=== PATIENT | female | born 1990 | race Caucasian/White ===

== ENCOUNTER 2016-11-07 09:35 | Inpatient (IN) | payer SELFPAY ==
[~2016-11-07] VITALS: Ht 167.6 cm; Wt 58.7 kg
[~2016-11-07 09:35] MED LIST: AUGM875T PO; BACT800T5 PO
[2016-11-07 09:36] VITALS: BP 124/60; PULSE 90; RESP 14; TEMP 89.4; TEMP 98.4; O2SAT 99
--- NOTE | 2016-11-07 09:59 | PD ---
HPI Chief Complaint: Skin Problem Time Seen by Provider: 09:58 Travel History International Travel<30 days: No Contact w/Intl Traveler<30days: No Traveled to known affect area: No History of Present Illness HPI 26-year-old female was transferred from [facility] for facial cellulitis and possible abscess since they did not have oral maxillofacial surgeon. They spoke with Dr. Paez who accepted the case. Dr. Paez is here and he plans to take this patient to the OR. Patient is sleeping and looks to be in discomfort. Her uncle is here who is giving the history. Patient does not have a primary care. She received a dose of vancomycin at the other hospital. I looked at the blood test results and white count was 9000. Chemistry was within normal limits. Patient has history of MRSA. [facility] Past Medical History Narrative Medical List of her past medical history is reviewed from the nursing note. Medical History: Denies Significant Hx ?: Not Past Surgical History Tonsillectomy: Yes Social History Alcohol Use: No Tobacco Use: Yes (1/2PPD) Substance Use: Yes (IV DILAUDID) Allergies-Medications (Allergen,Severity, Reaction): Coded Allergies: *MDRO Multi-Drug Resistant Organism (Verified Adverse Reaction, Unknown, ) MRSA (arm-06/19/16) Comments List of his allergies reviewed from the nursing note. Reported Meds & Prescriptions Reported Meds & Active Scripts Active No Active Prescriptions or Reported Medications Narrative Medication List of his home medications reviewed from the nursing note. Review of Systems Except as stated in HPI: all other systems reviewed are Neg Physical Exam Narrative GENERAL: Sleeping but wakes up on calling her name. Looks uncomfortable. SKIN: Warm and dry. Right side of the face is swollen, tender, swelling and tenderness mostly on the upper aspect of the face including periorbital edema. There is a pimple noticed that the inferior margin of the swelling. HEAD: Atraumatic. Normocephalic. EYES: Pupils equal and round. No scleral icterus. No injection or drainage. ENT: No nasal bleeding or discharge. Mucous membranes pink and moist. NECK: Trachea midline. No JVD. CARDIOVASCULAR: Regular rate and rhythm. No murmur appreciated. RESPIRATORY: No accessory muscle use. Clear to auscultation. Breath sounds equal bilaterally. GASTROINTESTINAL: Abdomen soft, non-tender, nondistended. Hepatic and splenic margins not palpable. MUSCULOSKELETAL: No obvious deformities. No clubbing. No cyanosis. No edema. NEUROLOGICAL: Awake and alert. No obvious cranial nerve deficits. Motor grossly within normal limits. Normal speech. PSYCHIATRIC: Appropriate mood and affect; insight and judgment normal. Data Data Last Documented VS Vital Signs Date Time Temp Pulse Resp B/P Pulse Ox O2 Delivery O2 Flow Rate FiO2 11/07/16 09:36 98.4 90 14 124/60 99 Orders Complete Blood Count With Diff (11/07/16 10:02) Lactic Acid (11/07/16 10:02) ^ Access Analyst / Telemetry (11/07/16 10:02) ^ Saline Lock (11/07/16 10:02) Sodium Chlor 0.9% 1000 Ml Inj (Ns 1000 M (11/07/16 10:15) NPO (11/07/16 10:02) Admit Order (Ed Use Only) (11/07/16 10:22) Labs Laboratory Tests Test 11/07/16 10:05 White Blood Count 9.4 TH/MM3 Red Blood Count 4.13 MIL/MM3 Hemoglobin 11.7 GM/DL Hematocrit 34.8 % Mean Corpuscular Volume 84.2 FL Mean Corpuscular Hemoglobin 28.3 PG Mean Corpuscular Hemoglobin 33.6 % Concent Red Cell Distribution Width 15.3 % Platelet Count 222 TH/MM3 Mean Platelet Volume 7.1 FL Neutrophils (%) (Auto) 71.1 % Lymphocytes (%) (Auto) 20.2 % Monocytes (%) (Auto) 6.3 % Eosinophils (%) (Auto) 1.9 % Basophils (%) (Auto) 0.5 % Neutrophils # (Auto) 6.7 TH/MM3 Lymphocytes # (Auto) 1.9 TH/MM3 Monocytes # (Auto) 0.6 TH/MM3 Eosinophils # (Auto) 0.2 TH/MM3 Basophils # (Auto) 0.0 TH/MM3 CBC Comment DIFF FINAL Differential Comment Lactic Acid Level 0.6 mmol/L MDM Medical Decision Making Medical Screen Exam Complete: Yes Emergency Medical Condition: Yes Medical Record Reviewed: Yes Differential Diagnosis Cellulitis, facial abscess Narrative Course 10:11 AM patient will require to be admitted for IV antibiotic Dr. Paez does not intend to take this patient to the OR. CAT scan does not show any pus collection. Awaiting for the residents to call back for admission. Procedures EKG Prior to Arrival: No Diagnosis Primary Impression: Facial cellulitis Admitting Information Admitting Physician Requests: Admit Scripts No Active Prescriptions or Reported Meds Mya Veloz MD Nov 07, 2016 09:58
[2016-11-07] MEDS ORDERED: SODIUM CHLOR 0.9% 1000 ML INJ 1,000 ML IV ONE (10:15)
[2016-11-07 10:27] LABS: AUTOMATED NEUTROPHIL # 6.7 TH/MM3 (1.8-7.7); BASOPHIL % 0.5 % (0.0-2.0); EOSINOPHIL # 0.2 TH/MM3 (0-0.4); EOSINOPHIL % 1.9 % (0.0-4.0); HEMATOCRIT 34.8 % (35.0-46.0); HEMO FLAGS DIFF FINAL; LYMPH % 20.2 % (9.0-44.0); LYMPHOCYTE # 1.9 TH/MM3 (1.0-4.8); MEAN CELL VOLUME 84.2 FL (80.0-100.0); MEAN CORPUSCULAR HEMOGLOBIN 28.3 PG (27.0-34.0); MEAN CORPUSCULAR HGB CONC 33.6 % (32.0-36.0); MONO % 6.3 % (0.0-8.0); NEUT % 71.1 % (16.0-70.0); PLATELET COUNT 222 TH/MM3 (150-450); RED BLOOD COUNT 4.13 MIL/MM3 (4.00-5.30); RED CELL DISTRIBUTION WIDTH 15.3 % (11.6-17.2); WHITE BLOOD COUNT 9.4 TH/MM3 (4.0-11.0)
--- NOTE | 2016-11-07 10:29 | HHI.HP ---
HPI Service Family Medicine Team A Dr. Hernandez attending Dr. Juares PGY2 Dr. Jessica PGY1 Dr. Lomas PGY3 Primary Care Physician Unknown Admission Diagnosis Diagnoses: International Travel<30 Days: No Contact w/Intl Traveler<30days: No Known Affected Area: No History of Present Illness This is a 26 yo female with a medical history of MDRM presents as a transfer from [facility] for face cellulitis. The patient popped a pimple on her right check about two days ago. Father reports immediately that she started developing facial infection to include redness and swelling. Dad said last night she was running a low grade fever and was in a lot of pain so he brought her to the ED. Father states a couple weeks ago she had a pimple on her left check, she popped that and developed a skin infection. He said she was admitted to [facility] in [facility] for 3 days of IV abx, did not require surgery, and then was on PO abx that father states coasted >$200, he doesn't remember the name of them. Unclear if patient has had MDRM or MRSA. History primarily obtained from father as patient just received morphine and is sleeping. CT face performed at [facility] does not show a pus pocket. Review of Systems ROS Limitations: Clinical Condition Constitutional: COMPLAINS OF: Fever, Chills Eyes: COMPLAINS OF: Diplopia Ears, nose, mouth, throat: COMPLAINS OF: Toothache, DENIES: Throat pain Respiratory: DENIES: Shortness of breath Cardiovascular: DENIES: Chest pain Gastrointestinal: DENIES: Abdominal pain, Nausea, Vomiting Integumentary: DENIES: Rash Other Right facial pain and swelling Past Family Social History Past Medical History none Past Surgical History none Reported Medications none Allergies: Coded Allergies: *MDRO Multi-Drug Resistant Organism (Verified Adverse Reaction, Unknown, ) MRSA (arm-06/19/16) Family History mother and father with no significant medical illnesses Social History 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 There is a 1 cm pimple mid cheek with surrounding erythema. There does not appear to be any drainage from the area. The area is warm and tender. No palpable abscess. She has moderate inflammatory acne on both checks. There are also multiple pustules on her arms with signs of irritation, possible from picking. HEAD: Atraumatic. Normocephalic. No temporal or scalp tenderness. EYES: RT eyelid is swollen able to open spontaneously a small amount, reports no change in her vision. ENT: Nose without bleeding, purulent drainage or septal hematoma. Throat without erythema, tonsillar hypertrophy or exudate. Uvula midline. Airway patent. NECK: Trachea midline. No JVD or lymphadenopathy. Supple, nontender, no meningeal signs. CARDIOVASCULAR: Regular rate and rhythm without murmurs, gallops, or rubs. RESPIRATORY: Clear to auscultation. Breath sounds equal bilaterally. No wheezes , rales, or rhonchi. GASTROINTESTINAL: Abdomen soft, non-tender, nondistended. MUSCULOSKELETAL: Extremities without clubbing, cyanosis, or edema. No joint tenderness, effusion, or edema noted. No calf tenderness. NEUROLOGICAL: Awake and alert. Motor and sensory grossly within normal limits. Normal speech. Assessment and Plan Assessment and Plan 26 yo female with a history of MDRD/MRSA presents with right face cellulitis. Code Status Full Discussed Condition With Dr. Juares ED physician wdw Dr. Hernandez Problem List: (1) Facial cellulitis Status: Acute Plan: CT face negative for abscess. Has been evaluated by maxillary surgery, no surgical intervention at this time. No signs of sepsis: no leukocytosis, no tachycardia, she is not febrile. - IV Vacn & Zosyn (11/07- - Blood cultures ordered. - Warm compress per Dr. Paez - Motrin 600 mg q8 hrs lokesh for pain and swelling - Morphine 3 mg IV q3 hrs prn pain - UDS pending (signs of picking of skin) - Will see how she responds to IV abx, may consider ID consult if no improvement - The patient has moderate inflammatory acne, she would benefit from keratinolytic agent, +/ BP/topical Abx Breana Lomas MD R3 Nov 07, 2016 10:29
[2016-11-07] MEDS ORDERED: NALOXONE HCL 0.4 MG/ML AMP IV PRN (11:15)
[2016-11-07] MEDS ORDERED: SODIUM CHLORIDE 0.9% FLUSH 5 ML FLUSH FLUSH PRN (11:15)
[2016-11-07] MEDS ORDERED: ONDANSETRON HCL 4 MG/2 ML VIAL IVP PRN (11:15)
[2016-11-07] MEDS ORDERED: ACETAMINOPHEN 325 MG TAB PO PRN (11:15)
[2016-11-07] MEDS ORDERED: Vancomycin Consult Pharmacy 1 EA OTHER SCH (11:45)
[2016-11-07] MEDS: SODIUM CHLOR 0.9% 1000 ML INJ 1,000 ML IV SCH ×2 (11:58→21:00)
[2016-11-07] MEDS: DOCUSATE SODIUM 100 MG CAP PO SCH ×2 (12:00→23:06)
[2016-11-07] MEDS: IBUPROFEN 600 MG TAB PO SCH ×3 (12:57→23:06)
[2016-11-07 13:02] VITALS: BP 110/61; PULSE 79; RESP 18; TEMP 98.3; O2SAT 97
[2016-11-07 13:27] LABS: AMPHETAMINE, URINE POS (NEG); BARBITURATES, URINE NEG (NEG); COCAINE, URINE NEG (NEG)
--- NOTE | 2016-11-07 13:44 | MB ---
cc: MITALI PAEZ DMD DATE OF CONSULTATION: 11/07/2016 REASON FOR CONSULTATION: Right-sided facial cellulitis HISTORY: This is 26-year-old female with past history of MRSA that has been transferred over here from [facility] this morning. I have spoken to the physician over there, Dr. Chandra who told me that the CT scan reports facial cellulitis and then multiple broken decayed teeth. The patient, at that point I informed him to admit the patient IV antibiotics, steroids have the patient follow up in my office. The hospital system and ed physician refused to do, so I accepted to transfer the patient's in her best interest and benefits. I have seen and examined this patient this morning. Her uncle was at bedside. She is alert, awake and oriented x3 in no acute distress. Denies any fever, chills, nausea, vomiting, shortness of breath and difficulty breathing, any difficulty swallowing. She reports that she popped a pimple on the right side of her face. Lower face about two days and then she developed swelling. Denies any vision problems.. PHYSICAL EXAMINATION: VITAL SIGNS: Temperature 89.4, but was unlikely,based on the report from [facility] I believe its an error and should be 98.4. The temperature at [facility] was 98.4 as far as their report. Pulse is 90, respiration 14, blood pressure 110/60 with oxygen saturation of 99% room air. PAST MEDICAL HISTORY: Nothing except for methicillin-resistant Staphylococcus aureus. MEDICATIONS: Denied. ALLERGIES Denied. PAST SURGICAL HISTORY: Denied. PAST SURGICAL HISTORY: Past surgical history is denied. SOCIAL HISTORY Smokes about 5-10 cigarettes per day. Denies any alcohol or any illicit drug use. EXAMINATION HEAD, EYES, EARS, NOSE, AND THROAT: Pupils are equal round react to light and accommodation. Extraocular movements are intact. She has some right mild periorbital erythema that is noted. Eyes is open. She has swelling on the right side of the face and on the midportion towards the center of the right side of the face limited going inferiorly. There is a crusty area that is noted there. With erythema all around that site. That is the site. The patient says she popped a pimple. She has mild tender to palpation. Upon Palpate don't appreciate any drainable abscess collection at this point. There is no neck edema. The trachea midline. Intra orally, she has got multiple decayed broken teeth poor dentition. She does not complain about any tooth pain. There is no elevation floor of the mouth or the tongue. There is no deviation of the uvula. There is no edema in the vestibule region of her teeth, especially the right maxilla mandibular region. There is no discharge coming from right side of her face. CT scan of the facial bones on the right side from [facility] shows us an area of swelling on the right side of the face. The small area very small air fluid collection but appears to be where she popped a pimple. But clinically I am unable to palpate, or not drainable at this point. She has multiple decayed teeth. Transpedicular radiolucency. LABORATORY FINDINGS: White count is 9.4, H&H is 7.7, 34.8 with platelets of 222. Chemistries are pending. IMPRESSION AND PLAN This is a 26-year-old female with a past history of methicillin-resistant Staphylococcus aureus, now reports popping on her face with a pimple 2 days ago and then having this cellulitis, swelling on her right side of the face with tenderness secondary to popping the people. She denies any odontogenic cause or any tooth pain at this point. At this point there is no surgical intervention needed from OMS standpoint. We will follow-up. Will advise a medicine admit, IV antibiotics and infectious diseases consult. Mitali Paez DMD RRT/alan /10:45 AM /1:00 PM JOSE RAUL
[2016-11-07 14:25] VITALS: BP 107/61
[2016-11-07 16:00] VITALS: BP 112/53; PULSE 82; RESP 18; TEMP 96.1; O2SAT 98
[2016-11-07] MEDS: VANCOMYCIN INJ 1,000 MG in SODIUM CHLOR 0.9% 250 ML INJ 250 ML IV SCH (17:25)
[2016-11-07] MEDS: PIPERACIL-TAZO 3.375 GM PREMIX 50 ML IV SCH (19:57)
[2016-11-07] MEDS: SODIUM CHLORIDE 0.9% FLUSH 5 ML FLUSH FLUSH SCH (21:00)
[2016-11-07 21:53] VITALS: BP 103/60; PULSE 89; RESP 20; TEMP 97.2; O2SAT 100
[2016-11-07] MEDS: MORPHINE SULFATE 4 MG/ML INJ IV PUSH PRN (23:23)
[2016-11-08] MEDS: PIPERACIL-TAZO 3.375 GM PREMIX 50 ML IV SCH ×2 (01:47→10:21)
[2016-11-08 02:23] VITALS: BP 104/64; PULSE 93; RESP 20; TEMP 97.3; O2SAT 100
[2016-11-08 03:20] VITALS: BP 120/67; PULSE 90; RESP 18; TEMP 98.2; O2SAT 99
[2016-11-08] MEDS: MORPHINE SULFATE 4 MG/ML INJ IV PUSH PRN ×4 (03:58→17:12)
[2016-11-08] MEDS: VANCOMYCIN INJ 1,000 MG in SODIUM CHLOR 0.9% 250 ML INJ 250 ML IV SCH (04:00)
[2016-11-08] MEDS: IBUPROFEN 600 MG TAB PO SCH ×3 (06:35→18:00)
[2016-11-08] MEDS: SODIUM CHLOR 0.9% 1000 ML INJ 1,000 ML IV SCH ×2 (07:00→17:00)
[2016-11-08 07:46] LABS: AUTOMATED NEUTROPHIL # 7.5 TH/MM3 (1.8-7.7); BASOPHIL % 0.2 % (0.0-2.0); EOSINOPHIL % 0.2 % (0.0-4.0); HEMATOCRIT 34.8 % (35.0-46.0); HEMO FLAGS DIFF FINAL; LYMPH % 19.7 % (9.0-44.0); LYMPHOCYTE # 2.1 TH/MM3 (1.0-4.8); MEAN CELL VOLUME 84.6 FL (80.0-100.0); MEAN CORPUSCULAR HEMOGLOBIN 28.4 PG (27.0-34.0); MEAN CORPUSCULAR HGB CONC 33.6 % (32.0-36.0); MONO % 10.6 % (0.0-8.0); NEUT % 69.3 % (16.0-70.0); PLATELET COUNT 266 TH/MM3 (150-450); RED BLOOD COUNT 4.11 MIL/MM3 (4.00-5.30); RED CELL DISTRIBUTION WIDTH 15.7 % (11.6-17.2); WHITE BLOOD COUNT 10.8 TH/MM3 (4.0-11.0)
[2016-11-08 08:00] VITALS: BP 100/62; PULSE 88; RESP 19; TEMP 98.6; O2SAT 100
[2016-11-08] MEDS: SODIUM CHLORIDE 0.9% FLUSH 5 ML FLUSH FLUSH SCH ×2 (09:00→21:00)
--- NOTE | 2016-11-08 10:14 | HHI.PR ---
Subjective Remarks s/p popping pimple right face 3 days ago , right facial edema pt seen and examined, pt's nurse at bedside AAOx3, NAD reports feeling better, tolerating po well Objective Vital Signs Date Time Temp Pulse Resp B/P Pulse Ox O2 Delivery O2 Flow Rate FiO2 11/08/16 08:00 98.6 88 19 100/62 100 11/08/16 03:20 98.2 90 18 120/67 99 11/08/16 02:23 97.3 93 20 104/64 100 11/07/16 21:53 97.2 89 20 103/60 100 11/07/16 16:00 96.1 82 18 112/53 98 11/07/16 14:25 99 16 107/61 98 11/07/16 14:03 18 11/07/16 13:02 98.3 79 18 110/61 97 Room Air I/O 11/07/16 11/07/16 11/07/16 11/08/16 11/08/16 11/08/16 07:00 15:00 23:00 07:00 15:00 23:00 Intake Total 240 ml Balance 240 ml Intake Oral 240 ml # Voids 2 # Bowel Movements 1 Result Diagram: 11/08/16 0649 11/07/16 1340 Objective Remarks significant reduction in right facial/periorbital edema/erythema right eye opening much improved today PERRLA/EOMI no tenderness to palpation' no drainable collection palpated intraorally, no edema noted no neck edema Assessment and Plan Assessment and Plan s/p popping pimple right face 3 days ago hx of MRSA, afebrile, wbc 10.8 now on abx - swelling/tenderness/periorbital edema right side decreasing pt improving on abx, feeling better no intraoral edema continue abx ID consult pending Steven Paez DMD Nov 08, 2016 10:14
--- NOTE | 2016-11-08 10:50 | HHI.FPPN ---
Subjective Remarks No acute issues overnight. Vitals are stable, patient remains afebrile. She is feeling better today but still notes pain on the right side of her face. She has noted some drainage from the initial pimple location. She was able to sleep well. She denies any chest pain, shortness of breath, fever, chills, nausea or vomiting. She is tolerating PO. (Amanda Juares MD R2) Objective Vitals Vital Signs Date Time Temp Pulse Resp B/P Pulse Ox O2 Delivery O2 Flow Rate FiO2 11/08/16 08:00 98.6 88 19 100/62 100 11/08/16 03:20 98.2 90 18 120/67 99 11/08/16 02:23 97.3 93 20 104/64 100 11/07/16 21:53 97.2 89 20 103/60 100 11/07/16 16:00 96.1 82 18 112/53 98 11/07/16 14:25 99 16 107/61 98 11/07/16 14:03 18 11/07/16 13:02 98.3 79 18 110/61 97 Room Air I/O 11/07/16 11/07/16 11/07/16 11/08/16 11/08/16 11/08/16 07:00 15:00 23:00 07:00 15:00 23:00 Intake Total 240 ml Balance 240 ml Intake Oral 240 ml # Voids 2 # Bowel Movements 1 (Amanda Juares MD R2) Result Diagram: 11/08/16 0649 11/07/16 1340 Objective Remarks GENERAL: This is a well-nourished, well-developed patient, in no apparent distress, resting comfortably in bed. SKIN: right facial swelling from eyelid to chin, improved from yesterday's exam. There is a 1 cm pimple mid cheek with surrounding erythema and some oozing serous drainage. The area is warm and tender. No palpable abscess. She has moderate inflammatory acne on both checks. There are also multiple pustules on her arms with signs of irritation, possibly from picking. HEAD: Atraumatic. Normocephalic. No temporal or scalp tenderness. EYES: RT eyelid is swollen able to open spontaneously more than on prior exam, reports no change in her vision. No pain with extraocular movement. ENT: Nose without bleeding, purulent drainage or septal hematoma. Throat without erythema, tonsillar hypertrophy or exudate. Uvula midline. Airway patent. Poor dentition. NECK: Trachea midline. No JVD or lymphadenopathy. Supple, nontender, no meningeal signs. CARDIOVASCULAR: Regular rate and rhythm without murmurs, gallops, or rubs. RESPIRATORY: Clear to auscultation. Breath sounds equal bilaterally. No wheezes , rales, or rhonchi. GASTROINTESTINAL: Abdomen soft, non-tender, nondistended. MUSCULOSKELETAL: Extremities without clubbing, cyanosis, or edema. No joint tenderness, effusion, or edema noted. No calf tenderness. NEUROLOGICAL: Awake and alert. Motor and sensory grossly within normal limits. Normal speech. (Amanda Juares MD R2) A/P Assessment and Plan 26 yo female with a history of MDRD/MRSA admitted for right face cellulitis. Discharge Planning In the next 2-3 days pending clinical improvement. sdw Dr. Hernandez, Dr. Lomas, Dr. Jessica, and Maria Eugenia MS4 (Amanda Juares MD R2) Attending Attestation A detailed discussion involving Dr Lomas, Dr Juares, Dr Jessica and MS Campos about patients admission occurred this am, Patient was then seen and examined, Agree with details of this note, Agree with Assessment and Plan, See Orders. ( Tino Hernandez MD) Problem List: (1) Facial cellulitis Status: Acute Plan: CT face at [facility] negative for abscess. No signs of sepsis: no leukocytosis, no tachycardia, afebrile. UDS positive for Amphetamines, patient continues to deny any illicit drug use Evaluated by maxillary surgery, Dr. Paez: * no surgical intervention at this time * Warm compresses. * ID Consult - IV Vacn & Zosyn (11/07- - Blood cultures pending - Motrin 600 mg q8 hrs lokesh for pain and swelling - Morphine 3 mg IV q3 hrs prn pain - The patient has moderate inflammatory acne, she would benefit from keratinolytic agent, +/ BP/topical Abx - Hibiclens (2) Nutrition, metabolism, and development symptoms Status: Acute Plan: Fluids: None, tolerating PO Electrolytes: BMP pending Nutrition: Regular Basic Diet DVT PPx: SCD's (Amanda Juares MD R2) Amanda Juares MD R2 Nov 08, 2016 10:50 Tino Hernandez MD Nov 08, 2016 20:53
[2016-11-08 12:00] VITALS: BP 105/51; PULSE 93; RESP 20; TEMP 98.3; O2SAT 99
[2016-11-08] MEDS: DOCUSATE SODIUM 100 MG CAP PO SCH (12:00)
[2016-11-08] MEDS ORDERED: CHLORHEXIDINE GLUCONATE 4% SOLN 120 ML BTL TOPICAL ONE (12:00)
[2016-11-08 13:13] LABS: BICARBONATE 23.1 MEQ/L (21.0-32.0); POTASSIUM 3.7 MEQ/L (3.5-5.1)
[2016-11-08] MEDS ORDERED: PHARMACY ORDERED LAB XX ONE (15:45)
[2016-11-08 16:00] VITALS: BP 106/66; PULSE 90; RESP 20; TEMP 97; O2SAT 100
--- NOTE | 2016-11-08 17:40 | PD.ID.CON ---
History of Present Illness Service ID Consult Requested By Dr Paez Reason for Consult facila cellulitis Primary Care Physician Unknown Diagnoses: History of Present Illness 26 F presenting as a transfer from [facility] with few days of swelling redness of her face which developped after she popped a pimple SHe was started zoe vroasd spectrum abx and she states imptovement of pain swelling and redness She also noticed intermittent drainage from a small wound on her R cheek No fever, chills denies visual changes Review of Systems Other as per historuy of present illness, the rest of 12 point review is negative Past Family Social History Allergies: Coded Allergies: *MDRO Multi-Drug Resistant Organism (Verified Adverse Reaction, Unknown, ) MRSA (arm-06/19/16) Past Medical History MRSA infx L forearm Past Surgical History none Active Ordered Medications Medications where reviewed in EMR Antibiotics Include: zosyn vancomycin Family History Non-Contributory. Social History + Tobacco. 1/2 PPD No ETOH. No Illicit Drugs. Physical Exam Vital Signs Vital Signs Date Time Temp Pulse Resp B/P Pulse Ox O2 Delivery O2 Flow Rate FiO2 11/08/16 16:00 97.0 90 20 106/66 100 11/08/16 12:00 98.3 93 20 105/51 99 11/08/16 08:00 98.6 88 19 100/62 100 11/08/16 03:20 98.2 90 18 120/67 99 11/08/16 02:23 97.3 93 20 104/64 100 11/07/16 21:53 97.2 89 20 103/60 100 Physical Exam CONSTITUTIONAL/GENERAL: This is an adequately nourished patient, in no apparent distress. TUBES/LINES/DRAINS: SKIN: No jaundice,Skin temperature appropriate. Not diaphoretic. Moderate edme, erythema of R periorbital area, R cheek Small opening with light scab on R cheek, no fluctuance no drainage HEAD: Atraumatic. Normocephalic. EYES: Pupils equal and round and reactive. Extraocular motions intact. No scleral icterus. No injection or drainage. Fundi not examined. ENT: Hearing grossly normal. Nose without bleeding or purulent drainage. Oral without visible erythema, exudates, masses, or lesions. Poor dentition NECK: Trachea midline. Supple, nontender. No palpable thyroid enlargement or nodularity. CARDIOVASCULAR: Regular rate and rhythm without murmurs, gallops, or rubs. No JVD. Peripheral pulses symmetric. RESPIRATORY/CHEST: Symmetric, unlabored respirations. Clear to auscultation. Breath sounds equal bilaterally. No wheezes, rales, or rhonchi. GASTROINTESTINAL: Abdomen soft, non-tender, nondistended. No hepato-splenomegaly , or palpable masses. No guarding. Bowel sounds present. MUSCULOSKELETAL: Extremities without clubbing, cyanosis, or edema. No joint tenderness or effusion noted. No calf tenderness. No mottling or clubbing. LYMPHATICS: No palpable cervical or supraclavicular adenopathy. NEUROLOGICAL: Awake and alert. Motor and sensory grossly within normal limits. Follows commands. Normal speech Moves all extremities. PSYCHIATRIC: No obvious anxiety/depression. no apparent hallucinations or other psychotic thought process. Laboratory Laboratory Tests Test 11/08/16 11/08/16 06:49 12:12 White Blood Count 10.8 Red Blood Count 4.11 Hemoglobin 11.7 Hematocrit 34.8 Mean Corpuscular Volume 84.6 Mean Corpuscular Hemoglobin 28.4 Mean Corpuscular Hemoglobin 33.6 Concent Red Cell Distribution Width 15.7 Platelet Count 266 Mean Platelet Volume 7.3 Neutrophils (%) (Auto) 69.3 Lymphocytes (%) (Auto) 19.7 Monocytes (%) (Auto) 10.6 Eosinophils (%) (Auto) 0.2 Basophils (%) (Auto) 0.2 Neutrophils # (Auto) 7.5 Lymphocytes # (Auto) 2.1 Monocytes # (Auto) 1.1 Eosinophils # (Auto) 0.0 Basophils # (Auto) 0.0 CBC Comment DIFF FINAL Differential Comment Sodium Level 145 Potassium Level 3.7 Chloride Level 112 Carbon Dioxide Level 23.1 Anion Gap 10 Blood Urea Nitrogen 11 Creatinine 0.71 Estimat Glomerular Filtration 100 Rate Random Glucose 181 Calcium Level 8.2 Date/Time Procedure Status Source Growth 11/07/16 13:03 Aerobic Blood Culture - Preliminary Resulted Blood Peripheral NO GROWTH IN 1 DAY 11/07/16 13:03 Anaerobic Blood Culture - Preliminary Resulted Blood Peripheral NO GROWTH IN 1 DAY Result Diagram: 11/08/16 0649 11/08/16 1212 Assessment and Plan Assessment and Plan Facial cellulitis R cheek No drainable abscess, per OMFS evaluation\ Problems c IV access H/o MRSA - start po zyvox - dc vancomycin - clx purulence if starts to drain again Vanessa Wolff MD Nov 08, 2016 17:40
[2016-11-08 19:15] VITALS: BP 109/69; PULSE 85; RESP 18; TEMP 97.9; O2SAT 99
[2016-11-08] MEDS: LINEZOLID 600 MG TAB PO SCH (21:00)
[2016-11-09 00:52] VITALS: BP 98/60; PULSE 80; RESP 18; TEMP 97.3; O2SAT 100
[2016-11-09] MEDS: PIPERACIL-TAZO 3.375 GM PREMIX 50 ML IV SCH ×3 (02:00→17:31)
[2016-11-09] MEDS: SODIUM CHLOR 0.9% 1000 ML INJ 1,000 ML IV SCH ×3 (03:00→23:30)
[2016-11-09 04:09] VITALS: BP 108/69; PULSE 80; RESP 18; TEMP 97.8; O2SAT 100
[2016-11-09] MEDS: IBUPROFEN 600 MG TAB PO SCH ×5 (06:33→23:41)
[2016-11-09 08:28] LABS: ALKALINE PHOSPHATASE 140 U/L (45-117); ALT (GPT) 353 U/L (10-53); ANION GAP 8 MEQ/L (5-15); AST (GOT) 120 U/L (15-37); BICARBONATE 24.1 MEQ/L (21.0-32.0); BLOOD UREA NITROGEN 8 MG/DL (7-18); CHLORIDE 107 MEQ/L (98-107); GLOMERULAR FILTRATION RATE 144 ML/MIN (>89); POTASSIUM 4.3 MEQ/L (3.5-5.1); SODIUM (NA) 139 MEQ/L (136-145); TOTAL BILIRUBIN ADULT 0.2 MG/DL (0.2-1.0)
[2016-11-09 08:51] LABS: HEMATOCRIT 35.3 % (35.0-46.0); MEAN CELL VOLUME 86.2 FL (80.0-100.0); MEAN CORPUSCULAR HEMOGLOBIN 28.1 PG (27.0-34.0); MEAN CORPUSCULAR HGB CONC 32.6 % (32.0-36.0); PLATELET COUNT 282 TH/MM3 (150-450); RED BLOOD COUNT 4.09 MIL/MM3 (4.00-5.30); RED CELL DISTRIBUTION WIDTH 15.5 % (11.6-17.2); REVIEW FLAG FINAL; WHITE BLOOD COUNT 6.4 TH/MM3 (4.0-11.0)
[2016-11-09 08:58] VITALS: BP 101/67; PULSE 72; RESP 16; TEMP 97.5; O2SAT 98
[2016-11-09] MEDS: SODIUM CHLORIDE 0.9% FLUSH 5 ML FLUSH FLUSH SCH ×2 (09:00→21:34)
--- NOTE | 2016-11-09 09:08 | HHI.FPPN ---
Subjective Remarks Acute issues overnight. Vitals are stable, patient remains afebrile. She continues to have pain on her face, but has noted some improvement. She no longer has drainage from her lesion. She denies any chest pain, shortness of breath, fever, chills, nausea or vomiting. She is tolerating by mouth. Objective Vitals Vital Signs Date Time Temp Pulse Resp B/P Pulse Ox O2 Delivery O2 Flow Rate FiO2 11/09/16 08:58 97.5 72 16 101/67 98 11/09/16 04:09 97.8 80 18 108/69 100 11/09/16 00:52 97.3 80 18 98/60 100 11/08/16 19:15 97.9 85 18 109/69 99 11/08/16 16:00 97.0 90 20 106/66 100 11/08/16 12:00 98.3 93 20 105/51 99 I/O 11/08/16 11/08/16 11/08/16 11/09/16 11/09/16 11/09/16 07:00 15:00 23:00 07:00 15:00 23:00 Intake Total 240 ml 480 ml 480 ml 480 ml Balance 240 ml 480 ml 480 ml 480 ml Intake Oral 240 ml 480 ml 480 ml 480 ml # Voids 7 2 2 # Bowel Movements 2 Result Diagram: 11/09/16 0739 11/09/16 0739 Objective Remarks GENERAL: This is a well-nourished, well-developed patient, in no apparent distress, resting comfortably in bed. SKIN: right facial swelling from eyelid to chin, improved from yesterday's exam. There is a 1 cm pimple mid cheek with surrounding erythema, currently scabbing over. The area is warm and tender. Erythema receding from previous exam No palpable abscess. She has moderate inflammatory acne on both checks. There are also multiple pustules on her arms with signs of irritation, possibly from picking. HEAD: Atraumatic. Normocephalic. No temporal or scalp tenderness. EYES: RT eyelid is swollen able to open spontaneously more than on prior exam, reports no change in her vision. No pain with extraocular movement. ENT: Nose without bleeding, purulent drainage or septal hematoma. Throat without erythema, tonsillar hypertrophy or exudate. Uvula midline. Airway patent. Poor dentition. NECK: Trachea midline. No JVD or lymphadenopathy. Supple, nontender, no meningeal signs. CARDIOVASCULAR: Regular rate and rhythm without murmurs, gallops, or rubs. RESPIRATORY: Clear to auscultation. Breath sounds equal bilaterally. No wheezes , rales, or rhonchi. GASTROINTESTINAL: Abdomen soft, non-tender, nondistended. MUSCULOSKELETAL: Extremities without clubbing, cyanosis, or edema. No joint tenderness, effusion, or edema noted. No calf tenderness. NEUROLOGICAL: Awake and alert. Motor and sensory grossly within normal limits. Normal speech. A/P Assessment and Plan 26 yo female with a history of MDRD/MRSA admitted for right face cellulitis. Discharge Planning Anticipate discharge in 1-2 days pending clinical improvement. noe Hernandez Problem List: (1) Facial cellulitis Status: Acute Plan: CT face at [facility] negative for abscess. No signs of sepsis: no leukocytosis, no tachycardia, afebrile. UDS positive for Amphetamines, patient continues to deny any illicit drug use Evaluated by maxillary surgery, Dr. Paez: * no surgical intervention at this time * Warm compresses. * ID Consult s/p IV Vacn (11/07-11/08) 11/07 Blood cultures NG1D - ID- DC Vanc, Zyvox 600mg PO Q12H (started 11/08) - Zosyn 3.375mg IV Q8H (started 11/07) - Motrin 600 mg q8 hrs lokesh for pain and swelling - Morphine 3 mg IV q3 hrs prn pain - The patient has moderate inflammatory acne, she would benefit from keratinolytic agent, +/ BP/topical Abx - Hibicledesirae (2) Elevated liver enzymes Status: Acute Plan: AST 120, ALT 353 Obtain Hepatitis panel Liver US (3) Nutrition, metabolism, and development symptoms Status: Acute Plan: Fluids: None, tolerating PO Electrolytes: BMP pending Nutrition: Regular Basic Diet DVT PPx: MARICEL's Amanda Juares MD R2 Nov 09, 2016 09:08
[2016-11-09] MEDS: LINEZOLID 600 MG TAB PO SCH ×2 (09:35→21:31)
[2016-11-09] MEDS: MORPHINE SULFATE 4 MG/ML INJ IV PUSH PRN ×3 (09:57→23:50)
[2016-11-09] MEDS: DOCUSATE SODIUM 100 MG CAP PO SCH ×3 (12:00→23:42)
[2016-11-09 13:02] VITALS: BP_SYST 58; PULSE 88; RESP 16; TEMP 97.8; O2SAT 98
[2016-11-09 17:52] VITALS: BP 98/72; PULSE 85; RESP 16; TEMP 97.9; O2SAT 97
[2016-11-09 20:00] VITALS: BP 99/63; PULSE 82; RESP 16; TEMP 97.4; O2SAT 99
--- NOTE | 2016-11-09 20:09 | RADRPT ---
EXAM DATE/TIME: 11/09/2016 17:57 [facility] COMPARISON: No previous studies available for comparison. INDICATIONS : Increased lab values. MEDICAL HISTORY : MRSA - Arm 2016. Diplopia. Facial cellulitis. Anxiety and depression. SURGICAL HISTORY : Tonsillectomy. ENCOUNTER: Initial ACUITY: 1 day PAIN SCORE: 0/10 LOCATION: Bilateral upper quadrant MEASUREMENTS: LIVER: 17.5 cm length COMMON DUCT: 2 mm RIGHT KIDNEY: 11.0 x 5.2 x 3.4 cm SPLEEN: 12.9 cm length FINDINGS: LIVER: Normal echotexture without focal lesion or ductal dilatation. There is normal flow velocity and direc tion in the main portal vein. COMMON DUCT: No intraluminal mass or stone visualized. GALLBLADDER: Contains no stones, demonstrates no wall thickening or pericholecystic fluid. PANCREAS: The visualized portions are within normal limits. RIGHT KIDNEY: No hydronephrosis, stone or mass. SPLEEN: No focal lesion. CONCLUSION: Normal abdomen ultrasound. Dominick Ibrahim MD on November 09, 2016 at 20:06 Board Certified Radiologist. This report was verified electronically.
[2016-11-10] VITALS: BP 98/63; PULSE 76; RESP 18; TEMP 99.1; O2SAT 100
[2016-11-10] MEDS: PIPERACIL-TAZO 3.375 GM PREMIX 50 ML IV SCH ×2 (02:05→09:33)
[2016-11-10 04:00] VITALS: BP 94/59; PULSE 80; RESP 18; TEMP 98.7; O2SAT 100
[2016-11-10] MEDS: IBUPROFEN 600 MG TAB PO SCH (06:23)
[2016-11-10 08:00] VITALS: BP 131/72; PULSE 77; RESP 18; TEMP 97.9; O2SAT 98
--- NOTE | 2016-11-10 08:05 | HHI.PR ---
Subjective Remarks s/p popping pimple right face 5 days ago , right facial edema pt seen and examined, pt's nurse/uncle at bedside AAOx3, NAD reports feeling better, tolerating po well denies f/c/n/v/sob. Objective Vital Signs Date Time Temp Pulse Resp B/P Pulse Ox O2 Delivery O2 Flow Rate FiO2 11/10/16 04:00 98.7 80 18 94/59 100 11/10/16 00:00 99.1 76 18 98/63 100 11/09/16 20:00 97.4 82 16 99/63 99 11/09/16 17:52 97.9 85 16 98/72 97 11/09/16 13:02 97.8 88 16 58/ 98 11/09/16 08:58 97.5 72 16 101/67 98 I/O 11/09/16 11/09/16 11/09/16 11/10/16 11/10/16 11/10/16 07:00 15:00 23:00 07:00 15:00 23:00 Intake Total 480 ml 360 ml 1671 ml Balance 480 ml 360 ml 1671 ml Intake Oral 480 ml 360 ml IV Total 1671 ml # Voids 2 1 2 # Bowel Movements 2 Result Diagram: 11/09/16 0739 11/09/16 0739 Objective Remarks significant reduction in right facial/periorbital edema/erythema right eye fully open. no facial edema no erythema noted today right face - where pt popped pimple, small residual crust, no drainage PERRLA/EOMI minimal residual tenderness to palpation' no drainable collection palpated intraorally, no edema noted no neck edema Assessment and Plan Assessment and Plan s/p popping pimple right face 5 days ago hx of MRSA, afebrile, wbc 6.4 yesterday, wbc pending today now on abx - swelling/tenderness/periorbital edema right side significantly decreased pt improving on abx, feeling better no intraoral edema continue abx - zyox ID consult noted no surgical intervention from OMS standpoint at this time OMS signing off. f/up in our office [phone] advised pt to f/up with dentist, Steven Paez DMD Nov 10, 2016 08:05
[2016-11-10 08:12] LABS: AUTOMATED NEUTROPHIL # 2.9 TH/MM3 (1.8-7.7); BASOPHIL % 0.7 % (0.0-2.0); EOSINOPHIL # 0.2 TH/MM3 (0-0.4); EOSINOPHIL % 2.8 % (0.0-4.0); HEMO FLAGS DIFF FINAL; LYMPH % 39.8 % (9.0-44.0); LYMPHOCYTE # 2.5 TH/MM3 (1.0-4.8); MEAN CELL VOLUME 84.3 FL (80.0-100.0); MEAN CORPUSCULAR HGB CONC 33.2 % (32.0-36.0); MONO % 10.2 % (0.0-8.0); NEUT % 46.5 % (16.0-70.0); PLATELET COUNT 305 TH/MM3 (150-450); RED BLOOD COUNT 4.51 MIL/MM3 (4.00-5.30); WHITE BLOOD COUNT 6.2 TH/MM3 (4.0-11.0)
[2016-11-10 08:19] LABS: ALKALINE PHOSPHATASE 146 U/L (45-117); ALT (GPT) 298 U/L (10-53); ANION GAP 9 MEQ/L (5-15); AST (GOT) 94 U/L (15-37); BICARBONATE 24.3 MEQ/L (21.0-32.0); BLOOD UREA NITROGEN 8 MG/DL (7-18); CHLORIDE 109 MEQ/L (98-107); GLOMERULAR FILTRATION RATE 107 ML/MIN (>89); SODIUM (NA) 142 MEQ/L (136-145); TOTAL BILIRUBIN ADULT LESS THAN 0.1 MG/DL (0.2-1.0)
[2016-11-10] MEDS: LINEZOLID 600 MG TAB PO SCH (09:32)
[2016-11-10] MEDS: MORPHINE SULFATE 4 MG/ML INJ IV PUSH PRN (09:33)
--- NOTE | 2016-11-10 10:13 | HHI.FPPN ---
Subjective Remarks Overnight, FABIOLA. AF. Stable asymptomatic borderline hypotension at 95/60. Today, redness improved, pain improved from yesterday. "Sometimes" there is discharge from pimple R cheek. Ready to go home. Discussed Hep C positive result and need for follow up as outpatient for treatment. Discussed treatment was weeks in duration and would need to prove several negative drug screens. Pt denies substance abuse, states contact with roommate who smokes meth. Expressed understanding of discharge with antibiotic by mouth and antibiotic creme for pimple (Katie Jessica MD R1) Objective Vitals Vital Signs Date Time Temp Pulse Resp B/P Pulse Ox O2 Delivery O2 Flow Rate FiO2 11/10/16 08:00 97.9 77 18 131/72 98 11/10/16 04:00 98.7 80 18 94/59 100 11/10/16 00:00 99.1 76 18 98/63 100 11/09/16 20:00 97.4 82 16 99/63 99 11/09/16 17:52 97.9 85 16 98/72 97 11/09/16 13:02 97.8 88 16 58/ 98 I/O 11/09/16 11/09/16 11/09/16 11/10/16 11/10/16 11/10/16 07:00 15:00 23:00 07:00 15:00 23:00 Intake Total 480 ml 360 ml 1671 ml Balance 480 ml 360 ml 1671 ml Intake Oral 480 ml 360 ml IV Total 1671 ml # Voids 2 1 2 # Bowel Movements 2 (Katie Jessica MD R1) Result Diagram: 11/10/16 0658 11/10/16 0658 Imaging Last Impressions Liver Ultrasound 11/09/16 0000 Signed Impressions: Service Date/Time: Wednesday, November 09, 2016 17:57 - CONCLUSION: Normal abdomen ultrasound. Dominick Ibrahim MD Objective Remarks GENERAL: This is a well-nourished, well-developed patient, in no apparent distress, resting comfortably in bed. SKIN: right facial swelling from eyelid to chin, improved from yesterday's exam. There is a 1 cm pimple mid cheek with surrounding erythema, currently scabbing over. The area is warm and tender. Erythema receding from previous exam No palpable abscess. She has moderate inflammatory acne on both checks. There are also multiple pustules on her arms with signs of irritation, possibly from picking. HEAD: Atraumatic. Normocephalic. No temporal or scalp tenderness. EYES: RT eyelid is swollen able to open spontaneously more than on prior exam, reports no change in her vision. No pain with extraocular movement. ENT: Nose without bleeding, purulent drainage or septal hematoma. Throat without erythema, tonsillar hypertrophy or exudate. Uvula midline. Airway patent. Poor dentition. NECK: Trachea midline. No JVD or lymphadenopathy. Supple, nontender, no meningeal signs. CARDIOVASCULAR: Regular rate and rhythm without murmurs, gallops, or rubs. RESPIRATORY: Clear to auscultation. Breath sounds equal bilaterally. No wheezes , rales, or rhonchi. GASTROINTESTINAL: Abdomen soft, non-tender, nondistended. MUSCULOSKELETAL: Extremities without clubbing, cyanosis, or edema. No joint tenderness, effusion, or edema noted. No calf tenderness. NEUROLOGICAL: Awake and alert. Motor and sensory grossly within normal limits. Normal speech. (Katie Jessica MD R1) Urinary Catheter: No (Katie Jessica MD R1) Vascular Central Line Catheter: No (Katie Jessica MD R1) A/P Assessment and Plan 26y female with a history of MRSA and UDS +amphetamines hospitalized 11/07/16 for treatment of MRSA facial cellulitis. Discharge Planning Today 11/10/15, pending ok from maxillofacial sx SDW: Dr. Hernandez (Katie Jessica MD R1) Attending Attestation Patient seen and examined. Case reviewed and discussed with the resident team. Agree with plan of care as discussed with me and documented in the resident note. (Tino Hernandez MD) Problem List: (1) MRSA cellulitis Status: Acute Plan: CT face at [facility] neg for abscess. No si/symp sepsis: no leukocytosis, no tachycardia, afebrile. UDS+ amphetamines, pt denies use Evaluated by maxillary surgery, Dr. Paez: no surgical intervention at this time, warm compresses, ID Consult S/p IV Vacn (11/07-11/08) 11/07 Blood cultures NG1D S/p Hibiclens (11/09) Plan -Discharge 11/10/15 pending recommendations for maxillofacial sx and ID -Continue Zyvox 600mg PO Q12H (11/08-11/10) -Continue Zosyn 3.375mg IV Q8H (11/07- 11/10) -Recommend discharge with Bactrim x7 days (10 days total) (11/11-11/16) - will confer with ID, Dr. Wolff, for recommendations -Discharge with Bactroban creme BID to pimple while taking antibiotics by mouth -Follow up with Dr. Paez ([facility] [place]) in 2 weeks [phone] -Pain control with Motrin 600mg TID [facility] -Discontinue Morphine (2) Facial cellulitis Status: Acute Plan: see MRSA cellulitis above (3) Hx MRSA infection Status: Chronic Plan: Prior hospitalization for MRSA on arm 06/22/16 -Contact precautions (4) Elevated liver enzymes Status: Acute Plan: AST 120, ALT 353 Obtain Hepatitis panel Liver US (5) Hepatitis C infection Status: Chronic Plan: Elevated LFTs to ~120/300 prompting hepatitis panel, positive for Hep C antigen. Liver U/S: wnl Plan -Counseled that Hep C positive, transmitted via blood, risk of transmission through sharing needles and sexual partners -Counseled that is a life long condition that needs treatment for weeks with antibiotics as outpatient, or else will cause liver failure later in life -Pt appeared to minimize/not fully process this diagnosis -Discharge with recommendation for outpatient follow up with Gastroenterology (6) Positive urine drug screen Status: Acute Plan: UDS (11/07/16): +amphetamine. In context of acne, poor dentition, Hep C infection, presumed methamphetamine use -drug cessation counseling provided. pt denies illicit drug use. "My roommate smokes meth" (7) Poor dentition Status: Chronic Plan: Evaluated by Dr. Paez- no active abscesses/infection that would cause facial cellulitis. CT head at [facility] negative for abscess. -Recommend visit dentist and cease use and/or contact with meth (8) Nutrition, metabolism, and development symptoms Status: Acute Plan: FEN/PPX Fluids: Per PO Electrolytes: monitor, replete PRN Nutrition: Regular Basic Diet DVT PPx: SCD's GI ppx: not indicated (Katie Jessica MD R1) Katie Jessica MD R1 Nov 10, 2016 10:13 Tino Hernandez MD Nov 10, 2016 19:14
--- NOTE | 2016-11-10 10:50 | HHI.DCPOC ---
Discharge Care Plan Diagnosis: (1) MRSA cellulitis (2) Facial cellulitis (3) Hx MRSA infection (4) Hepatitis C infection (5) Elevated liver enzymes (6) Positive urine drug screen (7) Poor dentition Goals to Promote Your Health * To prevent worsening of your condition and complications * To maintain your health at the optimal level Directions to Meet Your Goals Take your medications as prescribed Follow your dietary instruction Follow activity as directed Keep your appointments as scheduled Take your immunizations and boosters as scheduled If your symptoms worsen call your PCP, if no PCP go to Urgent Care Center or Emergency Room Smoking is Dangerous to Your Health. Avoid second hand smoke Call the 24-hour hour crisis hotline for domestic abuse at Katie Jessica MD R1 Nov 10, 2016 10:50
--- NOTE | 2016-11-10 13:06 | HHI.DS ---
Discharge Summary Admission Date Nov 07, 2016 at 10:23 Discharge Date: Nov 10, 2016 Admitting Diagnosis Facial cellulitis (1) MRSA cellulitis Diagnosis: Principal Plan: CT face at [facility] neg for abscess. No si/symp sepsis: no leukocytosis, no tachycardia, afebrile. UDS+ amphetamines, pt denies use Plan -Evaluated by maxillary surgery, Dr. Paez: no surgical intervention at this time, warm compresses, ID Consult. -Abx history: Vanc (11/07-11/08), Zyvox (11/08-11/10), Zosyn (11/07- 11/10) -Discharge with Bactrim 400/80 (free at [facility]) 2 tabs BID x7d (11/11-11/16) -Discharge with Bactroban creme BID to pimple while taking antibiotics by mouth -Follow up with Dr. Paez ([facility] [place]) in 2 weeks [phone] -Follow up with PCP in 1 week (no PCP at present, case will assist with establishment) -Pain control with Motrin 600mg TID [facility] (2) Hx MRSA infection Diagnosis: Principal Plan: Prior hospitalization for MRSA on arm 06/22/16. Hospitalization 09/2016 with treatment unknown abx for unknown infection. -Contact precautions -S/p Hibiclens (11/09/16) (3) Facial cellulitis Diagnosis: Principal Plan: see MRSA cellulitis above (4) Poor dentition Diagnosis: Principal Plan: Evaluated by Dr. Paez- no active abscesses/infection that would cause facial cellulitis. CT head at [facility] negative for abscess. -Recommend visit dentist and cease use and/or contact with meth (5) Hepatitis C infection Diagnosis: Principal Plan: Elevated LFTs to ~120/300 prompting hepatitis panel, positive for Hep C antigen. Liver U/S: wnl Plan -Counseled that Hep C positive, transmitted via blood, risk of transmission through sharing needles and sexual partners -Counseled that is a life long condition that needs treatment for weeks with antibiotics as outpatient, or else will cause liver failure later in life -Pt appeared to minimize/not fully process this diagnosis -Discharge with recommendation for outpatient follow up with Gastroenterology (6) Elevated liver enzymes Diagnosis: Principal Plan: AST 120, ALT 353 on admission, slowly downtrending. HIV neg. -See plan for Hep C (7) Positive urine drug screen Diagnosis: Principal Plan: UDS (11/07/16): +amphetamine. In context of acne, poor dentition, Hep C infection, presumed methamphetamine use -drug cessation counseling provided. pt denies illicit drug use. "My roommate smokes meth" Consultants OMS, ID, Case Management Brief History 26y female with hx MRSA in arm 05/2016 presenting as transfer from [facility] for face cellulitis. Popped a pimple on her right check about two days ago. Immediately developed facial infection to include redness, swelling, and low grade fever. She had a similar episode a few weeks ago, was admitted to [facility] in [facility] for 3 days of IV abx, did not require surgery, and then was on PO abx that father states coasted >$200, he doesn't remember the name of them. Unclear if patient has had MDRM or MRSA. Hx primarily obtained from father as pt just received morphine and is sleeping. CT face performed at [facility] does not show a pus pocket. CBC/BMP: 11/10/16 0658 11/10/16 0658 Significant Findings Laboratory Tests Test 11/08/16 11/08/16 11/08/16 11/09/16 06:49 12:12 17:42 07:39 Hematocrit 34.8 % (35.0-46.0) Monocytes (%) (Auto) 10.6 % (0.0-8.0) Monocytes # (Auto) 1.1 TH/MM3 (0-0.9) Chloride Level 112 MEQ/L (98-107) Random Glucose 181 MG/DL (74-106) Calcium Level 8.2 MG/DL 8.3 MG/DL (8.5-10.1) (8.5-10.1) Vancomycin Level Trough 2.6 MCG/ML (5.0-10.0) Hemoglobin 11.5 GM/DL (11.6-15.3) Aspartate Amino Transf 120 U/L (15-37) (AST/SGOT) Alanine Aminotransferase 353 U/L (10-53) (ALT/SGPT) Alkaline Phosphatase 140 U/L (45-117) Albumin 2.7 GM/DL (3.4-5.0) Test 11/09/16 11/10/16 09:55 06:58 Hepatitis C Antibody REACTIVE (NEGATIVE) Mean Platelet Volume 6.8 FL (7.0-11.0) Monocytes (%) (Auto) 10.2 % (0.0-8.0) Chloride Level 109 MEQ/L (98-107) Total Bilirubin LESS THAN 0.1 MG/DL (0.2-1.0) Aspartate Amino Transf 94 U/L (15-37) (AST/SGOT) Alanine Aminotransferase 298 U/L (10-53) (ALT/SGPT) Alkaline Phosphatase 146 U/L (45-117) Albumin 2.8 GM/DL (3.4-5.0) Imaging Last Impressions Liver Ultrasound 11/09/16 0000 Signed Impressions: Service Date/Time: Wednesday, November 09, 2016 17:57 - CONCLUSION: Normal abdomen ultrasound. Dominick Ibrahim MD PE at Discharge CONST: Adult female in NAD. Sleepy, rousable to voice. DERM: There is a 1 cm pimple mid cheek with surrounding erythema, currently scabbing over. The area is warm and tender. Erythema receding from previous exam No palpable abscess. She has moderate inflammatory acne on both checks. also multiple pustules on her arms with signs of irritation, possibly from picking. HEENT: RT eyelid swollen, ptosis, able to open spontaneously more than on prior exam. No pain w EOM. Poor dentition. No abscesses CV: RRR. No murmurs. RESP: Lungs CTAB GI: NTND. +BS MSK: Muscle tone symmetrical. Slender female. NEURO: No gross motor or sensory deficits. PSYCH: Reserved affect. Behavior somewhat childish behavior- like burrowing in covers during exam- unexpected for 26y female. Hospital Course 26y female with hx MRSA (2016) and unknown MDRO several weeks prior hospitalized 11/07/16 as transfer from [facility] for MRSA facial cellulitis x2 days after popping a pimple on R cheek. Highly suspect methamphetamine use due to UDS +amphetamine use, poor dentition, acne, and hep C positive status, though pt denies illicit drug use: "My roomate smokes meth" OMS and ID were consulted. CT face at [facility] did not show abscess. OMS noted poor dentition and recommended dentist, but did not feel pt was surgical candidate- recommended warm compresses and office f/u in 2 weeks. Pt was treated with vanc, Zyvox, and Zosyn while inpatient (11/07-11/10). Discharged with 7 days of Bactrim and Bactroban creme. Pain control w ibuprofen. Pt was also diagnosed with Hep C while inpatient and recommended to establish with GI care for treatment. Discharged home in stable condition with medication changes and recommended follow up as below. She has no PCP and case management helped with obtaining medications and information about follow-up. Pt Condition on Discharge: Stable Discharge Disposition: Discharge Home Discharge Instructions DIET: Follow Instructions for: As Tolerated, No Restrictions Activities you can perform: Regular-No Restrictions Other Activity Instructions: -MRSA from wound is contagious. Wash hands with soap and water frequently to stop from spreading the bacteria. -Do not go in [place] for at least one week Follow up Referrals: Appointment for Follow Up - 2 Weeks @ Dentist Teeth infection can lead to facial /sinus infection. Recommended to see dentist every 6 months. Gastroenterology - 1 Month Oral Maxillary Surgery - 2 Weeks with Steven Paez DMD PCP Follow-up - 1 Month New Medications: Mupirocin Topical (Bactroban Topical) 2 % Cream 1 APPLIC TOPICAL BID Apply twice day to wound while taking antibiotics Mgmt Bacterial Infection #1 Ref 0 TUBE Sulfamethoxazole-Trimethoprim (Bactrim DS) 800-160 Mg Tab 1 TAB PO BID Infection #14 Ref 0 TAB Ibuprofen (Ibuprofen) 600 Mg Tab 600 MG PO Q8HR Take 600mg with food every 8 hours, as needed for facial pain. # 30 TAB Katie Jessica MD R1 Nov 10, 2016 13:06 Katie Jessica MD R1 Nov 10, 2016 13:06
[2016-11-10] MEDS ORDERED: IBUP-232 PO (13:16)
[2016-11-10] MEDS ORDERED: MUPI2%T TOPICAL (13:16)
[2016-11-10] MEDS ORDERED: BACT400T PO (13:16)
== END 2016-11-10 16:51 | disposition home or self-care (01) | DRG 603 ==
LOC: NEPC 09:35 → NEDA 10:23 → N05B 14:42
PROVIDERS: ADMIT Family Medicine; ATTEND Family Medicine
DX: L03.211 Cellulitis of face (principal); B95.62 Methicillin resistant Staphylococcus aureus infection as the cause of diseases classified elsewhere; B19.20 Unspecified viral hepatitis C without hepatic coma; K02.9 Dental caries, unspecified; F17.210 Nicotine dependence, cigarettes, uncomplicated; Z86.14 Personal history of Methicillin resistant Staphylococcus aureus infection
CPT/HCPCS: 76705; 76937; 80048; 80053; 80074; 80202; 80307; 82565; 83605; 85025; 85027; 86703; 87040; 96374; J2270; J2543; J3370; J7030; J7050

== ENCOUNTER 2017-02-14 16:49 | Inpatient (IN) | payer SELFPAY ==
[~2017-02-14] VITALS: Ht 172.7 cm; Wt 57.3 kg
[~2017-02-14 16:49] MED LIST changes: -AUGM875T PO; +BACT400T PO; -BACT800T5 PO; +IBUP-232 PO; +MUPI2%T TOPICAL
[2017-02-14 16:51] VITALS: BP 108/67; PULSE 104; RESP 20; TEMP 97.4; O2SAT 100
[2017-02-14] MEDS ORDERED: MORPHINE SULFATE 4 MG/ML INJ IV PUSH ONE (18:00)
[2017-02-14] MEDS ORDERED: cefTRIAXone INJ 2,000 MG in SODIUM CHLORIDE 0.9% INJ 100 ML IV ONE (18:00)
[2017-02-14] MEDS ORDERED: CLINDAMYCIN INJ 600 MG in SODIUM CHLORIDE 0.9% INJ 100 ML IV ONE (18:00)
[2017-02-14 18:21] VITALS: BP 113/61; PULSE 94; RESP 18; O2SAT 100
[2017-02-14 18:31] LABS: AUTOMATED NEUTROPHIL # 10.6 TH/MM3 (1.8-7.7); BASOPHIL % 0.2 % (0.0-2.0); EOSINOPHIL % 0.1 % (0.0-4.0); HEMATOCRIT 30.8 % (35.0-46.0); HEMO FLAGS DIFF FINAL; LYMPH % 12.8 % (9.0-44.0); LYMPHOCYTE # 1.6 TH/MM3 (1.0-4.8); MEAN CELL VOLUME 81.4 FL (80.0-100.0); MEAN CORPUSCULAR HEMOGLOBIN 26.8 PG (27.0-34.0); MEAN CORPUSCULAR HGB CONC 32.9 % (32.0-36.0); NEUT % 84.9 % (16.0-70.0); PLATELET COUNT 121 TH/MM3 (150-450); RED BLOOD COUNT 3.78 MIL/MM3 (4.00-5.30); RED CELL DISTRIBUTION WIDTH 13.9 % (11.6-17.2); WHITE BLOOD COUNT 12.5 TH/MM3 (4.0-11.0)
[2017-02-14 18:38] VITALS: BP 108/67; PULSE 87; RESP 18; O2SAT 100
--- NOTE | 2017-02-14 18:38 | RADRPT ---
EXAM DATE/TIME: 02/14/2017 18:06 [facility] COMPARISON: No previous studies available for comparison. INDICATIONS : Swelling and redness left elbow, denies injury MEDICAL HISTORY : None. SURGICAL HISTORY : None. ENCOUNTER: Initial ACUITY: 1 week PAIN SCORE: 0/10 LOCATION: Left Elbow FINDINGS: Multiple view examination of the left elbow demonstrates no soft tissue swelling, joint effusion, or fracture. The osseous structures are in normal alignment. Bony mineralization is normal. Angiocath in the soft tissues of the volar proximal arm. CONCLUSION: No evidence of recent bony injury. Naman Farmer MD on February 14, 2017 at 18:36 Board Certified Radiologist. This report was verified electronically.
[2017-02-14 18:50] LABS: APTT (PATIENT) 28.4 SEC (24.3-30.1); INTERNATIONAL NORMALIZED RATIO 1.2 RATIO; PROTHROMBIN TIME - PATIENT 13.6 SEC (9.8-11.6)
--- NOTE | 2017-02-14 19:18 | PD ---
HPI Chief Complaint: Edema Time Seen by Provider: 17:26 Travel History International Travel<30 days: No Contact w/Intl Traveler<30days: No Traveled to known affect area: No History of Present Illness HPI Patient is a 26-year-old female who comes in due to swelling of her extremities. For the past week, she has been feeling unwell, having fevers. She has severe pain to her entire right upper extremity. She also has swelling to her right hand. She has swelling to her right leg with pain to the leg. She also complains of swelling to her left elbow. She says she has had some chest pain as well. She says that she went to [facility] yesterday and was told she needed to be transferred to [place] to see hand surgery. She did not want to go to [place] so she left. She was also told that she had a DVT in her right leg. She says she is not currently on blood thinners. Patient is denying drug use. PFSH Past Medical History Anxiety: Yes Depression: Yes Cancer: No Cardiovascular Problems: No Endocrine: No Gastrointestinal Disorders: No Genitourinary: No Immune Disorder: No Implanted Vascular Access Dvce: No Musculoskeletal: No Neurologic: No Psychiatric: Yes (states do not take any medication) Reproductive: No Respiratory: No ?: Unknown Past Surgical History Tonsillectomy: Yes Other Surgery: No Social History Alcohol Use: No Tobacco Use: Yes (12PPD) Substance Use: No Allergies-Medications (Allergen,Severity, Reaction): Coded Allergies: Vancomycin (Verified Allergy, Severe, Hives, 02/14/17) *MDRO Multi-Drug Resistant Organism (Verified Adverse Reaction, Unknown, ) MRSA (arm-06/19/16) MRSA (R cheek- 11/07/16) Reported Meds & Prescriptions Reported Meds & Active Scripts Active Bactrim (Sulfamethoxazole-Trimethoprim) 400-80 Mg Tab 2 Tab PO BID Take two pills in AM and two pills in PM for 7 days. Review of Systems Except as stated in HPI: all other systems reviewed are Neg General / Constitutional: Positive: Fever, Chills HENT: No: Lightheadedness Cardiovascular: Positive: Chest Pain or Discomfort Respiratory: Positive: Shortness of Breath Gastrointestinal: No: Nausea, Vomiting Musculoskeletal: Positive: Edema, Pain Skin: Positive Change in Pigmentation Neurologic: No: Weakness Physical Exam Narrative GENERAL: Awake and alert, has sores all over her body. SKIN: Large swelling and erythema as well as warmth to the dorsal surface right hand. Swelling and erythema as well as warmth to the left elbow. HEAD: Atraumatic. Normocephalic. EYES: Pupils equal and round. No scleral icterus. ENT: Mucous membranes pink and moist. Very poor dentition. NECK: Trachea midline. No JVD. CARDIOVASCULAR: Regular rate and rhythm. No murmur appreciated. RESPIRATORY: No accessory muscle use. Clear to auscultation. Breath sounds equal bilaterally. GASTROINTESTINAL: Abdomen soft, non-tender, nondistended. MUSCULOSKELETAL: No obvious deformities. No clubbing. No cyanosis. Large edema to the right leg, tender calf. Pedal pulses intact. Pain with any movement of the right arm including the right shoulder and right elbow. NEUROLOGICAL: Awake and alert. No obvious cranial nerve deficits. Motor grossly within normal limits. Normal speech. PSYCHIATRIC: Appropriate mood and affect; insight and judgment normal. Data Data Last Documented VS Orders Vascular Access Team Consult/P PRN (02/14/17 17:28) Isolation (02/14/17 17:30) Vascular Poc Ultrasound (02/14/17 ) Complete Blood Count With Diff (02/14/17 17:46) Comprehensive Metabolic Panel (02/14/17 17:46) Troponin I (02/14/17 17:46) Electrocardiogram (02/14/17 ) Lactic Acid (02/14/17 17:46) Act Partial Throm Time (Ptt) (02/14/17 17:46) Prothrombin Time / Inr (Pt) (02/14/17 17:46) Ed Urine Pregnancytest Poc (02/14/17 17:46) Urinalysis - C+S If Indicated (02/14/17 17:46) Drug Screen, Random Urine (02/14/17 17:46) Elbow, Complete (4 Vws) (02/14/17 ) Westergren Sedimentation Rate (02/14/17 17:46) Morphine Inj (Morphine Inj) (02/14/17 18:00) Clindamycin Inj (Cleocin Inj) (02/14/17 18:00) Blood Culture (02/14/17 17:46) Ct Shoulder W Iv Contrast (02/14/17 ) Ct Elbow W Iv Contrast (02/14/17 ) Ct Elbow W Iv Contrast (02/14/17 ) Ceftriaxone Inj (Rocephin Inj) (02/14/17 18:00) Us Leg Venous Doppler (02/14/17 ) Urine Culture (02/14/17 18:45) Iohexol 350 Inj (Omnipaque 350 Inj) (02/14/17 21:38) Heparin Inj (Heparin Inj) (02/14/17 23:15) Heparin Inj (Heparin Inj) (02/15/17 05:15) Heparin-D5w Inj (Heparin-D5w Inj) (02/14/17 23:15) Act Partial Throm Time (Ptt) (02/15/17 06:09) Admit Order (Ed Use Only) (02/14/17 23:25) Admit To Inpatient (02/14/17 ) Code Status (02/14/17 23:26) Vital Signs (Adult) Q4H (02/14/17 23:26) Activity Oob With Assistance (02/14/17 23:26) Diet Regular Basic (02/15/17 Breakfast) Sodium Chloride 0.9% Flush (Ns Flush) (02/14/17 23:30) Sodium Chloride 0.9% Flush (Ns Flush) (02/15/17 09:00) Acetaminophen (Tylenol) (02/14/17 23:30) Ondansetron Inj (Zofran Inj) (02/14/17 23:30) Comprehensive Metabolic Panel (02/15/17 06:00) Pt Request For Service (02/14/17 23:26) Case Management Consult (02/14/17 23:26) Scd Bilateral/Knee High KENNEDY.BID (02/14/17 23:26) Дмитрий Bilateral/Knee High KENNEDY.QSHIFT (02/14/17 23:26) Acetaminophen (Tylenol) (02/14/17 23:30) Acetamin-Hydrocod 325-5 Mg ([place] 5-325 (02/14/17 23:30) Naloxone Inj (Narcan Inj) (02/14/17 23:30) Inpatient Certification (02/14/17 ) Nicotine 21 Mg Patch.24 Hr (Habitrol 21 (02/15/17 09:00) Remove Old Patch (02/15/17 09:00) Labs [facility] Medical Decision Making Medical Screen Exam Complete: Yes Emergency Medical Condition: Yes Medical Record Reviewed: Yes Differential Diagnosis Endocarditis versus MRSA abscess versus cellulitis versus bacteremia Narrative Course Patient is a 26-year-old female comes in with swelling to her extremities as well as several areas of cellulitis/abscess. Patient denies drug use, however her old records, she has been positive for methamphetamines in the past and for hepatitis C. Patient is also a very difficult stick as her veins are scarred. IV established by vascular access team. Labs sent. Patient covered with antibiotics, Rocephin and clindamycin that she is allergic to vancomycin. Given IV fluids. Given pain medicine. Patient signed out to Dr. Vergara to follow-up imaging as well as lab tests. Patient will likely require admission. Scripts Ferrous Sulfate 325 Mg [id number] Mg PO BID #30 TAB Ref 0 Prov:Patricia Erwin MD 02/18/17 Enoxaparin Inj (Lovenox Inj)60 Mg/0.6 Ml Syr50 Mg SQ Q12H 14 Days Ref 0 Prov:Patricia Erwin MD 02/18/17 Condition: Stable Veronica Otoole MD Feb 14, 2017 19:18 Monocytes # (Auto) 0.3 TH/MM3 Eosinophils # (Auto) 0.0 TH/MM3 Basophils # (Auto) 0.0 TH/MM3 CBC Comment DIFF FINAL Differential Comment Erythrocyte Sedimentation Rate 79 mm/hr Prothrombin Time 13.6 SEC Prothromb Time International 1.2 RATIO Ratio Activated Partial 28.4 SEC Thromboplast Time Lactic Acid Level 3.8 mmol/L Urine Color YELLOW Urine Turbidity HAZY Urine pH 6.0 Urine Specific [place] 1.017 Urine Protein TRACE mg/dL Urine Glucose (UA) 300 mg/dL Urine Ketones NEG mg/dL Urine Occult Blood SMALL Urine Nitrite NEG Urine Bilirubin NEG Urine Urobilinogen LESS THAN 2.0 MG/DL Urine Leukocyte Esterase MOD Urine RBC 6 /hpf Urine WBC 9 /hpf Urine Squamous Epithelial 3 /hpf Cells Urine Mucus FEW /lpf Microscopic Urinalysis Comment CULTURE INDICATED [facility] Medical Decision Making Medical Screen Exam Complete: Yes Emergency Medical Condition: Yes Medical Record Reviewed: Yes Differential Diagnosis Endocarditis versus MRSA abscess versus cellulitis versus bacteremia Narrative Course Patient is a 26-year-old female comes in with swelling to her extremities as well as several areas of cellulitis/abscess. Patient denies drug use, however her old records, she has been positive for methamphetamines in the past and for hepatitis C. Patient is also a very difficult stick as her veins are scarred. IV established by vascular access team. Labs sent. Patient covered with antibiotics, Rocephin and clindamycin that she is allergic to vancomycin. Given IV fluids. Given pain medicine. Patient signed out to Dr. Vergara to follow-up imaging as well as lab tests. Patient will likely require admission. Veronica Otoole MD Feb 14, 2017 19:18
[2017-02-14 19:19] LABS: BLOOD, URINE SMALL (NEG); COMMENT (UR) CULTURE INDICATED; CULTURE IF INDICATED CULTURE INDICATED; GLUCOSE,URINE 300 mg/dL (NEG); KETONE, URINE NEG (NEG); MUCUS URINE FEW /lpf (OCC); NITRITE,URINE NEG (NEG); SQUAMOUS EPITHELIAL CELL URINE 3 /hpf (0-5); URINE COLOR YELLOW (YELLW/STRAW)
[2017-02-14 19:24] LABS: AMPHETAMINE, URINE POS (NEG); BARBITURATES, URINE NEG (NEG); COCAINE, URINE POS (NEG)
--- NOTE | 2017-02-14 20:00 | RADRPT ---
EXAM DATE/TIME: 02/14/2017 19:23 [facility] COMPARISON: No previous studies available for comparison. INDICATIONS : Right leg pain and swelling. MEDICAL HISTORY : Methicillin-resistant Staphylococcus aureus. Depression. Anxiety. Cellulitis. SURGICAL HISTORY : Tonsillectomy. ENCOUNTER: Subsequent ACUITY: 1 week PAIN SCORE: 5/10 LOCATION: Right leg. TECHNIQUE: Venous ultrasound of the leg was performed from the inguinal ligament to the proximal calf. Real-daniel e, color Doppler and spectral tracing, compression and augmentation techniques were used. FINDINGS: The examination is abnormal demonstrating absent flow and echogenic thrombus within the lumen of the superficial femoral vein down to the proximal calf. No flow is seen with augmentation. Incidental note of several prominent lymph nodes in the right groin having normal sonographic feature s (fatty hilum), the largest of which measures 4.3 x 1.7 cm. CONCLUSION: The study is positive for deep venous thrombosis with occlusive thrombus from the proximal thigh into the calf. Naman Farmer MD on February 14, 2017 at 19:56 Board Certified Radiologist. This report was verified electronically.
[2017-02-14 20:54] LABS: ALKALINE PHOSPHATASE 210 U/L (45-117); ALT (GPT) 16 U/L (10-53); ANION GAP 13 MEQ/L (5-15); AST (GOT) 10 U/L (15-37); BICARBONATE 21.5 MEQ/L (21.0-32.0); BLOOD UREA NITROGEN 17 MG/DL (7-18); CHLORIDE 97 MEQ/L (98-107); GLOMERULAR FILTRATION RATE 70 ML/MIN (>89); SODIUM (NA) 131 MEQ/L (136-145); TOTAL BILIRUBIN ADULT 0.3 MG/DL (0.2-1.0)
[2017-02-14 21:03] LABS: POTASSIUM 2.9 MEQ/L (3.5-5.1)
[2017-02-14] MEDS ORDERED: IOHEXOL 350 MG/ML 10 ML VIAL (for RAD DIAG) IV ONE (21:38)
[2017-02-14 21:57] VITALS: BP 106/56; PULSE 98; RESP 14; O2SAT 98
--- NOTE | 2017-02-14 22:02 | RADRPT ---
EXAM DATE/TIME: 02/14/2017 21:31 [facility] COMPARISON: No previous studies available for comparison. INDICATIONS : Swelling to right side of body. Right shoulder pain and swelling. IV CONTRAST: 100 cc Omnipaque 350 (iohexol) IV ; Cumulative dose for multiple exams. RADIATION DOSE: 12.26 CTDIvol (mGy) ; Combined studies MEDICAL HISTORY : Substance abuse. SURGICAL HISTORY : None. ENCOUNTER: Initial ACUITY: 1 week PAIN SCALE: 5/10 LOCATION: Right scapular TECHNIQUE: Volumetric scanning of the shoulder was performed. Using automated exposure control and adjustment o f the mA and/or kV according to patient size, radiation dose was kept as low as reasonably achievable to obtain optimal diagnostic quality images. FINDINGS: BONES: No evidence of fracture. Alignment is within normal limits. JOINTS: No evidence of joint narrowing or effusion. SOFT TISSUES: No evidence of mass, organized fluid collection, or foreign body. CONCLUSION: Negative exam. Naman Farmer MD on February 14, 2017 at 21:59 Board Certified Radiologist. This report was verified electronically.
--- NOTE | 2017-02-14 22:05 | RADRPT ---
EXAM DATE/TIME: 02/14/2017 21:31 [facility] COMPARISON: No previous studies available for comparison. INDICATIONS : Left elbow swelling and pain. IV CONTRAST: 100 cc Omnipaque 350 (iohexol) IV ; Cumulative dose for multiple exams. RADIATION DOSE: 12.26 CTDIvol (mGy) ; Combined studies MEDICAL HISTORY : Substance abuse. SURGICAL HISTORY : None. ENCOUNTER: Initial ACUITY: 1 week PAIN SCALE: 6/10 LOCATION: Left elbow TECHNIQUE: Volumetric scanning of the elbow was performed. Using automated exposure control and adjustment of t he mA and/or kV according to patient size, radiation dose was kept as low as reasonably achievable to obtain optimal diagnostic quality images. FINDINGS: BONES: No evidence of fracture. Alignment is within normal limits. JOINTS: No evidence of joint narrowing or effusion. SOFT TISSUES: Muscles, tendons and neurovascular structures are grossly unremarkable. No evidence of mass, organize d fluid collection, or foreign body. Angiocath in the dorsal forearm. CONCLUSION: Negative exam. Naman Farmer MD on February 14, 2017 at 22:01 Board Certified Radiologist. This report was verified electronically.
--- NOTE | 2017-02-14 22:10 | RADRPT ---
EXAM DATE/TIME: 02/14/2017 21:31 [facility] COMPARISON: No previous studies available for comparison. INDICATIONS : Right elbow pain and swelling. IV CONTRAST: 100 cc Omnipaque 350 (iohexol) IV ; Cumulative dose for multiple exams. RADIATION DOSE: 12.26 CTDIvol (mGy) ; Combined studies MEDICAL HISTORY : Substance abuse. SURGICAL HISTORY : None. ENCOUNTER: Initial ACUITY: 1 week PAIN SCALE: 5/10 LOCATION: Right elbow TECHNIQUE: Volumetric scanning of the elbow was performed. Using automated exposure control and adjustment of t he mA and/or kV according to patient size, radiation dose was kept as low as reasonably achievable to obtain optimal diagnostic quality images. FINDINGS: BONES: No evidence of fracture. Alignment is within normal limits. JOINTS: No evidence of joint narrowing or effusion. SOFT TISSUES: Muscles, tendons and neurovascular structures are grossly unremarkable. No evidence of mass, organize d fluid collection, or foreign body. CONCLUSION: Negative exam. Naman Farmer MD on February 14, 2017 at 22:07 Board Certified Radiologist. This report was verified electronically.
--- NOTE | 2017-02-14 23:09 | PD ---
Data Data Last Documented VS Vital Signs Date Time Temp Pulse Resp B/P Pulse Ox O2 Delivery O2 Flow Rate FiO2 02/14/17 21:57 98 14 106/56 98 Room Air 02/14/17 18:38 2 02/14/17 16:51 97.4 Orders Vascular Access Team Consult/P PRN (02/14/17 17:28) Isolation 08,20 (02/14/17 17:30) Vascular Poc Ultrasound (02/14/17 ) Complete Blood Count With Diff (02/14/17 17:46) Comprehensive Metabolic Panel (02/14/17 17:46) Troponin I (02/14/17 17:46) Electrocardiogram (02/14/17 ) Lactic Acid (02/14/17 17:46) Act Partial Throm Time (Ptt) (02/14/17 17:46) Prothrombin Time / Inr (Pt) (02/14/17 17:46) Ed Urine Pregnancytest Poc (02/14/17 17:46) Urinalysis - C+S If Indicated (02/14/17 17:46) Drug Screen, Random Urine (02/14/17 17:46) Elbow, Complete (4 Vws) (02/14/17 ) Westergren Sedimentation Rate (02/14/17 17:46) Morphine Inj (Morphine Inj) (02/14/17 18:00) Clindamycin Inj (Cleocin Inj) (02/14/17 18:00) Blood Culture (02/14/17 17:46) Ct Shoulder W Iv Contrast (02/14/17 ) Ct Elbow W Iv Contrast (02/14/17 ) Ct Elbow W Iv Contrast (02/14/17 ) Ceftriaxone Inj (Rocephin Inj) (02/14/17 18:00) Us Leg Venous Doppler (02/14/17 ) Urine Culture (02/14/17 18:45) Iohexol 350 Inj (Omnipaque 350 Inj) (02/14/17 21:38) Heparin Infusion KENNEDY.Q1H (02/14/17 23:09) Heparin Inj (Heparin Inj) (02/14/17 23:15) Heparin Inj (Heparin Inj) (02/15/17 05:15) Heparin Inj (Heparin Inj) (02/15/17 05:15) Heparin-D5w Inj (Heparin-D5w Inj) (02/14/17 23:15) Cbc No Diff, Includes Plts (02/17/17 06:00) Act Partial Throm Time (Ptt) (02/15/17 06:09) Occult Blood (Hemoccult) Stool (02/14/17 23:09) Admit Order (Ed Use Only) (02/14/17 23:25) Admit To Inpatient (02/14/17 ) Code Status (02/14/17 23:26) Vital Signs (Adult) Q4H (02/14/17 23:26) Activity Oob With Assistance (02/14/17 23:26) Diet Regular Basic (02/15/17 Breakfast) Sodium Chloride 0.9% Flush (Ns Flush) (02/14/17 23:30) Sodium Chloride 0.9% Flush (Ns Flush) (02/15/17 09:00) Acetaminophen (Tylenol) (02/14/17 23:30) Ondansetron Inj (Zofran Inj) (02/14/17 23:30) Comprehensive Metabolic Panel (02/15/17 06:00) Pt Request For Service (02/14/17 23:26) Case Management Consult (02/14/17 23:26) Scd Bilateral/Knee High KENNEDY.BID (02/14/17 23:26) Дмитрий Bilateral/Knee High KENNEDY.QSHIFT (02/14/17 23:26) Acetaminophen (Tylenol) (02/14/17 23:30) Acetamin-Hydrocod 325-5 Mg ([place] 5-325 (02/14/17 23:30) Naloxone Inj (Narcan Inj) (02/14/17 23:30) Inpatient Certification (02/14/17 ) Nicotine 21 Mg Patch.24 Hr (Habitrol 21 (02/15/17 09:00) Remove Old Patch (02/15/17 09:00) Labs Laboratory Tests Test 02/14/17 02/14/17 02/14/17 18:01 18:45 19:25 White Blood Count 12.5 TH/MM3 Red Blood Count 3.78 MIL/MM3 Hemoglobin 10.1 GM/DL Hematocrit 30.8 % Mean Corpuscular Volume 81.4 FL Mean Corpuscular Hemoglobin 26.8 PG Mean Corpuscular Hemoglobin 32.9 % Concent Red Cell Distribution Width 13.9 % Platelet Count 121 TH/MM3 Mean Platelet Volume 8.4 FL Neutrophils (%) (Auto) 84.9 % Lymphocytes (%) (Auto) 12.8 % Monocytes (%) (Auto) 2.0 % Eosinophils (%) (Auto) 0.1 % Basophils (%) (Auto) 0.2 % Neutrophils # (Auto) 10.6 TH/MM3 Lymphocytes # (Auto) 1.6 TH/MM3 Monocytes # (Auto) 0.3 TH/MM3 Eosinophils # (Auto) 0.0 TH/MM3 Basophils # (Auto) 0.0 TH/MM3 CBC Comment DIFF FINAL Differential Comment Erythrocyte Sedimentation Rate 79 mm/hr Prothrombin Time 13.6 SEC Prothromb Time International 1.2 RATIO Ratio Activated Partial 28.4 SEC Thromboplast Time Lactic Acid Level 3.8 mmol/L Urine Color YELLOW Urine Turbidity HAZY Urine pH 6.0 Urine Specific [place] 1.017 Urine Protein TRACE mg/dL Urine Glucose (UA) 300 mg/dL Urine Ketones NEG mg/dL Urine Occult Blood SMALL Urine Nitrite NEG Urine Bilirubin NEG Urine Urobilinogen LESS THAN 2.0 MG/DL Urine Leukocyte Esterase MOD Urine RBC 6 /hpf Urine WBC 9 /hpf Urine Squamous Epithelial 3 /hpf Cells Urine Mucus FEW /lpf Microscopic Urinalysis Comment CULTURE INDICATED Urine Opiates Screen POS Urine Barbiturates Screen NEG Urine Amphetamines Screen POS Urine Benzodiazepines Screen NEG Urine Cocaine Screen POS Urine Cannabinoids Screen NEG Sodium Level 131 MEQ/L Potassium Level 2.9 MEQ/L Chloride Level 97 MEQ/L Carbon Dioxide Level 21.5 MEQ/L Anion Gap 13 MEQ/L Blood Urea Nitrogen 17 MG/DL Creatinine 0.97 MG/DL Estimat Glomerular Filtration 70 ML/MIN Rate Random Glucose 253 MG/DL Calcium Level 7.6 MG/DL Total Bilirubin 0.3 MG/DL Aspartate Amino Transf 10 U/L (AST/SGOT) Alanine Aminotransferase 16 U/L (ALT/SGPT) Alkaline Phosphatase 210 U/L Troponin I LESS THAN 0.02 NG/ML Total Protein 6.2 GM/DL Albumin 1.6 GM/DL [facility] Medical Record Reviewed: Yes Supervised Visit with MYESHA: Yes Narrative Course CBC & BMP Diagram 02/14/17 18:01 02/14/17 19:25 ESR 79 LFTs normal Albumin 1.6 Tn < 0.02 Urine drug screen + opiates, + amphetamines, + cocaine INR 1.0 UTI: could reflect cystitis Last 24 hours Impressions Upper Extremity CT 02/14/17 0000 Signed Impressions: Service Date/Time: Tuesday, February 14, 2017 21:31 - CONCLUSION: Negative exam. Naman Farmer MD Upper Extremity CT 02/14/17 0000 Signed Impressions: Service Date/Time: Tuesday, February 14, 2017 21:31 - CONCLUSION: Negative exam. Naman Farmer MD Upper Extremity CT 02/14/17 0000 Signed Impressions: Service Date/Time: Tuesday, February 14, 2017 21:31 - CONCLUSION: Negative exam. Naman Farmer MD Lower Extremity Ultrasound 02/14/17 0000 Signed Impressions: Service Date/Time: Tuesday, February 14, 2017 19:23 - CONCLUSION: The study is positive for deep venous thrombosis with occlusive thrombus from the proximal thigh into the calf. Naman Farmer MD Elbow X-Ray 02/14/17 0000 Signed Impressions: Service Date/Time: Tuesday, February 14, 2017 18:06 - CONCLUSION: No evidence of recent bony injury. Naman Farmer MD Patient will be admitted for cellulitis and DVT. Discussed with Dr. Flood. Heparin started. Diagnosis Primary Impression: DVT, lower extremity, proximal, acute Qualified Code: I82.4Y1 - DVT, lower extremity, proximal, acute, right Additional Impression: Diffuse cellulitis Raz Vergara MD Feb 14, 2017 23:09
[2017-02-14] MEDS ORDERED: HEPARIN-D5W INJ 250 ML IV SCH (23:15)
[2017-02-14] MEDS ORDERED: HEPARIN SODIUM - IV 10,000 UNITS/10 ML VIAL IV ONE (23:15)
--- NOTE | 2017-02-14 23:29 | HHI.HP ---
HPI Service [facility] Primary Care Physician No Primary Care Physician Admission Diagnosis Sepsis (Cellulitis); DVT; IVDA Diagnoses: (1) Sepsis (2) Sepsis affecting skin (3) Diffuse cellulitis (4) Leukocytosis (5) IVDU (intravenous drug user) (6) Hepatitis C infection (7) DVT, lower extremity, proximal, acute (8) Thrombocytopenia (9) Hypokalemia (10) Anemia of chronic illness (11) Impaired fasting glucose Chief Complaint: Right upper and lower extremity pain along with redness and facial cellulitis Travel History International Travel<30 Days: No Contact w/Intl Traveler <30 Da: No Traveled to Known Affected Are: No Sepsis Criteria SIRS Criteria (2 or more): Heart rate over 90, WBC > 42026, < 4000 or > 10% bands Sepsis Criteria (SIRS+source): Infect source susp/known Severe Sepsis (+one): Lactate >2 Criteria Outcome: Meets severe sepsis criteria History of Present Illness 26-year-old female with a history of hepatitis C, presented to the ED for evaluation of swelling any of her right lower and upper extremities as well as left elbow over the past several days, and per patient without any identifiable causes. She also report febrile episode. Patient was seen recently at [facility] on on 02/13/17 and states she was supposed to be transferred to [place] to see hand surgery secondary to left elbow pain. However she refused to go. She was also diagnosed with right lower extremity DVT but was not on started any blood thinner. She complains of severe right lower extremity pain and rated 10/10 in intensity. Although patient denies any current drug use, her UDS was positive for cocaine. She has no chest pain and denies any GI bleed despite H&H 10.1/30.8. Review of Systems Other 12 systems reviewed and are negative except for the one mentioned in history of present illness Past Family Social History Past Medical History Anxiety: Yes Depression: Yes Past Surgical History Tonsillectomy: Yes Reported Medications Not currently on any medication Allergies: Coded Allergies: Vancomycin (Verified Allergy, Severe, Hives, 02/14/17) *MDRO Multi-Drug Resistant Organism (Verified Adverse Reaction, Unknown, ) MRSA (arm-06/19/16) MRSA (R cheek- 11/07/16) Family History She denies any family history of heart disease, hypertension, VTE Social History Alcohol Use: No Tobacco Use: Yes (12PPD) Substance Use: No Physical Exam Vital Signs Vital Signs Date Time Temp Pulse Resp B/P Pulse Ox O2 Delivery O2 Flow Rate FiO2 02/14/17 21:57 98 14 106/56 98 Room Air 02/14/17 18:38 87 18 108/67 100 Nasal Cannula 2 02/14/17 18:21 94 18 113/61 100 Room Air 02/14/17 17:30 95 18 99 Room Air 02/14/17 16:51 97.4 104 20 108/67 100 Room Air Physical Exam GENERAL: This is a well-nourished, well-developed patient, in no apparent distress. SKIN: Large swelling and erythema as well as warmth to the dorsal surface right hand. Swelling and erythema as well as warmth to the left elbow. HEAD: Atraumatic. Normocephalic. No temporal or scalp tenderness. EYES: Pupils equal round and reactive. Extraocular motions intact. No scleral icterus. No injection or drainage. ENT: Nose without bleeding, purulent drainage or septal hematoma. Throat without erythema, tonsillar hypertrophy or exudate. Uvula midline. Airway patent. NECK: Trachea midline. No JVD or lymphadenopathy. Supple, nontender, no meningeal signs. CARDIOVASCULAR: Regular rate and rhythm without murmurs, gallops, or rubs. RESPIRATORY: Clear to auscultation. Breath sounds equal bilaterally. No wheezes , rales, or rhonchi. GASTROINTESTINAL: Abdomen soft, non-tender, nondistended. No hepato-splenomegaly , or palpable masses. No guarding. MUSCULOSKELETAL: RLE/RUE significantly swollen and tender to palpation NEUROLOGICAL: Awake and alert. Cranial nerves II through XII intact. Motor and sensory grossly within normal limits. Five out of 5 muscle strength in all muscle groups. Normal speech. Laboratory Laboratory Tests Test 02/14/17 02/14/17 02/14/17 18:01 18:45 19:25 White Blood Count 12.5 Red Blood Count 3.78 Hemoglobin 10.1 Hematocrit 30.8 Mean Corpuscular Volume 81.4 Mean Corpuscular Hemoglobin 26.8 Mean Corpuscular Hemoglobin 32.9 Concent Red Cell Distribution Width 13.9 Platelet Count 121 Mean Platelet Volume 8.4 Neutrophils (%) (Auto) 84.9 Lymphocytes (%) (Auto) 12.8 Monocytes (%) (Auto) 2.0 Eosinophils (%) (Auto) 0.1 Basophils (%) (Auto) 0.2 Neutrophils # (Auto) 10.6 Lymphocytes # (Auto) 1.6 Monocytes # (Auto) 0.3 Eosinophils # (Auto) 0.0 Basophils # (Auto) 0.0 CBC Comment DIFF FINAL Differential Comment Erythrocyte Sedimentation Rate 79 Prothrombin Time 13.6 Prothromb Time International 1.2 Ratio Activated Partial 28.4 Thromboplast Time Lactic Acid Level 3.8 Urine Color YELLOW Urine Turbidity HAZY Urine pH 6.0 Urine Specific [place] 1.017 Urine Protein TRACE Urine Glucose (UA) 300 Urine Ketones NEG Urine Occult Blood SMALL Urine Nitrite NEG Urine Bilirubin NEG Urine Urobilinogen LESS THAN 2.0 Urine Leukocyte Esterase MOD Urine RBC 6 Urine WBC 9 Urine Squamous Epithelial 3 Cells Urine Mucus FEW Microscopic Urinalysis Comment CULTURE INDICATED Urine Opiates Screen POS Urine Barbiturates Screen NEG Urine Amphetamines Screen POS Urine Benzodiazepines Screen NEG Urine Cocaine Screen POS Urine Cannabinoids Screen NEG Sodium Level 131 Potassium Level 2.9 Chloride Level 97 Carbon Dioxide Level 21.5 Anion Gap 13 Blood Urea Nitrogen 17 Creatinine 0.97 Estimat Glomerular Filtration 70 Rate Random Glucose 253 Calcium Level 7.6 Total Bilirubin 0.3 Aspartate Amino Transf 10 (AST/SGOT) Alanine Aminotransferase 16 (ALT/SGPT) Alkaline Phosphatase 210 Troponin I LESS THAN 0.02 Total Protein 6.2 Albumin 1.6 Date/Time Procedure Status Source Growth 02/14/17 18:45 Urine Culture Received Urine Clean Catch Pending 02/14/17 18:01 Aerobic Blood Culture Received Blood Peripheral Pending 02/14/17 18:01 Anaerobic Blood Culture Received Blood Peripheral Pending Result Diagram: 02/14/17 1801 02/14/17 1925 Imaging Last Impressions Upper Extremity CT 02/14/17 0000 Signed Impressions: Service Date/Time: Tuesday, February 14, 2017 21:31 - CONCLUSION: Negative exam. Naman Farmer MD Lower Extremity Ultrasound 02/14/17 0000 Signed Impressions: Service Date/Time: Tuesday, February 14, 2017 19:23 - CONCLUSION: The study is positive for deep venous thrombosis with occlusive thrombus from the proximal thigh into the calf. Naman Farmer MD Elbow X-Ray 02/14/17 0000 Signed Impressions: Service Date/Time: Tuesday, February 14, 2017 18:06 - CONCLUSION: No evidence of recent bony injury. Naman Farmer MD Assessment and Plan Problem List: (1) Diffuse cellulitis ICD Code: L03.90 Status: Acute (2) DVT, lower extremity, proximal, acute ICD Code: I82.4Y9 Status: Acute (3) Leukocytosis ICD Code: D72.829 Status: Acute (4) IVDU (intravenous drug user) ICD Code: F19.90 Status: Acute (5) Impaired fasting glucose ICD Code: R73.01 Status: Acute (6) Hypokalemia ICD Code: E87.6 Status: Acute (7) Anemia of chronic illness ICD Code: D63.8 Status: Acute (8) Thrombocytopenia ICD Code: D69.6 Status: Acute (9) Sepsis ICD Code: A41.9 Status: Acute (10) Sepsis affecting skin ICD Code: L02.91 Status: Acute (11) UTI (urinary tract infection) ICD Code: N39.0 Status: Acute Assessment and Plan 26-year-old female with Severe Sepsis Sepsis affecting skin -Meets severe sepsis criteria, Heart rate over 90, WBC > 21103, < 4000 or > 10% bands, Infect source susp/known (cellulitis versus UTI) -Status post clindamycin and Rocephin IV 1 in ED, continue Rocephin and Clindamycin pending culture report -Check 2-D echo to rule out endocarditis and consider DELORES secondary to patient history of IVDU as well as presence of severe sepsis Diffuse cellulitis -Start Rocephin and clindamycin pending culture report -Infectious disease consultation if positive for bacteremia UTI -Continue with Rocephin pending urine culture DVT right proximal lower extremity -Doppler noted and review with finding of proximal DVT -started On heparin drip in ED -Consult hematology and check hypercoagulable studies Impaired fasting glucose No known history of diabetes type 2, check hemoglobin A1c and treat accordingly Hypokalemia Replace electrolyte and monitor BMP Anemia of chronic illness -Check iron study -Transfuse accordingly for hemoglobin less than 8 Thrombocytopenia -Patient with history of hepatitis C, monitor CBC Left elbow pain -Elbow x-ray noted and review by me and negative -Pain management accordingly IVDU -UDS positive for cocaine, amphetamine -Check 2-D echo to rule out endocarditis and consider DELORES in the face of severe sepsis DVT prophylaxis: Heparin Code Status Full code Discussed Condition With Patient, ED physician Physician Certification 2 Midnight Certification Type: Admission for Inpatient Services Order for Inpatient Services The services are ordered in accordance with Medicare regulations or non- Medicare payer requirements, as applicable. In the case of services not specified as inpatient-only, they are appropriately provided as inpatient services in accordance with the 2-midnight benchmark. Estimated LOS (days): 2 days is the estimated time the patient will need to remain in the hospital, assuming treatment plan goals are met and no additional complications. Post-Hospital Plan: Not yet determined Problem Qualifiers (1) DVT, lower extremity, proximal, acute: Qualified Code: I82.4Y1 - DVT, lower extremity, proximal, acute, right Luciano Cavanaugh MD Feb 14, 2017 23:29
[2017-02-14] MEDS ORDERED: NALOXONE HCL 0.4 MG/ML AMP IV PRN (23:30)
[2017-02-14] MEDS ORDERED: ACETAMINOPHEN 325 MG TAB PO PRN ×2 (23:30)
[2017-02-14] MEDS ORDERED: ONDANSETRON HCL 4 MG/2 ML VIAL IVP PRN (23:30)
[2017-02-14] MEDS: ACETAMINOPHEN/HYDROcodone 325 MG/5 MG TAB PO PRN (23:59)
[2017-02-15] VITALS (23 sets, daily range): BP systolic 102–121; BP diastolic 57–74; PULSE 84–113; RESP 14–20; TEMP 98.2–98.7; O2SAT 97–100
[2017-02-15] MEDS ORDERED: POTASSIUM CHLORIDE 20 MEQ CONTROLLED RELEASE TAB PO ONE (02:00)
[2017-02-15] MEDS: CLINDAMYCIN INJ 600 MG in SODIUM CHLORIDE 0.9% INJ 100 ML IV SCH ×3 (02:29→17:11)
[2017-02-15] MEDS: ACETAMINOPHEN/HYDROcodone 325 MG/5 MG TAB PO PRN ×5 (04:58→20:17)
[2017-02-15] MEDS ORDERED: HEPARIN SODIUM - IV 10,000 UNITS/10 ML VIAL IV PRN ×2 (05:15)
[2017-02-15 07:47] LABS: APTT (PATIENT) 27.7 SEC (24.3-30.1)
--- NOTE | 2017-02-15 07:50 | HHI.PR ---
Subjective Remarks in no acute distress. afebrile. complaining of pain to the right hand and right leg. Objective Vitals Vital Signs Date Time Temp Pulse Resp B/P Pulse Ox O2 Delivery O2 Flow Rate FiO2 02/15/17 04:00 87 02/15/17 04:00 98.5 95 20 110/60 99 02/15/17 01:12 98.5 92 20 103/59 99 02/14/17 21:57 98 14 106/56 98 Room Air 02/14/17 18:38 87 18 108/67 100 Nasal Cannula 2 02/14/17 18:21 94 18 113/61 100 Room Air 02/14/17 17:30 95 18 99 Room Air 02/14/17 16:51 97.4 104 20 108/67 100 Room Air I/O 02/14/17 02/14/17 02/14/17 02/15/17 02/15/17 02/15/17 07:00 15:00 23:00 07:00 15:00 23:00 Intake Total 651 ml Output Total 400 ml Balance 251 ml Intake Oral 560 ml IV Total 41 ml Other 50 ml Output Urine Total 400 ml Result Diagram: 02/14/17 1801 02/14/17 1925 Imaging Last Impressions Upper Extremity CT 02/14/17 0000 Signed Impressions: Service Date/Time: Tuesday, February 14, 2017 21:31 - CONCLUSION: Negative exam. Naman Farmer MD Lower Extremity Ultrasound 02/14/17 0000 Signed Impressions: Service Date/Time: Tuesday, February 14, 2017 19:23 - CONCLUSION: The study is positive for deep venous thrombosis with occlusive thrombus from the proximal thigh into the calf. Naman Farmer MD Elbow X-Ray 02/14/17 0000 Signed Impressions: Service Date/Time: Tuesday, February 14, 2017 18:06 - CONCLUSION: No evidence of recent bony injury. Naman Farmer MD Objective Remarks GENERAL: This is a well-nourished, well-developed patient, in no apparent distress. CARDIOVASCULAR: Regular rate and regular rhythm without murmurs, gallops, or rubs. RESPIRATORY: Clear to auscultation. Breath sounds equal bilaterally. No wheezes , rales, or rhonchi. GASTROINTESTINAL: Abdomen soft, non-tender, nondistended. Normal, active bowel sounds MUSCULOSKELETAL: swelling and mild erythema over the right leg and right hand. NEURO: Alert & Oriented x4 to person, place, time, situation. Moves all ext x4 Procedures none Medications and IVs Current Medications Morphine Sulfate 4 mg 4 mg ONCE ONCE IV PUSH Last administered on 02/14/17 18 :21; Start 02/14/17 at 18:00; Stop 02/14/17 at 18:01; Status DC Clindamycin Phosphate 600 mg/ Sodium Chloride 104 ml @ 208 mls/hr ONCE ONCE IV Last administered on 02/14/17 18:43; Start 02/14/17 at 18:00; Stop at 18:29; Status DC Ceftriaxone Sodium/Sodium Chloride (Rocephin Inj/NS Inj) 100 ml @ 200 mls/hr ONCE ONCE IV Last administered on 02/14/17 18:20; Start 02/14/17 at 18:00; Stop 02/14/17 at 18:29; Status DC Iohexol (Omnipaque 350 Inj) 100 ml STK-MED ONCE IV Last administered on 21:38; Start 02/14/17 at 21:38; Stop 02/14/17 at 21:39; Status DC Heparin Sodium (Porcine) (Heparin Inj) 4,200 units ONCE ONCE IV Last administered on 02/14/17 23:53; Start 02/14/17 at 23:15; Stop 02/14/17 at 23:16 ; Status DC Heparin Sodium (Porcine) (Heparin Inj) 5,000 units UNSCH PRN IV APTT LESS THAN 25; Start 02/15/17 at 05:15 Heparin Sodium (Porcine) 2500 units 2,500 units UNSCH PRN IV APTT 25 TO 39; Start 02/15/17 at 05:15 Heparin Sodium/ Dextrose (Heparin-D5W Inj) 250 ml @ 0 mls/hr TITRATE IV Last administered on 02/14/17 23:55; Start 02/14/17 at 23:15 Sodium Chloride (NS Flush) 2 ml UNSCH PRN IV FLUSH FLUSH AFTER USING IV ACCESS ; Start 02/14/17 at 23:30 Sodium Chloride (NS Flush) 2 ml BID IV FLUSH ; Start 02/15/17 at 09:00 Acetaminophen (Tylenol) 650 mg Q4H PRN PO TEMP > 100.4; Start 02/14/17 at 23:30 Ondansetron HCl (Zofran Inj) 4 mg Q6H PRN IVP NAUSEA OR VOMITING; Start at 23:30 Acetaminophen (Tylenol) 650 mg Q6H PRN PO PAIN SCALE 1 TO 2; Start 02/14/17 at 23:30 Acetaminophen/ Hydrocodone Bitart ([place] 5-325 Mg) 1 tab Q4H PRN PO PAIN SCALE 3 TO 5 Last administered on 02/15/17 04:58; Start 02/14/17 at 23:30 Naloxone HCl (Narcan Inj) 0.4 mg UNSCH PRN IV SEE LABEL COMMENTS; Start at 23:30 Nicotine (Habitrol 21 Mg Patch.24 Hr) 1 patch DAILY T-DERMAL ; Start 02/15/17 at 09:00 Miscellaneous Information 1 DAILY T-DERMAL ; Start 02/15/17 at 09:00 Pantoprazole Sodium 40 mg 40 mg Q24H IV PUSH ; Start 02/15/17 at 09:00 Ceftriaxone Sodium 2000 mg/ Sodium Chloride 100 ml @ 200 mls/hr Q24H IV ; Start 02/15/17 at 09:00 Clindamycin Phosphate/Sodium Chloride (Cleocin Inj/NS Inj) 104 ml @ 208 mls/hr Q8H IV Last administered on 02/15/17 02:29; Start 02/15/17 at 02:00 Lactobacillus Acidophilus (Lactinex) 1 tab Q12HR PO ; Start 02/15/17 at 09:00 Potassium Chloride (KCl) 60 meq ONCE ONCE PO Last administered on 02/15/17 02 :29; Start 02/15/17 at 02:00; Stop 02/15/17 at 02:01; Status DC Morphine Sulfate (Morphine Inj) 2 mg Q6H PRN IV PUSH pain>5; Start 02/15/17 at 02:00 A/P Assessment and Plan A/P Severe Sepsis due to cellulitis -right hand -continue Rocephin and told me mycins pending culture report -continue IV Abx -ID consulted -Check 2-D echo to rule out endocarditis and consider DELORES secondary to patient history of IVDU as well as presence of severe sepsis DVT right lower extremity -Doppler noted and review with finding of proximal DVT -started On heparin drip in ED -Consulted hematology and check hypercoagulable studies Impaired fasting glucose No known history of diabetes type 2, check hemoglobin A1c and treat accordingly Hypokalemia Replaced- BMP today pending. Anemia of chronic illness -Check iron study -Transfuse accordingly for hemoglobin less than 7 Thrombocytopenia -Patient with history of hepatitis C, monitor CBC Left elbow pain -Elbow x-ray negative -Pain management accordingly IVDU -UDS positive for cocaine, amphetamine -Check 2-D echo to rule out endocarditis and consider DELORES in the face of severe sepsis DVT prophylaxis: Heparin drip Patricia Erwin MD Feb 15, 2017 07:50
[2017-02-15 08:06] LABS: ALT (GPT) 13 U/L (10-53); ANION GAP 9 MEQ/L (5-15); AST (GOT) 8 U/L (15-37); BICARBONATE 22.1 MEQ/L (21.0-32.0); BLOOD UREA NITROGEN 14 MG/DL (7-18); CHLORIDE 105 MEQ/L (98-107); GLOMERULAR FILTRATION RATE 99 ML/MIN (>89); POTASSIUM 3.4 MEQ/L (3.5-5.1); SODIUM (NA) 136 MEQ/L (136-145)
[2017-02-15 08:11] LABS: ALKALINE PHOSPHATASE 183 U/L (45-117); TOTAL BILIRUBIN ADULT 0.3 MG/DL (0.2-1.0)
[2017-02-15] MEDS: PANTOPRAZOLE SODIUM 40 MG VIAL IV PUSH SCH (08:31)
[2017-02-15] MEDS: NICOTINE 21 MG/24 HR PATCH T-DERMAL SCH (08:32)
[2017-02-15] MEDS: MORPHINE SULFATE 4 MG/ML INJ IV PUSH PRN ×3 (08:32→23:51)
[2017-02-15] MEDS: REMOVE OLD PATCH-NICOTINE T-DERMAL SCH (08:32)
[2017-02-15] MEDS: LACTOBACILLUS ACIDOPHILUS TAB PO SCH ×2 (08:32→20:16)
[2017-02-15] MEDS: SODIUM CHLORIDE 0.9% FLUSH 10 ML FLUSH IV FLUSH SCH ×2 (08:33→20:16)
[2017-02-15] MEDS: cefTRIAXone INJ 2,000 MG in SODIUM CHLORIDE 0.9% INJ 100 ML IV SCH (09:00)
[2017-02-15 13:57] LABS: HEMOGLOBIN A1a 1.1 %; HEMOGLOBIN A1b 0.9 %; HEMOGLOBIN Ao 84.7 %; HEMOGLOBIN F 1.2 %; HEMOGLOBIN LA1C 2.4 %
--- NOTE | 2017-02-15 14:19 | EKG ---
Date Performed: 02/14/2017 Time Performed: 17:58:44 PTAGE: 26 years EKG: Sinus rhythm NONSPECIFIC T-WAVE ABNORMALITY BORDERLINE ECG PREVIOUS TRACING : 06/19/2016 18.17 Compared to prior tracing no significant change DOCTOR: Vega Wolff Interpretating Date/Time 02/15/2017 14:18:16
[2017-02-15 18:09] LABS: APTT (PATIENT) 27.1 SEC (24.3-30.1)
--- NOTE | 2017-02-15 20:02 | EC ---
Study Study Date:02/15/2017 STUDY CONCLUSIONS SUMMARY - Left ventricle: The cavity size was normal. Wall thickness was normal. Systolic function was normal. The estimated ejection fraction was 60%. Wall motion was normal; there were no regional wall motion abnormalities. - Tricuspid valve: Mild regurgitation. If LV function is below 40, please consider prescribing an ACEI or ARB or document rationale for non-use. PROCEDURE DATA STUDY STATUS: Elective. Procedure: Transthoracic echocardiography. Image quality was good. Scanning was performed from the parasternal, apical, and subcostal acoustic windows. Study completion: The patient tolerated the procedure well. Transthoracic echocardiography. M-mode, complete 2D, complete spectral Doppler, and color Doppler. Height: Height: 66in. Weight: Weight: 113.8lb. Body mass index: BMI: 18.4kg/m^2. Body surface area: BSA: 1.58m^2. Patient status: Inpatient. CARDIAC ANATOMY LEFT VENTRICLE: The cavity size was normal. Wall thickness was normal. Systolic function was normal. The estimated ejection fraction was 60%. Wall motion was normal; there were no regional wall motion abnormalities. AORTIC VALVE: Trileaflet; normal thickness leaflets. Doppler: Transvalvular velocity was within the normal range. There was no stenosis. No regurgitation. Valve area: 2.6cm^2 (Vmax). Indexed valve area: 1.65cm^2/m^2 (Vmax). AORTA: Aortic root: The aortic root was normal in size. MITRAL VALVE: Structurally normal valve. Doppler: Transvalvular velocity was within the normal range. There was no evidence for stenosis. No regurgitation. Peak gradient: 3mm Hg (D). LEFT ATRIUM: The atrium was normal in size. RIGHT VENTRICLE: The cavity size was normal. Wall thickness was normal. PULMONIC VALVE: Doppler: Transvalvular velocity was within the normal range. There was no evidence for stenosis. No regurgitation. TRICUSPID VALVE: Structurally normal valve. Doppler: Transvalvular velocity was within the normal range. Mild regurgitation. PULMONARY ARTERY: The main pulmonary artery was normal-sized. Systolic pressure was within the normal range. RIGHT ATRIUM: The atrium was normal in size. PERICARDIUM: There was no pericardial effusion. SYSTEMIC VEINS: Inferior vena cava: The vessel was normal in size. Patient weight: 113.8lb _Ejection fraction:_ 65-75% _Fractional shortening:_ 32% up to 5Kg 5-11.5Kg 11.6-22.9Kg 23-45Kg 45-57Kg Aortic Root 7-13 <17 13-22 17-27 17-27 LA diam 6-13 <23 24-38 33-47 37-40 RVID 10-17 7-15 7-15 7-18 8-17 LVIDd 12-22 <32 24-38 33-47 37-40 LVPW 2-4 3-6 5-7 6-8 7-8 IVS 2-4 3-6 5-7 6-8 7-8 BASIC MEASUREMENTS ADULT NORMAL Left ventricle LV internal dimension, ED, chordal *36.5 mm 43-52 level, PLAX LV internal dimension, ES, chordal 25.9 mm 23-38 level, PLAX Fractional shortening, chordal level, *29 % >29 PLAX LV posterior wall thickness, ED 8.17 mm IVS/LVPW ratio, ED 1 <1.3 Ventricular septum Septal thickness, ED 8.18 mm Aortic valve Leaflet separation 20 mm 15-26 Left atrium Anterior-posterior dimension 29 mm Anterior-posterior dimension index 1.84 cm/m^2 <2.2 BASIC MEASUREMENTS ADULT NORMAL Aortic valve Leaflet separation 20 mm 15-26 Aorta Root diameter, ED 26 mm 20-37 DOPPLER MEASUREMENTS ADULT NORMAL Main pulmonary artery Pressure, S 19 mm Hg =30 Aortic valve Peak velocity, S 133 cm/s Valve area, Vmax 2.6 cm^2 Valve area index, Vmax 1.65 cm^2/m^2 Mitral valve Peak E-wave velocity 81.4 cm/s Peak A-wave velocity 71.1 cm/s Deceleration time *113 ms 150-230 Peak gradient, D 3 mm Hg Peak E/A ratio 1.1 Tricuspid valve Regurgitant peak velocity 208 cm/s Peak RV-RA gradient, S 17 mm Hg Systemic veins Estimated CVP 10 mm Hg Right ventricle RV pressure, S 27 mm Hg <30 Pulmonic valve Peak velocity, S 137 cm/s LEGEND: Mean values are shown as u=mean value. Asterisk (*) brink values outside specified normal range. Prepared and signed by Neo Cantu [id number]
[2017-02-15] MEDS: ENOXAPARIN SODIUM 60 MG/0.6 ML SYRINGE SQ SCH (20:15)
[2017-02-16] VITALS (14 sets, daily range): BP systolic 116–123; BP diastolic 64–79; PULSE 86–120; RESP 16–20; TEMP 98.1–98.8; O2SAT 98–100
[2017-02-16] MEDS: CLINDAMYCIN INJ 600 MG in SODIUM CHLORIDE 0.9% INJ 100 ML IV SCH ×3 (02:06→18:15)
[2017-02-16] MEDS: ACETAMINOPHEN/HYDROcodone 325 MG/5 MG TAB PO PRN ×3 (05:04→20:34)
[2017-02-16] MEDS ORDERED: EPINEPHrine HCL (1:10,000) 1 MG/10 ML SYRINGE ONE (05:07)
--- NOTE | 2017-02-16 05:40 | MB ---
cc: WARD HOLMAN MD DATE OF CONSULTATION 02/15/[address] Cavanaugh. REASON A 26-year-old female with history of IVDU and now with diffuse cellulitis of the upper and lower extremities on the right side. HISTORY OF PRESENT ILLNESS This is a 26-year-old white female who presented to the emergency department with swelling and pain of her right leg and right hand. The patient notes that she was not feeling well for about a week and that she was having fevers and chills off and on. She tells me that she was unable to walk prior to coming to the emergency department. The patient reportedly went to [facility] and was told she needed a hand surgeon and need to be transferred to [facility] and she did not want to go to [facility]. The patient had workup including an ultrasound of the lower extremity which shows deep venous thrombosis with occlusive thrombus from the proximal thigh into the calf. A CT scan of the lower extremity was performed and did not show any abnormality. The patient is afebrile. She denies any IV drug use to me. She denies shooting up any drugs into her leg. Blood cultures were taken and have no growth in one day. Urinalysis was remarkable for 9 white cells. Urine culture has no growth in 24 hours. The patient tells me that she had a REACTION TO VANCOMYCIN YESTERDAY. She states that she developed hives and had breathing difficulties. The vancomycin has since been discontinued. The patient has a toxicology screen which is positive for cocaine, amphetamines and opiates. She denies use of IV drugs to me. The patient denies headaches. She does have erosive changes in the teeth, no recent dental work. PAST MEDICAL HISTORY 1. Facial cellulitis in October of 2016. 2. Anxiety, depression. 3. Illicit drug use. (The patient denied IV drug use to me. However, her toxicology screen is positive for amphetamines and also cocaine.) ALLERGIES VANCOMYCIN. MEDICATIONS 1. Ceftriaxone. 2. Clindamycin. 3. Lactinex. 4. Protonix. 5. Nicotine patch. 6. Caret 5 p.r.n. SOCIAL HISTORY The patient smokes half-a-pack of cigarettes a day. She denies alcohol use. FAMILY HISTORY Noncontributory. REVIEW OF SYSTEMS Pertinents mentioned in the History of Present Illness. Otherwise negative on 10-point review. PHYSICAL EXAMINATION GENERAL: This is a well-developed female who is awake and alert and in no acute distress. VITAL SIGNS: Temperature 98.5, heart rate 108, BP 109/63, respirations 16. HEENT: The head is atraumatic. Extraocular movements grossly intact. Pupils reactive to light without icterus. No conjunctival erythema. Oropharynx - Poor dentition. Moist mucosa. NECK: Supple. No adenopathy. LUNGS: Clear breath sounds bilateral. HEART: Regular rate and rhythm without audible murmurs or rubs or gallops. ABDOMEN: Bowel sounds. Soft. No tenderness appreciated. RECTAL: Not performed. EXTREMITIES: The right lower extremity is markedly swollen and appears approximately twice the size of the left from the ankle up to the proximal thigh. The right hand is markedly swollen at the dorsum and is tender on palpation. The right lower extremity is warm to touch. The patient has a couple excoriated areas at the right leg, one at the distal tibia and another at the proximal thigh. SKIN: No diffuse rash. NEURO: Nonfocal. PSYCH: The patient is calm and cooperative. LABORATORY DATA WBC 12.5, platelets 121, hemoglobin 10.1. ESR 79, 84% neutrophils. Lactic acid 3.6, sodium 136, creatinine 0.72, BUN 14. IMPRESSION 1. Sepsis. Patient presenting with white blood cell count elevation along with lactic acidemia and fever and chills and also DVT of the right lower extremity and swelling of the right hand possibly from disseminated infection. 2. Rule out endocarditis. 3. DVT of the right lower extremity. 4. ALLERGIC REACTION TO VANCOMYCIN. RECOMMENDATIONS 1. Monitor 2-D echocardiogram and consider DELORES if the 2-D echocardiogram is negative. 2. Monitor blood cultures. 3. Continue clindamycin for now. 4. Continue ceftriaxone. 5. Monitor clinical status. 6. Follow lab work including platelet count which has dropped significantly. Thank you this consultation. The patient's progress will be monitored and further recommendations will be made on followup if necessary. Ward Holman MD FD/ABENA /4:12 PM /5:25 AM
--- NOTE | 2017-02-16 05:59 | RADRPT ---
EXAM DATE/TIME: 02/16/2017 05:17 [place] COMPARISON: US LEG RIGHT VENOUS DOPPLER, February 14, 2017, 19:23. INDICATIONS : Inguinal lymphadenopathy. ORAL CONTRAST: No oral contrast ingested. RADIATION DOSE: 7.35 CTDIvol (mGy) MEDICAL HISTORY : Hepatitis C. Substance abuse. SURGICAL HISTORY : None. ENCOUNTER: Initial ACUITY: 1 day PAIN SCALE: 3/10 LOCATION: pelvis TECHNIQUE: Volumetric scanning of the pelvis was performed. Using automated exposure control and adjustment of the mA and/or kV according to patient size, radiation dose was kept as low as reasonably achievable t o obtain optimal diagnostic quality images. FINDINGS: BOWEL/MESENTERY: The visualized small and large bowel demonstrate no acute abnormality. There is no free fluid. BLADDER: There is no wall thickening or mass. RETROPERITONEUM: There is no aneurysm or lymphadenopathy. REPRODUCTIVE: Within normal limits. There is a trace of fluid in the cul-de-sac. INGUINAL: Several nonspecific mildly prominent bilateral inguinal lymph nodes. The lymph nodes measure between 1.0 and 1.4 cm in diameter. MUSCULOSKELETAL: Within normal limits for patient age. CONCLUSION: Several nonspecific mildly prominent bilateral inguinal lymph nodes. Sam Hernandez MD on February 16, 2017 at 5:54 Board Certified Radiologist. This report was verified electronically.
--- NOTE | 2017-02-16 07:32 | MB ---
cc: BLAINE PUENTES MD DATE OF CONSULTATION 02/15/2017 HEMATOLOGY/ONCOLOGY CONSULTATION NOTE DATE OF 1990 REASON FOR CONSULTATION Deep venous thrombosis involving the right lower extremity; the vessels involved include the superficial femoral vein with extension down to the veins in the proximal calf. Prominent lymph nodes also noted in the right groin area. CHIEF COMPLAINT 1. One week history of progressive right calf pain and swelling with extension up to the right thigh. 2. Pain and swelling of the right hand. 3. Pain and tenderness of the right shoulder. 4. Fever. HISTORY OF PRESENT ILLNESS Ms. Quintana is a 26-year-old female who presented to [facility] on 02/14/2017 complaining of right lower extremity pain, swelling and tenderness. She also reports having had swelling, pain and decreased range of motion of her right hand as well as right shoulder. The patient was assessed to have diffuse cellulitis and was assessed to be in sepsis. She does have a history of hepatitis C (the mode of contraction is not known). She previously had presented to [facility] in [facility] and was advised transfer to [place] to be evaluated by a hand surgeon for her right upper extremity swelling. She left that hospital against medical advice and came to [facility]. The patient denies having had severe fevers or chills. She denies any recent air travel or long automobile travel, she denies having had any recent surgeries. She denies IV drug abuse or other drug abuse. She tells me she does smoke about half a pack a day. She is unemployed. Additional findings upon arrival include anemia. PAST MEDICAL HISTORY The patient reports history of tobaccoism. SURGICAL HISTORY Tonsillectomy when she was younger. ALLERGIES VANCOMYCIN which causes hives and chest pressure. FAMILY HISTORY Mom is living. She reports a great aunt who had blood clots. SOCIAL HISTORY She is partnered and lives with her boyfriend. The patient has a 6-year-old daughter who is cared for by the patient's mother. The patient does not work. She denies alcohol abuse or IV drug abuse or marijuana. CURRENT INPATIENT MEDICATIONS 1. Ceftriaxone 2 grams IV q.24 hours. 2. Clindamycin 600 mg IV q. 8. 3. Heparin per protocol. 4. Tylenol 650 mg p.o. q.4 hours as needed for fever. 5. Lactobacillus 1 tablet p.o. q. 12. 1. Morphine 2 mg IV q.6 hours. 2. Zofran 4 mg IV q.6 hours. 3. Nicotine patch 21 mg patch every 24 hours. 4. Pantoprazole 40 mcg IV q.24 hours. REVIEW OF SYSTEMS A 13-point review of systems is obtained the following are the pertinent positives - CONSTITUTIONAL: Fatigue, weakness, feverish feeling but no chills or sweats. She does report fever. HEENT: Denies headaches, blurry vision, difficulty swallowing or sore throat. RESPIRATORY: Denies difficulty breathing, cough or hemoptysis. CARDIOVASCULAR: Denies angina-like chest pain, PND, orthopnea GI: Denies nausea, vomiting, diarrhea hematochezia, melena. : Denies dysuria, hematuria, urinary incontinence. GYNECOLOGIC: She reports she has not had a period in over seven years. MUSCULOSKELETAL: Right shoulder pain, decreased mobility. Right hand swelling and decreased range of motion (cannot make a fist). Right leg swelling extending down from her thigh all the way down to her foot. Decreased range of motion and pain when she stands. 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 PHYSICAL EXAMINATION VITAL SIGNS: Weight 98.2 degrees Fahrenheit, heart rate 107 beats minute, blood pressure is 121/74. O2 sats 100% on room air. GENERAL PHYSICAL APPEARANCE: Ms. Quintana is a young female. She is laying in bed. She appears to be in pain. She is tearful at times during this interview. HEENT: Head is atraumatic, normocephalic. Conjunctivae are pale; sclerae are anicteric. EOMI, PERRLA. Oral exam with poor dental hygiene with numerous teeth in various stages of decay, especially her incisors. NECK EXAM: No palpable cervical or supraclavicular lymph adenopathy. RESPIRATORY EXAM: Good air movement bilaterally. Good breath sounds. CARDIOVASCULAR EXAM: Regular rate and rhythm, S1-S2. No obvious murmurs, rubs or gallops. ABDOMINAL EXAM: Thin belly, soft and nontender, nondistended. No palpable organ enlargement obviously noted. MUSCULOSKELETAL: Tenderness of the right shoulder. Decreased range of motion, i.e. she is unable to actually move her humerus at the shoulder joint at all. She is able to move her right upper extremity at the level of the elbow and at the wrist, her right hand is grossly swollen. Right lower extremity swollen from the thigh down to the ankle. Tenderness of the calf is noted. SKIN: No discoloration to suggest cellulitis at this time of the lower extremity. IMAGING STUDIES Ultrasound Doppler of the right lower extremity dated 02/14/2017: Study positive for deep venous thrombosis in the proximal thigh and into the calf. Additionally she was noted to have lymphadenopathy in the right groin. Right upper extremity CT scans involving the shoulder, elbow and wrist - No evidence of trauma identified. Microbiology: Blood cultures are negative x 2 over the past 24 hours. LABORATORY FINDINGS Blood work dated 02/14/2017: WBC count 12.5, hemoglobin 10.1 gm/dl, hematocrit is 30.8%, platelet count 121. Absolute neutrophil count is 10.6. ESR is 79 (upper limit of normal as 20). Coagulation studies: PTT earlier today was 27.7. Chemistries: Sodium 136, potassium 3.4, chloride 105, bicarbonate 22, BUN 14, creatinine 0.7, EGFR 149, lactic acid 3.6, total bilirubin 0.3, AST 8, ALT 13, alkaline phosphatase 183, albumin 1.6. Toxicology: Positive for cocaine, positive for amphetamines, positive for opioids dated 02/14/2017. Cannabinoids were negative. Benzodiazepines were negative. ASSESSMENT Ms. Quintana is a 26-year-old female who presents to the hospital with a one-week history of right calf swelling, pain associated with right thigh swelling and pain with resultant difficulty walking. She also reports pain, decreased range of motion and swelling of the right upper extremity from the right shoulder down to the right hand. She presented to the hospital with these above complaints and was noted on initial exam to have cellulitis diffusely involving her skin. The patient has hepatitis C. She told me clearly she does not abuse any drugs or IV drugs and specifically denies using cocaine or other street drugs. However, her urine tox from last night was positive for amphetamines as well as cocaine and opioids. She clearly was not truthful to me regarding her habits. This patient has been admitted to the hospital for suspected sepsis. She is being treated as such. During the workup she was noted to have a deep venous thrombosis of the right lower extremity for which she is now on anticoagulation. RECOMMENDATIONS 1. Right lower extremity deep venous thrombosis: Her PTTs are subtherapeutic at this time. I would suggest discontinuation of heparin and initiation of Lovenox at a dose of 1 mg/kg q.12 hours. I suspect the deep venous thrombosis was provoked by sepsis and perhaps cellulitis. She does have. 2. Large enlarged inguinal lymph nodes: I will obtain a pelvic and abdominal CT scan to rule out internal lymphadenopathy or other signs of infection. 3. If she is found to have diffuse lymphadenopathy, it would be prudent to obtain an HIV test. 4. Anemia: Obtain iron studies and vitamin B12 and folic acid levels. I will start her empirically on oral iron. I would avoid intravenous iron until her sepsis has resolved. Hematology will follow along with you. MD ALYSA Simon/ABENA /6:12 PM /7:15 AM
[2017-02-16] MEDS: SODIUM CHLORIDE 0.9% FLUSH 10 ML FLUSH IV FLUSH SCH ×2 (09:00→20:34)
[2017-02-16] MEDS: REMOVE OLD PATCH-NICOTINE T-DERMAL SCH (09:00)
[2017-02-16] MEDS: PANTOPRAZOLE SODIUM 40 MG VIAL IV PUSH SCH (09:22)
[2017-02-16] MEDS: cefTRIAXone INJ 2,000 MG in SODIUM CHLORIDE 0.9% INJ 100 ML IV SCH (09:22)
[2017-02-16] MEDS: LACTOBACILLUS ACIDOPHILUS TAB PO SCH ×2 (09:22→20:33)
[2017-02-16] MEDS: NICOTINE 21 MG/24 HR PATCH T-DERMAL SCH (09:23)
[2017-02-16] MEDS: ENOXAPARIN SODIUM 60 MG/0.6 ML SYRINGE SQ SCH ×2 (09:24→20:34)
[2017-02-16] MEDS: MORPHINE SULFATE 4 MG/ML INJ IV PUSH PRN ×3 (09:56→23:10)
--- NOTE | 2017-02-16 10:26 | HHI.PR ---
Subjective Remarks still with pain and swelling of the right lower extremity. afebrile. Objective Vitals Vital Signs Date Time Temp Pulse Resp B/P Pulse Ox O2 Delivery O2 Flow Rate FiO2 02/16/17 07:00 98.7 113 18 117/67 98 02/16/17 07:00 92 02/16/17 06:00 94 02/16/17 05:00 88 02/16/17 04:00 100 02/16/17 04:00 98.8 100 16 120/77 98 02/16/17 03:00 106 02/16/17 02:00 104 02/16/17 01:00 101 02/16/17 00:00 106 02/16/17 00:00 98.8 106 16 116/79 100 02/15/17 23:00 96 02/15/17 22:00 98 02/15/17 21:00 98 02/15/17 20:00 102 02/15/17 20:00 98.4 102 14 104/70 97 02/15/17 19:00 98 02/15/17 18:00 106 02/15/17 17:00 100 02/15/17 16:40 16 02/15/17 16:00 98.2 107 16 121/74 100 02/15/17 16:00 109 02/15/17 15:00 108 02/15/17 14:51 16 02/15/17 14:00 102 02/15/17 13:00 98 02/15/17 12:00 98.5 99 16 109/63 99 02/15/17 12:00 94 02/15/17 11:00 108 I/O 02/15/17 02/15/17 02/15/17 02/16/17 02/16/17 02/16/17 07:00 15:00 23:00 07:00 15:00 23:00 Intake Total 651 ml 1287 ml 2260 ml Output Total 400 ml 800 ml 800 ml Balance 251 ml 487 ml 1460 ml Intake Oral 560 ml 980 ml 2160 ml IV Total 41 ml 307 ml 100 ml Other 50 ml Output Urine Total 400 ml 800 ml 800 ml # Bowel Movements 1 3 Result Diagram: 02/14/17 1801 02/15/17722 Imaging Last Impressions Pelvis CT 02/16/17 06 Signed Impressions: Service Date/Time: Thursday, February 16, 2017 05:17 - CONCLUSION: Several nonspecific mildly prominent bilateral inguinal lymph nodes. Sam Hernandez MD Upper Extremity CT 02/14/17 0000 Signed Impressions: Service Date/Time: Tuesday, February 14, 2017 21:31 - CONCLUSION: Negative exam. Naman Farmer MD Lower Extremity Ultrasound 02/14/17 0000 Signed Impressions: Service Date/Time: Tuesday, February 14, 2017 19:23 - CONCLUSION: The study is positive for deep venous thrombosis with occlusive thrombus from the proximal thigh into the calf. Naman Farmer MD Elbow X-Ray 02/14/17 0000 Signed Impressions: Service Date/Time: Tuesday, February 14, 2017 18:06 - CONCLUSION: No evidence of recent bony injury. Naman Farmer MD Objective Remarks GENERAL: This is a well-nourished, well-developed patient, in no apparent distress. CARDIOVASCULAR: Regular rate and regular rhythm without murmurs, gallops, or rubs. RESPIRATORY: Clear to auscultation. Breath sounds equal bilaterally. No wheezes , rales, or rhonchi. GASTROINTESTINAL: Abdomen soft, non-tender, nondistended. Normal, active bowel sounds MUSCULOSKELETAL: swelling and mild erythema over the right leg and right hand. NEURO: Alert & Oriented x4 to person, place, time, situation. Moves all ext x4 Procedures none Medications and IVs Current Medications Morphine Sulfate 4 mg 4 mg ONCE ONCE IV PUSH Last administered on 02/14/17 18 :21; Start 02/14/17 at 18:00; Stop 02/14/17 at 18:01; Status DC Clindamycin Phosphate 600 mg/ Sodium Chloride 104 ml @ 208 mls/hr ONCE ONCE IV Last administered on 02/14/17 18:43; Start 02/14/17 at 18:00; Stop at 18:29; Status DC Ceftriaxone Sodium/Sodium Chloride (Rocephin Inj/NS Inj) 100 ml @ 200 mls/hr ONCE ONCE IV Last administered on 02/14/17 18:20; Start 02/14/17 at 18:00; Stop 02/14/17 at 18:29; Status DC Iohexol (Omnipaque 350 Inj) 100 ml STK-MED ONCE IV Last administered on 21:38; Start 02/14/17 at 21:38; Stop 02/14/17 at 21:39; Status DC Heparin Sodium (Porcine) (Heparin Inj) 4,200 units ONCE ONCE IV Last administered on 02/14/17 23:53; Start 02/14/17 at 23:15; Stop 02/15/17 at 18:22 ; Status DC Heparin Sodium (Porcine) (Heparin Inj) 5,000 units UNSCH PRN IV APTT LESS THAN 25; Start 02/15/17 at 05:15; Status Cancel Heparin Sodium (Porcine) 2500 units 2,500 units UNSCH PRN IV APTT 25 TO 39 Last administered on 02/15/17 08:31; Start 02/15/17 at 05:15; Stop 02/15/17 at 18:22; Status DC Heparin Sodium/ Dextrose (Heparin-D5W Inj) 250 ml @ 0 mls/hr TITRATE IV Last administered on 02/14/17 23:55; Start 02/14/17 at 23:15; Stop 02/15/17 at 18:22 ; Status DC Sodium Chloride (NS Flush) 2 ml UNSCH PRN IV FLUSH FLUSH AFTER USING IV ACCESS ; Start 02/14/17 at 23:30 Sodium Chloride (NS Flush) 2 ml BID IV FLUSH Last administered on 02/16/17 09: 00; Start 02/15/17 at 09:00 Acetaminophen (Tylenol) 650 mg Q4H PRN PO TEMP > 100.4; Start 02/14/17 at 23:30 Ondansetron HCl (Zofran Inj) 4 mg Q6H PRN IVP NAUSEA OR VOMITING; Start at 23:30 Acetaminophen (Tylenol) 650 mg Q6H PRN PO PAIN SCALE 1 TO 2; Start 02/14/17 at 23:30 Acetaminophen/ Hydrocodone Bitart ([place] 5-325 Mg) 1 tab Q4H PRN PO PAIN SCALE 3 TO 5 Last administered on 02/16/17 05:04; Start 02/14/17 at 23:30 Naloxone HCl (Narcan Inj) 0.4 mg UNSCH PRN IV SEE LABEL COMMENTS; Start at 23:30 Nicotine (Habitrol 21 Mg Patch.24 Hr) 1 patch DAILY T-DERMAL Last administered on 02/16/17 09:23; Start 02/15/17 at 09:00 Miscellaneous Information 1 DAILY T-DERMAL Last administered on 02/16/17 09:00 ; Start 02/15/17 at 09:00 Pantoprazole Sodium 40 mg 40 mg Q24H IV PUSH Last administered on 02/16/17 09: 22; Start 02/15/17 at 09:00 Ceftriaxone Sodium 2000 mg/ Sodium Chloride 100 ml @ 200 mls/hr Q24H IV Last administered on 02/16/17 09:22; Start 02/15/17 at 09:00 Clindamycin Phosphate/Sodium Chloride (Cleocin Inj/NS Inj) 104 ml @ 208 mls/hr Q8H IV Last administered on 02/16/17 02:06; Start 02/15/17 at 02:00 Lactobacillus Acidophilus (Lactinex) 1 tab Q12HR PO Last administered on 09:22; Start 02/15/17 at 09:00 Potassium Chloride (KCl) 60 meq ONCE ONCE PO Last administered on 02/15/17 02 :29; Start 02/15/17 at 02:00; Stop 02/15/17 at 02:01; Status DC Morphine Sulfate (Morphine Inj) 2 mg Q6H PRN IV PUSH pain>5 Last administered on 02/16/17 09:56; Start 02/15/17 at 02:00 Enoxaparin Sodium (Lovenox Inj) 50 mg Q12H SQ Last administered on 02/16/17 09 :24; Start 02/15/17 at 20:00 Epinephrine HCl (EPINEPHrine (1:10,000) INJ) 1 mg STK-MED ONCE .ROUTE ; Start at 05:07; Stop 02/16/17 at 05:08; Status DC A/P Assessment and Plan A/P Severe Sepsis due to cellulitis -right hand -continue Rocephin -continue Clindamycin -ID consult appreciated -echo with EF 60% and no regional wall motion abnormalities; will consider DELORES. -HIV testing was offered but the patient declined. DVT right lower extremity -Doppler noted and review with finding of proximal DVT -switched to subq Lovenox -hematology consulted Impaired fasting glucose-likely stress induced A1c 5.5 Hypokalemia Replaced- will monitor. Anemia of chronic illness -Check iron study -Transfuse accordingly for hemoglobin less than 7 Thrombocytopenia -Patient with history of hepatitis C, monitor CBC Left elbow pain -Elbow x-ray negative -Pain management accordingly IVDU -UDS positive for cocaine, amphetamine -Check 2-D echo to rule out endocarditis and consider DELORES in the face of severe sepsis DVT prophylaxis: Heparin ip Patricia Erwin MD Feb 16, 2017 10:26
[2017-02-16 12:34] LABS: TRANSFERRIN IRON PROFILE 163 MG/DL (200-360)
[2017-02-17] VITALS (7 sets, daily range): BP systolic 111–129; BP diastolic 61–77; PULSE 93–117; RESP 18–20; TEMP 97.4–98.6; O2SAT 98–100
[2017-02-17] MEDS ORDERED: diphenhydrAMINE HCL 50 MG/ML VIAL IV PUSH ONE
[2017-02-17] MEDS: ACETAMINOPHEN/HYDROcodone 325 MG/5 MG TAB PO PRN ×4 (00:30→20:22)
[2017-02-17] MEDS: CLINDAMYCIN INJ 600 MG in SODIUM CHLORIDE 0.9% INJ 100 ML IV SCH ×2 (02:24→09:12)
[2017-02-17 07:36] LABS: AUTOMATED NEUTROPHIL # 5.2 TH/MM3 (1.8-7.7); BASOPHIL % 0.5 % (0.0-2.0); EOSINOPHIL % 0.6 % (0.0-4.0); HEMATOCRIT 27.9 % (35.0-46.0); HEMO FLAGS DIFF FINAL; LYMPH % 30.7 % (9.0-44.0); LYMPHOCYTE # 2.5 TH/MM3 (1.0-4.8); MEAN CELL VOLUME 80.8 FL (80.0-100.0); MEAN CORPUSCULAR HEMOGLOBIN 27.2 PG (27.0-34.0); MEAN CORPUSCULAR HGB CONC 33.6 % (32.0-36.0); MONO % 5.7 % (0.0-8.0); NEUT % 62.5 % (16.0-70.0); PLATELET COUNT 202 TH/MM3 (150-450); RED BLOOD COUNT 3.45 MIL/MM3 (4.00-5.30); RED CELL DISTRIBUTION WIDTH 13.8 % (11.6-17.2); WHITE BLOOD COUNT 8.2 TH/MM3 (4.0-11.0)
[2017-02-17] MEDS: ENOXAPARIN SODIUM 60 MG/0.6 ML SYRINGE SQ SCH ×3 (08:00→19:37)
[2017-02-17 08:10] LABS: BICARBONATE 26.6 MEQ/L (21.0-32.0); POTASSIUM 4.5 MEQ/L (3.5-5.1)
[2017-02-17] MEDS: SODIUM CHLORIDE 0.9% FLUSH 10 ML FLUSH IV FLUSH SCH ×2 (09:00→20:22)
[2017-02-17] MEDS: NICOTINE 21 MG/24 HR PATCH T-DERMAL SCH (09:00)
[2017-02-17] MEDS: REMOVE OLD PATCH-NICOTINE T-DERMAL SCH (09:00)
[2017-02-17] MEDS: LACTOBACILLUS ACIDOPHILUS TAB PO SCH ×2 (09:11→20:22)
[2017-02-17] MEDS: PANTOPRAZOLE SODIUM 40 MG VIAL IV PUSH SCH (09:11)
[2017-02-17] MEDS: cefTRIAXone INJ 2,000 MG in SODIUM CHLORIDE 0.9% INJ 100 ML IV SCH (09:12)
--- NOTE | 2017-02-17 11:25 | HHI.PR ---
Subjective Remarks in no acute distress. complaining of pain to the right leg. no fever. refused the dose of Lovenox earlier. reportedly had a reaction with a skin rash last night; has resolved- morphine was dc'ed. Objective Vitals Vital Signs Date Time Temp Pulse Resp B/P Pulse Ox O2 Delivery O2 Flow Rate FiO2 02/17/17 09:10 101 02/17/17 08:00 97.7 93 18 124/69 99 02/17/17 04:00 98.6 104 18 129/63 100 02/17/17 00:00 98.2 117 20 126/77 100 02/16/17 20:00 105 02/16/17 20:00 98.5 104 20 116/64 98 02/16/17 14:45 98.1 109 20 123/70 99 I/O 02/16/17 02/16/17 02/16/17 02/17/17 02/17/17 02/17/17 07:00 15:00 23:00 07:00 15:00 23:00 Intake Total 2260 ml 240 ml 720 ml Output Total 800 ml Balance 1460 ml 240 ml 720 ml Intake Oral 2160 ml 240 ml 720 ml IV Total 100 ml Output Urine Total 800 ml # Voids 1 2 # Bowel Movements 3 0 1 Result Diagram: 02/17/17 0714 02/17/17 0714 Imaging Last Impressions Pelvis CT 02/16/17 0600 Signed Impressions: Service Date/Time: Thursday, February 16, 2017 05:17 - CONCLUSION: Several nonspecific mildly prominent bilateral inguinal lymph nodes. Sam Hernandez MD Upper Extremity CT 02/14/17 0000 Signed Impressions: Service Date/Time: Tuesday, February 14, 2017 21:31 - CONCLUSION: Negative exam. Naman Farmer MD Lower Extremity Ultrasound 02/14/17 0000 Signed Impressions: Service Date/Time: Tuesday, February 14, 2017 19:23 - CONCLUSION: The study is positive for deep venous thrombosis with occlusive thrombus from the proximal thigh into the calf. Naman Farmer MD Elbow X-Ray 02/14/17 0000 Signed Impressions: Service Date/Time: Tuesday, February 14, 2017 18:06 - CONCLUSION: No evidence of recent bony injury. Naman Farmer MD Objective Remarks GENERAL: This is a well-nourished, well-developed patient, in no apparent distress. CARDIOVASCULAR: Regular rate and regular rhythm without murmurs, gallops, or rubs. RESPIRATORY: Clear to auscultation. Breath sounds equal bilaterally. No wheezes , rales, or rhonchi. GASTROINTESTINAL: Abdomen soft, non-tender, nondistended. Normal, active bowel sounds MUSCULOSKELETAL: swelling and mild erythema over the right leg and right hand. NEURO: Alert & Oriented x4 to person, place, time, situation. Moves all ext x4 Procedures none Medications and IVs Current Medications Morphine Sulfate 4 mg 4 mg ONCE ONCE IV PUSH Last administered on 02/14/17 18 :21; Start 02/14/17 at 18:00; Stop 02/14/17 at 18:01; Status DC Clindamycin Phosphate 600 mg/ Sodium Chloride 104 ml @ 208 mls/hr ONCE ONCE IV Last administered on 02/14/17 18:43; Start 02/14/17 at 18:00; Stop at 18:29; Status DC Ceftriaxone Sodium/Sodium Chloride (Rocephin Inj/NS Inj) 100 ml @ 200 mls/hr ONCE ONCE IV Last administered on 02/14/17 18:20; Start 02/14/17 at 18:00; Stop 02/14/17 at 18:29; Status DC Iohexol (Omnipaque 350 Inj) 100 ml STK-MED ONCE IV Last administered on 21:38; Start 02/14/17 at 21:38; Stop 02/14/17 at 21:39; Status DC Heparin Sodium (Porcine) (Heparin Inj) 4,200 units ONCE ONCE IV Last administered on 02/14/17 23:53; Start 02/14/17 at 23:15; Stop 02/15/17 at 18:22 ; Status DC Heparin Sodium (Porcine) (Heparin Inj) 5,000 units UNSCH PRN IV APTT LESS THAN 25; Start 02/15/17 at 05:15; Status Cancel Heparin Sodium (Porcine) 2500 units 2,500 units UNSCH PRN IV APTT 25 TO 39 Last administered on 02/15/17 08:31; Start 02/15/17 at 05:15; Stop 02/15/17 at 18:22; Status DC Heparin Sodium/ Dextrose (Heparin-D5W Inj) 250 ml @ 0 mls/hr TITRATE IV Last administered on 02/14/17 23:55; Start 02/14/17 at 23:15; Stop 02/15/17 at 18:22 ; Status DC Sodium Chloride (NS Flush) 2 ml UNSCH PRN IV FLUSH FLUSH AFTER USING IV ACCESS ; Start 02/14/17 at 23:30 Sodium Chloride (NS Flush) 2 ml BID IV FLUSH Last administered on 02/17/17 09: 00; Start 02/15/17 at 09:00 Acetaminophen (Tylenol) 650 mg Q4H PRN PO TEMP > 100.4; Start 02/14/17 at 23:30 Ondansetron HCl (Zofran Inj) 4 mg Q6H PRN IVP NAUSEA OR VOMITING; Start at 23:30 Acetaminophen (Tylenol) 650 mg Q6H PRN PO PAIN SCALE 1 TO 2; Start 02/14/17 at 23:30 Acetaminophen/ Hydrocodone Bitart ([place] 5-325 Mg) 1 tab Q4H PRN PO PAIN SCALE 3 TO 5 Last administered on 02/17/17 09:13; Start 02/14/17 at 23:30 Naloxone HCl (Narcan Inj) 0.4 mg UNSCH PRN IV SEE LABEL COMMENTS; Start at 23:30 Nicotine (Habitrol 21 Mg Patch.24 Hr) 1 patch DAILY T-DERMAL Last administered on 02/16/17 09:23; Start 02/15/17 at 09:00 Miscellaneous Information 1 DAILY T-DERMAL Last administered on 02/16/17 09:00 ; Start 02/15/17 at 09:00 Pantoprazole Sodium 40 mg 40 mg Q24H IV PUSH Last administered on 02/17/17 09: 11; Start 02/15/17 at 09:00 Ceftriaxone Sodium 2000 mg/ Sodium Chloride 100 ml @ 200 mls/hr Q24H IV Last administered on 02/17/17 09:12; Start 02/15/17 at 09:00 Clindamycin Phosphate/Sodium Chloride (Cleocin Inj/NS Inj) 104 ml @ 208 mls/hr Q8H IV Last administered on 02/17/17 09:12; Start 02/15/17 at 02:00 Lactobacillus Acidophilus (Lactinex) 1 tab Q12HR PO Last administered on 09:11; Start 02/15/17 at 09:00 Potassium Chloride (KCl) 60 meq ONCE ONCE PO Last administered on 02/15/17 02 :29; Start 02/15/17 at 02:00; Stop 02/15/17 at 02:01; Status DC Morphine Sulfate (Morphine Inj) 2 mg Q6H PRN IV PUSH pain>5 Last administered on 02/16/17 23:10; Start 02/15/17 at 02:00; Stop 02/16/17 at 23:54; Status DC Enoxaparin Sodium (Lovenox Inj) 50 mg Q12H SQ Last administered on 02/16/17 20 :34; Start 02/15/17 at 20:00 Epinephrine HCl (EPINEPHrine (1:10,000) INJ) 1 mg STK-MED ONCE .ROUTE ; Start at 05:07; Stop 02/16/17 at 05:08; Status DC Diphenhydramine HCl (Benadryl Inj) 25 mg ONCE ONCE IV PUSH ; Start 02/17/17 at 00:00; Stop 02/17/17 at 00:09; Status DC A/P Assessment and Plan A/P Severe Sepsis due to cellulitis -right hand -continue Rocephin -continue Clindamycin -ID consult appreciated -echo with EF 60% and no regional wall motion abnormalities; will consider DELORES. -HIV testing was offered but the patient declined. DVT right lower extremity -Doppler noted and review with finding of proximal DVT -switched to subq Lovenox -d/w the patient regarding the compliance with the regimen -hematology consulted Impaired fasting glucose-likely stress induced A1c 5.5 Hypokalemia Replaced- will monitor. Anemia of chronic illness -Transfuse accordingly for hemoglobin less than 7 Thrombocytopenia -Patient with history of hepatitis C, monitor CBC Left elbow pain -Elbow x-ray negative -Pain management accordingly IVDU -UDS positive for cocaine, amphetamine DVT prophylaxis: Heparin Patricia Fernandes MD Feb 17, 2017 11:25
[2017-02-17] MEDS: KETOROLAC TROMETHAMINE 30 MG/ML (IVP) VIAL IM PRN (12:10)
--- NOTE | 2017-02-17 12:43 | HHI.IDPN ---
Note Infectious Disease Note Patient says she feels okay. Noted to have welts on her thighs yesterday. Sleepy. No complaints. Reports sweats. Blood cultures are negative. 2D ECHO without vegetations. Afebrile. Presented to the emergency department with swelling and pain of her right leg and right hand. PAST MEDICAL HISTORY 1. Facial cellulitis in October of 2016. 2. Anxiety, depression. 3. Illicit drug use. (The patient denied IV drug use to me. However, her toxicology screen is positive for amphetamines and also cocaine.) ALLERGIES VANCOMYCIN. ANTIBIOTICS: 1. Ceftriaxone. 2. Clindamycin. SOCIAL HISTORY The patient smokes half-a-pack of cigarettes a day. She denies alcohol use. FAMILY HISTORY Noncontributory. OBJECTIVE: Vital Signs Date Time Temp Pulse Resp B/P Pulse Ox O2 Delivery O2 Flow Rate FiO2 02/17/17 12:00 97.5 94 18 115/65 100 02/17/17 09:10 101 02/17/17 08:00 97.7 93 18 124/69 99 02/17/17 04:00 98.6 104 18 129/63 100 02/17/17 00:00 98.2 117 20 126/77 100 02/16/17 20:00 105 02/16/17 20:00 98.5 104 20 116/64 98 02/16/17 14:45 98.1 109 20 123/70 99 02/16/17 02/16/17 02/17/17 15:00 23:00 07:00 Intake Total 240 ml 720 ml Balance 240 ml 720 ml Intake Oral 240 ml 720 ml # Voids 1 2 # Bowel Movements 0 1 Laboratory Tests Test 02/17/17 07:14 White Blood Count 8.2 TH/MM3 Red Blood Count 3.45 MIL/MM3 Hemoglobin 9.4 GM/DL Hematocrit 27.9 % Mean Corpuscular Volume 80.8 FL Mean Corpuscular Hemoglobin 27.2 PG Mean Corpuscular Hemoglobin 33.6 % Concent Red Cell Distribution Width 13.8 % Platelet Count 202 TH/MM3 Mean Platelet Volume 6.7 FL Neutrophils (%) (Auto) 62.5 % Lymphocytes (%) (Auto) 30.7 % Monocytes (%) (Auto) 5.7 % Eosinophils (%) (Auto) 0.6 % Basophils (%) (Auto) 0.5 % Neutrophils # (Auto) 5.2 TH/MM3 Lymphocytes # (Auto) 2.5 TH/MM3 Monocytes # (Auto) 0.5 TH/MM3 Eosinophils # (Auto) 0.0 TH/MM3 Basophils # (Auto) 0.0 TH/MM3 CBC Comment DIFF FINAL Differential Comment Laboratory Tests Test 02/16/17 02/17/17 11:10 07:14 Iron Level 43 MCG/DL Total Iron Binding Capacity 228 MCG/DL Percent Iron Saturation 18.8 % Vitamin B12 Level GREATER THAN 2000 PG/ML Folate 6.3 NG/ML Sodium Level 136 MEQ/L Potassium Level 4.5 MEQ/L Chloride Level 102 MEQ/L Carbon Dioxide Level 26.6 MEQ/L Anion Gap 7 MEQ/L Blood Urea Nitrogen 5 MG/DL Creatinine 0.58 MG/DL Estimat Glomerular Filtration 127 ML/MIN Rate Random Glucose 92 MG/DL Lactic Acid Level 1.8 mmol/L Calcium Level 7.9 MG/DL Microbiology Date/Time Procedure Status Source Growth 02/14/17 17:45 Aerobic Blood Culture - Preliminary Resulted Blood Peripheral NO GROWTH IN 3 DAYS 02/14/17 17:45 Anaerobic Blood Culture - Preliminary Resulted Blood Peripheral NO GROWTH IN 3 DAYS 02/14/17 18:01 Aerobic Blood Culture - Preliminary Resulted Blood Peripheral NO GROWTH IN 3 DAYS 02/14/17 18:01 Anaerobic Blood Culture - Preliminary Resulted Blood Peripheral NO GROWTH IN 3 DAYS 02/14/17 18:45 Urine Culture - Final Complete Urine Clean Catch NO GROWTH IN 48 HOURS. PHYSICAL EXAMINATION GENERAL: No acute distress. HEENT: Extraocular movements grossly intact. Pupils reactive to light without icterus. No conjunctival erythema. Oropharynx - Poor dentition. Moist mucosa. NECK: Supple. No adenopathy. LUNGS: Clear breath sounds. HEART: Regular rate and rhythm without audible murmurs or rubs or gallops. ABDOMEN: Bowel sounds. Soft. EXTREMITIES: The right lower extremity is still markedly swollen and appears decreased. SKIN: No diffuse rash. NEURO: Nonfocal. PSYCH: The patient is calm and cooperative. IMPRESSION 1. Sepsis. Patient presenting with white blood cell count elevation along with lactic acidemia and fever and chills and also DVT of the right lower extremity and swelling of the right hand possibly from disseminated infection. However DVT can cause these features. 2. No evidence of endocarditis. 3. DVT of the right lower extremity. 4. ALLERGIC REACTION TO VANCOMYCIN. RECOMMENDATIONS 1. Stop clindamycin. 2. Change Ceftriaxone to keflex x 5 more days treatment for cellulitis. Ward Mcdowell MD Feb 17, 2017 12:43
[2017-02-18] VITALS (8 sets, daily range): BP systolic 111–145; BP diastolic 63–74; PULSE 110–124; RESP 18–20; TEMP 97.6–98.6; O2SAT 98–100
[2017-02-18] MEDS: KETOROLAC TROMETHAMINE 30 MG/ML (IVP) VIAL IM PRN (05:36)
[2017-02-18] MEDS ORDERED: SODIUM CHLOR 0.9% 1000 ML INJ 1,000 ML IV ONE (06:45)
[2017-02-18] MEDS: ACETAMINOPHEN/HYDROcodone 325 MG/5 MG TAB PO PRN ×4 (06:58→21:09)
[2017-02-18] MEDS: SODIUM CHLORIDE 0.9% FLUSH 10 ML FLUSH IV FLUSH SCH ×2 (09:01→21:00)
[2017-02-18] MEDS: cefTRIAXone INJ 2,000 MG in SODIUM CHLORIDE 0.9% INJ 100 ML IV SCH (09:01)
[2017-02-18] MEDS: LACTOBACILLUS ACIDOPHILUS TAB PO SCH ×2 (09:01→21:00)
[2017-02-18] MEDS: PANTOPRAZOLE SODIUM 40 MG VIAL IV PUSH SCH (09:01)
[2017-02-18] MEDS: NICOTINE 21 MG/24 HR PATCH T-DERMAL SCH (09:01)
[2017-02-18] MEDS: REMOVE OLD PATCH-NICOTINE T-DERMAL SCH (09:01)
[2017-02-18] MEDS: ENOXAPARIN SODIUM 60 MG/0.6 ML SYRINGE SQ SCH ×2 (09:09→21:09)
--- NOTE | 2017-02-18 09:15 | HHI.PR ---
Subjective Remarks complaining of pain to the right leg and right arm. no fever. d/w the RN. Objective Vitals Vital Signs Date Time Temp Pulse Resp B/P Pulse Ox O2 Delivery O2 Flow Rate FiO2 02/18/17 08:00 97.9 111 18 119/63 99 02/18/17 04:00 98.6 124 18 128/63 98 02/18/17 00:00 97.9 114 18 111/66 98 02/17/17 20:00 115 02/17/17 20:00 97.4 115 18 111/61 98 02/17/17 16:00 97.6 99 18 128/70 100 02/17/17 12:00 97.5 94 18 115/65 100 I/O 02/17/17 02/17/17 02/17/17 02/18/17 02/18/17 02/18/17 07:00 15:00 23:00 07:00 15:00 23:00 Intake Total 720 ml 720 ml 480 ml 480 ml Output Total 1 ml Balance 720 ml 720 ml 479 ml 480 ml Intake Oral 720 ml 720 ml 480 ml 480 ml Output Urine Total 1 ml # Voids 2 2 2 # Bowel Movements 1 2 0 0 Result Diagram: 02/17/17 0714 02/17/17 0714 Imaging Last Impressions Pelvis CT 02/16/17 0600 Signed Impressions: Service Date/Time: Thursday, February 16, 2017 05:17 - CONCLUSION: Several nonspecific mildly prominent bilateral inguinal lymph nodes. Sam Hernandez MD Upper Extremity CT 02/14/17 0000 Signed Impressions: Service Date/Time: Tuesday, February 14, 2017 21:31 - CONCLUSION: Negative exam. Naman Farmer MD Lower Extremity Ultrasound 02/14/17 0000 Signed Impressions: Service Date/Time: Tuesday, February 14, 2017 19:23 - CONCLUSION: The study is positive for deep venous thrombosis with occlusive thrombus from the proximal thigh into the calf. Naman Farmer MD Elbow X-Ray 02/14/17 0000 Signed Impressions: Service Date/Time: Tuesday, February 14, 2017 18:06 - CONCLUSION: No evidence of recent bony injury. Naman Farmer MD Objective Remarks GENERAL: This is a well-nourished, well-developed patient, in no apparent distress. CARDIOVASCULAR: Regular rate and regular rhythm without murmurs, gallops, or rubs. RESPIRATORY: Clear to auscultation. Breath sounds equal bilaterally. No wheezes , rales, or rhonchi. GASTROINTESTINAL: Abdomen soft, non-tender, nondistended. Normal, active bowel sounds MUSCULOSKELETAL: swelling and mild erythema over the right leg and right hand. NEURO: Alert & Oriented x4 to person, place, time, situation. Moves all ext x4 Procedures none Medications and IVs Current Medications Morphine Sulfate 4 mg 4 mg ONCE ONCE IV PUSH Last administered on 02/14/17 18 :21; Start 02/14/17 at 18:00; Stop 02/14/17 at 18:01; Status DC Clindamycin Phosphate 600 mg/ Sodium Chloride 104 ml @ 208 mls/hr ONCE ONCE IV Last administered on 02/14/17 18:43; Start 02/14/17 at 18:00; Stop at 18:29; Status DC Ceftriaxone Sodium/Sodium Chloride (Rocephin Inj/NS Inj) 100 ml @ 200 mls/hr ONCE ONCE IV Last administered on 02/14/17 18:20; Start 02/14/17 at 18:00; Stop 02/14/17 at 18:29; Status DC Iohexol (Omnipaque 350 Inj) 100 ml STK-MED ONCE IV Last administered on 21:38; Start 02/14/17 at 21:38; Stop 02/14/17 at 21:39; Status DC Heparin Sodium (Porcine) (Heparin Inj) 4,200 units ONCE ONCE IV Last administered on 02/14/17 23:53; Start 02/14/17 at 23:15; Stop 02/15/17 at 18:22 ; Status DC Heparin Sodium (Porcine) (Heparin Inj) 5,000 units UNSCH PRN IV APTT LESS THAN 25; Start 02/15/17 at 05:15; Status Cancel Heparin Sodium (Porcine) 2500 units 2,500 units UNSCH PRN IV APTT 25 TO 39 Last administered on 02/15/17 08:31; Start 02/15/17 at 05:15; Stop 02/15/17 at 18:22; Status DC Heparin Sodium/ Dextrose (Heparin-D5W Inj) 250 ml @ 0 mls/hr TITRATE IV Last administered on 02/14/17 23:55; Start 02/14/17 at 23:15; Stop 02/15/17 at 18:22 ; Status DC Sodium Chloride (NS Flush) 2 ml UNSCH PRN IV FLUSH FLUSH AFTER USING IV ACCESS ; Start 02/14/17 at 23:30 Sodium Chloride (NS Flush) 2 ml BID IV FLUSH Last administered on 02/17/17 20: 22; Start 02/15/17 at 09:00 Acetaminophen (Tylenol) 650 mg Q4H PRN PO TEMP > 100.4; Start 02/14/17 at 23:30 Ondansetron HCl (Zofran Inj) 4 mg Q6H PRN IVP NAUSEA OR VOMITING; Start at 23:30 Acetaminophen (Tylenol) 650 mg Q6H PRN PO PAIN SCALE 1 TO 2; Start 02/14/17 at 23:30 Acetaminophen/ Hydrocodone Bitart (Earle 5-325 Mg) 1 tab Q4H PRN PO PAIN SCALE 3 TO 5 Last administered on 02/17/17 09:13; Start 02/14/17 at 23:30 Naloxone HCl (Narcan Inj) 0.4 mg UNSCH PRN IV SEE LABEL COMMENTS; Start at 23:30 Nicotine (Habitrol 21 Mg Patch.24 Hr) 1 patch DAILY T-DERMAL Last administered on 02/16/17 09:23; Start 02/15/17 at 09:00 Miscellaneous Information 1 DAILY T-DERMAL Last administered on 02/16/17 09:00 ; Start 02/15/17 at 09:00 Pantoprazole Sodium 40 mg 40 mg Q24H IV PUSH Last administered on 02/17/17 09: 11; Start 02/15/17 at 09:00 Ceftriaxone Sodium 2000 mg/ Sodium Chloride 100 ml @ 200 mls/hr Q24H IV Last administered on 02/17/17 09:12; Start 02/15/17 at 09:00 Clindamycin Phosphate/Sodium Chloride (Cleocin Inj/NS Inj) 104 ml @ 208 mls/hr Q8H IV Last administered on 02/17/17 09:12; Start 02/15/17 at 02:00; Stop at 12:31; Status DC Lactobacillus Acidophilus (Lactinex) 1 tab Q12HR PO Last administered on 20:22; Start 02/15/17 at 09:00 Potassium Chloride (KCl) 60 meq ONCE ONCE PO Last administered on 02/15/17 02 :29; Start 02/15/17 at 02:00; Stop 02/15/17 at 02:01; Status DC Morphine Sulfate (Morphine Inj) 2 mg Q6H PRN IV PUSH pain>5 Last administered on 02/16/17 23:10; Start 02/15/17 at 02:00; Stop 02/16/17 at 23:54; Status DC Enoxaparin Sodium (Lovenox Inj) 50 mg Q12H SQ Last administered on 02/17/17 15 :18; Start 02/15/17 at 20:00 Epinephrine HCl (EPINEPHrine (1:10,000) INJ) 1 mg STK-MED ONCE .ROUTE ; Start at 05:07; Stop 02/16/17 at 05:08; Status DC Diphenhydramine HCl (Benadryl Inj) 25 mg ONCE ONCE IV PUSH ; Start 02/17/17 at 00:00; Stop 02/17/17 at 00:09; Status DC Acetaminophen/ Hydrocodone Bitart (Earle 5-325 Mg) 2 tab Q4H PRN PO PAIN > 5 Last administered on 02/18/17 06:58; Start 02/17/17 at 11:30 Ketorolac Tromethamine 15 mg 15 mg Q8HR PRN IM BREAKTHROUGH PAIN Last administered on 02/18/17 05:36; Start 02/17/17 at 11:30; Stop 02/19/17 at 09:00 Sodium Chloride (NS 1000 ml Inj) 1,000 ml @ 999 mls/hr BOLUS ONCE IV Last administered on 02/18/17 06:57; Start 02/18/17 at 06:45; Stop 02/18/17 at 07:45 ; Status DC A/P Assessment and Plan A/P Severe Sepsis due to cellulitis -right hand -continue Rocephin -will switch to keflex upon discharge -ID follow-up appreciated -echo with EF 60% and no regional wall motion abnormalities; will consider DELORES. -HIV testing was offered but the patient declined. DVT right lower extremity -Doppler noted and review with finding of proximal DVT -switched to subq Lovenox -d/w the patient regarding the compliance with the regimen -hematology consulted -continue with pain control. Impaired fasting glucose-likely stress induced A1c 5.5 Hypokalemia Replaced- will monitor. Anemia of chronic illness -Transfuse accordingly for hemoglobin less than 7 Thrombocytopenia -Patient with history of hepatitis C, monitor CBC Left elbow pain -Elbow x-ray negative -Pain management accordingly IVDU -UDS positive for cocaine, amphetamine Discharge Planning possible discharge within the next one-two days if pain is better controlled and stable. Patricia Erwin MD Feb 18, 2017 09:14
[2017-02-18] MEDS ORDERED: FERR325T PO (12:40)
[2017-02-18] MEDS ORDERED: ENOX60P SQ (12:40)
--- NOTE | 2017-02-18 16:35 | HHI.IDPN ---
Note Infectious Disease Note Patient says she feels okay. No further episode of welts. Notes heavy sweats R. hand and leg hurts. Blood cultures are negative. 2D ECHO without vegetations. Afebrile. Presented to the emergency department with swelling and pain of her right leg and right hand. PAST MEDICAL HISTORY 1. Facial cellulitis in October of 2016. 2. Anxiety, depression. 3. Illicit drug use. (The patient denied IV drug use to me. However, her toxicology screen is positive for amphetamines and also cocaine.) ALLERGIES VANCOMYCIN. ANTIBIOTICS: 1. Ceftriaxone. SOCIAL HISTORY The patient smokes half-a-pack of cigarettes a day. She denies alcohol use. FAMILY HISTORY Noncontributory. OBJECTIVE: Vital Signs Date Time Temp Pulse Resp B/P Pulse Ox O2 Delivery O2 Flow Rate FiO2 02/18/17 16:00 97.8 119 18 145/65 100 02/18/17 12:00 97.9 110 18 123/71 100 02/18/17 09:14 110 02/18/17 08:00 97.9 111 18 119/63 99 02/18/17 04:00 98.6 124 18 128/63 98 02/18/17 00:00 97.9 114 18 111/66 98 02/17/17 20:00 115 02/17/17 20:00 97.4 115 18 111/61 98 02/17/17 02/17/17 02/18/17 15:00 23:00 07:00 Intake Total 720 ml 480 ml 480 ml Output Total 1 ml Balance 720 ml 479 ml 480 ml Intake Oral 720 ml 480 ml 480 ml Output Urine Total 1 ml # Voids 2 2 # Bowel Movements 2 0 0 Laboratory Tests Test 02/17/17 07:14 White Blood Count 8.2 TH/MM3 Red Blood Count 3.45 MIL/MM3 Hemoglobin 9.4 GM/DL Hematocrit 27.9 % Mean Corpuscular Volume 80.8 FL Mean Corpuscular Hemoglobin 27.2 PG Mean Corpuscular Hemoglobin 33.6 % Concent Red Cell Distribution Width 13.8 % Platelet Count 202 TH/MM3 Mean Platelet Volume 6.7 FL Neutrophils (%) (Auto) 62.5 % Lymphocytes (%) (Auto) 30.7 % Monocytes (%) (Auto) 5.7 % Eosinophils (%) (Auto) 0.6 % Basophils (%) (Auto) 0.5 % Neutrophils # (Auto) 5.2 TH/MM3 Lymphocytes # (Auto) 2.5 TH/MM3 Monocytes # (Auto) 0.5 TH/MM3 Eosinophils # (Auto) 0.0 TH/MM3 Basophils # (Auto) 0.0 TH/MM3 CBC Comment DIFF FINAL Differential Comment Laboratory Tests Test 02/17/17 07:14 Sodium Level 136 MEQ/L Potassium Level 4.5 MEQ/L Chloride Level 102 MEQ/L Carbon Dioxide Level 26.6 MEQ/L Anion Gap 7 MEQ/L Blood Urea Nitrogen 5 MG/DL Creatinine 0.58 MG/DL Estimat Glomerular Filtration 127 ML/MIN Rate Random Glucose 92 MG/DL Lactic Acid Level 1.8 mmol/L Calcium Level 7.9 MG/DL Microbiology Date/Time Procedure Status Source Growth 02/14/17 17:45 Aerobic Blood Culture - Preliminary Resulted Blood Peripheral NO GROWTH IN 3 DAYS 02/14/17 17:45 Anaerobic Blood Culture - Preliminary Resulted Blood Peripheral NO GROWTH IN 3 DAYS 02/14/17 18:01 Aerobic Blood Culture - Preliminary Resulted Blood Peripheral NO GROWTH IN 3 DAYS 02/14/17 18:01 Anaerobic Blood Culture - Preliminary Resulted Blood Peripheral NO GROWTH IN 3 DAYS 02/14/17 18:45 Urine Culture - Final Complete Urine Clean Catch NO GROWTH IN 48 HOURS. IMAGING: Pelvis CT 02/16/17 0600 Signed Impressions: Service Date/Time: Thursday, February 16, 2017 05:17 - CONCLUSION: Several nonspecific mildly prominent bilateral inguinal lymph nodes. Sam Hernandez MD Upper Extremity CT 02/14/17 0000 Signed Impressions: Service Date/Time: Tuesday, February 14, 2017 21:31 - CONCLUSION: Negative exam. Naman Farmer MD Lower Extremity Ultrasound 02/14/17 0000 Signed Impressions: Service Date/Time: Tuesday, February 14, 2017 19:23 - CONCLUSION: The study is positive for deep venous thrombosis with occlusive thrombus from the proximal thigh into the calf. Naman Farmer MD Elbow X-Ray 02/14/17 0000 Signed Impressions: Service Date/Time: Tuesday, February 14, 2017 18:06 - CONCLUSION: No evidence of recent bony injury. Naman Farmer MD PHYSICAL EXAMINATION GENERAL: No acute distress. HEENT: Extraocular movements grossly intact. Pupils reactive to light without icterus. No conjunctival erythema. Oropharynx - Poor dentition. Moist mucosa. NECK: Supple. No adenopathy. LUNGS: Clear breath sounds. HEART: Regular rate and rhythm without audible murmurs or rubs or gallops. ABDOMEN: Bowel sounds. Soft. EXTREMITIES: The right lower extremity still markedly swollen. R. hand still swollen and erythematous. SKIN: No diffuse rash. NEURO: Nonfocal. PSYCH: The patient is calm and cooperative. IMPRESSION 1. Sepsis. Patient presenting with white blood cell count elevation along with lactic acidemia and fever and chills and also DVT of the right lower extremity and swelling of the right hand possibly from disseminated infection. However DVT can cause these features. 2. No evidence of endocarditis. 3. DVT of the right lower extremity. 4. ALLERGIC REACTION TO VANCOMYCIN. RECOMMENDATIONS 1. Continue Ceftriaxone for now with r. hand not improving - treatment for cellulitis. 2. Plain film of the r. hand to check for fracture. Ward Mcdowell MD Feb 18, 2017 16:34
--- NOTE | 2017-02-18 18:19 | RADRPT ---
EXAM DATE/TIME: 02/18/2017 16:54 [facility] COMPARISON: No previous studies available for comparison. INDICATIONS : Right hand pain and swelling. MEDICAL HISTORY : Hepatitis C. Substance abuse. SURGICAL HISTORY : None. ENCOUNTER: Initial ACUITY: 1 week PAIN SCORE: 10/10 LOCATION: Right hand. FINDINGS: No definite fractures, or dislocations are identified. No definite lytic or sclerotic lesion is seen . The joint spaces are well maintained. CONCLUSION: Unremarkable study. Suzanne Sykes MD on February 18, 2017 at 18:17 Board Certified Radiologist. This report was verified electronically.
[2017-02-18] MEDS: HYDROmorphone HCL PF 1 MG/ML VIAL IV PUSH PRN ×2 (19:37→23:36)
[2017-02-18] MEDS: SODIUM CHLORIDE 0.9% FLUSH 10 ML FLUSH IV FLUSH PRN ×2 (19:37→23:36)
[2017-02-19] VITALS (9 sets, daily range): BP systolic 115–181; BP diastolic 58–88; PULSE 113–133; RESP 16–24; TEMP 97.7–99.1; O2SAT 93–100
[2017-02-19] MEDS: ACETAMINOPHEN/HYDROcodone 325 MG/5 MG TAB PO PRN ×5 (01:18→22:42)
[2017-02-19] MEDS: HYDROmorphone HCL PF 1 MG/ML VIAL IV PUSH PRN ×3 (03:47→14:09)
[2017-02-19] MEDS: SODIUM CHLORIDE 0.9% FLUSH 10 ML FLUSH IV FLUSH PRN (03:48)
--- NOTE | 2017-02-19 08:07 | HHI.PR ---
Subjective Remarks in no acute distress. remains afebrile. says that the pain to the right arm and leg is better today. no new complaints. Objective Vitals Vital Signs Date Time Temp Pulse Resp B/P Pulse Ox O2 Delivery O2 Flow Rate FiO2 02/19/17 04:00 Room Air 02/19/17 04:00 97.9 113 20 133/69 99 02/19/17 00:15 Room Air 02/19/17 00:15 98.2 114 20 137/70 100 02/18/17 20:34 113 02/18/17 20:00 Room Air 02/18/17 20:00 97.6 122 20 119/74 100 02/18/17 16:00 97.8 119 18 145/65 100 02/18/17 12:00 97.9 110 18 123/71 100 02/18/17 09:14 110 I/O 02/18/17 02/18/17 02/18/17 02/19/17 02/19/17 02/19/17 07:00 15:00 23:00 07:00 15:00 23:00 Intake Total 480 ml 960 ml 480 ml 1080 ml Output Total 1200 ml Balance 480 ml -240 ml 480 ml 1080 ml Intake Oral 480 ml 960 ml 480 ml 1080 ml Output Urine Total 1200 ml # Voids 2 2 4 # Bowel Movements 0 2 0 Result Diagram: 02/17/17 0714 02/17/17 0714 Imaging Last Impressions Hand X-Ray 02/18/17 0000 Signed Impressions: Service Date/Time: January 16:54 - CONCLUSION: Unremarkable study. KDarlyn Sykes MD Pelvis CT 02/16/17 0600 Signed Impressions: Service Date/Time: Thursday, February 16, 2017 05:17 - CONCLUSION: Several nonspecific mildly prominent bilateral inguinal lymph nodes. Sam Hernandez MD Upper Extremity CT 02/14/17 0000 Signed Impressions: Service Date/Time: Tuesday, February 14, 2017 21:31 - CONCLUSION: Negative exam. Naman Farmer MD Lower Extremity Ultrasound 02/14/17 0000 Signed Impressions: Service Date/Time: Tuesday, February 14, 2017 19:23 - CONCLUSION: The study is positive for deep venous thrombosis with occlusive thrombus from the proximal thigh into the calf. Naman Farmer MD Elbow X-Ray 02/14/17 0000 Signed Impressions: Service Date/Time: Tuesday, February 14, 2017 18:06 - CONCLUSION: No evidence of recent bony injury. Naman Farmer MD Objective Remarks GENERAL: This is a well-nourished, well-developed patient, in no apparent distress. CARDIOVASCULAR: Regular rate and regular rhythm without murmurs, gallops, or rubs. RESPIRATORY: Clear to auscultation. Breath sounds equal bilaterally. No wheezes , rales, or rhonchi. GASTROINTESTINAL: Abdomen soft, non-tender, nondistended. Normal, active bowel sounds MUSCULOSKELETAL: swelling and mild erythema over the right leg and right hand. NEURO: Alert & Oriented x4 to person, place, time, situation. Moves all ext x4 Procedures none Medications and IVs Current Medications Morphine Sulfate 4 mg 4 mg ONCE ONCE IV PUSH Last administered on 02/14/17 18 :21; Start 02/14/17 at 18:00; Stop 02/14/17 at 18:01; Status DC Clindamycin Phosphate 600 mg/ Sodium Chloride 104 ml @ 208 mls/hr ONCE ONCE IV Last administered on 02/14/17 18:43; Start 02/14/17 at 18:00; Stop at 18:29; Status DC Ceftriaxone Sodium/Sodium Chloride (Rocephin Inj/NS Inj) 100 ml @ 200 mls/hr ONCE ONCE IV Last administered on 02/14/17 18:20; Start 02/14/17 at 18:00; Stop 02/14/17 at 18:29; Status DC Iohexol (Omnipaque 350 Inj) 100 ml STK-MED ONCE IV Last administered on 21:38; Start 02/14/17 at 21:38; Stop 02/14/17 at 21:39; Status DC Heparin Sodium (Porcine) (Heparin Inj) 4,200 units ONCE ONCE IV Last administered on 02/14/17 23:53; Start 02/14/17 at 23:15; Stop 02/15/17 at 18:22 ; Status DC Heparin Sodium (Porcine) (Heparin Inj) 5,000 units UNSCH PRN IV APTT LESS THAN 25; Start 02/15/17 at 05:15; Status Cancel Heparin Sodium (Porcine) 2500 units 2,500 units UNSCH PRN IV APTT 25 TO 39 Last administered on 02/15/17 08:31; Start 02/15/17 at 05:15; Stop 02/15/17 at 18:22; Status DC Heparin Sodium/ Dextrose (Heparin-D5W Inj) 250 ml @ 0 mls/hr TITRATE IV Last administered on 02/14/17 23:55; Start 02/14/17 at 23:15; Stop 02/15/17 at 18:22 ; Status DC Sodium Chloride (NS Flush) 2 ml UNSCH PRN IV FLUSH FLUSH AFTER USING IV ACCESS Last administered on 02/19/17 03:48; Start 02/14/17 at 23:30 Sodium Chloride (NS Flush) 2 ml BID IV FLUSH Last administered on 02/18/17 09: 01; Start 02/15/17 at 09:00 Acetaminophen (Tylenol) 650 mg Q4H PRN PO TEMP > 100.4; Start 02/14/17 at 23:30 Ondansetron HCl (Zofran Inj) 4 mg Q6H PRN IVP NAUSEA OR VOMITING; Start at 23:30 Acetaminophen (Tylenol) 650 mg Q6H PRN PO PAIN SCALE 1 TO 2; Start 02/14/17 at 23:30 Acetaminophen/ Hydrocodone Bitart ([place] 5-325 Mg) 1 tab Q4H PRN PO PAIN SCALE 3 TO 5 Last administered on 02/17/17 09:13; Start 02/14/17 at 23:30 Naloxone HCl (Narcan Inj) 0.4 mg UNSCH PRN IV SEE LABEL COMMENTS; Start at 23:30 Nicotine (Habitrol 21 Mg Patch.24 Hr) 1 patch DAILY T-DERMAL Last administered on 02/18/17 09:01; Start 02/15/17 at 09:00 Miscellaneous Information 1 DAILY T-DERMAL Last administered on 02/18/17 09:01 ; Start 02/15/17 at 09:00 Pantoprazole Sodium 40 mg 40 mg Q24H IV PUSH Last administered on 02/18/17 09: 01; Start 02/15/17 at 09:00 Ceftriaxone Sodium 2000 mg/ Sodium Chloride 100 ml @ 200 mls/hr Q24H IV Last administered on 02/18/17 09:01; Start 02/15/17 at 09:00 Clindamycin Phosphate/Sodium Chloride (Cleocin Inj/NS Inj) 104 ml @ 208 mls/hr Q8H IV Last administered on 02/17/17 09:12; Start 02/15/17 at 02:00; Stop at 12:31; Status DC Lactobacillus Acidophilus (Lactinex) 1 tab Q12HR PO Last administered on 21:00; Start 02/15/17 at 09:00 Potassium Chloride (KCl) 60 meq ONCE ONCE PO Last administered on 02/15/17 02 :29; Start 02/15/17 at 02:00; Stop 02/15/17 at 02:01; Status DC Morphine Sulfate (Morphine Inj) 2 mg Q6H PRN IV PUSH pain>5 Last administered on 02/16/17 23:10; Start 02/15/17 at 02:00; Stop 02/16/17 at 23:54; Status DC Enoxaparin Sodium (Lovenox Inj) 50 mg Q12H SQ Last administered on 02/18/17 21 :09; Start 02/15/17 at 20:00 Epinephrine HCl (EPINEPHrine (1:10,000) INJ) 1 mg STK-MED ONCE .ROUTE ; Start at 05:07; Stop 02/16/17 at 05:08; Status DC Diphenhydramine HCl (Benadryl Inj) 25 mg ONCE ONCE IV PUSH ; Start 02/17/17 at 00:00; Stop 02/17/17 at 00:09; Status DC Acetaminophen/ Hydrocodone Bitart ([place] 5-325 Mg) 2 tab Q4H PRN PO PAIN > 5 Last administered on 02/19/17 06:08; Start 02/17/17 at 11:30 Ketorolac Tromethamine 15 mg 15 mg Q8HR PRN IM BREAKTHROUGH PAIN Last administered on 02/18/17 05:36; Start 02/17/17 at 11:30; Stop 02/18/17 at 09:16 ; Status DC Sodium Chloride (NS 1000 ml Inj) 1,000 ml @ 999 mls/hr BOLUS ONCE IV Last administered on 02/18/17 06:57; Start 02/18/17 at 06:45; Stop 02/18/17 at 07:45 ; Status DC Hydromorphone HCl (Dilaudid Pf Inj) 1 mg Q4H PRN IV PUSH BREAKTHROUGH PAIN Last administered on 02/19/17t 03:47; Start 02/18/17 at 09:15 A/P Assessment and Plan A/P Severe Sepsis due to cellulitis -right hand -continue Rocephin -ID follow-up appreciated. -echo with EF 60% and no regional wall motion abnormalities. -XR of the right hand unremarkable. -HIV testing was offered but the patient declined. DVT right lower extremity -Doppler noted and review with finding of proximal DVT -started on subq Lovenox -d/w the patient regarding the compliance with the regimen -d/w ; recommended that the patient be discharged on subq Lovenox ( 50 mg subq q12hrs); this will be switched to warfarin as outpatient - this was d/w the patient. -continue with pain control. Impaired fasting glucose-likely stress induced A1c 5.5 Hypokalemia Replaced- will monitor. Anemia of chronic illness -Transfuse accordingly for hemoglobin less than 7 -started on ferrous sulfate per 's recommendation. Thrombocytopenia -Patient with history of hepatitis C, monitor CBC Left elbow pain -Elbow x-ray negative -Pain management accordingly IVDU -UDS positive for cocaine, amphetamine -HIV testing was offered but the patient declined. Discharge Planning dc home when cellulitis and pain is better and cleared by ID. Patricia Erwin MD Feb 19, 2017 08:07
[2017-02-19] MEDS: PANTOPRAZOLE SODIUM 40 MG VIAL IV PUSH SCH (08:21)
[2017-02-19] MEDS: LACTOBACILLUS ACIDOPHILUS TAB PO SCH ×2 (08:21→20:46)
[2017-02-19] MEDS: cefTRIAXone INJ 2,000 MG in SODIUM CHLORIDE 0.9% INJ 100 ML IV SCH (08:21)
[2017-02-19] MEDS: SODIUM CHLORIDE 0.9% FLUSH 10 ML FLUSH IV FLUSH SCH ×2 (08:22→20:46)
[2017-02-19] MEDS: NICOTINE 21 MG/24 HR PATCH T-DERMAL SCH (08:22)
[2017-02-19] MEDS: REMOVE OLD PATCH-NICOTINE T-DERMAL SCH (08:22)
[2017-02-19] MEDS: ENOXAPARIN SODIUM 60 MG/0.6 ML SYRINGE SQ SCH ×2 (08:22→20:46)
[2017-02-19] MEDS: FERROUS SULFATE 325 MG (65 MG ELEMENTAL IRON) TAB PO SCH ×2 (12:04→20:46)
--- NOTE | 2017-02-19 15:33 | HHI.IDPN ---
Note Infectious Disease Note Patient has pain in R. wrist and r. shoulder. Has difficulty adducting the r. arm. Also notes r. leg hurts. Afebrile. Blood cultures are negative. 2D ECHO without vegetations. R. hand Xray - No fracture. Presented to the emergency department with swelling and pain of her right leg and right hand. PAST MEDICAL HISTORY 1. Facial cellulitis in October of 2016. 2. Anxiety, depression. 3. Illicit drug use. (The patient denied IV drug use to me. However, her toxicology screen is positive for amphetamines and also cocaine.) ALLERGIES VANCOMYCIN. ANTIBIOTICS: Ceftriaxone. SOCIAL HISTORY The patient smokes half-a-pack of cigarettes a day. She denies alcohol use. FAMILY HISTORY Noncontributory. OBJECTIVE: Vital Signs Date Time Temp Pulse Resp B/P Pulse Ox O2 Delivery O2 Flow Rate FiO2 02/19/17 12:00 97.7 125 16 122/65 99 02/19/17 09:58 118 02/19/17 09:58 Room Air 02/19/17 08:00 99.1 126 16 115/58 99 02/19/17 04:00 Room Air 02/19/17 04:00 97.9 113 20 133/69 99 02/19/17 00:15 Room Air 02/19/17 00:15 98.2 114 20 137/70 100 02/18/17 20:34 113 02/18/17 20:00 Room Air 02/18/17 20:00 97.6 122 20 119/74 100 02/18/17 16:00 97.8 119 18 145/65 100 02/18/17 02/18/17 02/19/17 14:59 22:59 06:59 Intake Total 960 ml 480 ml 1080 ml Output Total 1200 ml Balance -240 ml 480 ml 1080 ml Intake Oral 960 ml 480 ml 1080 ml Output Urine Total 1200 ml # Voids 2 4 # Bowel Movements 2 0 IMAGING: Pelvis CT 02/16/17 0600 Signed Impressions: Service Date/Time: Thursday, February 16, 2017 05:17 - CONCLUSION: Several nonspecific mildly prominent bilateral inguinal lymph nodes. Sam Hernandez MD Upper Extremity CT 02/14/17 0000 Signed Impressions: Service Date/Time: Tuesday, February 14, 2017 21:31 - CONCLUSION: Negative exam. Naman Farmer MD Lower Extremity Ultrasound 02/14/17 0000 Signed Impressions: Service Date/Time: Tuesday, February 14, 2017 19:23 - CONCLUSION: The study is positive for deep venous thrombosis with occlusive thrombus from the proximal thigh into the calf. Naman Farmer MD Elbow X-Ray 02/14/17 0000 Signed Impressions: Service Date/Time: Tuesday, February 14, 2017 18:06 - CONCLUSION: No evidence of recent bony injury. Naman Farmer MD PHYSICAL EXAMINATION GENERAL: No acute distress. HEENT: Extraocular movements grossly intact. Pupils reactive to light without icterus. No conjunctival erythema. Oropharynx - Poor dentition. Moist mucosa. NECK: Supple. No adenopathy. LUNGS: Clear breath sounds. HEART: Regular rate and rhythm without audible murmurs or rubs or gallops. ABDOMEN: Bowel sounds. Soft. EXTREMITIES: The right lower extremity still swollen. R. hand still swollen and tender. erythema has resolved. Tenderness at palpation of anterior R. shoulder. SKIN: No diffuse rash. NEURO: Nonfocal. PSYCH: The patient is calm and cooperative. IMPRESSION 1. Sepsis. Patient presenting with white blood cell count elevation along with lactic acidemia and fever and chills and also DVT of the right lower extremity and swelling of the right hand possibly from disseminated infection. However DVT can cause these features. 2. No evidence of endocarditis. 3. DVT of the right lower extremity. 4. ALLERGIC REACTION TO VANCOMYCIN. 5. Joint pains - Probably arthritic. 6. Hand erythema has resolved. RECOMMENDATIONS 1. Stop Ceftriaxone. 2. consider anti inflammatory agent for joint pains. I will sign off now. I do not think she has infection at this point. Ward Mcdowell MD Feb 19, 2017 15:33
[2017-02-19] MEDS: KETOROLAC TROMETHAMINE 30 MG/ML (IVP) VIAL IV PUSH PRN (18:07)
[2017-02-19] MEDS ORDERED: HYDROmorphone HCL PF 1 MG/ML VIAL IV ONE (19:00)
[2017-02-20] VITALS (7 sets, daily range): BP systolic 122–137; BP diastolic 60–78; PULSE 77–122; RESP 16–20; TEMP 97.7–98.4; O2SAT 98–100
[2017-02-20] MEDS: SODIUM CHLORIDE 0.9% FLUSH 10 ML FLUSH IV FLUSH PRN (00:45)
[2017-02-20] MEDS: KETOROLAC TROMETHAMINE 30 MG/ML (IVP) VIAL IV PUSH PRN ×3 (00:45→21:39)
[2017-02-20] MEDS: ACETAMINOPHEN/HYDROcodone 325 MG/5 MG TAB PO PRN ×4 (02:43→23:32)
--- NOTE | 2017-02-20 08:57 | HHI.PR ---
Subjective Remarks in no acute distress. remains afebrile. asking for pain medication. States Parkman is helping some, but asking for 1 time dose of oral Dilaudid to help with pain now. Says by tomorrow she will be able to just take the Parkman. Tolerating PO. Denies CP/SOB/N/V/D/C. No new complaints. Objective Vital Signs Date Time Temp Pulse Resp B/P Pulse Ox O2 Delivery O2 Flow Rate FiO2 02/20/17 08:20 98.4 77 18 124/78 98 02/20/17 03:55 98.4 107 16 122/63 99 02/20/17 03:55 Room Air 02/19/17 23:22 97.7 115 16 130/62 100 02/19/17 23:22 Room Air 02/19/17 20:00 133 02/19/17 19:26 97.9 116 16 133/75 100 02/19/17 19:26 Room Air 02/19/17 16:00 97.9 121 16 126/66 100 02/19/17 12:00 97.7 125 16 122/65 99 02/19/17 09:58 118 02/19/17 09:58 Room Air I/O 02/19/17 02/19/17 02/19/17 02/20/17 02/20/17 02/20/17 07:00 15:00 23:00 07:00 15:00 23:00 Intake Total 1080 ml 480 ml 480 ml 720 ml Output Total 4400 ml 650 ml 500 ml Balance 1080 ml -3920 ml -170 ml 220 ml Intake Oral 1080 ml 480 ml 480 ml 720 ml Output Urine Total 4400 ml 650 ml 500 ml # Voids 4 # Bowel Movements 2 2 0 Result Diagram: 02/17/17 0714 02/17/17 0714 Imaging Last Impressions Hand X-Ray 02/18/17 0000 Signed Impressions: Service Date/Time: January 16:54 - CONCLUSION: Unremarkable study. Suzanne Sykes MD Pelvis CT 02/16/17 0600 Signed Impressions: Service Date/Time: Thursday, February 16, 2017 05:17 - CONCLUSION: Several nonspecific mildly prominent bilateral inguinal lymph nodes. Sam Hernandez MD Upper Extremity CT 02/14/17 0000 Signed Impressions: Service Date/Time: Tuesday, February 14, 2017 21:31 - CONCLUSION: Negative exam. Naman Farmer MD Lower Extremity Ultrasound 02/14/17 0000 Signed Impressions: Service Date/Time: Tuesday, February 14, 2017 19:23 - CONCLUSION: The study is positive for deep venous thrombosis with occlusive thrombus from the proximal thigh into the calf. Naman Farmer MD Elbow X-Ray 02/14/17 0000 Signed Impressions: Service Date/Time: Tuesday, February 14, 2017 18:06 - CONCLUSION: No evidence of recent bony injury. Naman Farmer MD Objective Remarks GENERAL: This is a well-nourished, well-developed patient, in no apparent distress. CARDIOVASCULAR: Regular rate and regular rhythm without murmurs, gallops, or rubs. RESPIRATORY: Clear to auscultation. Breath sounds equal bilaterally. No wheezes , rales, or rhonchi. GASTROINTESTINAL: Abdomen soft, non-tender, nondistended. Normal, active bowel sounds MUSCULOSKELETAL: swelling and mild erythema over the right leg and right hand. NEURO: Alert & Oriented x4 to person, place, time, situation. Moves all ext x4 A/P Problem List: (1) DVT, lower extremity, proximal, acute ICD Code: I82.4Y9 (2) Sepsis affecting skin ICD Code: L02.91 (3) Anemia of chronic illness ICD Code: D63.8 (4) Hypokalemia ICD Code: E87.6 (5) IVDU (intravenous drug user) ICD Code: F19.90 (6) Sepsis ICD Code: A41.9 (7) Elbow pain, left ICD Code: M25.522 Assessment and Plan A/P Severe Sepsis due to cellulitis -right hand -Blood cultures are negative. -2D ECHO without vegetations. EF 60% and no regional wall motion abnormalities. -XR of the right hand unremarkable. -HIV testing was offered but the patient declined -ID consulted: Abx D/c'd. Leukocytosis and fever likely 2/2 DVT. Consider anti- inflammatory agent for joint pains. ID now signed off. -Ibuprofen 400mg q12hr Scheduled for joint pains DVT right lower extremity -Doppler noted and review with finding of proximal DVT -started on subq Lovenox -Dr.Dimas recommended that the patient be discharged on subq Lovenox ( 50 mg subq q12hrs); this will be switched to warfarin as outpatient - this was d/w the patient. -Continue with pain control. -2mg PO Dilaudid x1 today. Continue [place] 5/325 1-2 tab q4hr PRN. continue Toradol PRN Impaired fasting glucose-likely stress induced A1c 5.5 Hypokalemia Replaced- now resolved. continue to monitor Anemia of chronic illness -Stable at 9 -Transfuse accordingly for hemoglobin less than 7 -started on ferrous sulfate per 's recommendation. Thrombocytopenia -Patient with history of hepatitis C, monitor CBC Left elbow pain -Elbow x-ray negative -Pain management accordingly IVDU -UDS positive for cocaine, amphetamine -HIV testing was offered but the patient declined. Discharge Planning D/c home when cellulitis improved and pain is better controlled Problem Qualifiers (1) DVT, lower extremity, proximal, acute: Qualified Code: I82.4Y1 - DVT, lower extremity, proximal, acute, right Tabatha Peoples MD Feb 20, 2017 08:57 Blood cultures are negative. 2D ECHO without vegetations. IMPRESSION 1. Sepsis. Patient presenting with white blood cell count elevation along with lactic acidemia and fever and chills and also DVT of the right lower extremity and swelling of the right hand possibly from disseminated infection. However DVT can cause these features. 2. No evidence of endocarditis. 3. DVT of the right lower extremity. 4. ALLERGIC REACTION TO VANCOMYCIN. 5. Joint pains - Probably arthritic. 6. Hand erythema has resolved. RECOMMENDATIONS 1. Stop Ceftriaxone. 2. consider anti inflammatory agent for joint pains. I will sign off now. I do not think she has infection at this point. Problem Qualifiers (1) DVT, lower extremity, proximal, acute: Qualified Code: I82.4Y1 - DVT, lower extremity, proximal, acute, right Tabatha Peoples MD Feb 20, 2017 08:57
[2017-02-20] MEDS: FERROUS SULFATE 325 MG (65 MG ELEMENTAL IRON) TAB PO SCH ×2 (09:00→21:29)
[2017-02-20] MEDS: REMOVE OLD PATCH-NICOTINE T-DERMAL SCH (09:00)
[2017-02-20] MEDS: LACTOBACILLUS ACIDOPHILUS TAB PO SCH ×2 (09:00→21:29)
[2017-02-20] MEDS: ENOXAPARIN SODIUM 60 MG/0.6 ML SYRINGE SQ SCH ×2 (09:01→21:30)
[2017-02-20] MEDS: PANTOPRAZOLE SODIUM 40 MG VIAL IV PUSH SCH (09:01)
[2017-02-20] MEDS: NICOTINE 21 MG/24 HR PATCH T-DERMAL SCH (09:01)
[2017-02-20] MEDS: SODIUM CHLORIDE 0.9% FLUSH 10 ML FLUSH IV FLUSH SCH ×2 (09:09→21:29)
[2017-02-20 13:48] LABS: HEMATOCRIT 28.2 % (35.0-46.0); MEAN CELL VOLUME 81.7 FL (80.0-100.0); MEAN CORPUSCULAR HEMOGLOBIN 27.1 PG (27.0-34.0); MEAN CORPUSCULAR HGB CONC 33.2 % (32.0-36.0); PLATELET COUNT 362 TH/MM3 (150-450); RED BLOOD COUNT 3.46 MIL/MM3 (4.00-5.30); RED CELL DISTRIBUTION WIDTH 13.8 % (11.6-17.2); REVIEW FLAG FINAL; WHITE BLOOD COUNT 6.9 TH/MM3 (4.0-11.0)
[2017-02-20] MEDS ORDERED: HYDROmorphone HCL 2 MG TAB PO ONE (14:00)
[2017-02-20] MEDS: IBUPROFEN 400 MG TAB PO SCH ×2 (14:17→21:29)
[2017-02-21] VITALS (8 sets, daily range): BP systolic 114–139; BP diastolic 56–71; PULSE 85–132; RESP 17–20; TEMP 97.9–99.1; O2SAT 98–100
--- NOTE | 2017-02-21 07:43 | HHI.PR ---
Subjective Remarks In no acute distress. Remains afebrile. Tolerating PO. Denies CP/SOB/N/V/D/C. No new complaints. Boyfriend at bedside Objective Vital Signs Date Time Temp Pulse Resp B/P Pulse Ox O2 Delivery O2 Flow Rate FiO2 02/21/17 04:00 98.0 116 18 116/56 100 02/21/17 00:00 98.0 123 20 139/63 100 02/20/17 21:45 118 02/20/17 21:45 Room Air 02/20/17 20:00 97.7 122 20 137/68 100 02/20/17 16:00 97.7 119 18 135/62 100 02/20/17 12:30 98.0 89 18 127/60 99 02/20/17 08:20 98.4 77 18 124/78 98 02/20/17 08:00 95 02/20/17 08:00 96 Room Air I/O 02/20/17 02/20/17 02/20/17 02/21/17 02/21/17 02/21/17 07:00 15:00 23:00 07:00 15:00 23:00 Intake Total 720 ml 960 ml 720 ml 660 ml Output Total 500 ml Balance 220 ml 960 ml 720 ml 660 ml Intake Oral 720 ml 960 ml 720 ml 660 ml Output Urine Total 500 ml # Voids 3 2 2 # Bowel Movements 0 1 0 0 Result Diagram: 02/20/17 1335 02/17/17 0714 Imaging Last Impressions Hand X-Ray 02/18/17 0000 Signed Impressions: Service Date/Time: January 16:54 - CONCLUSION: Unremarkable study. Suzanne Sykes MD Pelvis CT 02/16/17 0600 Signed Impressions: Service Date/Time: Thursday, February 16, 2017 05:17 - CONCLUSION: Several nonspecific mildly prominent bilateral inguinal lymph nodes. Sam Hernandez MD Upper Extremity CT 02/14/17 0000 Signed Impressions: Service Date/Time: Tuesday, February 14, 2017 21:31 - CONCLUSION: Negative exam. Naman Farmer MD Lower Extremity Ultrasound 02/14/17 0000 Signed Impressions: Service Date/Time: Tuesday, February 14, 2017 19:23 - CONCLUSION: The study is positive for deep venous thrombosis with occlusive thrombus from the proximal thigh into the calf. Naman Farmer MD Elbow X-Ray 02/14/17 0000 Signed Impressions: Service Date/Time: Tuesday, February 14, 2017 18:06 - CONCLUSION: No evidence of recent bony injury. Naman Farmer MD Objective Remarks GENERAL: This is a well-nourished, well-developed patient, in no apparent distress. CARDIOVASCULAR: Regular rate and regular rhythm without murmurs, gallops, or rubs. RESPIRATORY: Clear to auscultation. Breath sounds equal bilaterally. No wheezes , rales, or rhonchi. GASTROINTESTINAL: Abdomen soft, non-tender, nondistended. Normal, active bowel sounds MUSCULOSKELETAL: swelling and mild erythema over the right leg and right hand, improving NEURO: Alert & Oriented. Moves all ext x4 A/P Problem List: (1) DVT, lower extremity, proximal, acute ICD Code: I82.4Y9 (2) Sepsis affecting skin ICD Code: L02.91 (3) Anemia of chronic illness ICD Code: D63.8 (4) Hypokalemia ICD Code: E87.6 (5) IVDU (intravenous drug user) ICD Code: F19.90 (6) Sepsis ICD Code: A41.9 (7) Elbow pain, left ICD Code: M25.522 Assessment and Plan A/P Severe Sepsis due to cellulitis -right hand -Blood cultures are negative. -2D ECHO without vegetations. EF 60% and no regional wall motion abnormalities. -XR of the right hand unremarkable. -HIV testing was offered but the patient declined -ID consulted: Abx D/c'd. Leukocytosis and fever likely 2/2 DVT. Consider anti- inflammatory agent for joint pains. ID now signed off. -Ibuprofen 400mg q12hr Scheduled for joint pains DVT right lower extremity -Doppler noted and review with finding of proximal DVT -Continue subq Lovenox - recommended that the patient be discharged on subq Lovenox ( 50 mg subq q12hrs); this will be switched to warfarin as outpatient - this was d/w the patient. -Continue with pain control. -2mg PO Dilaudid x1 02/20. Continue [place] 5/325 1-2 tab q4hr PRN. continue Toradol PRN Tachycardia: Since admission Sinus rhythm rate 119-126, may be 2/2 pain/anxiety vs dehydration. Encouraged PO hydration. Impaired fasting glucose-likely stress induced A1c 5.5 Hypokalemia Replaced- now resolved. continue to monitor Anemia of chronic illness -Stable at 9 -Transfuse accordingly for hemoglobin less than 7 -started on ferrous sulfate per 's recommendation. Thrombocytopenia -Patient with history of hepatitis C, monitor CBC Left elbow pain -Elbow x-ray negative -Pain management accordingly IVDU -UDS positive for cocaine, amphetamine -HIV testing was offered but the patient declined. Discharge Planning D/c home when cellulitis improved and pain is better controlled Problem Qualifiers (1) DVT, lower extremity, proximal, acute: Qualified Code: I82.4Y1 - DVT, lower extremity, proximal, acute, right Tabatha Peoples MD Feb 21, 2017 07:43
[2017-02-21] MEDS: LACTOBACILLUS ACIDOPHILUS TAB PO SCH ×2 (08:16→19:47)
[2017-02-21] MEDS: FERROUS SULFATE 325 MG (65 MG ELEMENTAL IRON) TAB PO SCH ×2 (08:17→19:48)
[2017-02-21] MEDS: IBUPROFEN 400 MG TAB PO SCH ×2 (08:17→19:47)
[2017-02-21] MEDS: NICOTINE 21 MG/24 HR PATCH T-DERMAL SCH (08:17)
[2017-02-21] MEDS: ACETAMINOPHEN/HYDROcodone 325 MG/5 MG TAB PO PRN ×3 (08:17→19:47)
[2017-02-21] MEDS: PANTOPRAZOLE SODIUM 40 MG VIAL IV PUSH SCH (08:17)
[2017-02-21] MEDS: SODIUM CHLORIDE 0.9% FLUSH 10 ML FLUSH IV FLUSH SCH ×2 (08:23→19:49)
[2017-02-21] MEDS: ENOXAPARIN SODIUM 60 MG/0.6 ML SYRINGE SQ SCH ×3 (08:23→20:00)
[2017-02-21] MEDS: REMOVE OLD PATCH-NICOTINE T-DERMAL SCH (09:00)
[2017-02-21 10:42] LABS: AUTOMATED NEUTROPHIL # 3.9 TH/MM3 (1.8-7.7); BASOPHIL % 0.6 % (0.0-2.0); EOSINOPHIL % 0.4 % (0.0-4.0); HEMATOCRIT 26.3 % (35.0-46.0); HEMO FLAGS DIFF FINAL; LYMPH % 25.9 % (9.0-44.0); LYMPHOCYTE # 1.5 TH/MM3 (1.0-4.8); MEAN CELL VOLUME 81.4 FL (80.0-100.0); MEAN CORPUSCULAR HEMOGLOBIN 27.1 PG (27.0-34.0); MEAN CORPUSCULAR HGB CONC 33.3 % (32.0-36.0); MONO % 4.2 % (0.0-8.0); NEUT % 68.9 % (16.0-70.0); PLATELET COUNT 360 TH/MM3 (150-450); RED BLOOD COUNT 3.23 MIL/MM3 (4.00-5.30); WHITE BLOOD COUNT 5.6 TH/MM3 (4.0-11.0)
[2017-02-21 10:55] LABS: BICARBONATE 25.4 MEQ/L (21.0-32.0); POTASSIUM 4.3 MEQ/L (3.5-5.1)
[2017-02-22] VITALS (7 sets, daily range): BP systolic 102–136; BP diastolic 58–68; PULSE 104–123; RESP 16–20; TEMP 97.7–98.6; O2SAT 99–100
[2017-02-22] MEDS: ACETAMINOPHEN/HYDROcodone 325 MG/5 MG TAB PO PRN ×3 (01:27→11:32)
[2017-02-22] MEDS: LACTOBACILLUS ACIDOPHILUS TAB PO SCH (08:02)
[2017-02-22] MEDS: FERROUS SULFATE 325 MG (65 MG ELEMENTAL IRON) TAB PO SCH (08:02)
[2017-02-22] MEDS: IBUPROFEN 400 MG TAB PO SCH (08:03)
[2017-02-22] MEDS: NICOTINE 21 MG/24 HR PATCH T-DERMAL SCH (08:07)
[2017-02-22] MEDS: PANTOPRAZOLE SODIUM 40 MG VIAL IV PUSH SCH (08:07)
[2017-02-22] MEDS: SODIUM CHLORIDE 0.9% FLUSH 10 ML FLUSH IV FLUSH SCH (08:08)
[2017-02-22 08:50] LABS: BASOPHIL # 0.1 TH/MM3 (0-0.2); BASOPHIL % 1.3 % (0.0-2.0); EOSINOPHIL % 0.4 % (0.0-4.0); HEMATOCRIT 27.5 % (35.0-46.0); LYMPH % 39.3 % (9.0-44.0); LYMPHOCYTE # 2.3 TH/MM3 (1.0-4.8); MEAN CELL VOLUME 81.4 FL (80.0-100.0); MEAN CORPUSCULAR HEMOGLOBIN 27.5 PG (27.0-34.0); MEAN CORPUSCULAR HGB CONC 33.8 % (32.0-36.0); MONO % 7.2 % (0.0-8.0); NEUT % 51.8 % (16.0-70.0); PLATELET COUNT 386 TH/MM3 (150-450); RED BLOOD COUNT 3.38 MIL/MM3 (4.00-5.30); RED CELL DISTRIBUTION WIDTH 14.4 % (11.6-17.2); WHITE BLOOD COUNT 5.9 TH/MM3 (4.0-11.0)
[2017-02-22 08:53] LABS: HEMO FLAGS DIFF FINAL
[2017-02-22] MEDS: REMOVE OLD PATCH-NICOTINE T-DERMAL SCH (09:00)
[2017-02-22 09:05] LABS: BICARBONATE 25.6 MEQ/L (21.0-32.0); POTASSIUM 4.5 MEQ/L (3.5-5.1)
--- NOTE | 2017-02-22 10:46 | HHI.PR ---
Subjective Remarks in no distress. looks much better than last week. is much more comfortable today. no fever and pain is better. wants to go home. Objective Vitals Vital Signs Date Time Temp Pulse Resp B/P Pulse Ox O2 Delivery O2 Flow Rate FiO2 02/22/17 08:00 98.1 112 20 130/64 100 02/22/17 04:00 98.2 109 20 102/60 100 02/22/17 00:00 98.6 118 18 113/58 100 02/21/17 20:15 132 02/21/17 20:15 Room Air 02/21/17 20:00 99.0 120 20 114/68 100 02/21/17 16:36 98.2 123 18 135/71 98 02/21/17 12:14 97.9 122 17 126/65 99 I/O 02/21/17 02/21/17 02/21/17 02/22/17 02/22/17 02/22/17 07:00 15:00 23:00 07:00 15:00 23:00 Intake Total 660 ml 960 ml 600 ml 0 ml Balance 660 ml 960 ml 600 ml 0 ml Intake Oral 660 ml 960 ml 600 ml 0 ml # Voids 2 3 1 2 # Bowel Movements 0 0 1 Result Diagram: 02/22/17 0745 02/22/17 0745 Imaging Last Impressions Hand X-Ray 02/18/17 0000 Signed Impressions: Service Date/Time: January 16:54 - CONCLUSION: Unremarkable study. Suzanne Sykes MD Pelvis CT 02/16/17 0600 Signed Impressions: Service Date/Time: Thursday, February 16, 2017 05:17 - CONCLUSION: Several nonspecific mildly prominent bilateral inguinal lymph nodes. Sam Hernandez MD Upper Extremity CT 02/14/17 0000 Signed Impressions: Service Date/Time: Tuesday, February 14, 2017 21:31 - CONCLUSION: Negative exam. Naman Farmer MD Lower Extremity Ultrasound 02/14/17 0000 Signed Impressions: Service Date/Time: Tuesday, February 14, 2017 19:23 - CONCLUSION: The study is positive for deep venous thrombosis with occlusive thrombus from the proximal thigh into the calf. Naman Farmer MD Elbow X-Ray 02/14/17 0000 Signed Impressions: Service Date/Time: Tuesday, February 14, 2017 18:06 - CONCLUSION: No evidence of recent bony injury. Naman Farmer MD Objective Remarks GENERAL: This is a well-nourished, well-developed patient, in no apparent distress. CARDIOVASCULAR: Regular rate and regular rhythm without murmurs, gallops, or rubs. RESPIRATORY: Clear to auscultation. Breath sounds equal bilaterally. No wheezes , rales, or rhonchi. GASTROINTESTINAL: Abdomen soft, non-tender, nondistended. Normal, active bowel sounds MUSCULOSKELETAL: swelling and mild erythema over the right leg and right hand. NEURO: Alert & Oriented x4 to person, place, time, situation. Moves all ext x4 Procedures none Medications and IVs Current Medications Morphine Sulfate 4 mg 4 mg ONCE ONCE IV PUSH Last administered on 02/14/17 18 :21; Start 02/14/17 at 18:00; Stop 02/14/17 at 18:01; Status DC Clindamycin Phosphate 600 mg/ Sodium Chloride 104 ml @ 208 mls/hr ONCE ONCE IV Last administered on 02/14/17 18:43; Start 02/14/17 at 18:00; Stop at 18:29; Status DC Ceftriaxone Sodium/Sodium Chloride (Rocephin Inj/NS Inj) 100 ml @ 200 mls/hr ONCE ONCE IV Last administered on 02/14/17 18:20; Start 02/14/17 at 18:00; Stop 02/14/17 at 18:29; Status DC Iohexol (Omnipaque 350 Inj) 100 ml STK-MED ONCE IV Last administered on 21:38; Start 02/14/17 at 21:38; Stop 02/14/17 at 21:39; Status DC Heparin Sodium (Porcine) (Heparin Inj) 4,200 units ONCE ONCE IV Last administered on 02/14/17 23:53; Start 02/14/17 at 23:15; Stop 02/15/17 at 18:22 ; Status DC Heparin Sodium (Porcine) (Heparin Inj) 5,000 units UNSCH PRN IV APTT LESS THAN 25; Start 02/15/17 at 05:15; Status Cancel Heparin Sodium (Porcine) 2500 units 2,500 units UNSCH PRN IV APTT 25 TO 39 Last administered on 02/15/17 08:31; Start 02/15/17 at 05:15; Stop 02/15/17 at 18:22; Status DC Heparin Sodium/ Dextrose (Heparin-D5W Inj) 250 ml @ 0 mls/hr TITRATE IV Last administered on 02/14/17 23:55; Start 02/14/17 at 23:15; Stop 02/15/17 at 18:22 ; Status DC Sodium Chloride (NS Flush) 2 ml UNSCH PRN IV FLUSH FLUSH AFTER USING IV ACCESS Last administered on 02/20/17 00:45; Start 02/14/17 at 23:30 Sodium Chloride (NS Flush) 2 ml BID IV FLUSH Last administered on 02/22/17 08: 08; Start 02/15/17 at 09:00 Acetaminophen (Tylenol) 650 mg Q4H PRN PO TEMP > 100.4; Start 02/14/17 at 23:30 Ondansetron HCl (Zofran Inj) 4 mg Q6H PRN IVP NAUSEA OR VOMITING; Start at 23:30 Acetaminophen (Tylenol) 650 mg Q6H PRN PO PAIN SCALE 1 TO 2; Start 02/14/17 at 23:30 Acetaminophen/ Hydrocodone Bitart (Solsberry 5-325 Mg) 1 tab Q4H PRN PO PAIN SCALE 3 TO 5 Last administered on 02/17/17 09:13; Start 02/14/17 at 23:30 Naloxone HCl (Narcan Inj) 0.4 mg UNSCH PRN IV SEE LABEL COMMENTS; Start at 23:30 Nicotine (Habitrol 21 Mg Patch.24 Hr) 1 patch DAILY T-DERMAL Last administered on 02/22/17 08:07; Start 02/15/17 at 09:00 Miscellaneous Information 1 DAILY T-DERMAL Last administered on 02/21/17 09:00 ; Start 02/15/17 at 09:00 Pantoprazole Sodium 40 mg 40 mg Q24H IV PUSH Last administered on 02/22/17 08: 07; Start 02/15/17 at 09:00 Ceftriaxone Sodium 2000 mg/ Sodium Chloride 100 ml @ 200 mls/hr Q24H IV Last administered on 02/19/17 08:21; Start 02/15/17 at 09:00; Stop 02/19/17 at 15:34 ; Status DC Clindamycin Phosphate/Sodium Chloride (Cleocin Inj/NS Inj) 104 ml @ 208 mls/hr Q8H IV Last administered on 02/17/17 09:12; Start 02/15/17 at 02:00; Stop at 12:31; Status DC Lactobacillus Acidophilus (Lactinex) 1 tab Q12HR PO Last administered on 08:02; Start 02/15/17 at 09:00 Potassium Chloride (KCl) 60 meq ONCE ONCE PO Last administered on 02/15/17 02 :29; Start 02/15/17 at 02:00; Stop 02/15/17 at 02:01; Status DC Morphine Sulfate (Morphine Inj) 2 mg Q6H PRN IV PUSH pain>5 Last administered on 02/16/17 23:10; Start 02/15/17 at 02:00; Stop 02/16/17 at 23:54; Status DC Enoxaparin Sodium (Lovenox Inj) 50 mg Q12H SQ Last administered on 02/21/17 08 :23; Start 02/15/17 at 20:00 Epinephrine HCl (EPINEPHrine (1:10,000) INJ) 1 mg STK-MED ONCE .ROUTE ; Start at 05:07; Stop 02/16/17 at 05:08; Status DC Diphenhydramine HCl (Benadryl Inj) 25 mg ONCE ONCE IV PUSH ; Start 02/17/17 at 00:00; Stop 02/17/17 at 00:09; Status DC Acetaminophen/ Hydrocodone Bitart (Solsberry 5-325 Mg) 2 tab Q4H PRN PO PAIN > 5 Last administered on 02/22/17 08:03; Start 02/17/17 at 11:30 Ketorolac Tromethamine 15 mg 15 mg Q8HR PRN IM BREAKTHROUGH PAIN Last administered on 02/18/17 05:36; Start 02/17/17 at 11:30; Stop 02/18/17 at 09:16 ; Status DC Sodium Chloride (NS 1000 ml Inj) 1,000 ml @ 999 mls/hr BOLUS ONCE IV Last administered on 02/18/17 06:57; Start 02/18/17 at 06:45; Stop 02/18/17 at 07:45 ; Status DC Hydromorphone HCl (Dilaudid Pf Inj) 1 mg Q4H PRN IV PUSH BREAKTHROUGH PAIN Last administered on 02/19/17 03:47; Start 02/18/17 at 09:15; Stop 02/19/17 at 08:01; Status DC Hydromorphone HCl (Dilaudid Pf Inj) 0.5 mg Q4H PRN IV PUSH BREAKTHROUGH PAIN Last administered on 02/19/17 14:09; Start 02/19/17 at 09:15; Stop 02/19/17 at 16:18; Status DC Ferrous Sulfate (Ferrous Sulfate) 325 mg BID PO Last administered on 02/22/17 08:02; Start 02/19/17 at 09:00 Ketorolac Tromethamine (Toradol Inj) 15 mg Q6HR PRN IV PUSH BREAKTHROUGH PAIN Last administered on 02/20/17 21:39; Start 02/19/17 at 16:30; Stop 02/21/17 at 09:00; Status DC Hydromorphone HCl (Dilaudid Pf Inj) 0.5 mg ONCE ONCE IV Last administered on 20:47; Start 02/19/17 at 19:00; Stop 02/19/17 at 19:01; Status DC Hydromorphone HCl (Dilaudid) 2 mg ONCE ONCE PO Last administered on 02/20/17 14:14; Start 02/20/17 at 14:00; Stop 02/20/17 at 14:01; Status DC Ibuprofen (Motrin) 400 mg Q12HR PO Last administered on 02/22/17 08:03; Start 02/20/17 at 14:00 A/P Assessment and Plan A/P Severe Sepsis due to cellulitis -right hand -Blood cultures are negative. -2D ECHO without vegetations. EF 60% and no regional wall motion abnormalities. -XR of the right hand unremarkable. -HIV testing was offered but the patient declined -ID consulted: Abx D/c'd. Leukocytosis and fever likely 2/2 DVT. ID now signed off. -Ibuprofen 400mg q12hr Scheduled for joint pains DVT right lower extremity -Doppler noted and review with finding of proximal DVT -Continue subq Lovenox - recommended that the patient be discharged on subq Lovenox ( 50 mg subq q12hrs); this will be switched to warfarin as outpatient - this was d/w the patient. sinus Tachycardia: Since admission will check CTA lung to r/o PE- continue to monitor. Impaired fasting glucose-likely stress induced A1c 5.5 Hypokalemia Replaced- now resolved. continue to monitor Anemia of chronic illness -started on ferrous sulfate per 's recommendation. Thrombocytopenia -Patient with history of hepatitis C, monitor CBC Left elbow pain -Elbow x-ray negative -Pain management accordingly IVDU -UDS positive for cocaine, amphetamine -HIV testing was offered but the patient declined. advised to stop using drugs. Patricia Erwin MD February 22, 2017 10:46 see med list. d/w the patient and case management. time spent 32 min. Patricia Erwin MD February 22, 2017 10:46
--- NOTE | 2017-02-22 10:50 | HHI.DCPOC ---
Discharge Care Plan Diagnosis: (1) DVT, lower extremity, proximal, acute Your Health Problems Are: Inflammation Swelling Goals to Promote Your Health * To prevent worsening of your condition and complications * To maintain your health at the optimal level Directions to Meet Your Goals Take your medications as prescribed Follow your dietary instruction Follow activity as directed Keep your appointments as scheduled Take your immunizations and boosters as scheduled If your symptoms worsen call your PCP, if no PCP go to Urgent Care Center or Emergency Room Smoking is Dangerous to Your Health. Avoid second hand smoke Call the 24-hour hour crisis hotline for domestic abuse at Patricia Erwin MD February 22, 2017 10:50
--- NOTE | 2017-02-22 10:51 | HHI.DS ---
Discharge Summary Admission Date Feb 14, 2017 at 23:28 Discharge Date: February 22, 2017 Admitting Diagnosis Sepsis (Cellulitis); DVT; IVDA (1) DVT, lower extremity, proximal, acute ICD Code: I82.4Y9 Diagnosis: Principal (2) Leukocytosis ICD Code: D72.829 Diagnosis: Principal (3) IVDU (intravenous drug user) ICD Code: F19.90 Diagnosis: Secondary (4) Impaired fasting glucose ICD Code: R73.01 Diagnosis: Secondary (5) Hypokalemia ICD Code: E87.6 Diagnosis: Secondary (6) Anemia of chronic illness ICD Code: D63.8 Diagnosis: Secondary (7) Thrombocytopenia ICD Code: D69.6 Diagnosis: Secondary (8) Sepsis ICD Code: A41.9 Diagnosis: Principal Procedures none Brief History - From Admission 26-year-old female with a history of hepatitis C, presented to the ED for evaluation of swelling any of her right lower and upper extremities as well as left elbow over the past several days, and per patient without any identifiable causes. She also report febrile episode. Patient was seen recently at [facility] on on 02/13/17 and states she was supposed to be transferred to [place] to see hand surgery secondary to left elbow pain. However she refused to go. She was also diagnosed with right lower extremity DVT but was not on started any blood thinner. She complains of severe right lower extremity pain and rated 10/10 in intensity. Although patient denies any current drug use, her UDS was positive for cocaine. She has no chest pain and denies any GI bleed despite H&H 10.30.8. CBC/BMP: 02/22/17 0745 02/22/17 0745 Significant Findings Laboratory Tests Test 02/20/17 02/21/17 02/21/17 02/22/17 13:35 08:21 09:21 07:45 Red Blood Count 3.46 MIL/MM3 3.23 MIL/MM3 3.38 MIL/MM3 (4.00-5.30) (4.00-5.30) (4.00-5.30) Hemoglobin 9.4 GM/DL 8.8 GM/DL 9.3 GM/DL (11.6-15.3) (11.6-15.3) (11.6-15.3) Hematocrit 28.2 % 26.3 % 27.5 % (35.0-46.0) (35.0-46.0) (35.0-46.0) Mean Platelet Volume 6.1 FL 6.1 FL 6.0 FL (7.0-11.0) (7.0-11.0) (7.0-11.0) Sodium Level 129 MEQ/L 133 MEQ/L (136-145) (136-145) Chloride Level 97 MEQ/L (98-107) Imaging Last Impressions Hand X-Ray 02/18/17 0000 Signed Impressions: Service Date/Time: January 16:54 - CONCLUSION: Unremarkable study. Suzanne Sykes MD Pelvis CT 02/16/17 0600 Signed Impressions: Service Date/Time: Thursday, February 16, 2017 05:17 - CONCLUSION: Several nonspecific mildly prominent bilateral inguinal lymph nodes. Sam Hernandez MD Upper Extremity CT 02/14/17 0000 Signed Impressions: Service Date/Time: Tuesday, February 14, 2017 21:31 - CONCLUSION: Negative exam. Naman Farmer MD Lower Extremity Ultrasound 02/14/17 0000 Signed Impressions: Service Date/Time: Tuesday, February 14, 2017 19:23 - CONCLUSION: The study is positive for deep venous thrombosis with occlusive thrombus from the proximal thigh into the calf. Naman Farmer MD Elbow X-Ray 02/14/17 0000 Signed Impressions: Service Date/Time: Tuesday, February 14, 2017 18:06 - CONCLUSION: No evidence of recent bony injury. Naman Farmer MD PE at Discharge GENERAL: This is a well-nourished, well-developed patient, in no apparent distress. CARDIOVASCULAR: Regular rate and regular rhythm without murmurs, gallops, or rubs. RESPIRATORY: Clear to auscultation. Breath sounds equal bilaterally. No wheezes , rales, or rhonchi. GASTROINTESTINAL: Abdomen soft, non-tender, nondistended. Normal, active bowel sounds MUSCULOSKELETAL: swelling and mild erythema over the right leg and right hand. NEURO: Alert & Oriented x4 to person, place, time, situation. Moves all ext x4 Hospital Course Severe Sepsis due to cellulitis -right hand -Blood cultures are negative. -2D ECHO without vegetations. EF 60% and no regional wall motion abnormalities. -XR of the right hand unremarkable. -HIV testing was offered but the patient declined -ID consulted: Abx D/c'd. Leukocytosis and fever likely 2/2 DVT. ID now signed off. -Ibuprofen 400mg q12hr Scheduled for joint pains DVT right lower extremity -Doppler noted and review with finding of proximal DVT -Continue subq Lovenox - recommended that the patient be discharged on subq Lovenox ( 50 mg subq q12hrs); this will be switched to warfarin as outpatient - this was d/w the patient. sinus Tachycardia: Since admission may be 2/2 pain/anxiety vs dehydration. Encouraged PO hydration. Impaired fasting glucose-likely stress induced A1c 5.5 Hypokalemia Replaced- now resolved. continue to monitor Anemia of chronic illness -started on ferrous sulfate per 's recommendation. Thrombocytopenia -Patient with history of hepatitis C, monitor CBC Left elbow pain -Elbow x-ray negative -Pain management accordingly IVDU -UDS positive for cocaine, amphetamine -HIV testing was offered but the patient declined. advised to stop using drugs. Pt Condition on Discharge: Good Discharge Disposition: Discharge Home Discharge Time: > 30 minutes Discharge Instructions DIET: Follow Instructions for: As Tolerated, No Restrictions Activities you can perform: Regular-No Restrictions Follow up Referrals: Oncology PCP Follow-up New Medications: Ferrous Sulfate (Ferrous Sulfate) 325 Mg Tab 325 MG PO BID Nutritional Supplement #30 Ref 0 TAB Enoxaparin Inj (Lovenox Inj) 60 Mg/0.6 Ml Syr 50 MG SQ Q12H dvt Days 14 Ref 0 INJECTION Discontinued Medications: Sulfamethoxazole-Trimethoprim (Bactrim) 400-80 Mg Tab 2 TAB PO BID Take two pills in AM and two pills in PM for 7 days. Infection #28 Ref 0 TAB Patricia Erwin MD February 22, 2017 10:51
[2017-02-22] MEDS: ENOXAPARIN SODIUM 60 MG/0.6 ML SYRINGE SQ SCH (11:14)
[2017-02-22] MEDS ORDERED: IOHEXOL 350 MG/ML 10 ML VIAL (for RAD DIAG) IV ONE (12:36)
--- NOTE | 2017-02-22 13:18 | RADRPT ---
EXAM DATE/TIME: 02/22/2017 12:08 [place] COMPARISON: No previous studies available for comparison. INDICATIONS : Tachycardia with history of DVT IV CONTRAST: 130 cc Omnipaque 350 (iohexol) IV RADIATION DOSE: 4.28 CTDIvol (mGy) MEDICAL HISTORY : Deep venous thrombosis. SURGICAL HISTORY : None. ENCOUNTER: Initial ACUITY: 1 day PAIN SCALE: 0/10 LOCATION: chest TECHNIQUE: Volumetric scanning of the chest was performed using a pulmonary embolism protocol MIP images were re constructed. Using automated exposure control and adjustment of the mA and/or kV according to patien t size, radiation dose was kept as low as reasonably achievable to obtain optimal diagnostic quality images. FINDINGS: PULMONARY ARTERIES: Limited study with poorly opacified pulmonary arteries. No filling defects are seen in the central pu lmonary arteries. LUNGS: There is small area of consolidation in the lingula with central 8mm cavitation. 2 thin-walled caviti es are seen within the right lower lobe just above the right hemidiaphragm measuring 4 and 8 mm. Ther e is bibasilar atelectasis.. PLEURAE: There is no pleural thickening or pleural effusion. MEDIASTINUM: There is good visualization of the great vessels of the middle mediastinum. No evidence of mediastin al or hilar adenopathy/mass. MUSCULOSKELETAL: Within normal limits for patient age. MISCELLANEOUS: The visualized upper abdominal organs demonstrate no acute abnormality. Mildly prominent lymph nodes are seen within the axilla laterally. CONCLUSION: 1. Limited study with poorly opacified pulmonary arteries. No central pulmonary emboli. 2. Mildly prominent axillary lymph nodes bilaterally could be infectious/reactive. 3. Small area of consolidation with minimal cavitation centrally in the lingula and to cavities withi n the right lower lobe. This could be infectious such as septic emboli. Clinical correlation. Luciano Flores MD on February 22, 2017 at 13:13 Board Certified Radiologist. This report was verified electronically.
--- NOTE | 2017-02-22 16:48 | HHI.IDPN ---
Note Infectious Disease Note Called by Dr. Rachel about CT angiogram. Patient says she has fever and headache. No elevated temp documented. R. wrist and r. shoulder pain. R. wrist swelling decreased. Afebrile. Blood cultures are negative. 2D ECHO without vegetations. R. hand Xray - No fracture. Presented to the emergency department with swelling and pain of her right leg and right hand. PAST MEDICAL HISTORY 1. Facial cellulitis in October of 2016. 2. Anxiety, depression. 3. Illicit drug use. (The patient denied IV drug use to me. However, her toxicology screen is positive for amphetamines and also cocaine.) ALLERGIES VANCOMYCIN. ANTIBIOTICS: None. SOCIAL HISTORY The patient smokes half-a-pack of cigarettes a day. She denies alcohol use. FAMILY HISTORY Noncontributory. OBJECTIVE: Vital Signs Date Time Temp Pulse Resp B/P Pulse Ox O2 Delivery O2 Flow Rate FiO2 02/22/17 12:00 97.8 123 20 136/63 99 02/22/17 08:05 118 02/22/17 08:00 98.1 112 20 130/64 100 02/22/17 07:15 Room Air 02/22/17 04:00 98.2 109 20 102/60 100 02/22/17 00:00 98.6 118 18 113/58 100 02/21/17 20:15 132 02/21/17 20:15 Room Air 02/21/17 20:00 99.0 120 20 114/68 100 02/21/17 02/21/17 02/22/17 15:00 23:00 07:00 Intake Total 960 ml 600 ml 0 ml Balance 960 ml 600 ml 0 ml Intake Oral 960 ml 600 ml 0 ml # Voids 3 1 2 # Bowel Movements 0 1 Laboratory Tests Test 02/21/17 02/22/17 09:21 07:45 White Blood Count 5.6 TH/MM3 5.9 TH/MM3 Red Blood Count 3.23 MIL/MM3 3.38 MIL/MM3 Hemoglobin 8.8 GM/DL 9.3 GM/DL Hematocrit 26.3 % 27.5 % Mean Corpuscular Volume 81.4 FL 81.4 FL Mean Corpuscular Hemoglobin 27.1 PG 27.5 PG Mean Corpuscular Hemoglobin 33.3 % 33.8 % Concent Red Cell Distribution Width 14.0 % 14.4 % Platelet Count 360 TH/MM3 386 TH/MM3 Mean Platelet Volume 6.1 FL 6.0 FL Neutrophils (%) (Auto) 68.9 % 51.8 % Lymphocytes (%) (Auto) 25.9 % 39.3 % Monocytes (%) (Auto) 4.2 % 7.2 % Eosinophils (%) (Auto) 0.4 % 0.4 % Basophils (%) (Auto) 0.6 % 1.3 % Neutrophils # (Auto) 3.9 TH/MM3 3.0 TH/MM3 Lymphocytes # (Auto) 1.5 TH/MM3 2.3 TH/MM3 Monocytes # (Auto) 0.2 TH/MM3 0.4 TH/MM3 Eosinophils # (Auto) 0.0 TH/MM3 0.0 TH/MM3 Basophils # (Auto) 0.0 TH/MM3 0.1 TH/MM3 CBC Comment DIFF FINAL DIFF FINAL Differential Comment Laboratory Tests Test 02/21/17 02/22/17 08:21 07:45 Sodium Level 129 MEQ/L 133 MEQ/L Potassium Level 4.3 MEQ/L 4.5 MEQ/L Chloride Level 97 MEQ/L 98 MEQ/L Carbon Dioxide Level 25.4 MEQ/L 25.6 MEQ/L Anion Gap 7 MEQ/L 9 MEQ/L Blood Urea Nitrogen 12 MG/DL 11 MG/DL Creatinine 0.65 MG/DL 0.55 MG/DL Estimat Glomerular Filtration 111 ML/MIN 135 ML/MIN Rate Random Glucose 102 MG/DL 91 MG/DL Calcium Level 8.9 MG/DL 9.2 MG/DL IMAGING: CT Angiography 02/22/17 0000 Signed Impressions: Service Date/Time: Wednesday, February 22, 2017 12:08 - CONCLUSION: 1. Limited study with poorly opacified pulmonary arteries. No central pulmonary emboli. 2. Mildly prominent axillary lymph nodes bilaterally could be infectious/reactive. 3. Small area of consolidation with minimal cavitation centrally in the lingula and to cavities within the right lower lobe. This could be infectious such as septic emboli. Clinical correlation. Luciano Flores MD Pelvis CT 02/16/17 0600 Signed Impressions: Service Date/Time: Thursday, February 16, 2017 05:17 - CONCLUSION: Several nonspecific mildly prominent bilateral inguinal lymph nodes. Sam Hernandez MD Upper Extremity CT 02/14/17 0000 Signed Impressions: Service Date/Time: Tuesday, February 14, 2017 21:31 - CONCLUSION: Negative exam. aNman Farmer MD Lower Extremity Ultrasound 02/14/17 0000 Signed Impressions: Service Date/Time: Tuesday, February 14, 2017 19:23 - CONCLUSION: The study is positive for deep venous thrombosis with occlusive thrombus from the proximal thigh into the calf. Naman Farmer MD Elbow X-Ray 02/14/17 0000 Signed Impressions: Service Date/Time: Tuesday, February 14, 2017 18:06 - CONCLUSION: No evidence of recent bony injury. Naman Farmer MD PHYSICAL EXAMINATION GENERAL: No acute distress. HEENT: No icterus. No conjunctival erythema. Oropharynx - Poor dentition. Moist mucosa. NECK: Supple. Shotty anterior and posterior adenopathy. LUNGS: Clear breath sounds. HEART: Regular rate and rhythm without audible murmurs or rubs or gallops. ABDOMEN: Bowel sounds. Soft. Bilateral inguinal adenopathy. EXTREMITIES: The right lower extremity - decreased swelling. R. hand swelling decreased. Nodular swelling over wrist. Tenderness at palpation of anterior R. shoulder. SKIN: No diffuse rash. NEURO: Nonfocal. PSYCH: The patient is calm and cooperative. IMPRESSION 1. Sepsis. Patient presenting with white blood cell count elevation along with lactic acidemia and fever and chills and also DVT of the right lower extremity and swelling of the right hand possibly from disseminated infection. However DVT can cause these features. 2. No evidence of endocarditis. 3. DVT of the right lower extremity. 4. ALLERGIC REACTION TO VANCOMYCIN. Rash/Welts. 5. Joint pains - Probably arthritic. 6. Hand erythema has resolved. 7. Diffuse lymphadenopathy. ? infection related. ? immunosuppressed. RECOMMENDATIONS 1. Check HIV, EBV titers, CMV titers. 2. Blood AFB culture. 3. Consider DELORES. 4. Consider pulmonary consult. 5. May also need to consider lymph node biopsy. Discussed with aWrd Davis MD February 22, 2017 16:48
--- NOTE | 2017-02-23 06:37 | MB ---
cc: MAVIS SOFIA DATE OF CONSULTATION 02/22/[address] Erwin REASON FOR CONSULTATION Possible septic emboli. HISTORY OF PRESENT ILLNESS Ms. Quintana is a pleasant 26-year-old female with a history of hepatitis C, possible IV drug use. The patient presented to [facility] with swelling in the hand and was sent [facility]. The patient signed out from there. She started developing swelling in the right leg. She came to [facility] where she was found to have DVT in the right leg, also swelling in the right hand. Initially she was started on clindamycin and ceftriaxone. The patient is being followed by Dr. Mcdowell. She had a CTA of the chest done that does not show any pulmonary embolism, has mildly prominent axillary lymph node and small area of consolidation, minimal cavitation in the lingula and cavity in the right lower lobe. She has a mild headache, no nausea or vomiting. No abdominal pain. No fever now. PAST MEDICAL HISTORY Significant for - 1. History of cellulitis of her face before. 2. Anxiety, depression. 3. History of hepatitis C. MEDICATIONS She is currently taking - 1. Ibuprofen 4 mg q. 12 hours. 2. Ferrous sulfate 25 mg a day. 3. Greenwood 2 tablets q. 4 hours. 4. Lovenox 50 mg q.12 hours. 5. Nicotine patch. 6. Protonix 40 mg a day. 7. Lactinex one tablet q.24 hours. ALLERGIES SHE IS ALLERGIC TO VANCOMYCIN. SOCIAL HISTORY She is a single, lives with roommates. Has history of smoking and alcohol use. Denies any drug use. Her toxicology screen is positive. She does not work. FAMILY HISTORY She has one 6-year-old child who lives with the patient's mother. REVIEW OF SYSTEMS Normally she is up and active. Denies any weight loss. No DVT or pulmonary embolism in the past. No bleeding from any site. No seizure, stroke or epilepsy. PHYSICAL EXAMINATION GENERAL: A thin-built female, not in any acute distress. VITAL SIGNS: Blood pressure 136/63, heart rate 123, respirations 20, temperature 97.8. HEENT EXAMINATION: Pupils are equal and reactive. Oral mucosa, nasal mucosa normal. NECK: Supple. JVP not raised. CHEST: Equal bilaterally. No rhonchi. CV: S1 and S2 normal. ABDOMEN: Benign. EXTREMITIES: She has swelling of the right leg and also tenderness in the right hand. IMPRESSION 1. A small area of cavitary lesion in the lung, possible septic emboli. Her blood culture so far has been negative. 2. Cellulitis. 3. DVT. 4. Hepatitis C. PLAN I discussed with the patient. Dr. Mcdowell has evaluated the patient and we will defer the antibiotic management to him. Her culture has been negative. We will monitor the lung infiltrate. If she has fever or leukocytosis of concern for sepsis and no sample, then would consider bronchoscopy. Further recommendations will depend on her course in the hospital. Thank you, Dr. Erwin, for this consult. MD ROSALINDA Duran/ABENA /6:07 PM /6:24 AM
--- NOTE | 2017-02-23 06:37 | MB ---
cc: JEFFERY JIMENEZ DATE OF CONSULTATION 02/22/2017 REASON FOR CONSULTATION Ms. Quintana is a 26 year-old white female with a history of IV drug use who presented with right upper and lower extremity cellulitis. She had swelling and pain of the right hand and right leg, fevers and chills. She was found to have deep venous thrombosis of the lower extremity. PAST MEDICAL HISTORY Positive for: 1. Anxiety 2. Depression MEDICATIONS Antibiotics ALLERGIES VANCOMYCIN SOCIAL HISTORY The patient is a smoker. She does not drink alcohol. She has a history of IV drug use. FAMILY HISTORY Negative for heart disease. REVIEW OF SYSTEMS Otherwise negative. PHYSICAL EXAM Blood pressure 119/68, pulse 103 and regular. HEAD, EYES, EARS, NOSE, AND THROAT: Negative. 2+carotid upstrokes. No bruits. LUNGS: Clear. HEART: Regular with no murmur, gallop, rub. ABDOMEN: Soft, no bruits. EXTREMITIES: With right leg and right hand edema and erythema. 2+ distal pulses. NEUROLOGIC: Grossly nonfocal. EKG was reviewed and showed normal sinus rhythm, nonspecific changes. Telemetry now shows mild sinus tachycardia. LABS Hemoglobin 9.3, potassium 4.5, creatinine 0.6. Troponin normal. DIAGNOSIS 1. Sepsis 2. Cellulitis 3. Right lower extremity DVT. 4. IV drug use 5. Smoking DISPOSITION Ms. Quintana will be scheduled for transesophageal echocardiogram to evaluate for endocarditis. She understands the risks and benefits and wishes to proceed. We will continue antibiotics as per ID recommendations. MD BECKA Sellers/KRISTIN /6:42 PM /6:31 AM JOSE RAUL
== END 2017-02-22 22:00 | disposition left against medical advice (07) | DRG 871 ==
LOC: NEPE 16:49 → NEDA 23:28 → HCIS 02-15 00:50 → N04B 02-16 14:57
PROVIDERS: ADMIT Internal Medicine; ATTEND Internal Medicine
DX: A41.9 Sepsis, unspecified organism (principal); I26.90 Septic pulmonary embolism without acute cor pulmonale; I76 Septic arterial embolism; E87.2 Acidosis; I82.401 Acute embolism and thrombosis of unspecified deep veins of right lower extremity; D69.6 Thrombocytopenia, unspecified; L03.113 Cellulitis of right upper limb; N39.0 Urinary tract infection, site not specified; L03.115 Cellulitis of right lower limb; L03.211 Cellulitis of face; R65.20 Severe sepsis without septic shock; F32.9 Major depressive disorder, single episode, unspecified; F41.9 Anxiety disorder, unspecified; F17.210 Nicotine dependence, cigarettes, uncomplicated; Z88.1 Allergy status to other antibiotic agents; Z86.14 Personal history of Methicillin resistant Staphylococcus aureus infection; R07.9 Chest pain, unspecified; B19.20 Unspecified viral hepatitis C without hepatic coma; E87.6 Hypokalemia; D63.8 Anemia in other chronic diseases classified elsewhere; R73.01 Impaired fasting glucose; M25.522 Pain in left elbow; L50.0 Allergic urticaria; T36.8X5A Adverse effect of other systemic antibiotics, initial encounter; Y92.239 Unspecified place in hospital as the place of occurrence of the external cause; M79.89 Other specified soft tissue disorders; M79.641 Pain in right hand; M25.511 Pain in right shoulder; R59.1 Generalized enlarged lymph nodes; R26.2 Difficulty in walking, not elsewhere classified; F19.90 Other psychoactive substance use, unspecified, uncomplicated; R00.0 Tachycardia, unspecified
CPT/HCPCS: 71275; 72192; 73080; 73120; 73201; 76937; 80048; 80053; 80307; 81001; 82607; 82746; 83036; 83540; 83550; 83605; 84484; 84703; 85025; 85027; 85610; 85652; 85730; 87040; 87086; 93005; 93306; 93971; 96374; 96375; C9113; J0171; J0696; J1170; J1644; J1650; J1885; J2270; J7030; Q9967

== ENCOUNTER 2017-03-14 19:19 | Inpatient (IN) | payer SELFPAY ==
[~2017-03-14] VITALS: Ht 167.6 cm; Wt 57.9 kg
[2017-03-14 19:21] VITALS: BP 136/65; PULSE 147; RESP 22; TEMP 100.1; O2SAT 93
--- NOTE | 2017-03-14 19:59 | PD ---
HPI Chief Complaint: Respiratory Distress Time Seen by Provider: 19:32 Travel History International Travel<30 days: No Contact w/Intl Traveler<30days: No Traveled to known affect area: No History of Present Illness HPI The patient is 26 year old female who presents to the [facility] emergency department with a history of chest pain and shortness of breath that she reports began approximately 2-1/2-3 weeks ago. The patient reports that it began approximately a week after she left AGAINST MEDICAL ADVICE from the hospital. From reviewing the electronic medical record, the patient was diagnosed with right lower extremity DVT, left elbow cellulitis, and suspected pulmonary emboli on CTA of the lung done just prior to her leaving AGAINST MEDICAL ADVICE. As the patient left against medical advise she did not get any prescriptions at discharge. The patient reports that she has not followed up with an outpatient physician. She reports they have not been using any drugs. She reports that she last used methamphetamine approximately a month ago. She reports that she may have been exposed to cocaine 2 days ago from her roommate when she accidentally smoked one of her roommates cigarettes. The patient reports that over the last 2 days she's had diarrhea. She reports that she's had 3 loose stools per day. She is unsure of the color of the stool as she has not checked. She reports that she has also had over the last 2 weeks urinary frequency and urgency. She reports that she has mid back pain. She reports that she has had a fever 3 days ago with a MAXIMUM TEMPERATURE of 103.3. She reports that she's had a productive cough, however she is sure of the color the sputum. The patient denies any neck pain,abdominal pain, vomiting, or neurologic symptoms. [facility] Past Medical History Narrative Medical The patient's past medical history is significant for hepatitis C, history of a right lower extremity DVT, history of pain in the left elbow caught to be related to a cellulitis, history of abnormalities on CT scan of the chest thought to possibly be related to septic emboli, however the patient left AGAINST MEDICAL ADVICE prior to the completion of that workup, history of polysubstance abuse. Anxiety: Yes Depression: Yes Cancer: No Cardiovascular Problems: No Endocrine: No Gastrointestinal Disorders: No Genitourinary: No Immune Disorder: No Implanted Vascular Access Dvce: No Musculoskeletal: No Neurologic: No Psychiatric: Yes (states do not take any medication) Reproductive: No Respiratory: No Tetanus Vaccination: Unknown Influenza Vaccination: No ?: Not Past Surgical History Narrative Surgical The patient's past surgical history is reportedly significant for a tonsillectomy. Tonsillectomy: Yes Other Surgery: Yes Social History Alcohol Use: No Tobacco Use: Yes (1/2PPD) Substance Use: Yes (methamphetamine last a month ago, possible cocaine exposure 2 days ago) Allergies-Medications (Allergen,Severity, Reaction): Coded Allergies: Vancomycin (Verified Allergy, Severe, Hives, 03/14/17) *MDRO Multi-Drug Resistant Organism (Verified Adverse Reaction, Unknown, ) MRSA (arm-06/19/16) MRSA (R cheek- 11/07/16) Reported Meds & Prescriptions Reported Meds & Active Scripts Active No Active Prescriptions or Reported Medications Review of Systems Except as stated in HPI: all other systems reviewed are Neg General / Constitutional: No: Fever Eyes: No: Visual changes HENT: No: Headaches Cardiovascular: Positive: Chest Pain or Discomfort, Dyspnea on exertion Respiratory: Positive: Cough, Shortness of Breath Gastrointestinal: Positive: Diarrhea, Changes in Bowel Habits, Loss of Appetite , No: Nausea, Vomiting, Abdominal Pain, Indigestion Genitourinary: No: Dysuria Musculoskeletal: No: Pain Skin: No Rash Neurologic: Positive: Weakness (generalized weakness), No: Focal Abnormalities , Change in Mentation, Slurred Speech, Sensory Disturbance Psychiatric: No: Depression Endocrine: No: Polydipsia Hematologic/Lymphatic: No: Easy Bruising Physical Exam Narrative General: The patient is a well-developed well-nourished female, uncomfortable appearing on arrival with tachypnea, intermittent cough, O2 saturation on room air 90%. Head and Neck exam: Head is normocephalic atraumatic. Eyes: EOMI, pupils are equal round and reactive to light. Nose: Midline septum with pink mucous membranes Mouth: Dentition unremarkable. Moist mucus membranes. Posterior oropharynx is not erythematous. No tonsillar hypertrophy. Uvula midline. Airway patent. Neck: No palpable lymphadenopathy. No nuchal rigidity. No thyromegaly. Cardiovascular: Sinus tachycardia in the 120s to 130s without murmurs, gallops, or rubs. No pulse deficit to the extremities and simultaneous auscultation and palpation of her radial artery. Lungs: Clear to auscultation bilaterally. No wheezes, rhonchi, or rales. Abdomen: Soft, without tenderness to palpation in all 4 quadrants of the abdomen. No guarding, rebound, or rigidity. Normal bowel sounds are audible. No tenderness on palpation of McBurney's point. Extremities: No clubbing or cyanosis. The patient has swelling of the right lower extremity noted on examination, this is the extremity where she was diagnosed with a DVT in January, swelling is also noted to the left arm specifically over the left posterior elbow. There is tenderness on palpation. There is decreased range of motion. There is no fluctuance or pointing noted. 2+ pulses in all 4 extremities. Back: The patient has spinous process tenderness to palpation along the mid thoracic spine and paraspinal musculature of the thoracic area. There is no step-off or crepitus. No overlying erythema or ecchymosis. The patient had bilateral CVA tenderness that was worse on the left compared to the right. Neurologic Exam: Cranial nerves 2-12 were intact on exam. Strength is 5/5 in all 4 extremities. No sensory deficits noted. Skin Exam: No rash noted. Intact skin that is warm and dry. Data Data Last Documented VS Vital Signs Date Time Temp Pulse Resp B/P Pulse Ox O2 Delivery O2 Flow Rate FiO2 03/14/17 21:14 99.9 126 17 117/79 98 Nasal Cannula 2 Orders Electrocardiogram (03/14/17 19:54) Complete Blood Count With Diff (03/14/17 19:54) Comprehensive Metabolic Panel (03/14/17 19:54) Creatine Kinase (Cpk) (03/14/17 19:54) Ckmb (Isoenzyme) Profile (03/14/17 19:54) Troponin I (03/14/17 19:54) B-Type Natriuretic Peptide (03/14/17 19:54) Prothrombin Time / Inr (Pt) (03/14/17 19:54) Act Partial Throm Time (Ptt) (03/14/17 19:54) Blood Culture (03/14/17 19:54) C-Reactive Protein (Crp) (03/14/17 19:54) Lipase (03/14/17 19:54) Urinalysis - C+S If Indicated (03/14/17 19:54) Beta Hcg (Quant/Titer) (03/14/17 19:54) Westergren Sedimentation Rate (03/14/17 19:54) Magnesium (Mg) (03/14/17 19:54) Chest, Single Ap (03/14/17 19:54) Iv Access Insert/Monitor (03/14/17 19:54) Ecg Monitoring (03/14/17 19:54) Oximetry (03/14/17 19:54) Drug Screen, Random Urine (03/14/17 19:54) Lactic Acid Sepsis Protocol (03/14/17 19:54) Ct Pulmonary Angiogram (03/14/17 19:57) Sodium Chlor 0.9% 1000 Ml Inj (Ns 1000 M (03/14/17 20:30) Cefepime Inj (Maxipime Inj) (03/14/17 20:25) Linezolid 600 Mg Premix (Zyvox 600 Mg Pr (03/14/17 20:30) Mri T Spine W & W/O Contrast (03/14/17 19:57) Gadodiamide Pf Inj (Omniscan Pf Inj) (03/14/17 21:01) Potassium Chloride Eff (K-Lyte Cl Eff) (03/14/17 21:15) CKMB (03/14/17 20:05) CKMB% (03/14/17 20:05) Heparin Infusion KENNEDY.Q1H (03/14/17 21:35) Heparin Inj (Heparin Inj) (03/14/17 21:45) Heparin-D5w Inj (Heparin-D5w Inj) (03/14/17 21:45) Cbc No Diff, Includes Plts (03/17/17 06:00) Act Partial Throm Time (Ptt) (03/15/17 04:35) Occult Blood (Hemoccult) Stool (03/14/17 21:35) Ct Brain W/O Iv Contrast(Rout) (03/14/17 ) Admit Order (Ed Use Only) (03/14/17 21:45) Labs Laboratory Tests Test 03/14/17 20:05 Erythrocyte Sedimentation Rate GREATER THAN 140 mm/hr Prothrombin Time 15.9 SEC Prothromb Time International 1.4 RATIO Ratio Activated Partial 34.1 SEC Thromboplast Time Sodium Level 125 MEQ/L Potassium Level 3.1 MEQ/L Chloride Level 88 MEQ/L Carbon Dioxide Level 27.8 MEQ/L Anion Gap 9 MEQ/L Blood Urea Nitrogen 11 MG/DL Creatinine 0.88 MG/DL Estimat Glomerular Filtration 78 ML/MIN Rate Random Glucose 104 MG/DL Lactic Acid Level 1.4 mmol/L Calcium Level 7.8 MG/DL Magnesium Level 1.8 MG/DL Total Bilirubin 0.5 MG/DL Aspartate Amino Transf 46 U/L (AST/SGOT) Alanine Aminotransferase 34 U/L (ALT/SGPT) Alkaline Phosphatase 111 U/L Total Creatine Kinase 201 U/L Creatine Kinase MB 1.1 NG/ML Creatine Kinase MB % 0.5 % Troponin I LESS THAN 0.02 NG/ML C-Reactive Protein 20.00 MG/DL B-Type Natriuretic Peptide 11 PG/ML Total Protein 7.5 GM/DL Albumin 1.8 GM/DL Lipase 485 U/L Human Chorionic Gonadotropin, LESS THAN 1 Quant MIU/ML White Blood Count 18.3 TH/MM3 Red Blood Count 3.21 MIL/MM3 Hemoglobin 8.3 GM/DL Hematocrit 24.3 % Mean Corpuscular Volume 75.6 FL Mean Corpuscular Hemoglobin 25.7 PG Mean Corpuscular Hemoglobin 34.1 % Concent Red Cell Distribution Width 15.1 % Platelet Count 228 TH/MM3 Mean Platelet Volume 7.7 FL Neutrophils (%) (Auto) 80.4 % Lymphocytes (%) (Auto) 11.8 % Monocytes (%) (Auto) 6.9 % Eosinophils (%) (Auto) 0.3 % Basophils (%) (Auto) 0.6 % Neutrophils # (Auto) 14.7 TH/MM3 Lymphocytes # (Auto) 2.2 TH/MM3 Monocytes # (Auto) 1.3 TH/MM3 Eosinophils # (Auto) 0.1 TH/MM3 Basophils # (Auto) 0.1 TH/MM3 CBC Comment AUTO DIFF Differential Total Cells 100 Counted Neutrophils % (Manual) 71 % Band Neutrophils % 10 % Lymphocytes % 13 % Monocytes % 6 % Neutrophils # (Manual) 14.8 TH/MM3 Differential Comment FINAL DIFF MANUAL Toxic Granulation 1+ Toxic Vacuolation PRESENT Platelet Estimate NORMAL Platelet Morphology Comment NORMAL MDM Medical Decision Making Medical Screen Exam Complete: Yes Emergency Medical Condition: Yes Medical Record Reviewed: Yes Interpretation(s) Last Impressions Thoracic Spine MRI 03/14/171956 Signed Impressions: Service Date/Time: Tuesday, March 14, 2017 20:29 - CONCLUSION: 1. No acute abnormality is seen of the thoracic spine. 2. Bilateral pneumonia and mediastinal/right hilar lymphadenopathy. Dominick Ibrhaim MD CT Angiography 03/14/171956 Signed Impressions: Service Date/Time: Tuesday, March 14, 2017 22:37 - CONCLUSION: Pathological adenopathy within the mediastinum with extensive bilateral pulmonary nodules and air space consolidation some of which are cavitary and septic emboli is of primary consideration. Suzanne Sykes MD Chest X-Ray 03/14/171953 Signed Impressions: Service Date/Time: Tuesday, March 14, 2017 20:14 - CONCLUSION: Bilateral patchy pneumonia. Dominick Ibrahim MD Head CT 03/14/17 0000 Signed Impressions: Service Date/Time: Tuesday, March 14, 2017 22:34 - CONCLUSION: Unremarkable study. Suzanne Sykes MD Differential Diagnosis PE, versus septic emboli, versus pneumonia, versus septic arthritis of the left elbow, versus endocarditis, versus sepsis of undetermined origin that shows pyelonephritis. Narrative Course During the course of the patients emergency department visit, the patients history, examination, and differential diagnosis were reviewed with the patient. The patient had IV access obtained and blood work sent for analysis. The patient was was on a director cardiac with oximetry and blood pressure monitoring. An EKG was done on arrival. The patient's EKG shows a sinus tachycardia rate of 134, nonspecific ST-T wave abnormalities, no acute ST segment elevation. The patient was initially provided cefepime 2 g IV, linezolid 600 mg IV. The patient was given normal saline 1 L IV fluid bolus. The patients laboratory studies were reviewed and remarkable for a white count of 18.3, hemoglobin 8.3, platelets 228 with 71 neutrophils, bands 10, toxic granulation present. Sedimentation rate is greater than 140. CMP is remarkable for a sodium of 125, potassium 3.1 which was supplemented orally, GFR 78, calcium 7.8, AST 46, CPK 201, troponin I less than 0.02, C-reactive protein 20, BNP 11, lipase 485, quantitative beta hCG is less than 1, PT 15.9, INR 1.4, PTT 34.1, salicylate less than 1.7, acetaminophen less than 2 Radiology studies were reviewed and remarkable for a chest x-ray that shows bilateral patchy pneumonia, MRI of the C-spine shows no acute abnormality of the thoracic spine, however bilateral pneumonia and mediastinal right hilar lymphadenopathy is noted, CTA shows pathological adenopathy within the mediastinum with extensive bilateral pulmonary nodules and airspace consolidations, which are cavitary and septic emboli is a primary consideration. The patient's case was discussed with Dr. Dukes the social media senior associate who did agree to admit the patient for further evaluation and treatment at this time. She recommended that I hold off on heparin administration until CT scan of the brain is done to evaluate for possible intracranial emboli. The patients results were discussed with the patient, including the plan of care. I explained that further testing and/ or monitoring is indicated based on the patients history, examination, and/ or laboratory findings. Therefore, I recommended admission for additional evaluation. The patient expressed understanding and was agreeable with this plan. The patient was admitted to the hospital in [facility] and sent to a bed under the care of the social media senior associate service. Critical Care Narrative Aggregate critical care time was 35 minutes. Time to perform other separately billable procedures was not included in the critical care time. My time did not include minutes spent treating any other patients simultaneously or on activities that did not directly contribute to the patient's treatment. The services I provided to this patient were to treat and/or prevent clinically significant deterioration that could result in: Cardiovascular collapse, versus respiratory failure I provided critical care services requiring my management, as noted below: Chart data review, documentation time, medication orders and management, vital sign assessments/reviewing monitor data, ordering and reviewing lab tests, ordering and interpreting/reviewing x-rays and diagnostic studies, care of the patient and discussion of the patient with the admitting physicians. Sepsis Criteria SIRS Criteria (2 or more): Heart rate over 90, RR > 20 or PaCO2 < 32, WBC > 37293, < 4000 or > 10% bands Sepsis Criteria (SIRS+source): Infect source susp/known Criteria Outcome: Meets SIRS criteria, Meets sepsis criteria Diagnosis Primary Impression: Pneumonia Qualified Code: J18.9 - Pneumonia of both lungs due to infectious organism, unspecified part of lung Additional Impression: Sepsis Scripts No Active Prescriptions or Reported Meds Renate Whitman MD March 14, 2017 19:59
[2017-03-14] MEDS ORDERED: CEFEPIME INJ 2,000 MG in SODIUM CHLORIDE 0.9% INJ 100 ML IV STA (20:25)
[2017-03-14 20:30] LABS: AUTOMATED NEUTROPHIL # 14.7 TH/MM3 (1.8-7.7); BASOPHIL # 0.1 TH/MM3 (0-0.2); BASOPHIL % 0.6 % (0.0-2.0); EOSINOPHIL # 0.1 TH/MM3 (0-0.4); EOSINOPHIL % 0.3 % (0.0-4.0); HEMATOCRIT 24.3 % (35.0-46.0); LYMPH % 11.8 % (9.0-44.0); LYMPHOCYTE # 2.2 TH/MM3 (1.0-4.8); MEAN CELL VOLUME 75.6 FL (80.0-100.0); MEAN CORPUSCULAR HEMOGLOBIN 25.7 PG (27.0-34.0); MEAN CORPUSCULAR HGB CONC 34.1 % (32.0-36.0); MONO % 6.9 % (0.0-8.0); NEUT % 80.4 % (16.0-70.0); PLATELET COUNT 228 TH/MM3 (150-450); RED BLOOD COUNT 3.21 MIL/MM3 (4.00-5.30); RED CELL DISTRIBUTION WIDTH 15.1 % (11.6-17.2); WHITE BLOOD COUNT 18.3 TH/MM3 (4.0-11.0)
[2017-03-14] MEDS ORDERED: LINEZOLID 600 MG PREMIX 300 ML IV ONE (20:30)
[2017-03-14] MEDS ORDERED: SODIUM CHLOR 0.9% 1000 ML INJ 1,000 ML IV ONE (20:30)
[2017-03-14 20:31] LABS: HEMO FLAGS AUTO DIFF
--- NOTE | 2017-03-14 20:39 | RADRPT ---
EXAM DATE/TIME: 03/14/2017 20:14 [facility] COMPARISON: CHEST SINGLE AP, June 19, 2016, 17:46. INDICATIONS : Shortness of breath, chest pain and cough. MEDICAL HISTORY : None. SURGICAL HISTORY : None. ENCOUNTER: Initial ACUITY: 3 weeks PAIN SCORE: 4/10 LOCATION: Bilateral chest FINDINGS: There is patchy infiltrate in both lungs. The dense is consolidation as laterally the right upper lob e and most of the rest of the consolidation is in the bilateral mid and lower lungs. Small, bilateral pleural effusions are suspected. No pneumothorax. Heart size within normal limits. CONCLUSION: Bilateral patchy pneumonia. Dominick Ibrahim MD on March 14, 2017 at 20:36 Board Certified Radiologist. This report was verified electronically.
[2017-03-14 20:51] LABS: BANDS 10 % (0-6); NEUTROPHIL # MANUAL DIFF 14.8 TH/MM3 (1.8-7.7); POLYS (SEG NEUTROPHILS) 71 % (16-70); WBC DIFF SAMPLE 100
[2017-03-14 20:52] LABS: PLATELET ESTIMATE SMEAR NORMAL (NORMAL); PLATELET MORPHOLOGY NORMAL (NORMAL); SCAN/DIFF FINAL DIFF MANUAL; TOXIC GRANULATION 1+ (NORMAL); TOXIC VACUOLATION PRESENT (NONE SEEN)
[2017-03-14] MEDS ORDERED: GADODIAMIDE PF 287 MG/ML 10 ML VIAL (for RAD MRI) IV ONE (21:01)
[2017-03-14 21:03] LABS: APTT (PATIENT) 34.1 SEC (24.3-30.1); INTERNATIONAL NORMALIZED RATIO 1.4 RATIO; PROTHROMBIN TIME - PATIENT 15.9 SEC (9.8-11.6)
[2017-03-14 21:05] LABS: ANION GAP 9 MEQ/L (5-15); AST (GOT) 46 U/L (15-37); BICARBONATE 27.8 MEQ/L (21.0-32.0); BLOOD UREA NITROGEN 11 MG/DL (7-18); CHLORIDE 88 MEQ/L (98-107); GLOMERULAR FILTRATION RATE 78 ML/MIN (>89); MAGNESIUM 1.8 MG/DL (1.5-2.5); POTASSIUM 3.1 MEQ/L (3.5-5.1); SODIUM (NA) 125 MEQ/L (136-145)
[2017-03-14 21:14] VITALS: BP 117/79; PULSE 126; RESP 17; TEMP 99.9; O2SAT 98
[2017-03-14 21:15] LABS: ALKALINE PHOSPHATASE 111 U/L (45-117); ALT (GPT) 34 U/L (10-53); BETA HCG QUANT LESS THAN 1 MIU/ML (0-5); CREATINE KINASE 201 U/L (26-192); TOTAL BILIRUBIN ADULT 0.5 MG/DL (0.2-1.0)
[2017-03-14] MEDS ORDERED: POTASSIUM CHLORIDE 25 MEQ EFFERVESCENT TAB PO ONE (21:15)
[2017-03-14 21:27] LABS: CKMB 1.1 NG/ML (0.5-3.6)
--- NOTE | 2017-03-14 21:35 | RADRPT ---
EXAM DATE/TIME: 03/14/2017 20:29 [facility] COMPARISON: No previous studies available for comparison. INDICATIONS : Osteomyelitis. Chest pain with shortness of breath. CONTRAST: 10 cc Omniscan (gadodiamide) IV MEDICAL HISTORY : Hepatitis C. Deep venous thrombosis. Septic emboli. SURGICAL HISTORY : Tonsillectomy. ENCOUNTER: Subsequent ACUITY: 1 month PAIN SCORE: 3/10 LOCATION: [facility] TECHNIQUE: Multiplanar multisequence MRI of the thoracic spine was performed. FINDINGS: VERTEBRA: Normal vertebral body height. Homogeneous marrow signal. ALIGNMENT: Normal. CORD: Normal position and configuration. POST CONTRAST: No abnormal areas of contrast enhancement seen. T1-T2: Normal. T2-T3: The thecal sac has a normal diameter. No evidence of disc bulge or protrusion. T3-T4: The thecal sac has a normal diameter. No evidence of disc bulge or protrusion. T4-T5: The thecal sac has a normal diameter. No evidence of disc bulge or protrusion. T5-T6: The thecal sac has a normal diameter. No evidence of disc bulge or protrusion. T6-T7: The thecal sac has a normal diameter. No evidence of disc bulge or protrusion. T7-T8: The thecal sac has a normal diameter. No evidence of disc bulge or protrusion. T8-T9: The thecal sac has a normal diameter. No evidence of disc bulge or protrusion. T9-T10: The thecal sac has a normal diameter. No evidence of disc bulge or protrusion. T10-T11: The thecal sac has a normal diameter. No evidence of disc bulge or protrusion. T11-T12: The thecal sac has a normal diameter. No evidence of disc bulge or protrusion. T12-L1: The thecal sac has a normal diameter. No evidence of disc bulge or protrusion. Right anterolateral to T6/T7 is an enhancing mass in the posterior mediastinum that measures about 2. 8 cm in size. I believe this is a combination of subcarinal/mediastinal and right hilar lymphadenopat hy. There is also bilateral pneumonia, especially right midlung. CONCLUSION: 1. No acute abnormality is seen of the thoracic spine. 2. Bilateral pneumonia and mediastinal/right hilar lymphadenopathy. Dominick Ibrahim MD on March 14, 2017 at 21:31 Board Certified Radiologist. This report was verified electronically.
[2017-03-14] MEDS ORDERED: HEPARIN SODIUM - IV 10,000 UNITS/10 ML VIAL IV ONE ×2 (21:45→23:45)
[2017-03-14] MEDS ORDERED: HEPARIN-D5W INJ 250 ML IV SCH (21:45)
--- NOTE | 2017-03-14 21:53 | HHI.HP ---
HPI Service Critical Care Medicine Primary Care Physician No Primary Care Physician Admission Diagnosis Pneumonia, Right DVT, R/O endocarditis Diagnosis: Travel History International Travel<30 Days: No Contact w/Intl Traveler <30 Da: No Traveled to Known Affected Are: No History of Present Illness 26-year-old female with past medical history of polysubstance abuse , multiple prior admissions for skin and soft tissue infections, DVT RLE (not on anticoagulant due to medical nonadherence) who presents to [facility] ED with 3 day history of pleuritic chest pain that she describes as "severe" in anterior and posterior thorax. She reports nonproductive cough; no hemoptysis. She also states she has had a fever up to 103.3 x3 days and night sweats x2 weeks. There is erythema, warmth, decreased mobility of her left elbow which she states has been going on for about 3 weeks. She has not noted any drainage from the area. She was admitted to [facility] February 142016 for right hand and left elbow cellulitis and sepsis. She also had cavitary lesions of lingula and RLL. Blood cultures were negative. TTE was negative for vegetation. Cardiology had been consulted and Dr. Cantu intended to do DELORES to evaluate for endocarditis, but patient left AMA. She also was noted to have axillary, mediastinal and inguinal lymphadenopathy with CT pelvis negative for intrabdominal pathology. . During that admission she also had right lower extremity DVT from right superficial femoral vein into the proximal calf. She was evaluated by heme oncology, Dr. Cochran. She was initially treated with Lovenox. She states she has not been on an outpatient anticoagulant. Her medical history also included I and D of abscess in R axilla in ED 06/09 with wound cultures positive for MRSA; R facial cellulitis 11/10 (blood cultures negative). She was admitted to [facility] in January of 2017 for hand cellulitis but left AMA from there after they recommended transfer to [facility] for hand surgeon. HIV was negative 11/10. Hep C ab positive. Though it is suspected she has h/o IVDU, she has denied it. She also denies use of cocaine despite multiple positive UDS. Denies headache, neck stiffness, abdominal pain. Review of Systems ROS Limitations: Clinical Condition Past Family Social History Allergies: Coded Allergies: Vancomycin (Verified Allergy, Severe, Hives, 03/14/17) *MDRO Multi-Drug Resistant Organism (Verified Adverse Reaction, Unknown, ) MRSA (blood)-03/14/17 MRSA PCR Positive 03/14/17 MRSA (arm-06/19/16) MRSA (R cheek- 11/07/16) Past Medical History History of MRSA from abscess right axilla 06/20/16 Hepatitis C antibody positive (she states mode of contraction is unknown) Facial cellulitis, right hand cellulitis, left elbow cellulitis as detailed in HPI Past Surgical History Tonsillectomy Reported Medications None Family History Denies significant family medical history Social History Smokes half pack of cigarettes per day Denies use of alcohol Vehemently denies substance abuse to me, though urine drug screen is positive for benzos and cocaine. Denies history of IV drug use though it is documented in prior records. She states she was incarcerated for one week in October 2015 Physical Exam Vital Signs Vital Signs Date Time Temp Pulse Resp B/P Pulse Ox O2 Delivery O2 Flow Rate FiO2 03/14/17 21:14 99.9 126 17 117/79 98 Nasal Cannula 2 03/14/17 19:21 100.1 147 22 136/65 93 Room Air Physical Exam GENERAL: Disheveled female who is laying in the ED stretcher. SKIN/MSK: Warm and dry. There is erythema overlying left olecranon and dorsal aspect left proximal forearm. No fluctance or drainage noted. She has decreased ROM lacking about 25 degrees of full extension of L elbow. There is swelling of right lower extremity compared to left without erythema or palpable cord. HEAD: Atraumatic. Normocephalic. EYES: Pupils equal and round. No scleral icterus. No injection or drainage. ENT: Mucous membranes dry. Poor dentition. No meningismus. NECK: Trachea midline. No JVD. 1 cm right anterior cervical lymph node CARDIOVASCULAR: Tachycardic, sinus tachycardia on the monitor. No murmurs rubs or gallops appreciated. RESPIRATORY: Tachypneic without accessory muscle use. Rhonchorous breath sounds bilaterally without wheeze or Rales. GASTROINTESTINAL: Abdomen soft, non-tender, nondistended. Bowel sounds are present. NEUROLOGICAL: Awake and alert. No obvious cranial nerve deficits. Strength 5 out of 5 in all extremities except unable to test left upper extremity due to limitation secondary to pain. Sensation is intact. No facial droop. Normal speech. Oriented 4 Laboratory Laboratory Tests Test 03/14/17 20:05 White Blood Count 18.3 Red Blood Count 3.21 Hemoglobin 8.3 Hematocrit 24.3 Mean Corpuscular Volume 75.6 Mean Corpuscular Hemoglobin 25.7 Mean Corpuscular Hemoglobin 34.1 Concent Red Cell Distribution Width 15.1 Platelet Count 228 Mean Platelet Volume 7.7 Neutrophils (%) (Auto) 80.4 Lymphocytes (%) (Auto) 11.8 Monocytes (%) (Auto) 6.9 Eosinophils (%) (Auto) 0.3 Basophils (%) (Auto) 0.6 Neutrophils # (Auto) 14.7 Lymphocytes # (Auto) 2.2 Monocytes # (Auto) 1.3 Eosinophils # (Auto) 0.1 Basophils # (Auto) 0.1 CBC Comment AUTO DIFF Differential Total Cells 100 Counted Neutrophils % (Manual) 71 Band Neutrophils % 10 Lymphocytes % 13 Monocytes % 6 Neutrophils # (Manual) 14.8 Differential Comment FINAL DIFF MANUAL Toxic Granulation 1+ Toxic Vacuolation PRESENT Platelet Estimate NORMAL Platelet Morphology Comment NORMAL Erythrocyte Sedimentation Rate GREATER THAN 140 Prothrombin Time 15.9 Prothromb Time International 1.4 Ratio Activated Partial 34.1 Thromboplast Time Sodium Level 125 Potassium Level 3.1 Chloride Level 88 Carbon Dioxide Level 27.8 Anion Gap 9 Blood Urea Nitrogen 11 Creatinine 0.88 Estimat Glomerular Filtration 78 Rate Random Glucose 104 Lactic Acid Level 1.4 Calcium Level 7.8 Magnesium Level 1.8 Total Bilirubin 0.5 Aspartate Amino Transf 46 (AST/SGOT) Alanine Aminotransferase 34 (ALT/SGPT) Alkaline Phosphatase 111 Total Creatine Kinase 201 Creatine Kinase MB 1.1 Creatine Kinase MB % 0.5 Troponin I LESS THAN 0.02 C-Reactive Protein 20.00 B-Type Natriuretic Peptide 11 Total Protein 7.5 Albumin 1.8 Lipase 485 Human Chorionic Gonadotropin, LESS THAN 1 Quant Date/Time Procedure Status Source Growth 03/14/17 20:10 Aerobic Blood Culture Received Blood Peripheral Pending 03/14/17 20:10 Anaerobic Blood Culture Received Blood Peripheral Pending Result Diagram: 03/14/17200403/14/172004 Septic Shock Reassessment Lungs: Course Skin: Warm Peripheral Pulses: Bounding Right Radial Bounding Left Radial Bounding Right Popliteal Bounding Left Popliteal Bounding Right Dorsalis Pedis Bounding Left Dorsalis Pedis Bounding Right Posterior Tibial Bounding Left Posterior Tibial Capillary Refill: Sluggish Assessment and Plan Assessment and Plan NEURO: Cocaine abuse, ?benzo use/abuse Percocet 5-10 mg every 4 hours when necessary pain Morphine 2-4 mg IV every 3 hours when necessary breakthrough pain CT brain 03/14/17no acute abnormality RESP: Multiple cavitary lung lesions, suspected septic pulmonary emboli Tobacco abuse Nasal cannula wean as tolerated CT pulmonary angiogramno evidence for pulmonary embolism. There are multiple bilateral cavitary lung lesions (RUL, RLL, SREE, LLL) including large consolidation of right upper lobe. These lesions appear c/w endocarditis, per discussion below under ID.; Albuterol every 2 hours as needed for wheezing. CV: Followup 2 D Echo to evaluate for vegetations. Will require DELORES if TTE negative. Lactic acid is normal GI: Mild AST elevation Moderate protein energy malnutrition Mildly elevated lipase of unclear significance Patient denies abdominal pain, nausea vomiting. Will follow-up lipase Colace 100 mg by mouth twice a day for bowel regimen. 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 FEN/RENAL: Hyponatremia Hypokalemia Acute dehydration Fena appears pre-renal. REceived 1 L NS in the ED. 0.9 NaCL with 20 MEQ KCL/L @ 100 ml/hr. Followup BMP. Cortisol and TSH are normal. Urine osm is 391 so may have underlying SIADH but currently clinically appears dry and septic, can f/u post resuscitation. Monitor intake and output. Monitor electrolytes. ID: Sepsis Multiple cavitary pulmonary lesions VAncomycin allergy (patient states rash and difficulty breathing) L elbow cellulitis vs septic arthritis Multiple cavitary pulmonary lesions are most concerning for endocarditis. Prior workup in January blood cultures and TTE were negative. Will followup repeat blood cultures. Zosyn to cover for pneumonia, endocarditis including anaerobes. Linezolid to cover pneumonia. If she proves to be bacteremic, addition of daptomycin may be appropriate but would use linezolid at this point given known pulmonary infection. She denies use of SSRI. Lymphadenopathy also noted . HIV retested (patient provided consent). CMV and EBV tested per prior ID recommendations. Obtained AFB and placed on airborne precautions out of abundance of caution, though TB seems much less likely. Obtained CT elbow to evaluate for abscess. If no abscess overlying joint, consider aspiration of elbow for septic arthritis. U/s to evaluate for DVT HEME: Right lower extremity DVT U/s RLE from 02/14/17DVT right superficial femoral to calf Was on Lovenox during prior hospitalization but states she has not been on any anticoagulation patient since she left AGAINST MEDICAL ADVICE 02/23/17 Initiated heparin drip for DVT treatment (chosen in case needs to be held for procedure, can later be transitioned to lovenox) ENDO: Euglycemic. TSH normal on admission. PROPH: Protonix 40 mg by mouth daily for stress ulcer prophylaxis. Heparin drip for treatment of DVT ACCESS: Peripheral IV providing adequate access at this time. H and P Level III Suma Dukes MD March 14, 2017 21:53
[2017-03-14] MEDS ORDERED: IOHEXOL 350 MG/ML 10 ML VIAL (for RAD DIAG) IV ONE (22:54)
--- NOTE | 2017-03-14 22:58 | RADRPT ---
EXAM DATE/TIME: 03/14/2017 22:34 [facility] COMPARISON: No previous studies available for comparison. INDICATIONS : Altered mental status. RADIATION DOSE: 56.35 CTDIvol (mGy) MEDICAL HISTORY : Deep venous thrombosis. Substance abuse. SURGICAL HISTORY : Tonsillectomy. ENCOUNTER: Initial ACUITY: 1 day PAIN SCALE: 0/10 LOCATION: cranial TECHNIQUE: Multiple contiguous axial images were obtained of the head. Using automated exposure control and adj ustment of the mA and/or kV according to patient size, radiation dose was kept as low as reasonably a chievable to obtain optimal diagnostic quality images. FINDINGS: There is no evidence for intracranial hemorrhage, mass effect, mass lesions, edema, or extra-axial fl uid collections. The visualized bony structures appear intact. The ventricles are normal size for t he patient's age. There are no signs of acute infarction for technique. CONCLUSION: Unremarkable study. Suzanne Sykes MD on March 14, 2017 at 22:55 Board Certified Radiologist. This report was verified electronically.
[2017-03-14] MEDS ORDERED: SODIUM CHLORIDE 0.9% FLUSH 10 ML FLUSH PRN (23:00)
[2017-03-14] MEDS ORDERED: MISCELLANEOUS NURSING INFORMATION XX SCH (23:00)
[2017-03-14] MEDS ORDERED: CHLORHEXIDINE GLUCONATE 2 % 1 PACK (2 CLOTHS) TOP PRN (23:00)
[2017-03-14] MEDS ORDERED: RESP: ALBUTEROL 2.5 MG/3 ML NEB (PRN) INH (23:00)
[2017-03-14] MEDS ORDERED: ONDANSETRON HCL 4 MG/2 ML VIAL IV PRN (23:00)
[2017-03-14] MEDS ORDERED: oxyCODONE/ACETAMINOPHEN 5 MG/325 MG TAB PO PRN (23:00)
--- NOTE | 2017-03-14 23:03 | RADRPT ---
EXAM DATE/TIME: 03/14/2017 22:37 [facility] COMPARISON: MRI THORACIC SPINE W & W/O CONTRAST, March 14, 2017, 20:29. CT PULMONARY ANGIOGRAM, February 22, 2017, 12:0 8. INDICATIONS : Chest pain and shortness of breath. IV CONTRAST: 71 cc Omnipaque 350 (iohexol) IV RADIATION DOSE: 6.51 CTDIvol (mGy) MEDICAL HISTORY : Deep venous thrombosis. Substance abuse. SURGICAL HISTORY : Tonsillectomy. ENCOUNTER: Initial ACUITY: 2 days PAIN SCALE: 6/10 LOCATION: chest TECHNIQUE: Volumetric scanning of the chest was performed using a pulmonary embolism protocol MIP images were re constructed. Using automated exposure control and adjustment of the mA and/or kV according to patien t size, radiation dose was kept as low as reasonably achievable to obtain optimal diagnostic quality images. FINDINGS: There is no evidence for PE for technique. There is extensive worsening of bilateral mass like p arenchymal densities with areas of airspace consolidation which appear to be cavitary in nature and m ost of them are new not present on the prior examination the largest one measures almost 6.1 cm in si ze. Septic emboli is of primary consideration. There are also lymph nodes within the mediastinum whic h appear larger the largest one in the subcarinal area measuring 2.3 cm in size. CONCLUSION: Pathological adenopathy within the mediastinum with extensive bilateral pulmonary nodules and air spa ce consolidation some of which are cavitary and septic emboli is of primary consideration. Suzanne Sykes MD on March 14, 2017 at 22:56 Board Certified Radiologist. This report was verified electronically.
[2017-03-14 23:10] VITALS: BP 122/69; PULSE 127; RESP 24; TEMP 99.8; O2SAT 94
[2017-03-14] MEDS: NS + KCL 20 MEQ INJ 1,000 ML IV SCH (23:43)
[2017-03-15] VITALS (23 sets, daily range): BP systolic 93–129; BP diastolic 54–73; PULSE 106–128; RESP 24–50; TEMP 98.8–101; O2SAT 94–100
[2017-03-15] MEDS: CHLORHEXIDINE GLUCONATE 2 % 1 PACK (2 CLOTHS) TOP SCH
[2017-03-15] MEDS: HEPARIN-D5W INJ 250 ML IV SCH (00:19)
[2017-03-15 01:42] LABS: ACETAMINOPHEN LESS THAN 2.0 MCG/ML (10.0-30.0)
[2017-03-15 01:59] LABS: CORTISOL 15.5 MCG/DL
[2017-03-15 04:30] LABS: AMPHETAMINE, URINE NEG (NEG); BACTERIA, URINE RARE /hpf; BARBITURATES, URINE NEG (NEG); BLOOD, URINE LARGE (NEG); COCAINE, URINE POS (NEG); COMMENT (UR) CULTURE INDICATED; CULTURE IF INDICATED CULTURE INDICATED; GLUCOSE,URINE NEG (NEG); KETONE, URINE NEG (NEG); MUCUS URINE FEW /lpf (OCC); NITRITE,URINE NEG (NEG); SQUAMOUS EPITHELIAL CELL URINE 2 /hpf (0-5); URINE COLOR YELLOW (YELLW/STRAW)
[2017-03-15] MEDS: PIPERACIL-TAZO 4.5 GM PREMIX 100 ML IV SCH ×4 (04:47→23:10)
[2017-03-15] MEDS: oxyCODONE/ACETAMINOPHEN 5 MG/325 MG TAB PO PRN (04:58)
[2017-03-15] MEDS ORDERED: HEPARIN SODIUM - IV 10,000 UNITS/10 ML VIAL IV PRN ×2 (05:45)
--- NOTE | 2017-03-15 07:49 | HHI.CCPN ---
Objective Vital Signs Date Time Temp Pulse Resp B/P Pulse Ox O2 Delivery O2 Flow Rate FiO2 03/15/17 06:00 107 03/15/17 05:26 98 Nasal Cannula 2.00 03/15/17 04:00 100.0 37 96/57 Intake and Output 03/14/17 03/14/17 03/15/17 08:00 16:00 00:00 Output Total 800 ml Balance -800 ml Result Diagram: 03/14/17200403/14/172004 Mirza Tan MD March 15, 2017 07:49 NEURO: RESP: CV: GI: FEN/RENAL: ID: [email or web address]: ENDO: PROPH: ACCESS: Mirza Tan MD March 15, 2017 07:49
[2017-03-15] MEDS: DOCUSATE SODIUM 100 MG CAP PO SCH ×2 (08:49→20:19)
[2017-03-15] MEDS: SODIUM CHLORIDE 0.9% FLUSH 10 ML FLUSH SCH ×2 (08:49→20:19)
[2017-03-15] MEDS: PANTOPRAZOLE SOD 40 MG DELAYED RELEASE TAB PO SCH (08:49)
[2017-03-15] MEDS: NS + KCL 20 MEQ INJ 1,000 ML IV SCH (08:49)
[2017-03-15] MEDS: LINEZOLID 600 MG PREMIX 300 ML IV SCH ×2 (08:49→20:19)
[2017-03-15 09:12] LABS: AUTOMATED NEUTROPHIL # 11.1 TH/MM3 (1.8-7.7); BASOPHIL % 0.3 % (0.0-2.0); EOSINOPHIL # 0.1 TH/MM3 (0-0.4); LYMPH % 8.9 % (9.0-44.0); LYMPHOCYTE # 1.2 TH/MM3 (1.0-4.8); MEAN CELL VOLUME 77.2 FL (80.0-100.0); MEAN CORPUSCULAR HEMOGLOBIN 25.7 PG (27.0-34.0); MEAN CORPUSCULAR HGB CONC 33.3 % (32.0-36.0); MONO % 6.1 % (0.0-8.0); NEUT % 83.7 % (16.0-70.0); PLATELET COUNT 180 TH/MM3 (150-450); RED BLOOD COUNT 2.57 MIL/MM3 (4.00-5.30); RED CELL DISTRIBUTION WIDTH 15.6 % (11.6-17.2); WHITE BLOOD COUNT 13.2 TH/MM3 (4.0-11.0)
[2017-03-15 09:18] LABS: HEMO FLAGS AUTO DIFF
[2017-03-15 09:20] LABS: HEMATOCRIT 19.9 % (35.0-46.0)
[2017-03-15 09:23] LABS: APTT (PATIENT) 37.2 SEC (24.3-30.1)
[2017-03-15] MEDS ORDERED: SODIUM CHLOR 0.9% 250 ML INJ 250 ML IV ONE (09:45)
[2017-03-15 09:56] LABS: SCAN/DIFF AUTO DIFF CONFIRMED
[2017-03-15 10:05] LABS: BICARBONATE 22.2 MEQ/L (21.0-32.0); CALCIUM-PROTEIN CORRECTED 7.7 MG/DL (8.5-10.1); TOTAL BILIRUBIN ADULT 0.4 MG/DL (0.2-1.0)
[2017-03-15 10:07] LABS: POTASSIUM 2.7 MEQ/L (3.5-5.1)
[2017-03-15] MEDS ORDERED: MAGNESIUM SULFATE INJ 2 GM in SODIUM CHLORIDE 0.9% INJ 96 ML IV PRN (10:15)
[2017-03-15] MEDS ORDERED: POTASSIUM PHOSPHATE MONOBASIC 500 MG TAB PO PRN (10:15)
[2017-03-15] MEDS ORDERED: MAGNESIUM SULFATE INJ 4 GM in SODIUM CHLORIDE 0.9% INJ 92 ML IV PRN (10:15)
[2017-03-15] MEDS ORDERED: POTASSIUM CHLOR 40 MEQ PREMIX 100 ML IV PRN ×2 (10:15)
[2017-03-15] MEDS ORDERED: POTASSIUM CHLORIDE 25 MEQ EFFERVESCENT TAB PO PRN (10:15)
[2017-03-15] MEDS ORDERED: SODIUM PHOSPHATE INJ 30 MMOL in SODIUM CHLOR 0.9% 250 ML INJ 240 ML IV PRN (10:15)
[2017-03-15] MEDS ORDERED: POTASSIUM PHOSPHATE MONOBASIC 500 MG TAB PO/TUBE PRN (10:15)
[2017-03-15] MEDS ORDERED: MAGNESIUM OXIDE 400 MG TAB PO PRN (10:15)
[2017-03-15] MEDS ORDERED: POTASSIUM CHLOR 20 MEQ PREMIX 100 ML IV PRN ×2 (10:15)
[2017-03-15] MEDS ORDERED: POTASSIUM CHLOR 40 MEQ PREMIX 100 ML IV ONE (10:30)
[2017-03-15] MEDS ORDERED: POTASSIUM CHLORIDE 25 MEQ EFFERVESCENT TAB PO ONE (10:30)
[2017-03-15] MEDS: MORPHINE SULFATE 4 MG/ML INJ IV PUSH PRN ×5 (11:14→23:00)
--- NOTE | 2017-03-15 12:30 | RADRPT ---
EXAM DATE/TIME: 03/15/2017 11:17 [facility] COMPARISON: No previous studies available for comparison. INDICATIONS : Left arm swelling. MEDICAL HISTORY : MRSA. Depression. Anxiety. Substance use. SURGICAL HISTORY : Tonsillectomy. Left groin abscess removal. ENCOUNTER: Initial ACUITY: 3 weeks PAIN SCORE: 10/10 LOCATION: Left arm. FINDINGS: There is spontaneous flow documented in the basilic, cephalic, axillary, and subclavian veins. The v essels are compressible and augmentation response is documented. No filling defects are seen in thes e veins. The flow is phasic with respiration. Direction of flow in the jugular vein is caudal. A s mall non-occlusive area of thrombus is noted in the mid brachial vein. CONCLUSION: 1. Small area of nonocclusive thrombus in the left mid brachial vein. 2. The remainder of the deep venous system is patent. Kody Vogt MD on March 15, 2017 at 12:27 Board Certified Radiologist. This report was verified electronically.
--- NOTE | 2017-03-15 13:14 | EKG ---
Date Performed: 03/14/2017 Time Performed: 19:57:04 PTAGE: 26 years EKG: SINUS TACHYCARDIA NONSPECIFIC ST & T-WAVE ABNORMALITY ABNORMAL RHYTHM ECG Compared to prior tracing no significant change PREVIOUS TRACING 02/14/2017 17.58.44 DOCTOR: Ayush Whitman Interpretating Date/Time 03/15/2017 13:13:07
--- NOTE | 2017-03-15 13:29 | HHI.CCPN ---
Subjective Remarks/Hospital Course 03/14: 26-year-old female with past medical history of polysubstance abuse , multiple prior admissions for skin and soft tissue infections, DVT RLE ( not on anticoagulant due to medical nonadherence) who presents to [facility] ED with 3 day history of pleuritic chest pain that she describes as "severe" in anterior and posterior thorax. She reports nonproductive cough; no hemoptysis. She also states she has had a fever up to 103.3 x3 days and night sweats x2 weeks. There is erythema, warmth, decreased mobility of her left elbow which she states has been going on for about 3 weeks. She has not noted any drainage from the area. She was admitted to [facility] February 142016 for right hand and left elbow cellulitis and sepsis. She also had cavitary lesions of lingula and RLL. Blood cultures were negative. TTE was negative for vegetation. Cardiology had been consulted and Dr. Cantu intended to do DELORES to evaluate for endocarditis, but patient left AMA. She also was noted to have axillary, mediastinal and inguinal lymphadenopathy with CT pelvis negative for intrabdominal pathology. . During that admission she also had right lower extremity DVT from right superficial femoral vein into the proximal calf. She was evaluated by heme oncology, Dr. Cochran. She was initially treated with Lovenox. She states she has not been on an outpatient anticoagulant. Her medical history also included I and D of abscess in R axilla in ED 06/09 with wound cultures positive for MRSA; R facial cellulitis 11/10 (blood cultures negative). She was admitted to [facility] in January of 2017 for hand cellulitis but left AMA from there after they recommended transfer to [facility] for hand surgeon. HIV was negative 11/10. Hep C ab positive. Though it is suspected she has h/o IVDU, she has denied it. She also denies use of cocaine despite multiple positive UDS. Denies headache, neck stiffness, abdominal pain. 03/15: Resting in bed not in any acute distress. On nasal cannula. Awaiting one unit PRBCs to be transfused. Remains on heparin. Denies any chest pain or shortness of breath. Objective Vital Signs Date Time Temp Pulse Resp B/P Pulse Ox O2 Delivery O2 Flow Rate FiO2 03/15/17 06:00 107 03/15/17 05:26 98 Nasal Cannula 2.00 03/15/17 04:00 100.0 37 96/57 Intake and Output 03/14/17 03/14/17 03/15/17 08:00 16:00 00:00 Output Total 800 ml Balance -800 ml Result Diagram: 03/15/17 0830 03/15/17 0830 Other Results Microbiology Date/Time Procedure Status Source Growth 03/15/17 04:50 Stool Occult Blood (CICI) - Final Complete Stool Stool HEMOCCULT NEGATIVE Imaging Last Impressions Upper Extremity Ultrasound 03/15/17 0000 Signed Impressions: Service Date/Time: Wednesday, March 15, 2017 11:17 - CONCLUSION: 1. Small area of nonocclusive thrombus in the left mid brachial vein. 2. The remainder of the deep venous system is patent. Kody Vogt MD Thoracic Spine MRI 03/14/171956 Signed Impressions: Service Date/Time: Tuesday, March 14, 2017 20:29 - CONCLUSION: 1. No acute abnormality is seen of the thoracic spine. 2. Bilateral pneumonia and mediastinal/right hilar lymphadenopathy. Dominick Ibrahim MD CT Angiography 03/14/171956 Signed Impressions: Service Date/Time: Tuesday, March 14, 2017 22:37 - CONCLUSION: Pathological adenopathy within the mediastinum with extensive bilateral pulmonary nodules and air space consolidation some of which are cavitary and septic emboli is of primary consideration. Suzanne Sykes MD Chest X-Ray 03/14/171953 Signed Impressions: Service Date/Time: Tuesday, March 14, 2017 20:14 - CONCLUSION: Bilateral patchy pneumonia. Dominick Ibrahim MD Head CT 03/14/17 0000 Signed Impressions: Service Date/Time: Tuesday, March 14, 2017 22:34 - CONCLUSION: Unremarkable study. Suzanne Sykes MD Objective Remarks GENERAL: Averagely built female laying in bed not in any acute distress SKIN/MSK: Warm and dry. There is erythema overlying left olecranon and dorsal aspect left proximal forearm. No fluctuance or drainage noted. She has decreased ROM lacking about 25 degrees of full extension of L elbow. There is swelling of right lower extremity compared to left without erythema or palpable cord. HEAD: Atraumatic. Normocephalic. EYES: Pupils equal and round. No scleral icterus. No injection or drainage. ENT: Mucous membranes dry. Poor dentition. No meningismus. NECK: Trachea midline. No JVD. 1 cm right anterior cervical lymph node CARDIOVASCULAR: Tachycardic, sinus tachycardia on the monitor. No murmurs rubs or gallops appreciated. RESPIRATORY: Good air entry bilaterally. Rhonchorous breath sounds bilaterally without wheeze or Rales. GASTROINTESTINAL: Abdomen soft, non-tender, nondistended. Bowel sounds are present. NEUROLOGICAL: Awake and alert. No obvious cranial nerve deficits. Strength 5 out of 5 in all extremities except unable to test left upper extremity due to limitation secondary to pain. Sensation is intact. No facial droop. Normal speech. Oriented 4 A/P Assessment and Plan NEURO: Cocaine abuse, ?benzo use/abuse Percocet 5-10 mg every 4 hours when necessary pain Morphine 2-4 mg IV every 3 hours when necessary breakthrough pain CT brain 03/14/17no acute abnormality RESP: Multiple cavitary lung lesions, suspected septic pulmonary emboli Tobacco abuse Nasal cannula wean as tolerated CT pulmonary angiogramno evidence for pulmonary embolism. There are multiple bilateral cavitary lung lesions (RUL, RLL, SREE, LLL) including large consolidation of right upper lobe. These lesions appear c/w endocarditis, per discussion below under ID.; Albuterol every 2 hours as needed for wheezing. CV: Followup 2 D Echo to evaluate for vegetations. Will require DELORES if TTE negative. Lactic acid is normal GI: Mild AST elevation Moderate protein energy malnutrition Mildly elevated lipase of unclear significance Patient denies abdominal pain, nausea vomiting. Will follow-up lipase Colace 100 mg by mouth twice a day for bowel regimen. 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 FEN/RENAL: Hyponatremia Hypokalemia Acute dehydration Fena appears pre-renal. REceived 1 L NS in the ED. 0.9 NaCL with 20 MEQ KCL/L @ 100 ml/hr. Followup BMP. Cortisol and TSH are normal. Urine osm is 391 so may have underlying SIADH but currently clinically appears dry and septic, can f/u post resuscitation. Monitor intake and output. Monitor electrolytes. ID: Sepsis Multiple cavitary pulmonary lesions VAncomycin allergy (patient states rash and difficulty breathing) L elbow cellulitis vs septic arthritis Multiple cavitary pulmonary lesions are most concerning for endocarditis. Prior workup in January blood cultures and TTE were negative. Will followup repeat blood cultures. Zosyn to cover for pneumonia, endocarditis including anaerobes. Linezolid to cover pneumonia. If she proves to be bacteremic, addition of daptomycin may be appropriate but would use linezolid at this point given known pulmonary infection. She denies use of SSRI. Lymphadenopathy also noted . HIV retested (patient provided consent). CMV and EBV tested per prior ID recommendations. Obtained AFB and placed on airborne precautions out of abundance of caution, though TB seems much less likely. Obtained CT elbow to evaluate for abscess. If no abscess overlying joint, consider aspiration of elbow for septic arthritis. U/s to evaluate for DVT HEME: Right lower extremity DVT U/s RLE from 02/14/17DVT right superficial femoral to calf Was on Lovenox during prior hospitalization but states she has not been on any anticoagulation patient since she left AGAINST MEDICAL ADVICE 02/23/17 Initiated heparin drip for DVT treatment (chosen in case needs to be held for procedure, can later be transitioned to lovenox) . 1 unit PRBCs being transfused for hemoglobin below 7. We will obtain CT abdomen and pelvis to evaluate for retroperitoneal bleed and evidence of further septic embolization. ENDO: Euglycemic. TSH normal on admission. PROPH: Protonix 40 mg by mouth daily for stress ulcer prophylaxis. Heparin drip for treatment of DVT ACCESS: Peripheral IV providing adequate access at this time. Ibrahima Saleem MD March 15, 2017 13:29
--- NOTE | 2017-03-15 14:00 | MB ---
cc: WARD HOLMAN MD DATE OF CONSULTATION: 03/15/[address] Dukes. REASON FOR CONSULTATION Pneumonia. Possible endocarditis. HISTORY OF PRESENT ILLNESS This is a 26-year-old white female who presented to the emergency department on 03/14 with respiratory distress. The patient was being worked up for infection here at this hospital in January and she left the hospital against medical advice on February 22. Prior to leaving the hospital she had workup which showed multiple areas of adenopathy including bilateral inguinal lymph nodes. She also had MRI of the thoracic spine that showed bilateral pneumonia and mediastinal and right hilar lymphadenopathy. She was due to undergo DELORES to evaluate for septic emboli, but she left the hospital and did not complete the workup. She did not take any medication since leaving the hospital. The patient was evaluated in the emergency department and blood cultures were taken. All four of the blood culture bottles has gram-positive cocci. She denies to me use of IV drugs since leaving the hospital. She has a history of IV drug use in the past. She was also diagnosed with deep venous thrombosis of the right lower extremity during the last hospitalization. She denies hemoptysis or cough or sputum production. She states that her throat is very dry. She is moaning. She tells me that she has pain in her chest and upper back. Her temperature is 100 degrees. Earlier in the emergency department yesterday evening she had heart rate of 126, temperature of 99.9 and white count of 18.3. The chest x-ray showed bilateral infiltrates. PAST MEDICAL HISTORY 1. Anxiety, depression. 2. History of cellulitis. 3. IVDU. 4. Recent DVT of the right lower extremity. ALLERGIES VANCOLYCIN. MEDICATIONS 1. Linezolid. 2. Piperacillin/tazobactam. 3. Percocet 5 p.r.n. 4. Morphine sulfate p.r.n. 5. Potassium chloride. SOCIAL HISTORY Positive tobacco. The patient denies alcohol use. SUBSTANCE ABUSE Positive toxicology screen for cocaine and benzodiazepines. FAMILY HISTORY Noncontributory. REVIEW OF SYSTEMS Significant for mild headache, chest pain, back pain, pain in the right wrist, shortness of breath. PHYSICAL EXAMINATION GENERAL: This is a well-developed female who appears somewhat lethargic. She is moaning because of pain. She is alert and oriented. VITAL SIGNS: Temperature 100 degrees, BP 100/61, heart rate 119, respirations 20. The patient is on 2 liters of nasal cannula oxygen and saturation is 98%. HEENT: The head is atraumatic. Extraocular movements grossly intact, pupils reactive to light. No icterus. No conjunctival erythema. Oropharynx moist mucosa without lesions. No thrush. NECK: Supple without adenopathy. No swelling. LUNGS: Bilateral rhonchi. HEART: 2/6 systolic murmur left sternal border. No rubs, no gallops. ABDOMEN: Bowel sounds present, soft, nontender. RECTAL: Not performed. EXTREMITIES: No clubbing or cyanosis. There is swelling at the right wrist and the dorsum of the right hand but no significant erythema. The area is warm. The left wrist is tender on palpation. No punctate embolic lesions noted. The patient has several pin head size excoriated target lesions of both lower extremities, scattered at the thighs and tibias. SKIN: No diffuse rash. NEURO: Nonfocal. LABORATORY DATA Urine culture pending. Ultrasound of the upper extremity showed small area of non-occlusive thrombus in the left knee brachial vein. CT angiography shows pathological adenopathy within the mediastinum with extensive bilateral pulmonary nodules and airspace consolidation, some of which are cavitary and septic emboli is a primary consideration. CT scan of the head unremarkable. IMPRESSION 1. Sepsis in a patient who presented to the ED with respiratory distress and tachycardia and temperature 99.9 and elevated white blood cell count and bilateral infiltrates on chest x-ray. Positive blood culture with gram-positive cocci. 2. Bilateral lung infiltrates, probably secondary to septic emboli. 3. Thrombus of the left mid brachial vein. 4. Noncompliance with medical treatment. The patient left the hospital against medical advice prior to complete workup and treatment. 5. Leukocytosis secondary to infection. 6. VANCOMYCIN ALLERGY. RECOMMENDATIONS 1. Continue linezolid. 2. Monitor the blood cultures for identity of the gram-positive cocci. 3. Monitor urine culture. 4. Discontinue the piperacillin/tazobactam. 5. Repeat the 2-D echocardiogram. 6. Obtain sputum culture when the patient coughs up sputum. It is almost certain that the patient's pulmonary lesions are due to infection from bacteria, and I do not think this reflects tuberculosis. Testing for TB has been initiated and the patient was put on aerosol contact isolation. Thank you for this consultation. Further recommendations will be given on followup. Ward Holman MD FD/RENITA /12:58 PM /1:30 PM
[2017-03-15] MEDS ORDERED: IOHEXOL 350 MG/ML 10 ML VIAL (for RAD DIAG) IV ONE (17:24)
--- NOTE | 2017-03-15 17:37 | RADRPT ---
EXAM DATE/TIME: 03/15/2017 17:08 [facility] COMPARISON: No previous studies available for comparison. INDICATIONS : Evaluate for retroperitoneal hemorrhage. IV CONTRAST: 90 cc Omnipaque 350 (iohexol) IV ; Cumulative dose for multiple exams. ORAL CONTRAST: No oral contrast ingested. RADIATION DOSE: 9.96 CTDIvol (mGy) ; Combined studies MEDICAL HISTORY : Substance abuse SURGICAL HISTORY : None. ENCOUNTER: Initial ACUITY: 1 day PAIN SCALE: 0/10 LOCATION: abdomen TECHNIQUE: Volumetric scanning of the abdomen and pelvis was performed. Using automated exposure control and ad justment of the mA and/or kV according to patient size, radiation dose was kept as low as reasonably achievable to obtain optimal diagnostic quality images. FINDINGS: LOWER LUNGS: There are small bilateral pleural effusions left greater than right. These appear partially loculated . There are multiple bilateral cavitary masses in the lung bases. The largest is in the left lower lo be 3.8 x 2.5 cm. LIVER: Homogeneous density without lesion. There is no dilation of the biliary tree. No calcified gallston es. SPLEEN: Normal size without lesion. PANCREAS: Within normal limits. KIDNEYS: Normal in size and shape. There is no mass, stone or hydronephrosis. ADRENAL GLANDS: Within normal limits. VASCULAR: There is no aortic aneurysm. BOWEL/MESENTERY: There is an abnormal bowel gas pattern with multiple loops of nondilated air-containing small bowel w ith multiple air-fluid levels. A moderate amount of fluid is noted in the pelvis. There are air-fluid levels in portions of the colon as well. ABDOMINAL WALL: Within normal limits. RETROPERITONEUM: There is no lymphadenopathy. BLADDER: No wall thickening or mass. REPRODUCTIVE: Within normal limits. INGUINAL: There is no lymphadenopathy or hernia. MUSCULOSKELETAL: Within normal limits for patient age. CONCLUSION: 1. Bilateral cavitary pulmonary masses in the lung bases. 2. Small bilateral pleural effusions left greater than right which appear partially loculated. 3. Nonspecific bowel gas pattern which may represent an ileus or gastroenteritis. A bowel obstruction is less likely. A moderate amount of free fluid is present greatest in the pelvis. Kody Vogt MD on March 15, 2017 at 17:30 Board Certified Radiologist. This report was verified electronically.
--- NOTE | 2017-03-15 18:37 | RADRPT ---
EXAM DATE/TIME: 03/15/2017 17:24 [facility] COMPARISON: No previous studies available for comparison. INDICATIONS : Evaluate for abscess. IV CONTRAST: 90 cc Omnipaque 350 (iohexol) IV RADIATION DOSE: 34.54 CTDIvol (mGy) MEDICAL HISTORY : None SURGICAL HISTORY : None. ENCOUNTER: Initial ACUITY: 1 day PAIN SCALE: 10/10 LOCATION: Left elbow TECHNIQUE: Volumetric scanning of the elbow was performed. Using automated exposure control and adjustment of t he mA and/or kV according to patient size, radiation dose was kept as low as reasonably achievable to obtain optimal diagnostic quality images. FINDINGS: There is a moderate-sized elbow joint effusion with a faint rim enhancement. This has developed since prior CT from February 14. There is extensive subcutaneous edema in the soft tissues of the distal arm and proximal forearm especially along the ulnar surface. No loculated soft tissue abscess identified. No acute fracture or dislocation. CONCLUSION: 1. Findings are characteristic of a cellulitis of the distal arm and proximal forearm. In addition a mildly enhancing elbow joint effusion has developed since February 14 which can be characteristic of a s eptic arthritis. Bipin Bryson MD on March 15, 2017 at 18:24 Board Certified Radiologist. This report was verified electronically.
[2017-03-15 20:17] LABS: M. TUBERCULOSIS PCR NOT DETECTED (NOT DETECT)
--- NOTE | 2017-03-15 20:36 | MB ---
cc: EDGARDO REYNOSO M.D. DATE OF CONSULTATION 03/15/2017 REASON FOR CONSULTATION Respiratory failure, pneumonia. HISTORY OF PRESENT ILLNESS The patient is a 26-year-old female with history of IV drug use, bilateral lung infiltrates, adenopathy and generalized adenopathy. The patient is admitted with respiratory distress and evidence of bilateral lung infiltrates felt related to septic pulmonary emboli. PAST MEDICAL HISTORY The patient's past medical history is that of: 1. Previous DVT. 2. IV drug use. 3. Anxiety, depression. CURRENT MEDICATIONS At present: 1. Linezolid. 2. Tazobactam. 3. Percocet. 4. Morphine. 5. Potassium. SOCIAL HISTORY The patient smokes a pack of cigarettes a day. States she does not use drugs at present. Drug screen positive for cocaine, benzodiazepine. FAMILY HISTORY Noncontributory. REVIEW OF SYSTEMS 12-point review of systems as per HPI and past history otherwise negative. PHYSICAL EXAMINATION GENERAL: The patient alert, lethargic but arousable in no acute distress. VITAL SIGNS: Temperature 99.9, pulse 100, respiratory rate 20, blood pressure 100/64. HEENT: Exam unremarkable. Eyes without icterus. NECK: Without adenopathy. Thyroid enlargement. Trachea central. CHEST: Without dullness to percussion. Clear to auscultation. CARDIOVASCULAR: Cardiac exam S1-S2 audible. A 2/6 systolic ejection murmur left sternal border. ABDOMEN: Lax. Audible bowel sounds. EXTREMITIES: No clubbing, cyanosis or edema. IMAGING CT scan of the chest with mediastinal adenopathy. Bilateral nodules and air space disease of severe degree. Cavitation noted. septic emboli being the primary suspect. LABORATORY DATA White count 13,000, hemoglobin 6.6, hematocrit 19. Admission hemoglobin 8.3, platelets 180,000. Sodium 134, potassium 2.7, BUN 7, creatinine 0.5. INR 1.4. IMPRESSION 1. Respiratory failure. 2. Pneumonia, probably related to septic emboli. PLAN The patient to continue antibiotic therapy. She is followed by infectious disease. DELORES is planned at a future date when possible. Chest x-ray will be followed. Oxygen therapy given as needed. Pulmonary toilet undertaken. The patient's all four blood cultures are positive. [place] is guarded to poor. I do thank you for asking me to partake in Ms. Quintana's care. Edgardo Reynoso MD WWW/SERVANDO /5:09 PM /8:19 PM
[2017-03-15 21:14] LABS: HEMATOCRIT 29.1 % (35.0-46.0)
[2017-03-15 21:15] LABS: REVIEW FLAG FINAL
[2017-03-15] MEDS ORDERED: ACETAMINOPHEN 325 MG TAB PO PRN (23:00)
[2017-03-16] VITALS (18 sets, daily range): BP systolic 98–121; BP diastolic 61–82; PULSE 95–119; RESP 14–43; TEMP 98.1–101.9; O2SAT 94–100
[2017-03-16] MEDS: HEPARIN-D5W INJ 250 ML IV SCH ×2 (00:01→20:37)
[2017-03-16 00:25] LABS: APTT (PATIENT) 34.7 SEC (24.3-30.1)
[2017-03-16 01:18] LABS: EBV VCA IgM Negative (Negative)
[2017-03-16] MEDS: MORPHINE SULFATE 4 MG/ML INJ IV PUSH PRN ×6 (01:47→22:31)
[2017-03-16] MEDS: CHLORHEXIDINE GLUCONATE 2 % 1 PACK (2 CLOTHS) TOP SCH (04:00)
[2017-03-16] MEDS: NS + KCL 20 MEQ INJ 1,000 ML IV SCH ×3 (04:41→22:31)
[2017-03-16] MEDS: PIPERACIL-TAZO 4.5 GM PREMIX 100 ML IV SCH ×4 (04:41→22:30)
[2017-03-16] MEDS: DOCUSATE SODIUM 100 MG CAP PO SCH ×2 (08:07→19:28)
[2017-03-16] MEDS: LINEZOLID 600 MG PREMIX 300 ML IV SCH ×2 (08:07→19:28)
[2017-03-16] MEDS: PANTOPRAZOLE SOD 40 MG DELAYED RELEASE TAB PO SCH (08:07)
[2017-03-16] MEDS: SODIUM CHLORIDE 0.9% FLUSH 10 ML FLUSH SCH ×2 (08:08→19:28)
--- NOTE | 2017-03-16 08:40 | EC ---
Study Study Date:03/15/2017 STUDY CONCLUSIONS SUMMARY - Left ventricle: The cavity size was normal. Wall thickness was normal. Systolic function was normal. The estimated ejection fraction was in the range of 55% to 60%. Wall motion was normal; there were no regional wall motion abnormalities. - Mitral valve: Mild regurgitation. - Tricuspid valve: No evidence of vegetation. There was a possible, small, 17mm (W) x 8mm (L), mobile vegetation on the right ventricular aspect. Mild-moderate regurgitation. If LV function is below 40, please consider prescribing an ACEI or ARB or document rationale for non-use. PROCEDURE DATA STUDY STATUS: Elective. Procedure: Transthoracic echocardiography. Image quality was good. Scanning was performed from the parasternal, apical, and subcostal acoustic windows. Study completion: The patient tolerated the procedure well. Transthoracic echocardiography. M-mode, complete 2D, complete spectral Doppler, and color Doppler. Patient status: Inpatient. CARDIAC ANATOMY LEFT VENTRICLE: The cavity size was normal. Wall thickness was normal. Systolic function was normal. The estimated ejection fraction was in the range of 55% to 60%. Wall motion was normal; there were no regional wall motion abnormalities. AORTIC VALVE: Trileaflet; normal thickness leaflets. Doppler: Transvalvular velocity was within the normal range. There was no stenosis. No regurgitation. Peak gradient: 11mm Hg (S). AORTA: Aortic root: The aortic root was normal in size. MITRAL VALVE: Structurally normal valve. Doppler: Transvalvular velocity was within the normal range. There was no evidence for stenosis. Mild regurgitation. Peak gradient: 4mm Hg (D). LEFT ATRIUM: The atrium was normal in size. RIGHT VENTRICLE: The cavity size was normal. Wall thickness was normal. PULMONIC VALVE: Doppler: Transvalvular velocity was within the normal range. There was no evidence for stenosis. No regurgitation. TRICUSPID VALVE: Structurally normal valve. No evidence of vegetation. There was a possible, small, 17mm (W) x 8mm (L), mobile vegetation on the right ventricular aspect. Doppler: Transvalvular velocity was within the normal range. Mild-moderate regurgitation. PULMONARY ARTERY: The main pulmonary artery was normal-sized. Systolic pressure was within the normal range. RIGHT ATRIUM: The atrium was normal in size. PERICARDIUM: There was no pericardial effusion. SYSTEMIC VEINS: Inferior vena cava: The vessel was normal in size. BASIC MEASUREMENTS ADULT Normal Left ventricle LV internal dimension, ED, chordal level, 46.9 mm 43-52 PLAX LV internal dimension, ES, chordal level, 32.4 mm 23-38 PLAX Fractional shortening, chordal level, PLAX 31 % >29 LV posterior wall thickness, ED 6.17 mm IVS/LVPW ratio, ED *1.36 <1.3 Ventricular septum Septal thickness, ED 8.41 mm Aortic valve Leaflet separation 18 mm 15-26 Left atrium Anterior-posterior dimension 35 mm Right ventricle RV internal dimension, ED, PLAX 19.5 mm 19-38 BASIC MEASUREMENTS ADULT Normal Aortic valve Leaflet separation 18 mm 15-26 Aorta Root diameter, ED 28 mm 20-37 DOPPLER MEASUREMENTS ADULT Normal Aortic valve Peak velocity, S 164 cm/s Peak gradient, S 11 mm Hg Mitral valve Peak E-wave velocity 103 cm/s Peak A-wave velocity 77.7 cm/s Peak gradient, D 4 mm Hg Peak E/A ratio 1.3 Tricuspid valve Regurgitant peak velocity 326 cm/s Peak RV-RA gradient, S 43 mm Hg Maximal regurgitant velocity 326 cm/s LEGEND: Mean values are shown as u=mean value. Asterisk (*) brink values outside specified normal range. Prepared and signed by Eliceo Ku [id number]
--- NOTE | 2017-03-16 09:01 | HHI.PR ---
Subjective Remarks ALERT NO SOB AT REST Objective Vital Signs Date Time Temp Pulse Resp B/P Pulse Ox O2 Delivery O2 Flow Rate FiO2 03/16/17 06:00 106 03/16/17 04:00 98.2 98 30 111/74 100 03/16/17 04:00 98 03/16/17 02:00 97 03/16/17 00:00 111 03/16/17 00:00 99.5 111 30 108/65 95 03/15/17 22:00 128 03/15/17 21:38 94 21 03/15/17 20:00 101.0 128 43 120/72 94 03/15/17 20:00 128 03/15/17 18:00 115 03/15/17 18:00 115 44 112/59 97 03/15/17 17:58 114 43 119/65 98 03/15/17 17:54 122 50 129/70 97 03/15/17 17:00 119 44 95 03/15/17 16:00 98.8 117 40 108/67 95 03/15/17 16:00 117 03/15/17 15:00 116 39 119/73 96 03/15/17 14:00 119 03/15/17 14:00 119 37 106/65 96 03/15/17 13:40 98.8 117 24 108/67 95 03/15/17 13:00 118 41 103/57 100 03/15/17 12:00 99.4 109 32 105/61 98 03/15/17 12:00 109 03/15/17 11:00 115 36 114/65 96 03/15/17 10:00 107 03/15/17 10:00 107 34 98/57 96 03/15/17 09:00 99.3 107 29 97/58 95 I/O 03/15/17 03/15/17 03/15/17 03/16/17 03/16/17 03/16/17 07:00 15:00 23:00 07:00 15:00 23:00 Intake Total 803 ml 1635 ml 953 ml 857 ml Output Total 800 ml 800 ml 350 ml Balance 3 ml 835 ml 603 ml 857 ml Intake Oral 240 ml 0 ml 240 ml IV Total 563 ml 1310 ml 713 ml 857 ml Packed Cells 325 ml Output Urine Total 800 ml 800 ml 350 ml # Voids 2 2 # Bowel Movements 1 3 1 Result Diagram: 03/15/17210503/15/17 2949 Objective Remarks Laboratory Tests Test 03/14/17 03/14/17 03/15/17 03/15/17 20:05 23:58 02:50 08:30 Erythrocyte Sedimentation Rate GREATER THAN 140 mm/hr (0-20) Prothrombin Time 15.9 SEC (9.8-11.6) Activated Partial 34.1 SEC 37.2 SEC Thromboplast Time (24.3-30.1) (24.3-30.1) Sodium Level 125 MEQ/L 134 MEQ/L (136-145) (136-145) Potassium Level 3.1 MEQ/L 2.7 MEQ/L (3.5-5.1) (3.5-5.1) Chloride Level 88 MEQ/L (98-107) Estimat Glomerular Filtration 78 ML/MIN (>89) Rate Calcium Level 7.8 MG/DL 6.9 MG/DL (8.5-10.1) (8.5-10.1) Aspartate Amino Transf 46 U/L (15-37) (AST/SGOT) Total Creatine Kinase 201 U/L (26-192) Troponin I LESS THAN 0.02 NG/ML (0.02-0.05) C-Reactive Protein 20.00 MG/DL (0.00-0.30) Albumin 1.8 GM/DL 1.4 GM/DL (3.4-5.0) (3.4-5.0) Lipase 485 U/L (73-393) White Blood Count 18.3 TH/MM3 13.2 TH/MM3 (4.0-11.0) (4.0-11.0) Red Blood Count 3.21 MIL/MM3 2.57 MIL/MM3 (4.00-5.30) (4.00-5.30) Hemoglobin 8.3 GM/DL 6.6 GM/DL (11.6-15.3) (11.6-15.3) Hematocrit 24.3 % 19.9 % (35.0-46.0) (35.0-46.0) Mean Corpuscular Volume 75.6 FL 77.2 FL (80.0-100.0) (80.0-100.0) Mean Corpuscular Hemoglobin 25.7 PG 25.7 PG (27.0-34.0) (27.0-34.0) Neutrophils (%) (Auto) 80.4 % 83.7 % (16.0-70.0) (16.0-70.0) Neutrophils # (Auto) 14.7 TH/MM3 11.1 TH/MM3 (1.8-7.7) (1.8-7.7) Monocytes # (Auto) 1.3 TH/MM3 (0-0.9) Neutrophils % (Manual) 71 % (16-70) Band Neutrophils % 10 % (0-6) Neutrophils # (Manual) 14.8 TH/MM3 (1.8-7.7) Toxic Granulation 1+ (NORMAL) Toxic Vacuolation PRESENT (NONE SEEN) Serum Osmolality 261 MOSM/KG (275-295) Salicylates Level LESS THAN 1.7 MG/DL (2.8-20.0) Acetaminophen Level LESS THAN 2.0 MCG/ML (10.0-30.0) Urine Turbidity HAZY (CLEAR) Urine Specific [place] 1.047 (1.002-1.035) Urine Protein 30 mg/dL (NEG-TRACE) Urine Occult Blood LARGE (NEG) Urine Leukocyte Esterase LARGE (NEG) Urine RBC 50 /hpf (0-3) Urine WBC 58 /hpf (0-5) Urine Bacteria RARE /hpf (NONE) Urine Mucus FEW /lpf (OCC) Urine Yeast (Budding) OCC (NONE) Urine Benzodiazepines Screen POS (NEG) Urine Cocaine Screen POS (NEG) Lymphocytes (%) (Auto) 8.9 % (9.0-44.0) Protein Corrected Calcium 7.7 MG/DL (8.5-10.1) Total Protein 5.6 GM/DL (6.4-8.2) Test 03/15/17 03/15/17 03/16/17 13:03 21:06 00:01 Phosphorus Level 2.3 MG/DL (2.5-4.9) Hemoglobin 9.6 GM/DL (11.6-15.3) Hematocrit 29.1 % (35.0-46.0) Activated Partial 34.7 SEC Thromboplast Time (24.3-30.1) Medications and IVs GENERAL: SKIN: Warm and dry. HEAD: Atraumatic. Normocephalic. EYES: Pupils equal and round. No scleral icterus. No injection or drainage. ENT: No nasal bleeding or discharge. Mucous membranes pink and moist. NECK: Trachea midline. No JVD. CARDIOVASCULAR: Regular rate and rhythm. RESPIRATORY: No accessory muscle use. Clear to auscultation. Breath sounds equal bilaterally. GASTROINTESTINAL: Abdomen soft, non-tender, nondistended. Hepatic and splenic margins not palpable. MUSCULOSKELETAL: Extremities without clubbing, cyanosis, or edema. No obvious deformities. NEUROLOGICAL: Awake and alert. No obvious cranial nerve deficits. Motor grossly within normal limits. Five out of 5 muscle strength in the arms and legs. Normal speech. PSYCHIATRIC: Appropriate mood and affect; insight and judgment normal. Assessment and Plan Assessment and Plan BILATERAL LUNG INFILTRATES PROBABLY SEPTIC EMBOLI PLAN O2 NEEDED ANTIBIOTICS FU CXRAY Edgardo Reynoso MD March 16, 2017 09:01
--- NOTE | 2017-03-16 11:29 | HHI.PR ---
Subjective Remarks Follow-up sepsis/septic emboli 03/16/17-patient seen and examined, complains of left elbow pain otherwise denies any chest pain however has some minimal shortness of breath. Currently afebrile Objective Vitals Vital Signs Date Time Temp Pulse Resp B/P Pulse Ox O2 Delivery O2 Flow Rate FiO2 03/16/17 10:00 119 33 121/76 96 03/16/17 10:00 119 03/16/17 09:00 115 37 115/77 97 03/16/17 08:00 117 03/16/17 08:00 98.1 117 42 114/79 96 03/16/17 07:00 111 43 112/78 98 03/16/17 06:00 106 03/16/17 04:00 98.2 98 30 111/74 100 03/16/17 04:00 98 03/16/17 02:00 97 03/16/17 00:00 111 03/16/17 00:00 99.5 111 30 108/65 95 03/15/17 22:00 128 03/15/17 21:38 94 21 03/15/17 20:00 101.0 128 43 120/72 94 03/15/17 20:00 128 03/15/17 18:00 115 03/15/17 18:00 115 44 112/59 97 03/15/17 17:58 114 43 119/65 98 03/15/17 17:54 122 50 129/70 97 03/15/17 17:00 119 44 95 03/15/17 16:00 98.8 117 40 108/67 95 03/15/17 16:00 117 03/15/17 15:00 116 39 119/73 96 03/15/17 14:00 119 03/15/17 14:00 119 37 106/65 96 03/15/17 13:40 98.8 117 24 108/67 95 03/15/17 13:00 118 41 103/57 100 03/15/17 12:00 99.4 109 32 105/61 98 03/15/17 12:00 109 I/O 03/15/17 03/15/17 03/15/17 03/16/17 03/16/17 03/16/17 07:00 15:00 23:00 07:00 15:00 23:00 Intake Total 803 ml 1635 ml 953 ml 857 ml Output Total 800 ml 800 ml 350 ml Balance 3 ml 835 ml 603 ml 857 ml Intake Oral 240 ml 0 ml 240 ml IV Total 563 ml 1310 ml 713 ml 857 ml Packed Cells 325 ml Output Urine Total 800 ml 800 ml 350 ml # Voids 2 2 # Bowel Movements 1 3 1 Result Diagram: 03/15/17 2106 03/15/17 0830 Imaging Last Impressions Abdomen/Pelvis CT 03/15/17 1711 Signed Impressions: Service Date/Time: Wednesday, March 15, 2017 17:08 - CONCLUSION: 1. Bilateral cavitary pulmonary masses in the lung bases. 2. Small bilateral pleural effusions left greater than right which appear partially loculated. 3. Nonspecific bowel gas pattern which may represent an ileus or gastroenteritis. A bowel obstruction is less likely. A moderate amount of free fluid is present greatest in the pelvis. Kody Vogt MD Upper Extremity Ultrasound 03/15/17 0000 Signed Impressions: Service Date/Time: Wednesday, March 15, 2017 11:17 - CONCLUSION: 1. Small area of nonocclusive thrombus in the left mid brachial vein. 2. The remainder of the deep venous system is patent. Kody Vogt MD Upper Extremity CT 03/15/17 0000 Signed Impressions: Service Date/Time: Wednesday, March 15, 2017 17:24 - CONCLUSION: 1. Findings are characteristic of a cellulitis of the distal arm and proximal forearm. In addition a mildly enhancing elbow joint effusion has developed since February 14 which can be characteristic of a septic arthritis. Bipin Bryson MD Thoracic Spine MRI 03/14/171956 Signed Impressions: Service Date/Time: Tuesday, March 14, 2017 20:29 - CONCLUSION: 1. No acute abnormality is seen of the thoracic spine. 2. Bilateral pneumonia and mediastinal/right hilar lymphadenopathy. Dominick Ibrahim MD CT Angiography 03/14/171956 Signed Impressions: Service Date/Time: Tuesday, March 14, 2017 22:37 - CONCLUSION: Pathological adenopathy within the mediastinum with extensive bilateral pulmonary nodules and air space consolidation some of which are cavitary and septic emboli is of primary consideration. Suzanne Sykes MD Chest X-Ray 03/14/171953 Signed Impressions: Service Date/Time: Tuesday, March 14, 2017 20:14 - CONCLUSION: Bilateral patchy pneumonia. Dominick Ibrahim MD Head CT 03/14/17 0000 Signed Impressions: Service Date/Time: Tuesday, March 14, 2017 22:34 - CONCLUSION: Unremarkable study. Suzanne Sykes MD Objective Remarks GENERAL: NAD SKIN: Warm and dry. HEAD: Normocephalic. EYES: No scleral icterus. No injection or drainage. NECK: Supple, trachea midline. No JVD or lymphadenopathy. CARDIOVASCULAR: Regular rate and rhythm without murmurs, gallops, or rubs. RESPIRATORY: Breath sounds equal bilaterally. No accessory muscle use. GASTROINTESTINAL: Abdomen soft, non-tender, nondistended. MUSCULOSKELETAL: No cyanosis, or edema. BACK: Nontender without obvious deformity. No CVA tenderness. A/P Problem List: (1) Sepsis ICD Code: A41.9 Status: Acute (2) DVT, lower extremity, proximal, acute ICD Code: I82.4Y9 Status: Acute (3) Elbow pain, left ICD Code: M25.522 Status: Acute (4) Hypokalemia ICD Code: E87.6 Status: Acute (5) Cellulitis of left elbow ICD Code: L03.114 Status: Acute Assessment and Plan 26-year-old female with Cocaine abuse, ?benzo use/abuse Continue current regimen as to prevent withdrawal Percocet 5-10 mg every 4 hours when necessary pain Morphine 2-4 mg IV every 3 hours when necessary breakthrough pain CT brain 03/14/17no acute abnormality Multiple cavitary lung lesions, suspected septic pulmonary emboli Tobacco abuse CT pulmonary angiogramno evidence for pulmonary embolism. There are multiple bilateral cavitary lung lesions (RUL, RLL, SREE, LLL) including large consolidation of right upper lobe. These lesions appear c/w endocarditis, Appreciate input from infectious disease specialist, pulmonary medicine Continue with current antibiotic, DuoNeb when necessary 2-D echo noted may require DELORES Mild AST elevation Moderate protein energy malnutrition Mildly elevated lipase of unclear significance History of hepatitis C Continue to monitor LFTs Hyponatremia Hypokalemia Acute dehydration-resolved Cortisol and TSH are normal. Urine osm is 391 so may have underlying SIADH but currently clinically appears dry and septic, can f/u post resuscitation. Replace electrolyte and monitor Sepsis Multiple cavitary pulmonary lesions Vancomycin allergy (patient states rash and difficulty breathing) L elbow cellulitis Currently on Zyvox and discontinue Zosyn per infectious disease specialist Lymphadenopathy also noted however repeat HIV negative. CMV and EBV tested per prior ID recommendations. CT elbow with Findings that are characteristic of a cellulitis of the distal arm and proximal forearm. CT abdomen and pelvis with finding of Bilateral cavitary pulmonary masses in the lung bases. Right lower extremity DVT U/s RLE from 02/14/17DVT right superficial femoral to calf Was on Lovenox during prior hospitalization but states she has not been on any anticoagulation patient since she left AGAINST MEDICAL ADVICE 02/23/17 Initiated heparin drip for DVT treatment (chosen in case needs to be held for procedure, can later be transitioned to lovenox) . Anemia of acute blood loss Transfused 1 unit packed red blood cell 03/15/17 PROPH: Protonix 40 mg by mouth daily for stress ulcer prophylaxis. Heparin drip for treatment of DVT Total critical care time spent 32 minutes Luciano Cavanaugh MD March 16, 2017 11:29
[2017-03-16] MEDS ORDERED: POTASSIUM CHLORIDE 20 MEQ CONTROLLED RELEASE TAB PO ONE (11:30)
[2017-03-16 12:37] LABS: APTT (PATIENT) 37.1 SEC (24.3-30.1)
[2017-03-16 13:03] LABS: ALKALINE PHOSPHATASE 79 U/L (45-117); ALT (GPT) 19 U/L (10-53); ANION GAP 10 MEQ/L (5-15); AST (GOT) 21 U/L (15-37); AUTOMATED NEUTROPHIL # 10.5 TH/MM3 (1.8-7.7); BASOPHIL # 0.1 TH/MM3 (0-0.2); BASOPHIL % 0.8 % (0.0-2.0); BICARBONATE 21.7 MEQ/L (21.0-32.0); BLOOD UREA NITROGEN 4 MG/DL (7-18); CHLORIDE 102 MEQ/L (98-107); EOSINOPHIL # 0.1 TH/MM3 (0-0.4); EOSINOPHIL % 0.9 % (0.0-4.0); GLOMERULAR FILTRATION RATE 135 ML/MIN (>89); HEMATOCRIT 23.6 % (35.0-46.0); HEMO FLAGS DIFF FINAL; LYMPH % 15.4 % (9.0-44.0); LYMPHOCYTE # 2.1 TH/MM3 (1.0-4.8); MEAN CELL VOLUME 77.8 FL (80.0-100.0); MEAN CORPUSCULAR HEMOGLOBIN 26.3 PG (27.0-34.0); MEAN CORPUSCULAR HGB CONC 33.9 % (32.0-36.0); NEUT % 75.9 % (16.0-70.0); PLATELET COUNT 235 TH/MM3 (150-450); POTASSIUM 3.2 MEQ/L (3.5-5.1); RED BLOOD COUNT 3.04 MIL/MM3 (4.00-5.30); RED CELL DISTRIBUTION WIDTH 15.4 % (11.6-17.2); SODIUM (NA) 134 MEQ/L (136-145); TOTAL BILIRUBIN ADULT 0.5 MG/DL (0.2-1.0); WHITE BLOOD COUNT 13.8 TH/MM3 (4.0-11.0)
[2017-03-16] MEDS: oxyCODONE/ACETAMINOPHEN 5 MG/325 MG TAB PO PRN (16:00)
--- NOTE | 2017-03-16 16:49 | HHI.IDPN ---
Note Infectious Disease Note Patient is moaning. Asking for pain medicine. Notes pain in left arm. Coughing. Afebrile. No chest pain. 2D ECHO has TV lesion. Blood culture has MRSA in 4 bottles. Presented to the emergency department on 03/14 with respiratory distress. PAST MEDICAL HISTORY 1. Anxiety, depression. 2. History of cellulitis. 3. IVDU. 4. Recent DVT of the right lower extremity. ALLERGIES VANCOMYCIN. ANTIBIOTICS: 1. Linezolid. 2. Piperacillin/tazobactam. OBJECTIVE: Vital Signs Date Time Temp Pulse Resp B/P Pulse Ox O2 Delivery O2 Flow Rate FiO2 03/16/17 14:00 116 03/16/17 12:00 98.8 110 38 113/70 96 03/16/17 12:00 110 03/16/17 11:00 116 35 110/70 94 03/16/17 10:00 119 33 121/76 96 03/16/17 10:00 119 03/16/17 09:00 115 37 115/77 97 03/16/17 08:00 117 03/16/17 08:00 98.1 117 42 114/79 96 03/16/17 07:00 111 43 112/78 98 03/16/17 06:00 106 03/16/17 04:00 98.2 98 30 111/74 100 03/16/17 04:00 98 03/16/17 02:00 97 03/16/17 00:00 111 03/16/17 00:00 99.5 111 30 108/65 95 03/15/17 22:00 128 03/15/17 21:38 94 21 03/15/17 20:00 101.0 128 43 120/72 94 03/15/17 20:00 128 03/15/17 18:00 115 03/15/17 18:00 115 44 112/59 97 03/15/17 17:58 114 43 119/65 98 03/15/17 17:54 122 50 129/70 97 03/15/17 17:00 119 44 95 03/15/17 03/15/17 03/16/17 14:59 22:59 06:59 Intake Total 1635 ml 953 ml 857 ml Output Total 800 ml 350 ml Balance 835 ml 603 ml 857 ml Intake Oral 0 ml 240 ml IV Total 1310 ml 713 ml 857 ml Packed Cells 325 ml Output Urine Total 800 ml 350 ml # Voids 2 # Bowel Movements 3 1 Laboratory Tests Test 03/14/17 03/15/17 03/15/17 03/16/17 20:05 08:30 21:06 11:06 Erythrocyte Sedimentation Rate GREATER THAN 140 mm/hr White Blood Count 18.3 TH/MM3 13.2 TH/MM3 13.8 TH/MM3 Red Blood Count 3.21 MIL/MM3 2.57 MIL/MM3 3.04 MIL/MM3 Hemoglobin 8.3 GM/DL 6.6 GM/DL 9.6 GM/DL 8.0 GM/DL Hematocrit 24.3 % 19.9 % 29.1 % 23.6 % Mean Corpuscular Volume 75.6 FL 77.2 FL 77.8 FL Mean Corpuscular Hemoglobin 25.7 PG 25.7 PG 26.3 PG Mean Corpuscular Hemoglobin 34.1 % 33.3 % 33.9 % Concent Red Cell Distribution Width 15.1 % 15.6 % 15.4 % Platelet Count 228 TH/MM3 180 TH/MM3 235 TH/MM3 Mean Platelet Volume 7.7 FL 7.6 FL 8.0 FL Neutrophils (%) (Auto) 80.4 % 83.7 % 75.9 % Lymphocytes (%) (Auto) 11.8 % 8.9 % 15.4 % Monocytes (%) (Auto) 6.9 % 6.1 % 7.0 % Eosinophils (%) (Auto) 0.3 % 1.0 % 0.9 % Basophils (%) (Auto) 0.6 % 0.3 % 0.8 % Neutrophils # (Auto) 14.7 TH/MM3 11.1 TH/MM3 10.5 TH/MM3 Lymphocytes # (Auto) 2.2 TH/MM3 1.2 TH/MM3 2.1 TH/MM3 Monocytes # (Auto) 1.3 TH/MM3 0.8 TH/MM3 1.0 TH/MM3 Eosinophils # (Auto) 0.1 TH/MM3 0.1 TH/MM3 0.1 TH/MM3 Basophils # (Auto) 0.1 TH/MM3 0.0 TH/MM3 0.1 TH/MM3 CBC Comment AUTO DIFF AUTO DIFF DIFF FINAL Differential Total Cells 100 Counted Neutrophils % (Manual) 71 % Band Neutrophils % 10 % Lymphocytes % 13 % Monocytes % 6 % Neutrophils # (Manual) 14.8 TH/MM3 Differential Comment FINAL DIFF AUTO DIFF MANUAL CONFIRMED Toxic Granulation 1+ Toxic Vacuolation PRESENT Platelet Estimate NORMAL Platelet Morphology Comment NORMAL Laboratory Tests Test 03/14/17 03/14/17 03/15/17 03/15/17 20:05 23:58 08:30 13:03 Sodium Level 125 MEQ/L 134 MEQ/L Potassium Level 3.1 MEQ/L 2.7 MEQ/L Chloride Level 88 MEQ/L 102 MEQ/L Carbon Dioxide Level 27.8 MEQ/L 22.2 MEQ/L Anion Gap 9 MEQ/L 10 MEQ/L Blood Urea Nitrogen 11 MG/DL 7 MG/DL Creatinine 0.88 MG/DL 0.55 MG/DL Estimat Glomerular Filtration 78 ML/MIN 135 ML/MIN Rate Random Glucose 104 MG/DL 84 MG/DL Lactic Acid Level 1.4 mmol/L 0.7 mmol/L Calcium Level 7.8 MG/DL 6.9 MG/DL Magnesium Level 1.8 MG/DL Total Bilirubin 0.5 MG/DL 0.4 MG/DL Aspartate Amino Transf 46 U/L 31 U/L (AST/SGOT) Alanine Aminotransferase 34 U/L 23 U/L (ALT/SGPT) Alkaline Phosphatase 111 U/L 75 U/L Total Creatine Kinase 201 U/L Creatine Kinase MB 1.1 NG/ML Creatine Kinase MB % 0.5 % Troponin I LESS THAN 0.02 NG/ML C-Reactive Protein 20.00 MG/DL B-Type Natriuretic Peptide 11 PG/ML Total Protein 7.5 GM/DL 5.6 GM/DL Albumin 1.8 GM/DL 1.4 GM/DL Lipase 485 U/L 160 U/L Human Chorionic Gonadotropin, LESS THAN 1 Quant MIU/ML Serum Osmolality 261 MOSM/KG Thyroid Stimulating Hormone 1.450 uIU/ML 3rd Gen Random Cortisol 15.5 MCG/DL Protein Corrected Calcium 7.7 MG/DL Phosphorus Level 2.5 MG/DL 2.3 MG/DL Test 03/16/17 11:06 Sodium Level 134 MEQ/L Potassium Level 3.2 MEQ/L Chloride Level 102 MEQ/L Carbon Dioxide Level 21.7 MEQ/L Anion Gap 10 MEQ/L Blood Urea Nitrogen 4 MG/DL Creatinine 0.55 MG/DL Estimat Glomerular Filtration 135 ML/MIN Rate Random Glucose 83 MG/DL Calcium Level 7.5 MG/DL Total Bilirubin 0.5 MG/DL Aspartate Amino Transf 21 U/L (AST/SGOT) Alanine Aminotransferase 19 U/L (ALT/SGPT) Alkaline Phosphatase 79 U/L Total Protein 6.3 GM/DL Albumin 1.6 GM/DL Microbiology Date/Time Procedure Status Source Growth 03/14/17 11:20 Gram Stain Received Sputum Expectorated Sputum Pending 03/14/17 11:20 Sputum Culture Received Sputum Expectorated Sputum Pending 03/14/17 11:20 Acid Fast Stain Received Sputum Expectorated Sputum Pending 03/14/17 11:20 Mycobacterial Culture Received Sputum Expectorated Sputum Pending 03/14/17 20:05 Aerobic Blood Culture - Preliminary Resulted Blood Peripheral S. Aureus Mrsa 03/14/17 20:05 Anaerobic Blood Culture - Final Resulted S. Aureus Mrsa 03/14/17 20:10 Aerobic Blood Culture - Final Complete Blood Peripheral S. Aureus Mrsa 03/14/17 20:10 Anaerobic Blood Culture - Final Complete S. Aureus Mrsa 03/15/17 02:50 Urine Culture - Preliminary Resulted Urine Clean Catch NO GROWTH IN 24 HOURS. 03/15/17 02:50 Legionella Antigen - Final Complete Urine Catheterized Urine PRESUMPTIVE NEGATIVE FOR LEGIONELLA P... 03/15/17 04:50 Stool Occult Blood (CICI) - Final Complete Stool Stool HEMOCCULT NEGATIVE 03/15/17 11:20 Gram Stain Ordered Sputum Expectorated Sputum Pending 03/15/17 11:20 Sputum Culture Ordered Sputum Expectorated Sputum Pending 03/15/17 11:20 Acid Fast Stain Ordered Sputum Expectorated Sputum Pending 03/15/17 11:20 Mycobacterial Culture Ordered Sputum Expectorated Sputum Pending IMPRESSION: Abdomen/Pelvis CT 03/15/17 1711 Signed Impressions: Service Date/Time: Wednesday, March 15, 2017 17:08 - CONCLUSION: 1. Bilateral cavitary pulmonary masses in the lung bases. 2. Small bilateral pleural effusions left greater than right which appear partially loculated. 3. Nonspecific bowel gas pattern which may represent an ileus or gastroenteritis. A bowel obstruction is less likely. A moderate amount of free fluid is present greatest in the pelvis. Kody Vogt MD Upper Extremity Ultrasound 03/15/17 0000 Signed Impressions: Service Date/Time: Wednesday, March 15, 2017 11:17 - CONCLUSION: 1. Small area of nonocclusive thrombus in the left mid brachial vein. 2. The remainder of the deep venous system is patent. Kody Vogt MD Upper Extremity CT 03/15/17 0000 Signed Impressions: Service Date/Time: Wednesday, March 15, 2017 17:24 - CONCLUSION: 1. Findings are characteristic of a cellulitis of the distal arm and proximal forearm. In addition a mildly enhancing elbow joint effusion has developed since February 14 which can be characteristic of a septic arthritis. Bipin Bryson MD Thoracic Spine MRI 03/14/171956 Signed Impressions: Service Date/Time: Tuesday, March 14, 2017 20:29 - CONCLUSION: 1. No acute abnormality is seen of the thoracic spine. 2. Bilateral pneumonia and mediastinal/right hilar lymphadenopathy. Dominick Ibrahim MD CT Angiography 03/14/171956 Signed Impressions: Service Date/Time: Tuesday, March 14, 2017 22:37 - CONCLUSION: Pathological adenopathy within the mediastinum with extensive bilateral pulmonary nodules and air space consolidation some of which are cavitary and septic emboli is of primary consideration. Suzanne Sykes MD Chest X-Ray 03/14/171953 Signed Impressions: Service Date/Time: Tuesday, March 14, 2017 20:14 - CONCLUSION: Bilateral patchy pneumonia. Dominick Ibrahim MD Head CT 03/14/17 0000 Signed Impressions: Service Date/Time: Tuesday, March 14, 2017 22:34 - CONCLUSION: Unremarkable study. Suzanne Sykes MD PHYSICAL EXAMINATION GENERAL: Moaning intermittently. She is alert and oriented. HEENT: No icterus. No conjunctival erythema. Oropharynx moist mucosa without lesions. No thrush. NECK: Supple without adenopathy. No swelling. LUNGS: Bilateral rhonchi. HEART: 2/6 systolic murmur left sternal border. No rubs, no gallops. ABDOMEN: Bowel sounds present, soft, nontender. EXTREMITIES: No clubbing or cyanosis. There is swelling at the right wrist and the dorsum of the right hand but no significant erythema. The area is warm. The left wrist is tender on palpation. No punctate embolic lesions noted. The patient has several pin head size excoriated target lesions of both lower extremities, scattered at the thighs and tibias. SKIN: No diffuse rash. NEURO: Nonfocal. LABORATORY DATA Urine culture pending. Ultrasound of the upper extremity showed small area of non-occlusive thrombus in the left knee brachial vein. CT angiography shows pathological adenopathy within the mediastinum with extensive bilateral pulmonary nodules and airspace consolidation, some of which are cavitary and septic emboli is a primary consideration. CT scan of the head unremarkable. IMPRESSION 1. TV endocarditis. MRSA. 2. Sepsis in a patient who presented to the ED with respiratory distress and tachycardia and temperature 99.9 and elevated white blood cell count and bilateral infiltrates on chest x-ray. Positive blood culture with gram-positive cocci. 3. Pulmonary septic emboli. 4. Thrombus of the left mid brachial vein. 5. Noncompliance with medical treatment. The patient left the hospital against medical advice prior to complete workup and treatment. 6. Leukocytosis secondary to infection. Improved. 7. VANCOMYCIN ALLERGY. RECOMMENDATIONS 1. Continue linezolid. 2. Repeat blood culture. Follow sensitivity of the MRSA. 3. Monitor sputum culture. 4. Monitor clinical status. Ward Mcdowell MD March 16, 2017 16:49
[2017-03-16] MEDS ORDERED: IBUPROFEN 600 MG TAB PO PRN (20:00)
[2017-03-17] VITALS (25 sets, daily range): BP systolic 99–125; BP diastolic 59–88; PULSE 76–162; RESP 11–56; TEMP 97.7–99.4; O2SAT 85–100
[2017-03-17] MEDS: MORPHINE SULFATE 4 MG/ML INJ IV PUSH PRN ×6 (00:56→23:07)
[2017-03-17 03:05] LABS: BLOOD, URINE LARGE (NEG); COMMENT (UR) CULT NOT INDICATED; CULTURE IF INDICATED CULT NOT INDICATED; GLUCOSE,URINE NEG (NEG); KETONE, URINE NEG (NEG); NITRITE,URINE NEG (NEG); SQUAMOUS EPITHELIAL CELL URINE 1 /hpf (0-5); URINE COLOR LIGHT-YELLOW (YELLW/STRAW)
[2017-03-17] MEDS: CHLORHEXIDINE GLUCONATE 2 % 1 PACK (2 CLOTHS) TOP SCH ×2 (03:50→21:45)
[2017-03-17] MEDS: PIPERACIL-TAZO 4.5 GM PREMIX 100 ML IV SCH (03:55)
--- NOTE | 2017-03-17 05:03 | RADRPT ---
EXAM DATE/TIME: 03/17/2017 04:06 [facility] COMPARISON: CHEST SINGLE AP, March 14, 2017, 20:14. INDICATIONS : Short of breath. MEDICAL HISTORY : None. SURGICAL HISTORY : None. ENCOUNTER: Subsequent ACUITY: 3 weeks PAIN SCORE: Non-responsive. LOCATION: Bilateral chest FINDINGS: Left lung base air space process has progressed and there is small left pleural effusion. The other a reas of parenchymal air space process have not significantly changed. Heart and mediastinum are unrem arkable for technique. CONCLUSION: Left pleural effusion and worsening air space process in the left lung. Suzanne Sykes MD on March 17, 2017 at 5:00 Board Certified Radiologist. This report was verified electronically.
[2017-03-17 08:51] LABS: AUTOMATED NEUTROPHIL # 6.5 TH/MM3 (1.8-7.7); BASOPHIL # 0.1 TH/MM3 (0-0.2); BASOPHIL % 0.6 % (0.0-2.0); EOSINOPHIL # 0.2 TH/MM3 (0-0.4); EOSINOPHIL % 2.1 % (0.0-4.0); HEMATOCRIT 26.5 % (35.0-46.0); LYMPH % 24.7 % (9.0-44.0); LYMPHOCYTE # 2.5 TH/MM3 (1.0-4.8); MEAN CELL VOLUME 77.7 FL (80.0-100.0); MEAN CORPUSCULAR HGB CONC 33.5 % (32.0-36.0); MONO % 7.6 % (0.0-8.0); PLATELET COUNT 223 TH/MM3 (150-450); RED BLOOD COUNT 3.41 MIL/MM3 (4.00-5.30); RED CELL DISTRIBUTION WIDTH 15.5 % (11.6-17.2); WHITE BLOOD COUNT 10.1 TH/MM3 (4.0-11.0)
[2017-03-17 08:52] LABS: HEMO FLAGS AUTO DIFF
[2017-03-17] MEDS: PANTOPRAZOLE SOD 40 MG DELAYED RELEASE TAB PO SCH (08:58)
[2017-03-17] MEDS: DOCUSATE SODIUM 100 MG CAP PO SCH ×2 (08:59→21:00)
[2017-03-17] MEDS: LINEZOLID 600 MG PREMIX 300 ML IV SCH ×2 (08:59→21:01)
[2017-03-17] MEDS: SODIUM CHLORIDE 0.9% FLUSH 10 ML FLUSH SCH ×2 (08:59→21:00)
[2017-03-17 09:06] LABS: POTASSIUM 3.8 MEQ/L (3.5-5.1)
[2017-03-17 09:55] LABS: BANDS 2 % (0-6); EOSINOPHILS 2 % (0-4); METAMYELOCYTES 1 % (0-1); MYELOCYTES 1 % (0-0); NEUTROPHIL # MANUAL DIFF 6.2 TH/MM3 (1.8-7.7); POLYS (SEG NEUTROPHILS) 57 % (16-70); WBC DIFF SAMPLE 100
[2017-03-17 09:56] LABS: PLATELET ESTIMATE SMEAR NORMAL (NORMAL); PLATELET MORPHOLOGY NORMAL (NORMAL); SCAN/DIFF FINAL DIFF MANUAL
--- NOTE | 2017-03-17 10:43 | HHI.PR ---
Subjective Remarks Follow-up sepsis/septic emboli 03/16/17-patient seen and examined, complains of left elbow pain otherwise denies any chest pain however has some minimal shortness of breath. Currently afebrile 03/17/17-patient seen and examined, currently afebrile and no acute event overnight. States left elbow pain is about the same Objective Vitals Vital Signs Date Time Temp Pulse Resp B/P Pulse Ox O2 Delivery O2 Flow Rate FiO2 03/17/17 09:38 98 21 03/17/17 08:00 79 03/17/17 06:00 76 03/17/17 04:00 76 03/17/17 04:00 97.9 76 21 105/74 98 03/17/17 02:00 79 03/17/17 00:29 79 03/17/17 00:00 98.0 79 30 109/78 100 03/16/17 22:00 95 03/16/17 20:57 96 03/16/17 20:00 101.9 115 30 114/70 95 03/16/17 20:00 115 03/16/17 18:00 114 03/16/17 16:00 115 18 116/82 100 03/16/17 16:00 115 03/16/17 15:00 116 20 108/70 96 03/16/17 14:00 116 03/16/17 14:00 116 14 98/61 97 03/16/17 13:00 103 14 111/71 97 03/16/17 12:00 98.8 110 38 113/70 96 03/16/17 12:00 110 03/16/17 11:00 116 35 110/70 94 I/O 03/16/17 03/16/17 03/16/17 03/17/17 03/17/17 03/17/17 07:00 15:00 23:00 07:00 15:00 23:00 Intake Total 857 ml 1961 ml 1430 ml 1280 ml Output Total 900 ml Balance 857 ml 1061 ml 1430 ml 1280 ml Intake Oral 480 ml 480 ml 480 ml IV Total 857 ml 1481 ml 950 ml 800 ml Output Urine Total 900 ml # Voids 2 3 3 # Bowel Movements 1 2 Result Diagram: 03/17/1782703/17/17827 Objective Remarks GENERAL: NAD SKIN: Warm and dry. HEAD: Normocephalic. EYES: No scleral icterus. No injection or drainage. NECK: Supple, trachea midline. No JVD or lymphadenopathy. CARDIOVASCULAR: Regular rate and rhythm without murmurs, gallops, or rubs. RESPIRATORY: Breath sounds equal bilaterally. No accessory muscle use. GASTROINTESTINAL: Abdomen soft, non-tender, nondistended. MUSCULOSKELETAL: No cyanosis, or edema. Left elbow TTP with Limited ROM BACK: Nontender without obvious deformity. No CVA tenderness. A/P Problem List: (1) Sepsis ICD Code: A41.9 Status: Acute (2) DVT, lower extremity, proximal, acute ICD Code: I82.4Y9 Status: Acute (3) Elbow pain, left ICD Code: M25.522 Status: Acute (4) Hypokalemia ICD Code: E87.6 Status: Acute (5) Cellulitis of left elbow ICD Code: L03.114 Status: Acute Assessment and Plan 26-year-old female with Cocaine abuse, ?benzo use/abuse Continue current regimen as to prevent withdrawal Percocet 5-10 mg every 4 hours when necessary pain Morphine 2-4 mg IV every 3 hours when necessary breakthrough pain CT brain 03/14/17no acute abnormality Multiple cavitary lung lesions, suspected septic pulmonary emboli Tobacco abuse CT pulmonary angiogramno evidence for pulmonary embolism. There are multiple bilateral cavitary lung lesions (RUL, RLL, SREE, LLL) including large consolidation of right upper lobe. These lesions appear c/w endocarditis, Appreciate input from infectious disease specialist, pulmonary medicine Continue with current antibiotic, DuoNeb when necessary 2-D echo noted Mild AST elevation Moderate protein energy malnutrition Mildly elevated lipase of unclear significance History of hepatitis C Continue to monitor LFTs Hyponatremia Hypokalemia Acute dehydration-resolved Cortisol and TSH are normal. Urine osm is 391 so may have underlying SIADH but currently clinically appears dry and septic, can f/u post resuscitation. Replace electrolyte and monitor Sepsis Multiple cavitary pulmonary lesions Vancomycin allergy (patient states rash and difficulty breathing) L elbow cellulitis TV endocarditis Currently on Zyvox per infectious disease specialist Lymphadenopathy also noted however repeat HIV negative. CMV and EBV tested per prior ID recommendations. CT elbow with Findings that are characteristic of a cellulitis of the distal arm and proximal forearm. CT abdomen and pelvis with finding of Bilateral cavitary pulmonary masses in the lung bases. Right lower extremity DVT U/s RLE from 4/23/17DVT right superficial femoral to calf Was on Lovenox during prior hospitalization but states she has not been on any anticoagulation patient since she left AGAINST MEDICAL ADVICE 02/23/17 Initiated heparin drip for DVT treatment (chosen in case needs to be held for procedure, can later be transitioned to lovenox) . Anemia of acute blood loss Transfused 1 unit packed red blood cell 03/15/17 PROPH: Protonix 40 mg by mouth daily for stress ulcer prophylaxis. Heparin drip for treatment of DVT Total critical care time spent 30 minutes Luciano Cavanaugh MD March 17, 2017 10:43
--- NOTE | 2017-03-17 10:57 | HHI.IDPN ---
Note Infectious Disease Note Patient is calm this am. Notes pain in left arm. Coughing. Afebrile. Says she get chest pain when she tries to sit upright in bed. 2D ECHO has TV lesion. Blood culture 03/14 has MRSA in 4 bottles. Presented to the emergency department on 03/14 with respiratory distress. PAST MEDICAL HISTORY 1. Anxiety, depression. 2. History of cellulitis. 3. IVDU. 4. Recent DVT of the right lower extremity. ALLERGIES VANCOMYCIN. ANTIBIOTICS: 1. Linezolid. OBJECTIVE: Vital Signs Date Time Temp Pulse Resp B/P Pulse Ox O2 Delivery O2 Flow Rate FiO2 03/17/17 09:38 98 21 03/17/17 08:00 79 03/17/17 06:00 76 03/17/17 04:00 76 03/17/17 04:00 97.9 76 21 105/74 98 03/17/17 02:00 79 03/17/17 00:29 79 03/17/17 00:00 98.0 79 30 109/78 100 03/16/17 22:00 95 03/16/17 20:57 96 03/16/17 20:00 101.9 115 30 114/70 95 03/16/17 20:00 115 03/16/17 18:00 114 03/16/17 16:00 115 18 116/82 100 03/16/17 16:00 115 03/16/17 15:00 116 20 108/70 96 03/16/17 14:00 116 03/16/17 14:00 116 14 98/61 97 03/16/17 13:00 103 14 111/71 97 03/16/17 12:00 98.8 110 38 113/70 96 03/16/17 12:00 110 03/16/17 11:00 116 35 110/70 94 03/16/17 03/16/17 03/17/17 14:59 22:59 06:59 Intake Total 1961 ml 1430 ml 1280 ml Output Total 900 ml Balance 1061 ml 1430 ml 1280 ml Intake Oral 480 ml 480 ml 480 ml IV Total 1481 ml 950 ml 800 ml Output Urine Total 900 ml # Voids 3 3 # Bowel Movements 2 Laboratory Tests Test 03/15/17 03/16/17 03/17/17 21:06 11:06 08:28 Hemoglobin 9.6 GM/DL 8.0 GM/DL 8.9 GM/DL Hematocrit 29.1 % 23.6 % 26.5 % White Blood Count 13.8 TH/MM3 10.1 TH/MM3 Red Blood Count 3.04 MIL/MM3 3.41 MIL/MM3 Mean Corpuscular Volume 77.8 FL 77.7 FL Mean Corpuscular Hemoglobin 26.3 PG 26.0 PG Mean Corpuscular Hemoglobin 33.9 % 33.5 % Concent Red Cell Distribution Width 15.4 % 15.5 % Platelet Count 235 TH/MM3 223 TH/MM3 Mean Platelet Volume 8.0 FL 7.8 FL Neutrophils (%) (Auto) 75.9 % 65.0 % Lymphocytes (%) (Auto) 15.4 % 24.7 % Monocytes (%) (Auto) 7.0 % 7.6 % Eosinophils (%) (Auto) 0.9 % 2.1 % Basophils (%) (Auto) 0.8 % 0.6 % Neutrophils # (Auto) 10.5 TH/MM3 6.5 TH/MM3 Lymphocytes # (Auto) 2.1 TH/MM3 2.5 TH/MM3 Monocytes # (Auto) 1.0 TH/MM3 0.8 TH/MM3 Eosinophils # (Auto) 0.1 TH/MM3 0.2 TH/MM3 Basophils # (Auto) 0.1 TH/MM3 0.1 TH/MM3 CBC Comment DIFF FINAL AUTO DIFF Differential Comment FINAL DIFF MANUAL Differential Total Cells 100 Counted Neutrophils % (Manual) 57 % Band Neutrophils % 2 % Lymphocytes % 28 % Monocytes % 9 % Eosinophils % 2 % Neutrophils # (Manual) 6.2 TH/MM3 Metamyelocytes 1 % Myelocytes 1 % Platelet Estimate NORMAL Platelet Morphology Comment NORMAL Hematology Comments Laboratory Tests Test 03/15/17 03/16/17 03/17/17 13:03 11:06 08:28 Phosphorus Level 2.3 MG/DL Sodium Level 134 MEQ/L 139 MEQ/L Potassium Level 3.2 MEQ/L 3.8 MEQ/L Chloride Level 102 MEQ/L 111 MEQ/L Carbon Dioxide Level 21.7 MEQ/L 20.0 MEQ/L Anion Gap 10 MEQ/L 8 MEQ/L Blood Urea Nitrogen 4 MG/DL 3 MG/DL Creatinine 0.55 MG/DL 0.51 MG/DL Estimat Glomerular Filtration 135 ML/MIN 147 ML/MIN Rate Random Glucose 83 MG/DL 88 MG/DL Calcium Level 7.5 MG/DL 7.6 MG/DL Total Bilirubin 0.5 MG/DL Aspartate Amino Transf 21 U/L (AST/SGOT) Alanine Aminotransferase 19 U/L (ALT/SGPT) Alkaline Phosphatase 79 U/L Total Protein 6.3 GM/DL Albumin 1.6 GM/DL Microbiology Date/Time Procedure Status Source Growth 03/14/17 11:20 Gram Stain Received Sputum Expectorated Sputum Pending 03/14/17 11:20 Sputum Culture Received Sputum Expectorated Sputum Pending 03/14/17 11:20 Acid Fast Stain Received Sputum Expectorated Sputum Pending 03/14/17 11:20 Mycobacterial Culture Received Sputum Expectorated Sputum Pending 03/14/17 20:05 Aerobic Blood Culture - Final Complete Blood Peripheral S. Aureus Mrsa 03/14/17 20:05 Anaerobic Blood Culture - Final Complete S. Aureus Mrsa 03/14/17 20:10 Aerobic Blood Culture - Final Complete Blood Peripheral S. Aureus Mrsa 03/14/17 20:10 Anaerobic Blood Culture - Final Complete S. Aureus Mrsa 03/15/17 02:50 Urine Culture - Final Complete Urine Clean Catch NO GROWTH IN 48 HOURS. 03/15/17 02:50 Legionella Antigen - Final Complete Urine Catheterized Urine PRESUMPTIVE NEGATIVE FOR LEGIONELLA P... 03/15/17 04:50 Stool Occult Blood (CICI) - Final Complete Stool Stool HEMOCCULT NEGATIVE 03/15/17 11:20 Gram Stain Gopal Batch Sputum Expectorated Sputum Pending 03/15/17 11:20 Sputum Culture Gopal Batch Sputum Expectorated Sputum Pending 03/15/17 11:20 Acid Fast Stain Gopal Batch Sputum Expectorated Sputum Pending 03/15/17 11:20 Mycobacterial Culture Gopal Batch Sputum Expectorated Sputum Pending 03/16/17 18:39 Aerobic Blood Culture Received Blood Peripheral Pending 03/16/17 18:39 Anaerobic Blood Culture Received Blood Peripheral Pending 03/16/17 20:35 Aerobic Blood Culture Received Blood Peripheral Pending 03/16/17 20:35 Anaerobic Blood Culture Received Blood Peripheral Pending 03/16/17 20:41 Aerobic Blood Culture Received Blood Peripheral Pending 03/16/17 20:41 Anaerobic Blood Culture Received Blood Peripheral Pending Microbiology Date/Time Procedure Status Source Growth 03/14/17 11:20 Gram Stain Received Sputum Expectorated Sputum Pending 03/14/17 11:20 Sputum Culture Received Sputum Expectorated Sputum Pending 03/14/17 11:20 Acid Fast Stain Received Sputum Expectorated Sputum Pending 03/14/17 11:20 Mycobacterial Culture Received Sputum Expectorated Sputum Pending 03/14/17 20:05 Aerobic Blood Culture - Preliminary Resulted Blood Peripheral S. Aureus Mrsa 03/14/17 20:05 Anaerobic Blood Culture - Final Resulted S. Aureus Mrsa 03/14/17 20:10 Aerobic Blood Culture - Final Complete Blood Peripheral S. Aureus Mrsa 03/14/17 20:10 Anaerobic Blood Culture - Final Complete S. Aureus Mrsa 03/15/17 02:50 Urine Culture - Preliminary Resulted Urine Clean Catch NO GROWTH IN 24 HOURS. 03/15/17 02:50 Legionella Antigen - Final Complete Urine Catheterized Urine PRESUMPTIVE NEGATIVE FOR LEGIONELLA P... 03/15/17 04:50 Stool Occult Blood (CICI) - Final Complete Stool Stool HEMOCCULT NEGATIVE 03/15/17 11:20 Gram Stain Ordered Sputum Expectorated Sputum Pending 03/15/17 11:20 Sputum Culture Ordered Sputum Expectorated Sputum Pending 03/15/17 11:20 Acid Fast Stain Ordered Sputum Expectorated Sputum Pending 03/15/17 11:20 Mycobacterial Culture Ordered Sputum Expectorated Sputum Pending IMPRESSION: Chest X-Ray 03/17/17 0000 Signed Impressions: Service Date/Time: Friday, March 17, 2017 04:06 - CONCLUSION: Left pleural effusion and worsening air space process in the left lung. Suzanne Sykes MD Abdomen/Pelvis CT 03/15/171710 Signed Impressions: Service Date/Time: Wednesday, March 15, 2017 17:08 - CONCLUSION: 1. Bilateral cavitary pulmonary masses in the lung bases. 2. Small bilateral pleural effusions left greater than right which appear partially loculated. 3. Nonspecific bowel gas pattern which may represent an ileus or gastroenteritis. A bowel obstruction is less likely. A moderate amount of free fluid is present greatest in the pelvis. Kody Vogt MD Abdomen/Pelvis CT 03/15/171710 Signed Impressions: Service Date/Time: Wednesday, March 15, 2017 17:08 - CONCLUSION: 1. Bilateral cavitary pulmonary masses in the lung bases. 2. Small bilateral pleural effusions left greater than right which appear partially loculated. 3. Nonspecific bowel gas pattern which may represent an ileus or gastroenteritis. A bowel obstruction is less likely. A moderate amount of free fluid is present greatest in the pelvis. Kody Vogt MD Upper Extremity Ultrasound 03/15/17 0000 Signed Impressions: Service Date/Time: Wednesday, March 15, 2017 11:17 - CONCLUSION: 1. Small area of nonocclusive thrombus in the left mid brachial vein. 2. The remainder of the deep venous system is patent. Kody Vogt MD Upper Extremity CT 03/15/17 0000 Signed Impressions: Service Date/Time: Wednesday, March 15, 2017 17:24 - CONCLUSION: 1. Findings are characteristic of a cellulitis of the distal arm and proximal forearm. In addition a mildly enhancing elbow joint effusion has developed since February 14 which can be characteristic of a septic arthritis. Bipin Bryson MD Thoracic Spine MRI 03/14/171956 Signed Impressions: Service Date/Time: Tuesday, March 14, 2017 20:29 - CONCLUSION: 1. No acute abnormality is seen of the thoracic spine. 2. Bilateral pneumonia and mediastinal/right hilar lymphadenopathy. Dominick Ibrahim MD CT Angiography 03/14/171956 Signed Impressions: Service Date/Time: Tuesday, March 14, 2017 22:37 - CONCLUSION: Pathological adenopathy within the mediastinum with extensive bilateral pulmonary nodules and air space consolidation some of which are cavitary and septic emboli is of primary consideration. Suzanne Sykes MD Chest X-Ray 03/14/171953 Signed Impressions: Service Date/Time: Tuesday, March 14, 2017 20:14 - CONCLUSION: Bilateral patchy pneumonia. Dominick Ibrahim MD Head CT 03/14/17 0000 Signed Impressions: Service Date/Time: Tuesday, March 14, 2017 22:34 - CONCLUSION: Unremarkable study. Suzanne Sykes MD PHYSICAL EXAMINATION GENERAL: Alert and oriented. HEENT: No icterus. No conjunctival erythema. Oropharynx moist mucosa without lesions. No thrush. poor dentition. NECK: Supple without adenopathy. No swelling. LUNGS: Bilateral rhonchi. HEART: 2/6 systolic murmur left sternal border. No rubs, no gallops. ABDOMEN: Bowel sounds present, soft, nontender. EXTREMITIES: No clubbing or cyanosis. Swelling and tenderness at the left wrist and at the elbow without erythema. No punctate embolic lesions noted. The patient has several pin head size excoriated target lesions of both lower extremities, scattered at the thighs and tibias. SKIN: No diffuse rash. NEURO: Nonfocal. IMPRESSION 1. TV endocarditis. MRSA. 2. Sepsis in patient who presented to the ED with respiratory distress and tachycardia and temperature 99.9 and elevated white blood cell count and bilateral infiltrates on chest x-ray. Positive blood culture with gram-positive cocci. 3. Pulmonary septic emboli. 4. Thrombus of the left mid brachial vein. 5. Noncompliance with medical treatment. The patient left the hospital against medical advice prior to complete workup and treatment. 6. Leukocytosis secondary to infection. Improved. 7. VANCOMYCIN ALLERGY. RECOMMENDATIONS 1. Continue linezolid. 2. Follow repeat blood culture. Follow sensitivity of the MRSA. 3. Monitor clinical status. Ward Mcdowell MD March 17, 2017 10:57
[2017-03-17] MEDS: oxyCODONE/ACETAMINOPHEN 5 MG/325 MG TAB PO PRN ×2 (11:37→20:09)
[2017-03-17] MEDS: NS + KCL 20 MEQ INJ 1,000 ML IV SCH ×2 (13:26→21:00)
[2017-03-17 14:55] LABS: C. DIFF EPI 027 PRESUMPTIVE NEGATIVE (NEGATIVE); C. DIFF TOXIN PCR NEGATIVE (NEGATIVE)
--- NOTE | 2017-03-17 16:34 | HHI.PR ---
Subjective Remarks ALERT NO SOB AT REST Objective Vital Signs Date Time Temp Pulse Resp B/P Pulse Ox O2 Delivery O2 Flow Rate FiO2 03/17/17 14:00 108 03/17/17 13:00 123 35 107/59 95 03/17/17 12:45 128 39 96 03/17/17 12:30 130 36 98 03/17/17 12:15 134 35 97 03/17/17 12:00 99.4 133 36 111/70 98 03/17/17 12:00 133 03/17/17 11:45 130 38 100 03/17/17 11:30 162 56 85 03/17/17 11:15 148 54 85 03/17/17 10:00 96 03/17/17 09:38 98 21 03/17/17 08:45 89 28 95 03/17/17 08:30 87 11 100 03/17/17 08:15 85 26 98 03/17/17 08:00 79 03/17/17 08:00 98.7 84 27 111/73 98 03/17/17 06:00 76 03/17/17 04:00 76 03/17/17 04:00 97.9 76 21 105/74 98 03/17/17 02:00 79 03/17/17 00:29 79 03/17/17 00:00 98.0 79 30 109/78 100 03/16/17 22:00 95 03/16/17 20:57 96 03/16/17 20:00 101.9 115 30 114/70 95 03/16/17 20:00 115 03/16/17 18:00 114 I/O 03/16/17 03/16/17 03/16/17 03/17/17 03/17/17 03/17/17 07:00 15:00 23:00 07:00 15:00 23:00 Intake Total 857 ml 1961 ml 1430 ml 1280 ml 1900 ml Output Total 900 ml 500 ml Balance 857 ml 1061 ml 1430 ml 1280 ml 1400 ml Intake Oral 480 ml 480 ml 480 ml 900 ml IV Total 857 ml 1481 ml 950 ml 800 ml 1000 ml Output Urine Total 900 ml 500 ml # Voids 2 3 3 # Bowel Movements 1 2 1 Result Diagram: 03/17/1728 03/17/1728 Objective Remarks Laboratory Tests Test 503/14/17 03/15/17 03/15/17 20:05 23:58 02:50 08:30 Erythrocyte Sedimentation Rate GREATER THAN 140 mm/hr (0-20) Prothrombin Time 15.9 SEC (9.8-11.6) Activated Partial 34.1 SEC 37.2 SEC Thromboplast Time (24.3-30.1) (24.3-30.1) Sodium Level 125 MEQ/L 134 MEQ/L (136-145) (136-145) Potassium Level 3.1 MEQ/L 2.7 MEQ/L (3.5-5.1) (3.5-5.1) Chloride Level 88 MEQ/L (98-107) Estimat Glomerular Filtration 78 ML/MIN (>89) Rate Calcium Level 7.8 MG/DL 6.9 MG/DL (8.5-10.1) (8.5-10.1) Aspartate Amino Transf 46 U/L (15-37) (AST/SGOT) Total Creatine Kinase 201 U/L (26-192) Troponin I LESS THAN 0.02 NG/ML (0.02-0.05) C-Reactive Protein 20.00 MG/DL (0.00-0.30) Albumin 1.8 GM/DL 1.4 GM/DL (3.4-5.0) (3.4-5.0) Lipase 485 U/L (73-393) White Blood Count 18.3 TH/MM3 13.2 TH/MM3 (4.0-11.0) (4.0-11.0) Red Blood Count 3.21 MIL/MM3 2.57 MIL/MM3 (4.00-5.30) (4.00-5.30) Hemoglobin 8.3 GM/DL 6.6 GM/DL (11.6-15.3) (11.6-15.3) Hematocrit 24.3 % 19.9 % (35.0-46.0) (35.0-46.0) Mean Corpuscular Volume 75.6 FL 77.2 FL (80.0-100.0) (80.0-100.0) Mean Corpuscular Hemoglobin 25.7 PG 25.7 PG (27.0-34.0) (27.0-34.0) Neutrophils (%) (Auto) 80.4 % 83.7 % (16.0-70.0) (16.0-70.0) Neutrophils # (Auto) 14.7 TH/MM3 11.1 TH/MM3 (1.8-7.7) (1.8-7.7) Monocytes # (Auto) 1.3 TH/MM3 (0-0.9) Neutrophils % (Manual) 71 % (16-70) Band Neutrophils % 10 % (0-6) Neutrophils # (Manual) 14.8 TH/MM3 (1.8-7.7) Toxic Granulation 1+ (NORMAL) Toxic Vacuolation PRESENT (NONE SEEN) Serum Osmolality 261 MOSM/KG (275-295) Salicylates Level LESS THAN 1.7 MG/DL (2.8-20.0) Acetaminophen Level LESS THAN 2.0 MCG/ML (10.0-30.0) Urine Turbidity HAZY (CLEAR) Urine Specific [place] 1.047 (1.002-1.035) Urine Protein 30 mg/dL (NEG-TRACE) Urine Occult Blood LARGE (NEG) Urine Leukocyte Esterase LARGE (NEG) Urine RBC 50 /hpf (0-3) Urine WBC 58 /hpf (0-5) Urine Bacteria RARE /hpf (NONE) Urine Mucus FEW /lpf (OCC) Urine Yeast (Budding) OCC (NONE) Urine Benzodiazepines Screen POS (NEG) Urine Cocaine Screen POS (NEG) Lymphocytes (%) (Auto) 8.9 % (9.0-44.0) Protein Corrected Calcium 7.7 MG/DL (8.5-10.1) Total Protein 5.6 GM/DL (6.4-8.2) Test 03/15/17 03/15/17 03/16/17 13:03 21:06 00:01 Phosphorus Level 2.3 MG/DL (2.5-4.9) Hemoglobin 9.6 GM/DL (11.6-15.3) Hematocrit 29.1 % (35.0-46.0) Activated Partial 34.7 SEC Thromboplast Time (24.3-30.1) Medications and IVs GENERAL: SKIN: Warm and dry. HEAD: Atraumatic. Normocephalic. EYES: Pupils equal and round. No scleral icterus. No injection or drainage. ENT: No nasal bleeding or discharge. Mucous membranes pink and moist. NECK: Trachea midline. No JVD. CARDIOVASCULAR: Regular rate and rhythm. RESPIRATORY: No accessory muscle use. DECREASE BREATH SOUNDS LEFT BASE GASTROINTESTINAL: Abdomen soft, non-tender, nondistended. Hepatic and splenic margins not palpable. MUSCULOSKELETAL: Extremities without clubbing, cyanosis, or edema. No obvious deformities. NEUROLOGICAL: Awake and alert. No obvious cranial nerve deficits. Motor grossly within normal limits. Five out of 5 muscle strength in the arms and legs. Normal speech. PSYCHIATRIC: Appropriate mood and affect; insight and judgment normal. Assessment and Plan Assessment and Plan BILATERAL LUNG INFILTRATES PROBABLY SEPTIC EMBOLI PLEURAL EFFUSION PLAN O2 NEEDED ANTIBIOTICS FU CXRAY WILL NEED THORACENTESIS Edgardo Reynoso MD March 17, 2017 16:34
[2017-03-17] MEDS: ENOXAPARIN SODIUM 60 MG/0.6 ML SYRINGE SQ SCH (21:00)
[2017-03-18] VITALS (28 sets, daily range): BP systolic 109–130; BP diastolic 72–90; PULSE 88–136; RESP 20–22; TEMP 97.5–98.7; O2SAT 98–100
[2017-03-18] MEDS: MORPHINE SULFATE 4 MG/ML INJ IV PUSH PRN ×4 (02:16→15:45)
[2017-03-18] MEDS: NS + KCL 20 MEQ INJ 1,000 ML IV SCH ×2 (06:53→09:36)
[2017-03-18] MEDS: ENOXAPARIN SODIUM 60 MG/0.6 ML SYRINGE SQ SCH ×2 (09:34→20:57)
[2017-03-18] MEDS: DOCUSATE SODIUM 100 MG CAP PO SCH ×2 (09:34→20:57)
[2017-03-18] MEDS: SODIUM CHLORIDE 0.9% FLUSH 10 ML FLUSH SCH ×2 (09:35→20:57)
[2017-03-18] MEDS: PANTOPRAZOLE SOD 40 MG DELAYED RELEASE TAB PO SCH (09:35)
[2017-03-18] MEDS: LINEZOLID 600 MG PREMIX 300 ML IV SCH ×2 (09:35→20:57)
--- NOTE | 2017-03-18 12:16 | HHI.IDPN ---
Note Infectious Disease Note Patient is in no distress. Afebrile. Says she is still getting chills. 2D ECHO has TV lesion. Blood culture 03/14 has MRSA in 4 bottles. Blood culture 03/17 gram positive cocci. Aerobic bottles only. Presented to the emergency department on 03/14 with respiratory distress. PAST MEDICAL HISTORY 1. Anxiety, depression. 2. History of cellulitis. 3. IVDU. 4. Recent DVT of the right lower extremity. ALLERGIES VANCOMYCIN. ANTIBIOTICS: Linezolid. OBJECTIVE: Vital Signs Date Time Temp Pulse Resp B/P Pulse Ox O2 Delivery O2 Flow Rate FiO2 03/18/17 10:00 108 03/18/17 09:00 106 03/18/17 08:00 110 03/18/17 08:00 98.6 119 20 123/84 98 03/18/17 07:00 104 03/18/17 06:06 106 03/18/17 05:00 104 03/18/17 04:07 116 03/18/17 04:00 98.2 111 128/84 99 03/18/17 03:29 118 03/18/17 02:00 108 03/18/17 01:00 90 03/18/17 00:57 98.2 101 111/77 100 03/18/17 00:35 88 03/18/17 00:00 88 03/17/17 22:00 106 03/17/17 21:00 102 03/17/17 20:00 97.7 105 125/88 100 03/17/17 18:00 100 03/17/17 16:00 98 03/17/17 16:00 99.2 98 25 99/62 98 03/17/17 14:00 108 03/17/17 13:00 123 35 107/59 95 03/17/17 12:45 128 39 96 03/17/17 12:30 130 36 98 03/17/17 12:15 134 35 97 03/17/17 03/17/17 03/18/17 15:00 23:00 07:00 Intake Total 1900 ml 240 ml Output Total 500 ml Balance 1400 ml 240 ml Intake Oral 900 ml 240 ml IV Total 1000 ml Output Urine Total 500 ml # Voids 5 # Bowel Movements 1 Laboratory Tests Test 03/17/17 08:28 White Blood Count 10.1 TH/MM3 Red Blood Count 3.41 MIL/MM3 Hemoglobin 8.9 GM/DL Hematocrit 26.5 % Mean Corpuscular Volume 77.7 FL Mean Corpuscular Hemoglobin 26.0 PG Mean Corpuscular Hemoglobin 33.5 % Concent Red Cell Distribution Width 15.5 % Platelet Count 223 TH/MM3 Mean Platelet Volume 7.8 FL Neutrophils (%) (Auto) 65.0 % Lymphocytes (%) (Auto) 24.7 % Monocytes (%) (Auto) 7.6 % Eosinophils (%) (Auto) 2.1 % Basophils (%) (Auto) 0.6 % Neutrophils # (Auto) 6.5 TH/MM3 Lymphocytes # (Auto) 2.5 TH/MM3 Monocytes # (Auto) 0.8 TH/MM3 Eosinophils # (Auto) 0.2 TH/MM3 Basophils # (Auto) 0.1 TH/MM3 CBC Comment AUTO DIFF Differential Total Cells 100 Counted Neutrophils % (Manual) 57 % Band Neutrophils % 2 % Lymphocytes % 28 % Monocytes % 9 % Eosinophils % 2 % Neutrophils # (Manual) 6.2 TH/MM3 Metamyelocytes 1 % Myelocytes 1 % Differential Comment FINAL DIFF MANUAL Platelet Estimate NORMAL Platelet Morphology Comment NORMAL Hematology Comments Laboratory Tests Test 03/17/17 08:28 Sodium Level 139 MEQ/L Potassium Level 3.8 MEQ/L Chloride Level 111 MEQ/L Carbon Dioxide Level 20.0 MEQ/L Anion Gap 8 MEQ/L Blood Urea Nitrogen 3 MG/DL Creatinine 0.51 MG/DL Estimat Glomerular Filtration 147 ML/MIN Rate Random Glucose 88 MG/DL Calcium Level 7.6 MG/DL Microbiology Date/Time Procedure Status Source Growth 03/16/17 18:39 Aerobic Blood Culture - Preliminary Resulted Blood Peripheral NO GROWTH IN 2 DAYS 03/16/17 18:39 Anaerobic Blood Culture - Preliminary Resulted Blood Peripheral NO GROWTH IN 2 DAYS 03/16/17 20:35 Aerobic Blood Culture - Preliminary Resulted Blood Peripheral Gram Positive Cocci 03/16/17 20:35 Anaerobic Blood Culture - Preliminary Resulted Blood Peripheral NO GROWTH IN 2 DAYS 03/16/17 20:41 Aerobic Blood Culture - Preliminary Resulted Blood Peripheral Gram Positive Cocci 03/16/17 20:41 Anaerobic Blood Culture - Preliminary Resulted Blood Peripheral NO GROWTH IN 2 DAYS Microbiology Date/Time Procedure Status Source Growth 03/14/17 11:20 Gram Stain Received Sputum Expectorated Sputum Pending 03/14/17 11:20 Sputum Culture Received Sputum Expectorated Sputum Pending 03/14/17 11:20 Acid Fast Stain Received Sputum Expectorated Sputum Pending 03/14/17 11:20 Mycobacterial Culture Received Sputum Expectorated Sputum Pending 03/14/17 20:05 Aerobic Blood Culture - Final Complete Blood Peripheral S. Aureus Mrsa 03/14/17 20:05 Anaerobic Blood Culture - Final Complete S. Aureus Mrsa 03/14/17 20:10 Aerobic Blood Culture - Final Complete Blood Peripheral S. Aureus Mrsa 03/14/17 20:10 Anaerobic Blood Culture - Final Complete S. Aureus Mrsa 03/15/17 02:50 Urine Culture - Final Complete Urine Clean Catch NO GROWTH IN 48 HOURS. 03/15/17 02:50 Legionella Antigen - Final Complete Urine Catheterized Urine PRESUMPTIVE NEGATIVE FOR LEGIONELLA P... 03/15/17 04:50 Stool Occult Blood (CICI) - Final Complete Stool Stool HEMOCCULT NEGATIVE 03/15/17 11:20 Gram Stain Gopal Batch Sputum Expectorated Sputum Pending 03/15/17 11:20 Sputum Culture Gopal Batch Sputum Expectorated Sputum Pending 03/15/17 11:20 Acid Fast Stain Gopal Batch Sputum Expectorated Sputum Pending 03/15/17 11:20 Mycobacterial Culture Gopal Batch Sputum Expectorated Sputum Pending 03/16/17 18:39 Aerobic Blood Culture Received Blood Peripheral Pending 03/16/17 18:39 Anaerobic Blood Culture Received Blood Peripheral Pending 03/16/17 20:35 Aerobic Blood Culture Received Blood Peripheral Pending 03/16/17 20:35 Anaerobic Blood Culture Received Blood Peripheral Pending 03/16/17 20:41 Aerobic Blood Culture Received Blood Peripheral Pending 03/16/17 20:41 Anaerobic Blood Culture Received Blood Peripheral Pending Microbiology Date/Time Procedure Status Source Growth 03/14/17 11:20 Gram Stain Received Sputum Expectorated Sputum Pending 03/14/17 11:20 Sputum Culture Received Sputum Expectorated Sputum Pending 03/14/17 11:20 Acid Fast Stain Received Sputum Expectorated Sputum Pending 03/14/17 11:20 Mycobacterial Culture Received Sputum Expectorated Sputum Pending 03/14/17 20:05 Aerobic Blood Culture - Preliminary Resulted Blood Peripheral S. Aureus Mrsa 03/14/17 20:05 Anaerobic Blood Culture - Final Resulted S. Aureus Mrsa 03/14/17 20:10 Aerobic Blood Culture - Final Complete Blood Peripheral S. Aureus Mrsa 03/14/17 20:10 Anaerobic Blood Culture - Final Complete S. Aureus Mrsa 03/15/17 02:50 Urine Culture - Preliminary Resulted Urine Clean Catch NO GROWTH IN 24 HOURS. 03/15/17 02:50 Legionella Antigen - Final Complete Urine Catheterized Urine PRESUMPTIVE NEGATIVE FOR LEGIONELLA P... 03/15/17 04:50 Stool Occult Blood (CICI) - Final Complete Stool Stool HEMOCCULT NEGATIVE 03/15/17 11:20 Gram Stain Ordered Sputum Expectorated Sputum Pending 03/15/17 11:20 Sputum Culture Ordered Sputum Expectorated Sputum Pending 03/15/17 11:20 Acid Fast Stain Ordered Sputum Expectorated Sputum Pending 03/15/17 11:20 Mycobacterial Culture Ordered Sputum Expectorated Sputum Pending IMPRESSION: Chest X-Ray 03/17/17 0000 Signed Impressions: Service Date/Time: Friday, March 17, 2017 04:06 - CONCLUSION: Left pleural effusion and worsening air space process in the left lung. Suzanne Sykes MD Abdomen/Pelvis CT 03/15/[id number] Signed Impressions: Service Date/Time: Wednesday, March 15, 2017 17:08 - CONCLUSION: 1. Bilateral cavitary pulmonary masses in the lung bases. 2. Small bilateral pleural effusions left greater than right which appear partially loculated. 3. Nonspecific bowel gas pattern which may represent an ileus or gastroenteritis. A bowel obstruction is less likely. A moderate amount of free fluid is present greatest in the pelvis. Kody Vogt MD Abdomen/Pelvis CT [id number]/15/[id number] Signed Impressions: Service Date/Time: Wednesday, March 15, 2017 17:08 - CONCLUSION: 1. Bilateral cavitary pulmonary masses in the lung bases. 2. Small bilateral pleural effusions left greater than right which appear partially loculated. 3. Nonspecific bowel gas pattern which may represent an ileus or gastroenteritis. A bowel obstruction is less likely. A moderate amount of free fluid is present greatest in the pelvis. Kody Vogt MD Upper Extremity Ultrasound 03/15/17 0000 Signed Impressions: Service Date/Time: Wednesday, March 15, 2017 11:17 - CONCLUSION: 1. Small area of nonocclusive thrombus in the left mid brachial vein. 2. The remainder of the deep venous system is patent. Kody Vogt MD Upper Extremity CT 03/15/17 0000 Signed Impressions: Service Date/Time: Wednesday, March 15, 2017 17:24 - CONCLUSION: 1. Findings are characteristic of a cellulitis of the distal arm and proximal forearm. In addition a mildly enhancing elbow joint effusion has developed since February 14 which can be characteristic of a septic arthritis. Bipin Bryson MD Thoracic Spine MRI 03/14/171956 Signed Impressions: Service Date/Time: Tuesday, March 14, 2017 20:29 - CONCLUSION: 1. No acute abnormality is seen of the thoracic spine. 2. Bilateral pneumonia and mediastinal/right hilar lymphadenopathy. Dominick Ibrahim MD CT Angiography 03/14/171956 Signed Impressions: Service Date/Time: Tuesday, March 14, 2017 22:37 - CONCLUSION: Pathological adenopathy within the mediastinum with extensive bilateral pulmonary nodules and air space consolidation some of which are cavitary and septic emboli is of primary consideration. Suzanne Sykes MD Chest X-Ray 03/14/171953 Signed Impressions: Service Date/Time: Tuesday, March 14, 2017 20:14 - CONCLUSION: Bilateral patchy pneumonia. Dominick Ibrahim MD Head CT 03/14/17 0000 Signed Impressions: Service Date/Time: Tuesday, March 14, 2017 22:34 - CONCLUSION: Unremarkable study. Suzanne Sykes MD PHYSICAL EXAMINATION GENERAL: Alert and oriented. Drowsy. HEENT: No icterus. No conjunctival erythema. Oropharynx moist mucosa without lesions. No thrush. poor dentition. NECK: Supple without adenopathy. No swelling. LUNGS: Bilateral rhonchi. Better air movement. HEART: Tachycardic. 2/6 systolic murmur left sternal border. No rubs, no gallops. ABDOMEN: Bowel sounds present, soft, nontender. EXTREMITIES: No clubbing or cyanosis. Swelling and tenderness at the left wrist and at the elbow without erythema. No embolic lesions. Excoriated target lesions of both lower extremities, scattered at the thighs and tibias. SKIN: No diffuse rash. NEURO: Nonfocal. IMPRESSION 1. TV endocarditis. MRSA. 2. Sepsis in patient who presented to the ED with respiratory distress and tachycardia and temperature 99.9 and elevated white blood cell count and bilateral infiltrates on chest x-ray. Positive blood culture. 3. Pulmonary septic emboli. 4. Thrombus of the left mid brachial vein. 5. Noncompliance with medical treatment. The patient left the hospital against medical advice prior to complete workup and treatment. 6. Leukocytosis secondary to infection. Improved. 7. VANCOMYCIN ALLERGY. RECOMMENDATIONS 1. Continue linezolid. 2. Repeat blood culture today. 3. Monitor clinical status. Ward Mcdowell MD March 18, 2017 12:16
--- NOTE | 2017-03-18 12:24 | HHI.PR ---
Subjective Remarks Follow-up sepsis/septic emboli 03/16/17-patient seen and examined, complains of left elbow pain otherwise denies any chest pain however has some minimal shortness of breath. Currently afebrile 03/17/17-patient seen and examined, currently afebrile and no acute event overnight. States left elbow pain is about the same 03/18/17-patient seen and examined, tachycardia, positive blood culture. Reports some improvement of left elbow pain. Currently afebrile Objective Vitals Vital Signs Date Time Temp Pulse Resp B/P Pulse Ox O2 Delivery O2 Flow Rate FiO2 03/18/17 12:08 98.7 117 22 116/72 99 03/18/17 12:08 119 03/18/17 11:00 114 03/18/17 10:00 108 03/18/17 09:00 106 03/18/17 08:00 110 03/18/17 08:00 98.6 119 20 123/84 98 03/18/17 07:00 104 03/18/17 06:06 106 03/18/17 05:00 104 03/18/17 04:07 116 03/18/17 04:00 98.2 111 128/84 99 03/18/17 03:29 118 03/18/17 02:00 108 03/18/17 01:00 90 03/18/17 00:57 98.2 101 111/77 100 03/18/17 00:35 88 03/18/17 00:00 88 03/17/17 22:00 106 03/17/17 21:00 102 03/17/17 20:00 97.7 105 125/88 100 03/17/17 18:00 100 03/17/17 16:00 98 03/17/17 16:00 99.2 98 25 99/62 98 03/17/17 14:00 108 03/17/17 13:00 123 35 107/59 95 03/17/17 12:45 128 39 96 03/17/17 12:30 130 36 98 I/O 03/17/17 03/17/17 03/17/17 03/18/17 03/18/17 03/18/17 07:00 15:00 23:00 07:00 15:00 23:00 Intake Total 1280 ml 1900 ml 240 ml Output Total 500 ml Balance 1280 ml 1400 ml 240 ml Intake Oral 480 ml 900 ml 240 ml IV Total 800 ml 1000 ml Output Urine Total 500 ml # Voids 3 5 # Bowel Movements 1 Result Diagram: 03/17/1782703/17/17827 Imaging Last Impressions Chest X-Ray 03/17/17 0000 Signed Impressions: Service Date/Time: Friday, March 17, 2017 04:06 - CONCLUSION: Left pleural effusion and worsening air space process in the left lung. Suzanne Sykes MD Abdomen/Pelvis CT 03/15/17 1711 Signed Impressions: Service Date/Time: Wednesday, March 15, 2017 17:08 - CONCLUSION: 1. Bilateral cavitary pulmonary masses in the lung bases. 2. Small bilateral pleural effusions left greater than right which appear partially loculated. 3. Nonspecific bowel gas pattern which may represent an ileus or gastroenteritis. A bowel obstruction is less likely. A moderate amount of free fluid is present greatest in the pelvis. Kody Vogt MD Upper Extremity Ultrasound 03/15/17 0000 Signed Impressions: Service Date/Time: Wednesday, March 15, 2017 11:17 - CONCLUSION: 1. Small area of nonocclusive thrombus in the left mid brachial vein. 2. The remainder of the deep venous system is patent. Kody Vogt MD Upper Extremity CT 03/15/17 0000 Signed Impressions: Service Date/Time: Wednesday, March 15, 2017 17:24 - CONCLUSION: 1. Findings are characteristic of a cellulitis of the distal arm and proximal forearm. In addition a mildly enhancing elbow joint effusion has developed since February 14 which can be characteristic of a septic arthritis. Bipin Bryson MD Thoracic Spine MRI 03/14/171956 Signed Impressions: Service Date/Time: Tuesday, March 14, 2017 20:29 - CONCLUSION: 1. No acute abnormality is seen of the thoracic spine. 2. Bilateral pneumonia and mediastinal/right hilar lymphadenopathy. Dominick Ibrahim MD CT Angiography 03/14/171956 Signed Impressions: Service Date/Time: Tuesday, March 14, 2017 22:37 - CONCLUSION: Pathological adenopathy within the mediastinum with extensive bilateral pulmonary nodules and air space consolidation some of which are cavitary and septic emboli is of primary consideration. Suzanne Sykes MD Head CT 03/14/17 0000 Signed Impressions: Service Date/Time: Tuesday, March 14, 2017 22:34 - CONCLUSION: Unremarkable study. Suzanne Sykes MD Objective Remarks GENERAL: NAD SKIN: Warm and dry. HEAD: Normocephalic. EYES: No scleral icterus. No injection or drainage. NECK: Supple, trachea midline. No JVD or lymphadenopathy. CARDIOVASCULAR: Regular rate and rhythm without murmurs, gallops, or rubs. RESPIRATORY: Breath sounds equal bilaterally. No accessory muscle use. GASTROINTESTINAL: Abdomen soft, non-tender, nondistended. MUSCULOSKELETAL: No cyanosis, or edema. Left elbow TTP with Limited ROM BACK: Nontender without obvious deformity. No CVA tenderness. A/P Problem List: (1) Sepsis ICD Code: A41.9 Status: Acute (2) DVT, lower extremity, proximal, acute ICD Code: I82.4Y9 Status: Acute (3) Elbow pain, left ICD Code: M25.522 Status: Acute (4) Hypokalemia ICD Code: E87.6 Status: Acute (5) Cellulitis of left elbow ICD Code: L03.114 Status: Acute Assessment and Plan 26-year-old female with Sepsis Multiple cavitary pulmonary lesions Vancomycin allergy (patient states rash and difficulty breathing) L elbow cellulitis TV endocarditis Bacteremia Currently on Zyvox per infectious disease specialist Blood culture positive with gram-positive cocci, repeat blood culture today Lymphadenopathy also noted however repeat HIV negative. CMV and EBV tested per prior ID recommendations. CT elbow with Findings that are characteristic of a cellulitis of the distal arm and proximal forearm. CT abdomen and pelvis with finding of Bilateral cavitary pulmonary masses in the lung bases. Cocaine abuse, ?benzo use/abuse Continue current regimen as to prevent withdrawal Percocet 5-10 mg every 4 hours when necessary pain Morphine 2-4 mg IV every 3 hours when necessary breakthrough pain CT brain 03/14/17no acute abnormality Multiple cavitary lung lesions, suspected septic pulmonary emboli Tobacco abuse CT pulmonary angiogramno evidence for pulmonary embolism. There are multiple bilateral cavitary lung lesions (RUL, RLL, SREE, LLL) including large consolidation of right upper lobe. These lesions appear c/w endocarditis, Appreciate input from infectious disease specialist, pulmonary medicine Continue with current antibiotic, DuoNeb when necessary 2-D echo noted Mild AST elevation Moderate protein energy malnutrition Mildly elevated lipase of unclear significance History of hepatitis C Continue to monitor LFTs Hyponatremia -resolved Hypokalemia-resolved Acute dehydration-resolved Cortisol and TSH are normal. Urine osm is 391 so may have underlying SIADH but currently clinically appears dry and septic, monitor electrolyte Right lower extremity DVT U/s RLE from 02/14/17DVT right superficial femoral to calf Was on Lovenox during prior hospitalization but states she has not been on any anticoagulation patient since she left AGAINST MEDICAL ADVICE 02/23/17 s/p heparin drip for DVT treatment and currently on Lovenox subcutaneous Q12 hours Anemia of acute blood loss Transfused 1 unit packed red blood cell 03/15/17 PROPH: Protonix 40 mg by mouth daily for stress ulcer prophylaxis. Lovenox for treatment of DVT Luciano Cavanaugh MD March 18, 2017 12:24
--- NOTE | 2017-03-18 16:17 | HHI.PR ---
Subjective Remarks ALERT NO SOB AT REST Objective GENERAL: SKIN: Warm and dry. HEAD: Atraumatic. Normocephalic. EYES: Pupils equal and round. No scleral icterus. No injection or drainage. ENT: No nasal bleeding or discharge. Mucous membranes pink and moist. NECK: Trachea midline. No JVD. CARDIOVASCULAR: Regular rate and rhythm. RESPIRATORY: No accessory muscle use. DECREASED BREATH SOUNDS LEFT BASE. GASTROINTESTINAL: Abdomen soft, non-tender, nondistended. Hepatic and splenic margins not palpable. MUSCULOSKELETAL: Extremities without clubbing, cyanosis, or edema. No obvious deformities. NEUROLOGICAL: Awake and alert. No obvious cranial nerve deficits. Motor grossly within normal limits. Five out of 5 muscle strength in the arms and legs. Normal speech. PSYCHIATRIC: Appropriate mood and affect; insight and judgment normal. Vital Signs Date Time Temp Pulse Resp B/P Pulse Ox O2 Delivery O2 Flow Rate FiO2 03/18/17 16:07 97.5 119 22 130/90 100 03/18/17 14:06 114 03/18/17 13:00 136 03/18/17 12:08 98.7 117 22 116/72 99 03/18/17 12:08 119 03/18/17 11:00 114 03/18/17 10:00 108 03/18/17 09:00 106 03/18/17 08:00 110 03/18/17 08:00 98.6 119 20 123/84 98 03/18/17 07:00 104 03/18/17 06:06 106 03/18/17 05:00 104 03/18/17 04:07 116 03/18/17 04:00 98.2 111 128/84 99 03/18/17 03:29 118 03/18/17 02:00 108 03/18/17 01:00 90 03/18/17 00:57 98.2 101 111/77 100 03/18/17 00:35 88 03/18/17 00:00 88 03/17/17 22:00 106 03/17/17 21:00 102 03/17/17 20:00 97.7 105 125/88 100 03/17/17 18:00 100 I/O 03/17/17 03/17/17 03/17/17 03/18/17 03/18/17 03/18/17 07:00 15:00 23:00 07:00 15:00 23:00 Intake Total 1280 ml 1900 ml 240 ml Output Total 500 ml Balance 1280 ml 1400 ml 240 ml Intake Oral 480 ml 900 ml 240 ml IV Total 800 ml 1000 ml Output Urine Total 500 ml # Voids 3 5 # Bowel Movements 1 Result Diagram: 03/17/1782703/17/17827 Objective Remarks Laboratory Tests Test 03/14/17 03/14/17 03/15/17 03/15/17 20:05 23:58 02:50 08:30 Erythrocyte Sedimentation Rate GREATER THAN 140 mm/hr (0-20) Prothrombin Time 15.9 SEC (9.8-11.6) Activated Partial 34.1 SEC 37.2 SEC Thromboplast Time (24.3-30.1) (24.3-30.1) Sodium Level 125 MEQ/L 134 MEQ/L (136-145) (136-145) Potassium Level 3.1 MEQ/L 2.7 MEQ/L (3.5-5.1) (3.5-5.1) Chloride Level 88 MEQ/L (98-107) Estimat Glomerular Filtration 78 ML/MIN (>89) Rate Calcium Level 7.8 MG/DL 6.9 MG/DL (8.5-10.1) (8.5-10.1) Aspartate Amino Transf 46 U/L (15-37) (AST/SGOT) Total Creatine Kinase 201 U/L (26-192) Troponin I LESS THAN 0.02 NG/ML (0.02-0.05) C-Reactive Protein 20.00 MG/DL (0.00-0.30) Albumin 1.8 GM/DL 1.4 GM/DL (3.4-5.0) (3.4-5.0) Lipase 485 U/L (73-393) White Blood Count 18.3 TH/MM3 13.2 TH/MM3 (4.0-11.0) (4.0-11.0) Red Blood Count 3.21 MIL/MM3 2.57 MIL/MM3 (4.00-5.30) (4.00-5.30) Hemoglobin 8.3 GM/DL 6.6 GM/DL (11.6-15.3) (11.6-15.3) Hematocrit 24.3 % 19.9 % (35.0-46.0) (35.0-46.0) Mean Corpuscular Volume 75.6 FL 77.2 FL (80.0-100.0) (80.0-100.0) Mean Corpuscular Hemoglobin 25.7 PG 25.7 PG (27.0-34.0) (27.0-34.0) Neutrophils (%) (Auto) 80.4 % 83.7 % (16.0-70.0) (16.0-70.0) Neutrophils # (Auto) 14.7 TH/MM3 11.1 TH/MM3 (1.8-7.7) (1.8-7.7) Monocytes # (Auto) 1.3 TH/MM3 (0-0.9) Neutrophils % (Manual) 71 % (16-70) Band Neutrophils % 10 % (0-6) Neutrophils # (Manual) 14.8 TH/MM3 (1.8-7.7) Toxic Granulation 1+ (NORMAL) Toxic Vacuolation PRESENT (NONE SEEN) Serum Osmolality 261 MOSM/KG (275-295) Salicylates Level LESS THAN 1.7 MG/DL (2.8-20.0) Acetaminophen Level LESS THAN 2.0 MCG/ML (10.0-30.0) Urine Turbidity HAZY (CLEAR) Urine Specific [place] 1.047 (1.002-1.035) Urine Protein 30 mg/dL (NEG-TRACE) Urine Occult Blood LARGE (NEG) Urine Leukocyte Esterase LARGE (NEG) Urine RBC 50 /hpf (0-3) Urine WBC 58 /hpf (0-5) Urine Bacteria RARE /hpf (NONE) Urine Mucus FEW /lpf (OCC) Urine Yeast (Budding) OCC (NONE) Urine Benzodiazepines Screen POS (NEG) Urine Cocaine Screen POS (NEG) Lymphocytes (%) (Auto) 8.9 % (9.0-44.0) Protein Corrected Calcium 7.7 MG/DL (8.5-10.1) Total Protein 5.6 GM/DL (6.4-8.2) Test 03/15/17 03/15/17 03/16/17 13:03 21:06 00:01 Phosphorus Level 2.3 MG/DL (2.5-4.9) Hemoglobin 9.6 GM/DL (11.6-15.3) Hematocrit 29.1 % (35.0-46.0) Activated Partial 34.7 SEC Thromboplast Time (24.3-30.1) Assessment and Plan Assessment and Plan BILATERAL LUNG INFILTRATES PROBABLY SEPTIC EMBOLI PLEURAL EFFUSION PLAN O2 NEEDED ANTIBIOTICS FU CXRAY WILL NEED LEFT THORACENTESIS Edgardo Reynoso MD March 18, 2017 16:17
[2017-03-19] VITALS (13 sets, daily range): BP systolic 114–136; BP diastolic 71–92; PULSE 96–124; RESP 17–20; TEMP 97.4–99.5; O2SAT 97–100
[2017-03-19] MEDS: MORPHINE SULFATE 4 MG/ML INJ IV PUSH PRN ×7 (00:39→20:53)
[2017-03-19] MEDS: NS + KCL 20 MEQ INJ 1,000 ML IV SCH ×3 (00:40→20:50)
[2017-03-19] MEDS: CHLORHEXIDINE GLUCONATE 2 % 1 PACK (2 CLOTHS) TOP SCH (01:17)
[2017-03-19] MEDS: ENOXAPARIN SODIUM 60 MG/0.6 ML SYRINGE SQ SCH ×2 (08:05→20:54)
[2017-03-19] MEDS: PANTOPRAZOLE SOD 40 MG DELAYED RELEASE TAB PO SCH (08:07)
[2017-03-19] MEDS: DOCUSATE SODIUM 100 MG CAP PO SCH ×2 (08:07→20:52)
[2017-03-19] MEDS: LINEZOLID 600 MG PREMIX 300 ML IV SCH ×2 (08:08→20:50)
[2017-03-19] MEDS: SODIUM CHLORIDE 0.9% FLUSH 10 ML FLUSH SCH ×2 (09:00→20:49)
--- NOTE | 2017-03-19 09:10 | HHI.PR ---
Subjective Remarks ALERT NO SOB AT REST Objective Vital Signs Date Time Temp Pulse Resp B/P Pulse Ox O2 Delivery O2 Flow Rate FiO2 03/19/17 08:00 99.5 112 18 126/85 100 03/19/17 07:21 98.4 116 18 124/80 97 03/19/17 07:21 112 03/19/17 06:35 113 03/19/17 05:07 102 03/19/17 04:19 119 03/19/17 04:09 97.9 96 114/79 100 03/19/17 03:37 102 03/19/17 02:00 124 03/19/17 01:00 100 03/19/17 00:00 104 03/19/17 00:00 97.4 100 123/88 100 03/18/17 23:00 95 03/18/17 22:00 106 03/18/17 21:00 96 03/18/17 20:00 106 03/18/17 20:00 97.9 99 109/75 100 03/18/17 19:00 108 03/18/17 18:00 104 03/18/17 17:23 109 03/18/17 16:17 128 03/18/17 16:07 97.5 119 22 130/90 100 03/18/17 15:01 114 03/18/17 14:06 114 03/18/17 13:00 136 03/18/17 12:08 98.7 117 22 116/72 99 03/18/17 12:08 119 03/18/17 11:00 114 03/18/17 10:00 108 I/O 03/18/17 03/18/17 03/18/17 03/19/17 03/19/17 03/19/17 07:00 15:00 23:00 07:00 15:00 23:00 Intake Total 240 ml 1420 ml 480 ml Output Total 1700 ml Balance 240 ml -280 ml 480 ml Intake Oral 240 ml 720 ml 480 ml IV Total 700 ml Output Urine Total 1700 ml # Voids 5 3 # Bowel Movements 1 1 Result Diagram: 03/17/1782703/17/17827 Objective Remarks Laboratory Tests Test 03/14/17 03/14/17 03/15/17 03/15/17 20:05 23:58 02:50 08:30 Erythrocyte Sedimentation Rate GREATER THAN 140 mm/hr (0-20) Prothrombin Time 15.9 SEC (9.8-11.6) Activated Partial 34.1 SEC 37.2 SEC Thromboplast Time (24.3-30.1) (24.3-30.1) Sodium Level 125 MEQ/L 134 MEQ/L (136-145) (136-145) Potassium Level 3.1 MEQ/L 2.7 MEQ/L (3.5-5.1) (3.5-5.1) Chloride Level 88 MEQ/L (98-107) Estimat Glomerular Filtration 78 ML/MIN (>89) Rate Calcium Level 7.8 MG/DL 6.9 MG/DL (8.5-10.1) (8.5-10.1) Aspartate Amino Transf 46 U/L (15-37) (AST/SGOT) Total Creatine Kinase 201 U/L (26-192) Troponin I LESS THAN 0.02 NG/ML (0.02-0.05) C-Reactive Protein 20.00 MG/DL (0.00-0.30) Albumin 1.8 GM/DL 1.4 GM/DL (3.4-5.0) (3.4-5.0) Lipase 485 U/L (73-393) White Blood Count 18.3 TH/MM3 13.2 TH/MM3 (4.0-11.0) (4.0-11.0) Red Blood Count 3.21 MIL/MM3 2.57 MIL/MM3 (4.00-5.30) (4.00-5.30) Hemoglobin 8.3 GM/DL 6.6 GM/DL (11.6-15.3) (11.6-15.3) Hematocrit 24.3 % 19.9 % (35.0-46.0) (35.0-46.0) Mean Corpuscular Volume 75.6 FL 77.2 FL (80.0-100.0) (80.0-100.0) Mean Corpuscular Hemoglobin 25.7 PG 25.7 PG (27.0-34.0) (27.0-34.0) Neutrophils (%) (Auto) 80.4 % 83.7 % (16.0-70.0) (16.0-70.0) Neutrophils # (Auto) 14.7 TH/MM3 11.1 TH/MM3 (1.8-7.7) (1.8-7.7) Monocytes # (Auto) 1.3 TH/MM3 (0-0.9) Neutrophils % (Manual) 71 % (16-70) Band Neutrophils % 10 % (0-6) Neutrophils # (Manual) 14.8 TH/MM3 (1.8-7.7) Toxic Granulation 1+ (NORMAL) Toxic Vacuolation PRESENT (NONE SEEN) Serum Osmolality 261 MOSM/KG (275-295) Salicylates Level LESS THAN 1.7 MG/DL (2.8-20.0) Acetaminophen Level LESS THAN 2.0 MCG/ML (10.0-30.0) Urine Turbidity HAZY (CLEAR) Urine Specific Haugen 1.047 (1.002-1.035) Urine Protein 30 mg/dL (NEG-TRACE) Urine Occult Blood LARGE (NEG) Urine Leukocyte Esterase LARGE (NEG) Urine RBC 50 /hpf (0-3) Urine WBC 58 /hpf (0-5) Urine Bacteria RARE /hpf (NONE) Urine Mucus FEW /lpf (OCC) Urine Yeast (Budding) OCC (NONE) Urine Benzodiazepines Screen POS (NEG) Urine Cocaine Screen POS (NEG) Lymphocytes (%) (Auto) 8.9 % (9.0-44.0) Protein Corrected Calcium 7.7 MG/DL (8.5-10.1) Total Protein 5.6 GM/DL (6.4-8.2) Test 03/15/17 03/15/17 03/16/17 13:03 21:06 00:01 Phosphorus Level 2.3 MG/DL (2.5-4.9) Hemoglobin 9.6 GM/DL (11.6-15.3) Hematocrit 29.1 % (35.0-46.0) Activated Partial 34.7 SEC Thromboplast Time (24.3-30.1) Assessment and Plan Assessment and Plan BILATERAL LUNG INFILTRATES PROBABLY SEPTIC EMBOLI PLEURAL EFFUSION PLAN O2 NEEDED ANTIBIOTICS FU CXRAY FOR LEFT THORACENTESIS Discharge Planning GENERAL: SKIN: Warm and dry. HEAD: Atraumatic. Normocephalic. EYES: Pupils equal and round. No scleral icterus. No injection or drainage. ENT: No nasal bleeding or discharge. Mucous membranes pink and moist. NECK: Trachea midline. No JVD. CARDIOVASCULAR: Regular rate and rhythm. RESPIRATORY: No accessory muscle use. Clear to auscultation. Breath sounds equal bilaterally. GASTROINTESTINAL: Abdomen soft, non-tender, nondistended. Hepatic and splenic margins not palpable. MUSCULOSKELETAL: Extremities without clubbing, cyanosis, or edema. No obvious deformities. NEUROLOGICAL: Awake and alert. No obvious cranial nerve deficits. Motor grossly within normal limits. Five out of 5 muscle strength in the arms and legs. Normal speech. PSYCHIATRIC: Appropriate mood and affect; insight and judgment normal. Edgardo Reynoso MD March 19, 2017 09:10
[2017-03-19] MEDS: oxyCODONE/ACETAMINOPHEN 5 MG/325 MG TAB PO PRN ×3 (09:30→23:55)
--- NOTE | 2017-03-19 10:11 | HHI.PR ---
Subjective Remarks Follow-up sepsis/septic emboli 03/16/17-patient seen and examined, complains of left elbow pain otherwise denies any chest pain however has some minimal shortness of breath. Currently afebrile 03/17/17-patient seen and examined, currently afebrile and no acute event overnight. States left elbow pain is about the same 03/18/17-patient seen and examined, tachycardia, positive blood culture. Reports some improvement of left elbow pain. Currently afebrile 03/19/17-patient seen and examined, complained of shortness of breath. Plan for left thoracentesis today Objective Vitals Vital Signs Date Time Temp Pulse Resp B/P Pulse Ox O2 Delivery O2 Flow Rate FiO2 03/19/17 08:00 99.5 112 18 126/85 100 03/19/17 07:21 98.4 116 18 124/80 97 03/19/17 07:21 112 03/19/17 06:35 113 03/19/17 05:07 102 03/19/17 04:19 119 03/19/17 04:09 97.9 96 114/79 100 03/19/17 03:37 102 03/19/17 02:00 124 03/19/17 01:00 100 03/19/17 00:00 104 03/19/17 00:00 97.4 100 123/88 100 03/18/17 23:00 95 03/18/17 22:00 106 03/18/17 21:00 96 03/18/17 20:00 106 03/18/17 20:00 97.9 99 109/75 100 03/18/17 19:00 108 03/18/17 18:00 104 03/18/17 17:23 109 03/18/17 16:17 128 03/18/17 16:07 97.5 119 22 130/90 100 03/18/17 15:01 114 03/18/17 14:06 114 03/18/17 13:00 136 03/18/17 12:08 98.7 117 22 116/72 99 03/18/17 12:08 119 03/18/17 11:00 114 I/O 03/18/17 03/18/17 03/18/17 03/19/17 03/19/17 03/19/17 07:00 15:00 23:00 07:00 15:00 23:00 Intake Total 240 ml 1420 ml 480 ml Output Total 1700 ml Balance 240 ml -280 ml 480 ml Intake Oral 240 ml 720 ml 480 ml IV Total 700 ml Output Urine Total 1700 ml # Voids 5 3 # Bowel Movements 1 1 Result Diagram: 03/17/17 0828 03/17/17 0828 Imaging Last Impressions Chest X-Ray 03/17/17 0000 Signed Impressions: Service Date/Time: Friday, March 17, 2017 04:06 - CONCLUSION: Left pleural effusion and worsening air space process in the left lung. Suzanne Sykes MD Abdomen/Pelvis CT 03/15/17 1711 Signed Impressions: Service Date/Time: Wednesday, March 15, 2017 17:08 - CONCLUSION: 1. Bilateral cavitary pulmonary masses in the lung bases. 2. Small bilateral pleural effusions left greater than right which appear partially loculated. 3. Nonspecific bowel gas pattern which may represent an ileus or gastroenteritis. A bowel obstruction is less likely. A moderate amount of free fluid is present greatest in the pelvis. Kody Vogt MD Upper Extremity Ultrasound 03/15/17 0000 Signed Impressions: Service Date/Time: Wednesday, March 15, 2017 11:17 - CONCLUSION: 1. Small area of nonocclusive thrombus in the left mid brachial vein. 2. The remainder of the deep venous system is patent. Kody Vogt MD Upper Extremity CT 03/15/17 0000 Signed Impressions: Service Date/Time: Wednesday, March 15, 2017 17:24 - CONCLUSION: 1. Findings are characteristic of a cellulitis of the distal arm and proximal forearm. In addition a mildly enhancing elbow joint effusion has developed since February 14 which can be characteristic of a septic arthritis. Bipin Bryson MD Thoracic Spine MRI 03/14/171956 Signed Impressions: Service Date/Time: Tuesday, March 14, 2017 20:29 - CONCLUSION: 1. No acute abnormality is seen of the thoracic spine. 2. Bilateral pneumonia and mediastinal/right hilar lymphadenopathy. Dominick Ibrahim MD CT Angiography 03/14/171956 Signed Impressions: Service Date/Time: Tuesday, March 14, 2017 22:37 - CONCLUSION: Pathological adenopathy within the mediastinum with extensive bilateral pulmonary nodules and air space consolidation some of which are cavitary and septic emboli is of primary consideration. Suzanne Sykes MD Head CT 03/14/17 0000 Signed Impressions: Service Date/Time: Tuesday, March 14, 2017 22:34 - CONCLUSION: Unremarkable study. Suzanne Sykes MD Objective Remarks GENERAL: NAD SKIN: Warm and dry. HEAD: Normocephalic. EYES: No scleral icterus. No injection or drainage. NECK: Supple, trachea midline. No JVD or lymphadenopathy. CARDIOVASCULAR: Regular rate and rhythm without murmurs, gallops, or rubs. RESPIRATORY: Breath sounds equal bilaterally. No accessory muscle use. GASTROINTESTINAL: Abdomen soft, non-tender, nondistended. MUSCULOSKELETAL: No cyanosis, or edema. Left elbow TTP with Limited ROM BACK: Nontender without obvious deformity. No CVA tenderness. A/P Problem List: (1) Sepsis ICD Code: A41.9 Status: Acute (2) DVT, lower extremity, proximal, acute ICD Code: I82.4Y9 Status: Acute (3) Elbow pain, left ICD Code: M25.522 Status: Acute (4) Hypokalemia ICD Code: E87.6 Status: Acute (5) Cellulitis of left elbow ICD Code: L03.114 Status: Acute (6) Pleural effusion on left ICD Code: J90 Status: Acute Assessment and Plan 26-year-old female with Sepsis Multiple cavitary pulmonary lesions Vancomycin allergy (patient states rash and difficulty breathing) L elbow cellulitis TV endocarditis Bacteremia Currently on Zyvox per infectious disease specialist Blood culture positive with gram-positive cocci, repeat blood culture today Lymphadenopathy also noted however repeat HIV negative. CMV and EBV tested per prior ID recommendations. CT elbow with Findings that are characteristic of a cellulitis of the distal arm and proximal forearm. CT abdomen and pelvis with finding of Bilateral cavitary pulmonary masses in the lung bases. Cocaine abuse, ?benzo use/abuse Continue current regimen as to prevent withdrawal Percocet 5-10 mg every 4 hours when necessary pain Morphine 2-4 mg IV every 3 hours when necessary breakthrough pain CT brain 03/14/17no acute abnormality Multiple cavitary lung lesions, suspected septic pulmonary emboli Tobacco abuse CT pulmonary angiogramno evidence for pulmonary embolism. There are multiple bilateral cavitary lung lesions (RUL, RLL, SREE, LLL) including large consolidation of right upper lobe. These lesions appear c/w endocarditis, Appreciate input from infectious disease specialist, pulmonary medicine Continue with current antibiotic, DuoNeb when necessary 2-D echo noted Mild AST elevation Moderate protein energy malnutrition Mildly elevated lipase of unclear significance History of hepatitis C Continue to monitor LFTs Hyponatremia -resolved Hypokalemia-resolved Acute dehydration-resolved Cortisol and TSH are normal. Urine osm is 391 so may have underlying SIADH but currently clinically appears dry and septic, monitor electrolyte Right lower extremity DVT U/s RLE from 02/14/17DVT right superficial femoral to calf Was on Lovenox during prior hospitalization but states she has not been on any anticoagulation patient since she left AGAINST MEDICAL ADVICE 02/23/17 s/p heparin drip for DVT treatment and currently on Lovenox subcutaneous Q12 hours Left pleural effusion Plan for left-sided thoracentesis today 03/19/17 Anemia of acute blood loss Transfused 1 unit packed red blood cell 03/15/17 PROPH: Protonix 40 mg by mouth daily for stress ulcer prophylaxis. Lovenox for treatment of DVT Luciano Cavanaugh MD March 19, 2017 10:11
--- NOTE | 2017-03-19 11:31 | RADRPT ---
EXAM DATE/TIME: 03/19/2017 10:44 [facility] COMPARISON: No previous studies available for comparison. INDICATIONS : Left chest pleural effusion. MEDICAL HISTORY : MRSA. Depression. Anxiety. Substance use. SURGICAL HISTORY : Tonsillectomy. Abscess removal left grion. ENCOUNTER: Initial ACUITY: 2 days PAIN SCORE: 4/10 LOCATION: Left chest MEASUREMENTS: SKIN TO PARIETAL PLEURA: 1.9 cm SKIN TO MAX SAFE DEPTH: 2.9 cm ESTIMATED FLUID VOLUME: 46.3 cc FLUID COMPOSITION: simple FINDINGS: No marking was performed. CONCLUSION: 1. Small left effusion measuring about 46 ml. Bipin Bryson MD on March 19, 2017 at 11:29 Board Certified Radiologist. This report was verified electronically.
--- NOTE | 2017-03-19 14:03 | HHI.IDPN ---
Note Infectious Disease Note Patient is in no distress. Afebrile. Complains of chills. Has severe pain at the left elbow. Coughing up phlegm. Blood cultures continue to be positive. 03/14 Blood culture - MRSA 03/16 Blood culture - MRSA 2D ECHO has TV lesion. Blood culture 03/14 has MRSA in 4 bottles. Blood culture 03/17 gram positive cocci. Aerobic bottles only. Presented to the emergency department on 03/14 with respiratory distress. PAST MEDICAL HISTORY 1. Anxiety, depression. 2. History of cellulitis. 3. IVDU. 4. Recent DVT of the right lower extremity. ALLERGIES VANCOMYCIN. ANTIBIOTICS: Linezolid. OBJECTIVE: Vital Signs Date Time Temp Pulse Resp B/P Pulse Ox O2 Delivery O2 Flow Rate FiO2 03/19/17 12:00 97.7 120 17 117/72 97 03/19/17 08:00 99.5 112 18 126/85 100 03/19/17 07:21 98.4 116 18 124/80 97 03/19/17 07:21 112 03/19/17 06:35 113 03/19/17 05:07 102 03/19/17 04:19 119 03/19/17 04:09 97.9 96 114/79 100 03/19/17 03:37 102 03/19/17 02:00 124 03/19/17 01:00 100 03/19/17 00:00 104 03/19/17 00:00 97.4 100 123/88 100 03/18/17 23:00 95 03/18/17 22:00 106 03/18/17 21:00 96 03/18/17 20:00 106 03/18/17 20:00 97.9 99 109/75 100 03/18/17 19:00 108 03/18/17 18:00 104 03/18/17 17:23 109 03/18/17 16:17 128 03/18/17 16:07 97.5 119 22 130/90 100 03/18/17 15:01 114 03/18/17 14:06 114 03/18/17 03/18/17 03/19/17 15:00 23:00 07:00 Intake Total 1420 ml 480 ml Output Total 1700 ml Balance -280 ml 480 ml Intake Oral 720 ml 480 ml IV Total 700 ml Output Urine Total 1700 ml # Voids 3 # Bowel Movements 1 1 Microbiology Date/Time Procedure Status Source Growth 03/16/17 18:39 Aerobic Blood Culture - Preliminary Resulted Blood Peripheral NO GROWTH IN 3 DAYS 03/16/17 18:39 Anaerobic Blood Culture - Preliminary Resulted Blood Peripheral NO GROWTH IN 3 DAYS 03/16/17 20:35 Aerobic Blood Culture - Final Resulted Blood Peripheral S. Aureus Mrsa Staph Sp Coagulase Negative 03/16/17 20:35 Anaerobic Blood Culture - Preliminary Resulted Blood Peripheral NO GROWTH IN 3 DAYS 03/16/17 20:41 Aerobic Blood Culture - Preliminary Resulted Blood Peripheral Gram Positive Cocci 03/16/17 20:41 Anaerobic Blood Culture - Preliminary Resulted Blood Peripheral NO GROWTH IN 3 DAYS 03/19/17 13:40 Aerobic Blood Culture Received Blood Peripheral Pending 03/19/17 13:40 Anaerobic Blood Culture Received Blood Peripheral Pending Microbiology Date/Time Procedure Status Source Growth 03/14/17 11:20 Gram Stain Received Sputum Expectorated Sputum Pending 03/14/17 11:20 Sputum Culture Received Sputum Expectorated Sputum Pending 03/14/17 11:20 Acid Fast Stain Received Sputum Expectorated Sputum Pending 03/14/17 11:20 Mycobacterial Culture Received Sputum Expectorated Sputum Pending 03/14/17 20:05 Aerobic Blood Culture - Final Complete Blood Peripheral S. Aureus Mrsa 03/14/17 20:05 Anaerobic Blood Culture - Final Complete S. Aureus Mrsa 03/14/17 20:10 Aerobic Blood Culture - Final Complete Blood Peripheral S. Aureus Mrsa 03/14/17 20:10 Anaerobic Blood Culture - Final Complete S. Aureus Mrsa 03/15/17 02:50 Urine Culture - Final Complete Urine Clean Catch NO GROWTH IN 48 HOURS. 03/15/17 02:50 Legionella Antigen - Final Complete Urine Catheterized Urine PRESUMPTIVE NEGATIVE FOR LEGIONELLA P... 03/15/17 04:50 Stool Occult Blood (CICI) - Final Complete Stool Stool HEMOCCULT NEGATIVE 03/15/17 11:20 Gram Stain Gopal Batch Sputum Expectorated Sputum Pending 03/15/17 11:20 Sputum Culture Gopal Batch Sputum Expectorated Sputum Pending 03/15/17 11:20 Acid Fast Stain Gopal Batch Sputum Expectorated Sputum Pending 03/15/17 11:20 Mycobacterial Culture Gopal Batch Sputum Expectorated Sputum Pending 03/16/17 18:39 Aerobic Blood Culture Received Blood Peripheral Pending 03/16/17 18:39 Anaerobic Blood Culture Received Blood Peripheral Pending 03/16/17 20:35 Aerobic Blood Culture Received Blood Peripheral Pending 03/16/17 20:35 Anaerobic Blood Culture Received Blood Peripheral Pending 03/16/17 20:41 Aerobic Blood Culture Received Blood Peripheral Pending 03/16/17 20:41 Anaerobic Blood Culture Received Blood Peripheral Pending IMPRESSION: Chest Ultrasound 03/19/17 0000 Signed Impressions: Service Date/Time: Sunday, March 19, 2017 10:44 - CONCLUSION: 1. Small left effusion measuring about 46 ml. Bipin Bryson MD Chest X-Ray 03/17/17 Signed Impressions: Service Date/Time: Friday, March 17, 2017 04:06 - CONCLUSION: Left pleural effusion and worsening air space process in the left lung. Suzanne Sykes MD Abdomen/Pelvis CT 03/15/171710 Signed Impressions: Service Date/Time: Wednesday, March 15, 2017 17:08 - CONCLUSION: 1. Bilateral cavitary pulmonary masses in the lung bases. 2. Small bilateral pleural effusions left greater than right which appear partially loculated. 3. Nonspecific bowel gas pattern which may represent an ileus or gastroenteritis. A bowel obstruction is less likely. A moderate amount of free fluid is present greatest in the pelvis. Kody Vogt MD Abdomen/Pelvis CT 03/15/[id number] Signed Impressions: Service Date/Time: Wednesday, March 15, 2017 17:08 - CONCLUSION: 1. Bilateral cavitary pulmonary masses in the lung bases. 2. Small bilateral pleural effusions left greater than right which appear partially loculated. 3. Nonspecific bowel gas pattern which may represent an ileus or gastroenteritis. A bowel obstruction is less likely. A moderate amount of free fluid is present greatest in the pelvis. Kody Vogt MD Upper Extremity Ultrasound 03/15/17 Signed Impressions: Service Date/Time: Wednesday, March 15, 2017 11:17 - CONCLUSION: 1. Small area of nonocclusive thrombus in the left mid brachial vein. 2. The remainder of the deep venous system is patent. Kody Vogt MD Upper Extremity CT 03/15/17 Signed Impressions: Service Date/Time: Wednesday, March 15, 2017 17:24 - CONCLUSION: 1. Findings are characteristic of a cellulitis of the distal arm and proximal forearm. In addition a mildly enhancing elbow joint effusion has developed since February 14 which can be characteristic of a septic arthritis. Bipin Bryson MD Thoracic Spine MRI 03/14/171956 Signed Impressions: Service Date/Time: Tuesday, March 14, 2017 20:29 - CONCLUSION: 1. No acute abnormality is seen of the thoracic spine. 2. Bilateral pneumonia and mediastinal/right hilar lymphadenopathy. Dominick Ibrahim MD CT Angiography 03/14/171956 Signed Impressions: Service Date/Time: Tuesday, March 14, 2017 22:37 - CONCLUSION: Pathological adenopathy within the mediastinum with extensive bilateral pulmonary nodules and air space consolidation some of which are cavitary and septic emboli is of primary consideration. Suzanne Sykes MD Chest X-Ray 03/14/171953 Signed Impressions: Service Date/Time: Tuesday, March 14, 2017 20:14 - CONCLUSION: Bilateral patchy pneumonia. Dominick Ibrahim MD Head CT 03/14/17 0000 Signed Impressions: Service Date/Time: Tuesday, March 14, 2017 22:34 - CONCLUSION: Unremarkable study. Suzanne Sykes MD PHYSICAL EXAMINATION GENERAL: Alert and oriented. Looks less drowsy. HEENT: No icterus. No conjunctival erythema. Oropharynx moist mucosa without lesions. No thrush. poor dentition. NECK: Supple without adenopathy. No swelling. LUNGS: Bilateral rhonchi. Good air movement. HEART: Tachycardic. 2/6 systolic murmur left sternal border. No rubs, no gallops. ABDOMEN: Bowel sounds present, soft, nontender. EXTREMITIES: No clubbing or cyanosis. Swelling and tenderness at the left wrist and at the elbow without erythema. L elbow very tender. No embolic lesions. Excoriated target lesions of both lower extremities, scattered at the thighs and tibias. SKIN: No diffuse rash. NEURO: Nonfocal. IMPRESSION 1. TV endocarditis. MRSA. Persistent bacteremia - not clearing. 2. Sepsis in patient who presented to the ED with respiratory distress and tachycardia and temperature 99.9 and elevated white blood cell count and bilateral infiltrates on chest x-ray. Positive blood culture. 3. Pulmonary septic emboli. 4. Thrombus of the left mid brachial vein. 5. left elbow ? septic arthritis. 5. Noncompliance with medical treatment. The patient left the hospital against medical advice prior to complete workup and treatment. 6. Leukocytosis secondary to infection. Improved. 7. VANCOMYCIN ALLERGY. RECOMMENDATIONS 1. Start Daptomycin since she is not clearing the bacteremia with Zyvox(CICI 2) . She is allergic to vancomycin (CICI 2) 2. Continue the Zyvox for pulmonary coverage since Daptomycin is degraded by pulmonary surfactant. 3. Repeat blood culture today. 4. Monitor clinical status. Ward Mcdowell MD March 19, 2017 14:03
[2017-03-19] MEDS: DAPTOmycin INJ 500 MG in SODIUM CHLORIDE 0.9% INJ 100 ML IV SCH (15:20)
[2017-03-20] VITALS: BP 123/80; PULSE 114; RESP 20; TEMP 97.6; O2SAT 98
[2017-03-20] MEDS: MORPHINE SULFATE 4 MG/ML INJ IV PUSH PRN ×4 (01:43→17:30)
[2017-03-20] MEDS: CHLORHEXIDINE GLUCONATE 2 % 1 PACK (2 CLOTHS) TOP SCH (04:00)
[2017-03-20] MEDS: oxyCODONE/ACETAMINOPHEN 5 MG/325 MG TAB PO PRN ×4 (05:42→22:04)
[2017-03-20 05:50] LABS: HEMATOCRIT 23.7 % (35.0-46.0); MEAN CELL VOLUME 78.8 FL (80.0-100.0); MEAN CORPUSCULAR HEMOGLOBIN 26.9 PG (27.0-34.0); MEAN CORPUSCULAR HGB CONC 34.1 % (32.0-36.0); PLATELET COUNT 338 TH/MM3 (150-450); RED BLOOD COUNT 3.01 MIL/MM3 (4.00-5.30); RED CELL DISTRIBUTION WIDTH 15.8 % (11.6-17.2); REVIEW FLAG FINAL; WHITE BLOOD COUNT 10.6 TH/MM3 (4.0-11.0)
[2017-03-20 08:00] VITALS: BP 117/73; PULSE 106; RESP 17; TEMP 96.4; O2SAT 98
[2017-03-20] MEDS: LINEZOLID 600 MG PREMIX 300 ML IV SCH (08:33)
[2017-03-20] MEDS: PANTOPRAZOLE SOD 40 MG DELAYED RELEASE TAB PO SCH (08:33)
[2017-03-20] MEDS: SODIUM CHLORIDE 0.9% FLUSH 10 ML FLUSH SCH ×2 (08:33→21:00)
[2017-03-20] MEDS: NS + KCL 20 MEQ INJ 1,000 ML IV SCH ×2 (08:34→17:31)
[2017-03-20] MEDS: DOCUSATE SODIUM 100 MG CAP PO SCH ×2 (08:34→21:00)
[2017-03-20] MEDS: ENOXAPARIN SODIUM 60 MG/0.6 ML SYRINGE SQ SCH ×2 (08:35→22:03)
--- NOTE | 2017-03-20 09:50 | HHI.PR ---
Subjective Remarks Follow-up sepsis/septic emboli 03/16/17-patient seen and examined, complains of left elbow pain otherwise denies any chest pain however has some minimal shortness of breath. Currently afebrile 03/17/17-patient seen and examined, currently afebrile and no acute event overnight. States left elbow pain is about the same 03/18/17-patient seen and examined, tachycardia, positive blood culture. Reports some improvement of left elbow pain. Currently afebrile 03/19/17-patient seen and examined, complained of shortness of breath. Plan for left thoracentesis today 03/20/17-patient seen and examined, family at the bedside including mom, father , boyfriend. Patient refused left thoracentesis yesterday however she is willing to have it done today. Afebrile. Objective Vitals Vital Signs Date Time Temp Pulse Resp B/P Pulse Ox O2 Delivery O2 Flow Rate FiO2 03/20/17 08:00 96.4 106 17 117/73 98 03/20/17 00:00 97.6 114 20 123/80 98 03/19/17 20:00 98.2 114 20 136/92 100 03/19/17 16:00 99.0 122 17 121/71 98 03/19/17 12:00 97.7 120 17 117/72 97 I/O 03/19/17 03/19/17 03/19/17 03/20/17 03/20/17 03/20/17 07:00 15:00 23:00 07:00 15:00 23:00 Intake Total 480 ml 2072 ml 845 ml 952 ml Output Total 700 ml Balance 480 ml 1372 ml 845 ml 952 ml Intake Oral 480 ml 240 ml 120 ml 240 ml IV Total 1832 ml 725 ml 712 ml Output Urine Total 700 ml # Voids 3 1 1 # Bowel Movements 1 0 Result Diagram: 03/20/17 0500 03/17/17 0828 Objective Remarks GENERAL: NAD SKIN: Warm and dry. HEAD: Normocephalic. EYES: No scleral icterus. No injection or drainage. NECK: Supple, trachea midline. No JVD or lymphadenopathy. CARDIOVASCULAR: Regular rate and rhythm without murmurs, gallops, or rubs. RESPIRATORY: Breath sounds equal bilaterally. No accessory muscle use. GASTROINTESTINAL: Abdomen soft, non-tender, nondistended. MUSCULOSKELETAL: No cyanosis, or edema. Left elbow TTP with Limited ROM BACK: Nontender without obvious deformity. No CVA tenderness. A/P Problem List: (1) Sepsis ICD Code: A41.9 Status: Acute (2) DVT, lower extremity, proximal, acute ICD Code: I82.4Y9 Status: Acute (3) Elbow pain, left ICD Code: M25.522 Status: Acute (4) Hypokalemia ICD Code: E87.6 Status: Acute (5) Cellulitis of left elbow ICD Code: L03.114 Status: Acute (6) Pleural effusion on left ICD Code: J90 Status: Acute Assessment and Plan 26-year-old female with Sepsis Multiple cavitary pulmonary lesions Vancomycin allergy (patient states rash and difficulty breathing) L elbow cellulitis TV endocarditis Bacteremia Currently on Zyvox and Cubicin per infectious disease specialist Repeat blood culture pending Lymphadenopathy also noted however repeat HIV negative. CMV and EBV tested per prior ID recommendations. CT elbow with Findings that are characteristic of a cellulitis of the distal arm and proximal forearm. CT abdomen and pelvis with finding of Bilateral cavitary pulmonary masses in the lung bases. Cocaine abuse, ?benzo use/abuse Continue current regimen as to prevent withdrawal Percocet 5-10 mg every 4 hours when necessary pain Morphine 2-4 mg IV every 3 hours when necessary breakthrough pain CT brain 03/14/17no acute abnormality Multiple cavitary lung lesions, suspected septic pulmonary emboli Tobacco abuse CT pulmonary angiogramno evidence for pulmonary embolism. There are multiple bilateral cavitary lung lesions (RUL, RLL, SREE, LLL) including large consolidation of right upper lobe. These lesions appear c/w endocarditis, Appreciate input from infectious disease specialist, pulmonary medicine Continue with current antibiotic, DuoNeb when necessary 2-D echo noted Mild AST elevation Moderate protein energy malnutrition Mildly elevated lipase of unclear significance History of hepatitis C Continue to monitor LFTs Hyponatremia -resolved Hypokalemia-resolved Acute dehydration-resolved Cortisol and TSH are normal. monitor electrolyte Right lower extremity DVT U/s RLE from 02/14/17DVT right superficial femoral to calf Was on Lovenox during prior hospitalization but states she has not been on any anticoagulation patient since she left AGAINST MEDICAL ADVICE 02/23/17 s/p heparin drip for DVT treatment and currently on Lovenox subcutaneous Q12 hours Left pleural effusion Plan for left-sided thoracentesis today 03/20/17 as patient refused it yesterday 03/19/17 Anemia of acute blood loss Transfused 1 unit packed red blood cell 03/15/17 PROPH: Protonix 40 mg by mouth daily for stress ulcer prophylaxis. Lovenox for treatment of DVT Luciano Cavanaugh MD March 20, 2017 09:50
[2017-03-20 12:00] VITALS: BP 117/77; PULSE 112; RESP 18; TEMP 98.7; O2SAT 95
--- NOTE | 2017-03-20 14:31 | HHI.IDPN ---
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 Afebrile. Complains of chest and LUE pain Blood cultures continue to be positive. 03/14 Blood culture - MRSA 03/16 Blood culture - MRSA 2D ECHO has TV lesion. Blood culture 03/14 has MRSA in 4 bottles. Blood culture 03/17 gram positive cocci. Aerobic bottles only. Antibiotics Daptomycin Past Medical History 1. Anxiety, depression. 2. History of cellulitis. 3. IVDU. 4. Recent DVT of the right lower extremity. Allergies: Coded Allergies: Vancomycin (Verified Allergy, Severe, Hives, 03/14/17) *MDRO Multi-Drug Resistant Organism (Verified Adverse Reaction, Unknown, ) MRSA (blood)-03/14/17 MRSA PCR Positive 03/14/17 MRSA (arm-06/19/16) MRSA (R cheek- 11/07/16) Objective . Vital Signs Date Time Temp Pulse Resp B/P Pulse Ox O2 Delivery O2 Flow Rate FiO2 03/20/17 12:00 98.7 112 18 117/77 95 03/20/17 08:00 96.4 106 17 117/73 98 03/20/17 00:00 97.6 114 20 123/80 98 03/19/17 20:00 98.2 114 20 136/92 100 03/19/17 16:00 99.0 122 17 121/71 98 03/19/17 03/19/17 03/20/17 15:00 23:00 07:00 Intake Total 2072 ml 845 ml 952 ml Output Total 700 ml Balance 1372 ml 845 ml 952 ml Intake Oral 240 ml 120 ml 240 ml IV Total 1832 ml 725 ml 712 ml Output Urine Total 700 ml # Voids 1 1 # Bowel Movements 0 . Laboratory Tests Test 03/20/17 05:00 White Blood Count 10.6 TH/MM3 Red Blood Count 3.01 MIL/MM3 Hemoglobin 8.1 GM/DL Hematocrit 23.7 % Mean Corpuscular Volume 78.8 FL Mean Corpuscular Hemoglobin 26.9 PG Mean Corpuscular Hemoglobin 34.1 % Concent Red Cell Distribution Width 15.8 % Platelet Count 338 TH/MM3 Mean Platelet Volume 6.7 FL Microbiology Date/Time Procedure Status Source Growth 03/19/17 13:40 Aerobic Blood Culture - Preliminary Resulted Blood Peripheral NO GROWTH IN 1 DAY 03/19/17 13:40 Anaerobic Blood Culture - Preliminary Resulted Blood Peripheral NO GROWTH IN 1 DAY 03/20/17 05:00 Aerobic Blood Culture Resulted Blood Peripheral Pending 03/20/17 05:00 Anaerobic Blood Culture - Final Resulted Blood Peripheral ONLY AEROBIC CULTURE ORDERED Imaging Last Impressions Chest Ultrasound 03/19/17 0000 Signed Impressions: Service Date/Time: Sunday, March 19, 2017 10:44 - CONCLUSION: 1. Small left effusion measuring about 46 ml. Bipin Bryson MD Chest X-Ray 03/17/17 0000 Signed Impressions: Service Date/Time: Friday, March 17, 2017 04:06 - CONCLUSION: Left pleural effusion and worsening air space process in the left lung. Suzanne Sykes MD Abdomen/Pelvis CT 03/15/17 1711 Signed Impressions: Service Date/Time: Wednesday, March 15, 2017 17:08 - CONCLUSION: 1. Bilateral cavitary pulmonary masses in the lung bases. 2. Small bilateral pleural effusions left greater than right which appear partially loculated. 3. Nonspecific bowel gas pattern which may represent an ileus or gastroenteritis. A bowel obstruction is less likely. A moderate amount of free fluid is present greatest in the pelvis. Kody Vogt MD Upper Extremity Ultrasound 03/15/17 0000 Signed Impressions: Service Date/Time: Wednesday, March 15, 2017 11:17 - CONCLUSION: 1. Small area of nonocclusive thrombus in the left mid brachial vein. 2. The remainder of the deep venous system is patent. Kody Vogt MD Upper Extremity CT 03/15/17 0000 Signed Impressions: Service Date/Time: Wednesday, March 15, 2017 17:24 - CONCLUSION: 1. Findings are characteristic of a cellulitis of the distal arm and proximal forearm. In addition a mildly enhancing elbow joint effusion has developed since February 14 which can be characteristic of a septic arthritis. Bipin Bryson MD Thoracic Spine MRI 03/14/171956 Signed Impressions: Service Date/Time: Tuesday, March 14, 2017 20:29 - CONCLUSION: 1. No acute abnormality is seen of the thoracic spine. 2. Bilateral pneumonia and mediastinal/right hilar lymphadenopathy. Dominick Ibrahim MD CT Angiography 03/14/171956 Signed Impressions: Service Date/Time: Tuesday, March 14, 2017 22:37 - CONCLUSION: Pathological adenopathy within the mediastinum with extensive bilateral pulmonary nodules and air space consolidation some of which are cavitary and septic emboli is of primary consideration. Suzanne Sykes MD Head CT 03/14/17 0000 Signed Impressions: Service Date/Time: Tuesday, March 14, 2017 22:34 - CONCLUSION: Unremarkable study. Suzanne Sykes MD Physical Exam GENERAL: Alert and oriented. HEENT: No icterus. No conjunctival erythema. Oropharynx moist mucosa without lesions. No thrush. poor dentition. NECK: Supple without adenopathy. No swelling. LUNGS: Bilateral rhonchi. Good air movement. HEART: Tachycardic. 2/6 systolic murmur left sternal border. No rubs, no gallops. ABDOMEN: Bowel sounds present, soft, nontender. EXTREMITIES: No clubbing or cyanosis. Swelling and tenderness at the left wrist and at the elbow without erythema. L elbow tender. No embolic lesions. Excoriated target lesions of both lower extremities, scattered at the thighs and tibias. SKIN: No diffuse rash. NEURO: Nonfocal. Assessment & Plan Remarks 1. TV endocarditis. MRSA. Persistent bacteremia - not clearing. 2. Sepsis in patient who presented to the ED with respiratory distress and tachycardia and temperature 99.9 and elevated white blood cell count and bilateral infiltrates on chest x-ray. Positive blood culture. 3. Pulmonary septic emboli. 4. Thrombus of the left mid brachial vein. 5. left elbow ? septic arthritis. 5. Noncompliance with medical treatment. The patient left the hospital against medical advice prior to complete workup and treatment. 6. Leukocytosis secondary to infection. Improved. 7. VANCOMYCIN ALLERGY. 8. Pulmonarty seoptic emboli with secondary effuios, ?e mpyema RECOMMENDATIONS 1. cont Daptomycin since she is not clearing the bacteremia with Zyvox(CICI 2) . She is allergic to vancomycin (CICI 2) 2.dc Zyvox 3. Repeat blood culture today. 4. Monitor clinical status. 5. fu pleural fluid clx Vanessa Wolff MD March 20, 2017 14:31
[2017-03-20 16:00] VITALS: BP 119/75; PULSE 103; RESP 17; TEMP 97.9; O2SAT 99
[2017-03-20] MEDS: DAPTOmycin INJ 500 MG in SODIUM CHLORIDE 0.9% INJ 100 ML IV SCH (16:14)
--- NOTE | 2017-03-20 16:34 | HHI.PR ---
Subjective Remarks 26 YOWF with TV Endocarditis, Pn Has cough, no sp no Fever Family at BS Objective Vital Signs Vital Signs Date Time Temp Pulse Resp B/P Pulse Ox O2 Delivery O2 Flow Rate FiO2 03/20/17 12:00 98.7 112 18 117/77 95 03/20/17 08:00 96.4 106 17 117/73 98 03/20/17 00:00 97.6 114 20 123/80 98 03/19/17 20:00 98.2 114 20 136/92 100 I/O 03/19/17 03/19/17 03/19/17 03/20/17 03/20/17 03/20/17 07:00 15:00 23:00 07:00 15:00 23:00 Intake Total 480 ml 2072 ml 845 ml 952 ml 360 ml Output Total 700 ml Balance 480 ml 1372 ml 845 ml 952 ml 360 ml Intake Oral 480 ml 240 ml 120 ml 240 ml 360 ml IV Total 1832 ml 725 ml 712 ml Output Urine Total 700 ml # Voids 3 1 1 2 # Bowel Movements 1 0 0 Result Diagram: 03/20/17 0500 03/17/17 0828 Objective Remarks GENERAL: Thin built female,NAD SKIN: Warm and dry. HEAD: Normocephalic. EYES: No scleral icterus. No injection or drainage. NECK: Supple, trachea midline. No JVD or lymphadenopathy. CARDIOVASCULAR: Regular rate and rhythm without murmurs, gallops, or rubs. RESPIRATORY: Breath sounds equal bilaterally. No accessory muscle use. GASTROINTESTINAL: Abdomen soft, non-tender, nondistended. MUSCULOSKELETAL: No cyanosis, or edema. BACK: Nontender without obvious deformity. No CVA tenderness. A/P Assessment and Plan TV Endocarditis Pneumonia DVT Septic Emboli Leucocytosis BARBRA: Abx Daptomycin per ID Cont Lovenox Aerosol patitos Dario Villafana MD March 20, 2017 16:34
[2017-03-20 20:00] VITALS: BP 121/93; PULSE 102; RESP 20; TEMP 96.3; O2SAT 100
[2017-03-21] VITALS: BP 120/83; PULSE 118; RESP 20; TEMP 100.7; O2SAT 98
[2017-03-21] MEDS: MORPHINE SULFATE 4 MG/ML INJ IV PUSH PRN ×5 (00:30→21:05)
[2017-03-21] MEDS: CHLORHEXIDINE GLUCONATE 2 % 1 PACK (2 CLOTHS) TOP SCH (03:20)
[2017-03-21] MEDS: oxyCODONE/ACETAMINOPHEN 5 MG/325 MG TAB PO PRN ×6 (03:36→23:49)
[2017-03-21 04:00] VITALS: TEMP 98.8
[2017-03-21] MEDS: NS + KCL 20 MEQ INJ 1,000 ML IV SCH ×2 (04:53→13:07)
[2017-03-21] MEDS: ENOXAPARIN SODIUM 60 MG/0.6 ML SYRINGE SQ SCH ×2 (07:33→19:47)
[2017-03-21] MEDS: PANTOPRAZOLE SOD 40 MG DELAYED RELEASE TAB PO SCH (07:33)
[2017-03-21] MEDS: SODIUM CHLORIDE 0.9% FLUSH 10 ML FLUSH SCH ×2 (07:34→19:48)
[2017-03-21] MEDS: DOCUSATE SODIUM 100 MG CAP PO SCH ×2 (07:34→19:48)
[2017-03-21 08:00] VITALS: BP 118/76; PULSE 121; RESP 18; TEMP 96.6; O2SAT 98
--- NOTE | 2017-03-21 11:45 | HHI.PR ---
Subjective Remarks Follow-up sepsis/septic emboli 03/16/17-patient seen and examined, complains of left elbow pain otherwise denies any chest pain however has some minimal shortness of breath. Currently afebrile 03/17/17-patient seen and examined, currently afebrile and no acute event overnight. States left elbow pain is about the same 03/18/17-patient seen and examined, tachycardia, positive blood culture. Reports some improvement of left elbow pain. Currently afebrile 03/19/17-patient seen and examined, complained of shortness of breath. Plan for left thoracentesis today 03/20/17-patient seen and examined, family at the bedside including mom, father , boyfriend. Patient refused left thoracentesis yesterday however she is willing to have it done today. Afebrile. 03/21/17-patient seen and examined, Tmax 100.7@midnight. Secondary to low left pleural fluid no thoracentesis was done yesterday. Objective Vitals Vital Signs Date Time Temp Pulse Resp B/P Pulse Ox O2 Delivery O2 Flow Rate FiO2 03/21/17 08:00 96.6 121 18 118/76 98 03/21/17 04:00 98.8 03/21/17 00:00 100.7 118 20 120/83 98 03/20/17 20:00 96.3 102 20 121/93 100 03/20/17 16:00 97.9 103 17 119/75 99 03/20/17 12:00 98.7 112 18 117/77 95 I/O 03/20/17 03/20/17 03/20/17 03/21/17 03/21/17 03/21/17 07:00 15:00 23:00 07:00 15:00 23:00 Intake Total 952 ml 360 ml 975 ml 1280 ml Balance 952 ml 360 ml 975 ml 1280 ml Intake Oral 240 ml 360 ml 480 ml 480 ml IV Total 712 ml 495 ml 800 ml # Voids 1 2 5 2 # Bowel Movements 0 Result Diagram: 03/20/17 0500 03/17/17 0828 Objective Remarks GENERAL: NAD SKIN: Warm and dry. HEAD: Normocephalic. EYES: No scleral icterus. No injection or drainage. NECK: Supple, trachea midline. No JVD or lymphadenopathy. CARDIOVASCULAR: Regular rate and rhythm without murmurs, gallops, or rubs. RESPIRATORY: Breath sounds equal bilaterally. No accessory muscle use. GASTROINTESTINAL: Abdomen soft, non-tender, nondistended. MUSCULOSKELETAL: No cyanosis, or edema. Left elbow TTP with Limited ROM BACK: Nontender without obvious deformity. No CVA tenderness. A/P Problem List: (1) Sepsis ICD Code: A41.9 Status: Acute (2) DVT, lower extremity, proximal, acute ICD Code: I82.4Y9 Status: Acute (3) Elbow pain, left ICD Code: M25.522 Status: Acute (4) Hypokalemia ICD Code: E87.6 Status: Acute (5) Cellulitis of left elbow ICD Code: L03.114 Status: Acute (6) Pleural effusion on left ICD Code: J90 Status: Acute Assessment and Plan 26-year-old female with Sepsis Multiple cavitary pulmonary lesions Vancomycin allergy (patient states rash and difficulty breathing) L elbow cellulitis TV endocarditis Bacteremia Currently on Cubicin per infectious disease specialist. Zyvox was discontinued yesterday Repeat blood culture NTD Lymphadenopathy also noted however repeat HIV negative. CMV and EBV tested per prior ID recommendations. CT elbow with Findings that are characteristic of a cellulitis of the distal arm and proximal forearm. CT abdomen and pelvis with finding of Bilateral cavitary pulmonary masses in the lung bases. Cocaine abuse, ?benzo use/abuse Continue current regimen as to prevent withdrawal Percocet 5-10 mg every 4 hours when necessary pain Morphine 2-4 mg IV every 3 hours when necessary breakthrough pain CT brain 03/14/17no acute abnormality Multiple cavitary lung lesions, suspected septic pulmonary emboli Tobacco abuse CT pulmonary angiogramno evidence for pulmonary embolism. There are multiple bilateral cavitary lung lesions (RUL, RLL, SREE, LLL) including large consolidation of right upper lobe. These lesions appear c/w endocarditis, Appreciate input from infectious disease specialist, pulmonary medicine Continue with current antibiotic, DuoNeb when necessary 2-D echo noted Mild AST elevation Moderate protein energy malnutrition Mildly elevated lipase of unclear significance History of hepatitis C Continue to monitor LFTs Hyponatremia -resolved Hypokalemia-resolved Acute dehydration-resolved Cortisol and TSH are normal. monitor electrolyte Right lower extremity DVT U/s RLE from 02/14/17DVT right superficial femoral to calf Was on Lovenox during prior hospitalization but states she has not been on any anticoagulation patient since she left AGAINST MEDICAL ADVICE 02/23/17 s/p heparin drip for DVT treatment and currently on Lovenox subcutaneous Q12 hours Left pleural effusion However secondary to low pleural fluid no left-sided thoracentesis was performed Anemia of acute blood loss Transfused 1 unit packed red blood cell 03/15/17 PROPH: Protonix 40 mg by mouth daily for stress ulcer prophylaxis. Lovenox for treatment of DVT Luciano Cavanaugh MD March 21, 2017 11:45
[2017-03-21 12:00] VITALS: BP 122/80; PULSE 116; RESP 17; TEMP 97.5; O2SAT 99
[2017-03-21] MEDS: DAPTOmycin INJ 500 MG in SODIUM CHLORIDE 0.9% INJ 100 ML IV SCH (15:55)
[2017-03-21 16:00] VITALS: BP 127/80; PULSE 115; RESP 18; TEMP 97.6; O2SAT 99
[2017-03-21 20:00] VITALS: BP 141/86; PULSE 120; RESP 24; TEMP 99.8; O2SAT 98
[2017-03-22] VITALS: BP 119/81; PULSE 123; RESP 22; TEMP 100.6; O2SAT 98
[2017-03-22] MEDS: NS + KCL 20 MEQ INJ 1,000 ML IV SCH ×3 (00:53→21:13)
[2017-03-22] MEDS: MORPHINE SULFATE 4 MG/ML INJ IV PUSH PRN ×6 (01:33→22:24)
[2017-03-22] MEDS: oxyCODONE/ACETAMINOPHEN 5 MG/325 MG TAB PO PRN ×5 (03:58→21:14)
[2017-03-22] MEDS: CHLORHEXIDINE GLUCONATE 2 % 1 PACK (2 CLOTHS) TOP SCH (04:00)
[2017-03-22 08:00] VITALS: BP 122/76; PULSE 112; RESP 16; TEMP 98.6; O2SAT 99
[2017-03-22] MEDS: ENOXAPARIN SODIUM 60 MG/0.6 ML SYRINGE SQ SCH ×2 (08:25→21:13)
[2017-03-22] MEDS: DOCUSATE SODIUM 100 MG CAP PO SCH ×2 (08:26→21:00)
[2017-03-22] MEDS: PANTOPRAZOLE SOD 40 MG DELAYED RELEASE TAB PO SCH (08:26)
[2017-03-22] MEDS: SODIUM CHLORIDE 0.9% FLUSH 10 ML FLUSH SCH ×2 (08:26→21:00)
--- NOTE | 2017-03-22 11:05 | HHI.PR ---
Subjective Remarks Follow-up sepsis/septic emboli 03/16/17-patient seen and examined, complains of left elbow pain otherwise denies any chest pain however has some minimal shortness of breath. Currently afebrile 03/17/17-patient seen and examined, currently afebrile and no acute event overnight. States left elbow pain is about the same 03/18/17-patient seen and examined, tachycardia, positive blood culture. Reports some improvement of left elbow pain. Currently afebrile 03/19/17-patient seen and examined, complained of shortness of breath. Plan for left thoracentesis today 03/20/17-patient seen and examined, family at the bedside including mom, father , boyfriend. Patient refused left thoracentesis yesterday however she is willing to have it done today. Afebrile. 03/21/17-patient seen and examined, Tmax 100.7@midnight. Secondary to low left pleural fluid no thoracentesis was done yesterday. 03/22/17-patient seen and examined, complains of left elbow pain otherwise no other issues. Objective Vitals Vital Signs Date Time Temp Pulse Resp B/P Pulse Ox O2 Delivery O2 Flow Rate FiO2 03/22/17 08:00 98.6 112 16 122/76 99 03/22/17 05:04 18 03/22/17 04:58 18 03/22/17 00:00 100.6 123 22 119/81 98 03/21/17 20:00 99.8 120 24 141/86 98 03/21/17 16:00 97.6 115 18 127/80 99 03/21/17 12:00 97.5 116 17 122/80 99 I/O 03/21/17 03/21/17 03/21/17 03/22/17 03/22/17 03/22/17 07:00 15:00 23:00 07:00 15:00 23:00 Intake Total 1280 ml 1076 ml 1060 ml 674 ml Balance 1280 ml 1076 ml 1060 ml 674 ml Intake Oral 480 ml 240 ml 480 ml 480 ml IV Total 800 ml 836 ml 580 ml 194 ml # Voids 2 2 1 3 # Bowel Movements 0 1 0 Result Diagram: 03/20/17 0500 Objective Remarks GENERAL: NAD SKIN: Warm and dry. HEAD: Normocephalic. EYES: No scleral icterus. No injection or drainage. NECK: Supple, trachea midline. No JVD or lymphadenopathy. CARDIOVASCULAR: Regular rate and rhythm without murmurs, gallops, or rubs. RESPIRATORY: Breath sounds equal bilaterally. No accessory muscle use. GASTROINTESTINAL: Abdomen soft, non-tender, nondistended. MUSCULOSKELETAL: No cyanosis, or edema. Left elbow TTP with Limited ROM BACK: Nontender without obvious deformity. No CVA tenderness. A/P Problem List: (1) Sepsis ICD Code: A41.9 Status: Acute (2) DVT, lower extremity, proximal, acute ICD Code: I82.4Y9 Status: Acute (3) Elbow pain, left ICD Code: M25.522 Status: Acute (4) Hypokalemia ICD Code: E87.6 Status: Acute (5) Cellulitis of left elbow ICD Code: L03.114 Status: Acute (6) Pleural effusion on left ICD Code: J90 Status: Acute Assessment and Plan 26-year-old female with Sepsis Multiple cavitary pulmonary lesions Vancomycin allergy (patient states rash and difficulty breathing) L elbow cellulitis TV endocarditis Bacteremia Currently on Cubicin per infectious disease specialist. Zyvox was discontinued yesterday Repeat blood culture NTD Lymphadenopathy also noted however repeat HIV negative. CMV and EBV tested per prior ID recommendations. CT elbow with Findings that are characteristic of a cellulitis of the distal arm and proximal forearm. CT abdomen and pelvis with finding of Bilateral cavitary pulmonary masses in the lung bases. Cocaine abuse, ?benzo use/abuse Percocet 5-10 mg every 4 hours when necessary pain Morphine 2-4 mg IV every 3 hours when necessary breakthrough pain CT brain 03/14/17no acute abnormality Multiple cavitary lung lesions, suspected septic pulmonary emboli Tobacco abuse CT pulmonary angiogramno evidence for pulmonary embolism. There are multiple bilateral cavitary lung lesions (RUL, RLL, SREE, LLL) including large consolidation of right upper lobe. These lesions appear c/w endocarditis, Appreciate input from infectious disease specialist, pulmonary medicine Continue with current antibiotic, DuoNeb when necessary 2-D echo noted Mild AST elevation Moderate protein energy malnutrition Mildly elevated lipase of unclear significance History of hepatitis C Continue to monitor LFTs Hyponatremia -resolved Hypokalemia-resolved Acute dehydration-resolved monitor electrolyte Right lower extremity DVT U/s RLE from 4/23/17DVT right superficial femoral to calf Was on Lovenox during prior hospitalization but states she has not been on any anticoagulation patient since she left AGAINST MEDICAL ADVICE 02/23/17 s/p heparin drip for DVT treatment and currently on Lovenox subcutaneous Q12 hours Left pleural effusion However secondary to low pleural fluid no left-sided thoracentesis was performed Anemia of acute blood loss Transfused 1 unit packed red blood cell 03/15/17 PROPH: Protonix 40 mg by mouth daily for stress ulcer prophylaxis. Lovenox for treatment of DVT Luciano Cavanaugh MD March 22, 2017 11:05
[2017-03-22 12:00] VITALS: BP 125/70; PULSE 108; RESP 17; TEMP 98.4; O2SAT 100
[2017-03-22] MEDS: DAPTOmycin INJ 500 MG in SODIUM CHLORIDE 0.9% INJ 100 ML IV SCH (14:22)
[2017-03-22 16:00] VITALS: BP 133/78; PULSE 99; RESP 18; TEMP 96.5; O2SAT 97
--- NOTE | 2017-03-22 17:26 | HHI.PR ---
Subjective Remarks 26 YOWF with TV Endocarditis, Pn Has cough, no sp Low grade Fever Family at BS Objective Vital Signs Vital Signs Date Time Temp Pulse Resp B/P Pulse Ox O2 Delivery O2 Flow Rate FiO2 03/22/17 12:00 98.4 108 17 125/70 100 03/22/17 08:00 98.6 112 16 122/76 99 03/22/17 05:04 18 03/22/17 04:58 18 03/22/17 00:00 100.6 123 22 119/81 98 03/21/17 20:00 99.8 120 24 141/86 98 I/O 03/21/17 03/21/17 03/21/17 03/22/17 03/22/17 03/22/17 07:00 15:00 23:00 07:00 15:00 23:00 Intake Total 1280 ml 1076 ml 1060 ml 674 ml 1071 ml Balance 1280 ml 1076 ml 1060 ml 674 ml 1071 ml Intake Oral 480 ml 240 ml 480 ml 480 ml 480 ml IV Total 800 ml 836 ml 580 ml 194 ml 591 ml # Voids 2 2 1 3 3 # Bowel Movements 0 1 0 0 Result Diagram: 03/20/17 0500 Objective Remarks GENERAL: Thin built female,NAD SKIN: Warm and dry. HEAD: Normocephalic. EYES: No scleral icterus. No injection or drainage. NECK: Supple, trachea midline. No JVD or lymphadenopathy. CARDIOVASCULAR: Regular rate and rhythm without murmurs, gallops, or rubs. RESPIRATORY: Breath sounds equal bilaterally. No accessory muscle use. GASTROINTESTINAL: Abdomen soft, non-tender, nondistended. MUSCULOSKELETAL: No cyanosis, or edema. BACK: Nontender without obvious deformity. No CVA tenderness. A/P Assessment and Plan TV Endocarditis Pneumonia DVT Septic Emboli Leucocytosis BARBRA: Abx Daptomycin per ID Cont Lovenox Aerosol patitos Dario Villafana MD March 22, 2017 17:26
[2017-03-22 20:00] VITALS: BP 116/77; PULSE 113; RESP 22; TEMP 97.8; O2SAT 98
[2017-03-23] VITALS: BP 121/80; PULSE 118; RESP 22; TEMP 99; O2SAT 98
[2017-03-23] MEDS: oxyCODONE/ACETAMINOPHEN 5 MG/325 MG TAB PO PRN ×6 (01:15→23:22)
[2017-03-23] MEDS: MORPHINE SULFATE 4 MG/ML INJ IV PUSH PRN ×5 (02:19→20:07)
[2017-03-23] MEDS: CHLORHEXIDINE GLUCONATE 2 % 1 PACK (2 CLOTHS) TOP SCH (04:00)
[2017-03-23] MEDS: NS + KCL 20 MEQ INJ 1,000 ML IV SCH ×2 (05:14→18:40)
[2017-03-23] MEDS: SODIUM CHLORIDE 0.9% FLUSH 10 ML FLUSH SCH ×2 (07:59→20:14)
[2017-03-23] MEDS: ENOXAPARIN SODIUM 60 MG/0.6 ML SYRINGE SQ SCH ×2 (07:59→20:06)
[2017-03-23] MEDS: PANTOPRAZOLE SOD 40 MG DELAYED RELEASE TAB PO SCH (07:59)
[2017-03-23] MEDS: DOCUSATE SODIUM 100 MG CAP PO SCH ×2 (07:59→20:14)
[2017-03-23 08:00] VITALS: BP 117/70; PULSE 61; RESP 17; TEMP 97.8; O2SAT 98
--- NOTE | 2017-03-23 10:57 | HHI.PR ---
Subjective Remarks Follow-up sepsis/septic emboli 03/16/17-patient seen and examined, complains of left elbow pain otherwise denies any chest pain however has some minimal shortness of breath. Currently afebrile 03/17/17-patient seen and examined, currently afebrile and no acute event overnight. States left elbow pain is about the same 03/18/17-patient seen and examined, tachycardia, positive blood culture. Reports some improvement of left elbow pain. Currently afebrile 03/19/17-patient seen and examined, complained of shortness of breath. Plan for left thoracentesis today 03/20/17-patient seen and examined, family at the bedside including mom, father , boyfriend. Patient refused left thoracentesis yesterday however she is willing to have it done today. Afebrile. 03/21/17-patient seen and examined, Tmax 100.7@midnight. Secondary to low left pleural fluid no thoracentesis was done yesterday. 03/22/17-patient seen and examined, complains of left elbow pain otherwise no other issues. 03/23/17-patient seen and examined; no acute event overnight and stable. Requesting regular diet Objective Vitals Vital Signs Date Time Temp Pulse Resp B/P Pulse Ox O2 Delivery O2 Flow Rate FiO2 03/23/17 08:00 97.8 61 17 117/70 98 03/23/17 06:14 18 03/23/17 02:24 18 03/23/17 00:00 99.0 118 22 121/80 98 03/22/17 20:00 97.8 113 22 116/77 98 03/22/17 16:00 96.5 99 18 133/78 97 03/22/17 12:00 98.4 108 17 125/70 100 I/O 03/22/17 03/22/17 03/22/17 03/23/17 03/23/17 03/23/17 06:59 14:59 22:59 06:59 14:59 22:59 Intake Total 674 ml 1071 ml 1012 ml 1306 ml Balance 674 ml 1071 ml 1012 ml 1306 ml Intake Oral 480 ml 480 ml 480 ml 320 ml IV Total 194 ml 591 ml 532 ml 986 ml # Voids 3 3 2 2 # Bowel Movements 0 0 0 0 Result Diagram: 03/20/17 0500 Objective Remarks GENERAL: NAD SKIN: Warm and dry. HEAD: Normocephalic. EYES: No scleral icterus. No injection or drainage. NECK: Supple, trachea midline. No JVD or lymphadenopathy. CARDIOVASCULAR: Regular rate and rhythm without murmurs, gallops, or rubs. RESPIRATORY: Breath sounds equal bilaterally. No accessory muscle use. GASTROINTESTINAL: Abdomen soft, non-tender, nondistended. MUSCULOSKELETAL: No cyanosis, or edema. Left elbow TTP with Limited ROM BACK: Nontender without obvious deformity. No CVA tenderness. A/P Problem List: (1) Sepsis ICD Code: A41.9 Status: Acute (2) DVT, lower extremity, proximal, acute ICD Code: I82.4Y9 Status: Acute (3) Elbow pain, left ICD Code: M25.522 Status: Acute (4) Hypokalemia ICD Code: E87.6 Status: Acute (5) Cellulitis of left elbow ICD Code: L03.114 Status: Acute (6) Pleural effusion on left ICD Code: J90 Status: Acute Assessment and Plan 26-year-old female with Sepsis Multiple cavitary pulmonary lesions Vancomycin allergy (patient states rash and difficulty breathing) L elbow cellulitis TV endocarditis Bacteremia Continue Cubicin per infectious disease specialist. Repeat blood culture NTD Lymphadenopathy also noted however repeat HIV negative. CT elbow with Findings that are characteristic of a cellulitis of the distal arm and proximal forearm. CT abdomen and pelvis with finding of Bilateral cavitary pulmonary masses in the lung bases. Cocaine abuse, ?benzo use/abuse Percocet 5-10 mg every 4 hours when necessary pain Morphine 2-4 mg IV every 3 hours when necessary breakthrough pain CT brain 03/14/17no acute abnormality Multiple cavitary lung lesions, suspected septic pulmonary emboli Tobacco abuse CT pulmonary angiogramno evidence for pulmonary embolism. There are multiple bilateral cavitary lung lesions (RUL, RLL, SREE, LLL) including large consolidation of right upper lobe. These lesions appear c/w endocarditis, Appreciate input from infectious disease specialist, pulmonary medicine Continue with current antibiotic, DuoNeb when necessary 2-D echo noted Mild AST elevation Moderate protein energy malnutrition Mildly elevated lipase of unclear significance History of hepatitis C Continue to monitor LFTs Hyponatremia -resolved Hypokalemia-resolved Acute dehydration-resolved monitor electrolyte Right lower extremity DVT U/s RLE from 02/14/17DVT right superficial femoral to calf Was on Lovenox during prior hospitalization but states she has not been on any anticoagulation patient since she left AGAINST MEDICAL ADVICE 02/23/17 s/p heparin drip for DVT treatment and currently on Lovenox subcutaneous Q12 hours Left pleural effusion However secondary to low pleural fluid no left-sided thoracentesis was performed Anemia of acute blood loss Transfused 1 unit packed red blood cell 03/15/17 PROPH: Protonix 40 mg by mouth daily for stress ulcer prophylaxis. Lovenox for treatment of DVT Luciano Cavanaugh MD March 23, 2017 10:57
[2017-03-23 12:00] VITALS: BP 123/82; PULSE 114; RESP 17; TEMP 96.5; O2SAT 99
--- NOTE | 2017-03-23 12:12 | HHI.IDPN ---
Note Infectious Disease Note Patient is in no distress. Says she has good and bad days. Afebrile. Complains of chills. Less pain at the left elbow. Swelling decreased. Coughing up phlegm. Notes yellow color. Blood cultures continue to be positive. 03/14 Blood culture - MRSA 03/16 Blood culture - MRSA 03/19 Blood culture - No growth 3 days 03/20 Blood culture - No growth 4 days. 2D ECHO has TV lesion. Presented to the emergency department on 03/14 with respiratory distress. PAST MEDICAL HISTORY 1. Anxiety, depression. 2. History of cellulitis. 3. IVDU. 4. Recent DVT of the right lower extremity. ALLERGIES VANCOMYCIN. ANTIBIOTICS: Daptomycin OBJECTIVE: Vital Signs Date Time Temp Pulse Resp B/P Pulse Ox O2 Delivery O2 Flow Rate FiO2 03/23/17 08:00 97.8 61 17 117/70 98 03/23/17 06:14 18 03/23/17 02:24 18 03/23/17 00:00 99.0 118 22 121/80 98 03/22/17 20:00 97.8 113 22 116/77 98 03/22/17 16:00 96.5 99 18 133/78 97 03/22/17 12:00 98.4 108 17 125/70 100 03/22/17 03/22/17 03/23/17 15:00 23:00 07:00 Intake Total 1071 ml 1012 ml 1306 ml Balance 1071 ml 1012 ml 1306 ml Intake Oral 480 ml 480 ml 320 ml IV Total 591 ml 532 ml 986 ml # Voids 3 2 2 # Bowel Movements 0 0 0 IMPRESSION: Chest Ultrasound 03/19/17 0000 Signed Impressions: Service Date/Time: Sunday, March 19, 2017 10:44 - CONCLUSION: 1. Small left effusion measuring about 46 ml. Bipin Bryson MD Chest X-Ray 03/17/17 0000 Signed Impressions: Service Date/Time: Friday, March 17, 2017 04:06 - CONCLUSION: Left pleural effusion and worsening air space process in the left lung. Suzanne Sykes MD Abdomen/Pelvis CT 03/15/17 1711 Signed Impressions: Service Date/Time: Wednesday, March 15, 2017 17:08 - CONCLUSION: 1. Bilateral cavitary pulmonary masses in the lung bases. 2. Small bilateral pleural effusions left greater than right which appear partially loculated. 3. Nonspecific bowel gas pattern which may represent an ileus or gastroenteritis. A bowel obstruction is less likely. A moderate amount of free fluid is present greatest in the pelvis. Kody Vogt MD Abdomen/Pelvis CT 03/15/17 1711 Signed Impressions: Service Date/Time: Wednesday, March 15, 2017 17:08 - CONCLUSION: 1. Bilateral cavitary pulmonary masses in the lung bases. 2. Small bilateral pleural effusions left greater than right which appear partially loculated. 3. Nonspecific bowel gas pattern which may represent an ileus or gastroenteritis. A bowel obstruction is less likely. A moderate amount of free fluid is present greatest in the pelvis. Kody Vogt MD Upper Extremity Ultrasound 03/15/17 0000 Signed Impressions: Service Date/Time: Wednesday, March 15, 2017 11:17 - CONCLUSION: 1. Small area of nonocclusive thrombus in the left mid brachial vein. 2. The remainder of the deep venous system is patent. Kody Vogt MD Upper Extremity CT 03/15/17 0000 Signed Impressions: Service Date/Time: Wednesday, March 15, 2017 17:24 - CONCLUSION: 1. Findings are characteristic of a cellulitis of the distal arm and proximal forearm. In addition a mildly enhancing elbow joint effusion has developed since February 14 which can be characteristic of a septic arthritis. Bipin Bryson MD Thoracic Spine MRI 03/14/171956 Signed Impressions: Service Date/Time: Tuesday, March 14, 2017 20:29 - CONCLUSION: 1. No acute abnormality is seen of the thoracic spine. 2. Bilateral pneumonia and mediastinal/right hilar lymphadenopathy. Dominick Ibrahim MD CT Angiography 03/14/171956 Signed Impressions: Service Date/Time: Tuesday, March 14, 2017 22:37 - CONCLUSION: Pathological adenopathy within the mediastinum with extensive bilateral pulmonary nodules and air space consolidation some of which are cavitary and septic emboli is of primary consideration. Suzanne Sykes MD Chest X-Ray 03/14/171953 Signed Impressions: Service Date/Time: Tuesday, March 14, 2017 20:14 - CONCLUSION: Bilateral patchy pneumonia. Dominick Ibrahim MD Head CT 03/14/17 0000 Signed Impressions: Service Date/Time: Tuesday, March 14, 2017 22:34 - CONCLUSION: Unremarkable study. Suzanne Sykes MD PHYSICAL EXAMINATION GENERAL: Alert and oriented. HEENT: No icterus. Oropharynx moist mucosa without lesions. No thrush. poor dentition. NECK: Supple without adenopathy. No swelling. LUNGS: Bilateral rhonchi. HEART: Tachycardic. 2/6 systolic murmur left sternal border. No rubs, no gallops. ABDOMEN: Bowel sounds present, soft, nontender. EXTREMITIES: No clubbing or cyanosis. Swelling and tenderness at the left wrist and at the elbow has decreased. No embolic lesions. Excoriated target lesions of both lower extremities, scattered at the thighs and tibias. SKIN: No diffuse rash. NEURO: Nonfocal. IMPRESSION 1. TV endocarditis. MRSA. Persistent bacteremia - not clearing. 2. Sepsis in patient who presented to the ED with respiratory distress and tachycardia and temperature 99.9 and elevated white blood cell count and bilateral infiltrates on chest x-ray. Positive blood culture. 3. Pulmonary septic emboli. 4. Thrombus of the left mid brachial vein. 5. left elbow ? septic arthritis. 5. Noncompliance with medical treatment. The patient left the hospital against medical advice prior to complete workup and treatment. 6. Leukocytosis secondary to infection. Improved. 7. VANCOMYCIN ALLERGY. RECOMMENDATIONS 1. Continue Daptomycin since she is not clearing the bacteremia with Zyvox( CICI 2). She is allergic to vancomycin (CICI 2) 2. Follow repeat blood culture to final report 5 days. Once blood culture is negative she will need to be on IV antibiotic x 4 weeks from date of obtaining the negative blood culture. Obtain labs CPK 1 x a week, LFT's 1 x a week, CBC 1 x a week on Mondays while on Daptomycin. The above can be followed by medical attending. Patient's risk for discharge can be determined by primary. Pulmonary to decide on necessary Pulmonary interventions. I will sign off now Please call if further input is needed. Ward Mcdowell MD March 23, 2017 12:12
[2017-03-23] MEDS: DAPTOmycin INJ 500 MG in SODIUM CHLORIDE 0.9% INJ 100 ML IV SCH (14:42)
[2017-03-23 16:00] VITALS: BP 128/83; PULSE 127; RESP 17; TEMP 97.7; O2SAT 98
--- NOTE | 2017-03-23 19:26 | HHI.PR ---
Subjective Remarks 26 YOWF with TV Endocarditis, Pn Has cough, no sp Low grade Fever Family at Occ sob Appetite better Objective Vital Signs Vital Signs Date Time Temp Pulse Resp B/P Pulse Ox O2 Delivery O2 Flow Rate FiO2 03/23/17 16:00 97.7 127 17 128/83 98 03/23/17 12:00 96.5 114 17 123/82 99 03/23/17 12:00 96.5 114 17 123/82 99 03/23/17 08:00 97.8 61 17 117/70 98 03/23/17 06:14 18 03/23/17 02:24 18 03/23/17 00:00 99.0 118 22 121/80 98 03/22/17 20:00 97.8 113 22 116/77 98 I/O 03/22/17 03/22/17 03/22/17 03/23/17 03/23/17 03/23/17 07:00 15:00 23:00 07:00 15:00 23:00 Intake Total 674 ml 1071 ml 1012 ml 1306 ml 1263 ml Balance 674 ml 1071 ml 1012 ml 1306 ml 1263 ml Intake Oral 480 ml 480 ml 480 ml 320 ml 340 ml IV Total 194 ml 591 ml 532 ml 986 ml 923 ml # Voids 3 3 2 2 3 # Bowel Movements 0 0 0 0 0 Result Diagram: 03/20/17 0500 Objective Remarks GENERAL: Thin built female,NAD SKIN: Warm and dry. HEAD: Normocephalic. EYES: No scleral icterus. No injection or drainage. NECK: Supple, trachea midline. No JVD or lymphadenopathy. CARDIOVASCULAR: Regular rate and rhythm without murmurs, gallops, or rubs. RESPIRATORY: Breath sounds equal bilaterally. No accessory muscle use. GASTROINTESTINAL: Abdomen soft, non-tender, nondistended. MUSCULOSKELETAL: No cyanosis, or edema. BACK: Nontender without obvious deformity. No CVA tenderness. A/P Assessment and Plan TV Endocarditis Pneumonia DVT Septic Emboli Leucocytosis BARBRA: Abx Daptomycin per ID Cont Lovenox Aerosol nebs Dario Villafana MD March 23, 2017 19:26
[2017-03-23 20:00] VITALS: BP 117/54; PULSE 116; RESP 20; TEMP 98.1; O2SAT 97
[2017-03-24] VITALS: BP 127/82; PULSE 118; RESP 20; TEMP 99.4; O2SAT 99
[2017-03-24] MEDS: MORPHINE SULFATE 4 MG/ML INJ IV PUSH PRN ×6 (00:33→20:36)
[2017-03-24] MEDS: NS + KCL 20 MEQ INJ 1,000 ML IV SCH ×3 (02:23→23:17)
[2017-03-24] MEDS: oxyCODONE/ACETAMINOPHEN 5 MG/325 MG TAB PO PRN ×5 (03:35→23:15)
[2017-03-24 04:00] VITALS: BP 114/61; PULSE 61; RESP 20; TEMP 97.1; O2SAT 100
[2017-03-24] MEDS: CHLORHEXIDINE GLUCONATE 2 % 1 PACK (2 CLOTHS) TOP SCH ×2 (04:00→23:17)
[2017-03-24 05:46] LABS: HEMATOCRIT 24.6 % (35.0-46.0); MEAN CELL VOLUME 78.6 FL (80.0-100.0); MEAN CORPUSCULAR HEMOGLOBIN 26.5 PG (27.0-34.0); MEAN CORPUSCULAR HGB CONC 33.7 % (32.0-36.0); PLATELET COUNT 393 TH/MM3 (150-450); RED BLOOD COUNT 3.13 MIL/MM3 (4.00-5.30); RED CELL DISTRIBUTION WIDTH 16.7 % (11.6-17.2); REVIEW FLAG FINAL
[2017-03-24 08:00] VITALS: BP 127/83; PULSE 116; RESP 18; TEMP 99.3; O2SAT 98
[2017-03-24] MEDS: DOCUSATE SODIUM 100 MG CAP PO SCH ×2 (08:51→20:39)
[2017-03-24] MEDS: PANTOPRAZOLE SOD 40 MG DELAYED RELEASE TAB PO SCH (08:51)
[2017-03-24] MEDS: SODIUM CHLORIDE 0.9% FLUSH 10 ML FLUSH SCH ×2 (08:51→20:34)
[2017-03-24] MEDS: ENOXAPARIN SODIUM 60 MG/0.6 ML SYRINGE SQ SCH ×2 (09:46→20:38)
--- NOTE | 2017-03-24 09:54 | HHI.PR ---
Subjective Remarks Follow-up sepsis/septic emboli 03/16/17-patient seen and examined, complains of left elbow pain otherwise denies any chest pain however has some minimal shortness of breath. Currently afebrile 03/17/17-patient seen and examined, currently afebrile and no acute event overnight. States left elbow pain is about the same 03/18/17-patient seen and examined, tachycardia, positive blood culture. Reports some improvement of left elbow pain. Currently afebrile 03/19/17-patient seen and examined, complained of shortness of breath. Plan for left thoracentesis today 03/20/17-patient seen and examined, family at the bedside including mom, father , boyfriend. Patient refused left thoracentesis yesterday however she is willing to have it done today. Afebrile. 03/21/17-patient seen and examined, Tmax 100.7@midnight. Secondary to low left pleural fluid no thoracentesis was done yesterday. 03/22/17-patient seen and examined, complains of left elbow pain otherwise no other issues. 03/23/17-patient seen and examined; no acute event overnight and stable. Requesting regular diet 03/24/17-patient seen and examined,Afebrile and no acute event overnight. Objective Vitals Vital Signs Date Time Temp Pulse Resp B/P Pulse Ox O2 Delivery O2 Flow Rate FiO2 03/24/17 08:00 99.3 116 18 127/83 98 03/24/17 04:00 97.1 61 20 114/61 100 03/24/17 00:00 99.4 118 20 127/82 99 03/23/17 20:00 98.1 116 20 117/54 97 03/23/17 16:00 97.7 127 17 128/83 98 03/23/17 12:00 96.5 114 17 123/82 99 03/23/17 12:00 96.5 114 17 123/82 99 I/O 03/23/17 03/23/17 03/23/17 03/24/17 03/24/17 03/24/17 07:00 15:00 23:00 07:00 15:00 23:00 Intake Total 1306 ml 1263 ml 724 ml 1069 ml Output Total 0 ml Balance 1306 ml 1263 ml 724 ml 1069 ml Intake Oral 320 ml 340 ml 240 ml 240 ml IV Total 986 ml 923 ml 484 ml 829 ml Output Urine Total 0 ml # Voids 2 3 4 # Bowel Movements 0 0 2 0 Result Diagram: 03/24/17 0509 Objective Remarks GENERAL: NAD SKIN: Warm and dry. HEAD: Normocephalic. EYES: No scleral icterus. No injection or drainage. NECK: Supple, trachea midline. No JVD or lymphadenopathy. CARDIOVASCULAR: Regular rate and rhythm without murmurs, gallops, or rubs. RESPIRATORY: Breath sounds equal bilaterally. No accessory muscle use. GASTROINTESTINAL: Abdomen soft, non-tender, nondistended. MUSCULOSKELETAL: No cyanosis, or edema. Left elbow TTP with Limited ROM BACK: Nontender without obvious deformity. No CVA tenderness. A/P Problem List: (1) Sepsis ICD Code: A41.9 Status: Acute (2) DVT, lower extremity, proximal, acute ICD Code: I82.4Y9 Status: Acute (3) Elbow pain, left ICD Code: M25.522 Status: Acute (4) Hypokalemia ICD Code: E87.6 Status: Acute (5) Cellulitis of left elbow ICD Code: L03.114 Status: Acute (6) Pleural effusion on left ICD Code: J90 Status: Acute Assessment and Plan 26-year-old female with Sepsis-Resolved Multiple cavitary pulmonary lesions Vancomycin allergy (patient states rash and difficulty breathing) L elbow cellulitis TV endocarditis Bacteremia Continue Cubicin per infectious disease specialist. Repeat blood culture (03/20) NTD And Per ID : "Once blood culture is negative she will need to be on IV antibiotic x 4 weeks from date of obtaining the negative blood culture. Obtain labs CPK 1 x a week, LFT's 1 x a week, CBC 1 x a week on Mondays while on Daptomycin." Lymphadenopathy also noted however repeat HIV negative. CT elbow with Findings that are characteristic of a cellulitis of the distal arm and proximal forearm. CT abdomen and pelvis with finding of Bilateral cavitary pulmonary masses in the lung bases. Cocaine abuse, ?benzo use/abuse Percocet 5-10 mg every 4 hours when necessary pain Morphine 2-4 mg IV every 3 hours when necessary breakthrough pain CT brain 03/14/17no acute abnormality Multiple cavitary lung lesions, suspected septic pulmonary emboli Tobacco abuse CT pulmonary angiogramno evidence for pulmonary embolism. There are multiple bilateral cavitary lung lesions (RUL, RLL, SREE, LLL) including large consolidation of right upper lobe. These lesions appear c/w endocarditis, Appreciate input from infectious disease specialist, pulmonary medicine Continue with current antibiotic, DuoNeb when necessary 2-D echo noted Mild AST elevation Moderate protein energy malnutrition Mildly elevated lipase of unclear significance History of hepatitis C Continue to monitor LFTs Hyponatremia -resolved Hypokalemia-resolved Acute dehydration-resolved monitor electrolyte Right lower extremity DVT U/s RLE from 02/14/17DVT right superficial femoral to calf Was on Lovenox during prior hospitalization but states she has not been on any anticoagulation patient since she left AGAINST MEDICAL ADVICE 02/23/17 s/p heparin drip for DVT treatment and currently on Lovenox subcutaneous Q12 hours Left pleural effusion However secondary to low pleural fluid no left-sided thoracentesis was performed Anemia of acute blood loss Transfused 1 unit packed red blood cell 03/15/17 PROPH: Protonix 40 mg by mouth daily for stress ulcer prophylaxis. Lovenox for treatment of DVT Luciano Cavanaugh MD March 24, 2017 09:54
[2017-03-24 12:00] VITALS: BP 120/83; PULSE 108; RESP 18; TEMP 99.6; O2SAT 98
--- NOTE | 2017-03-24 14:35 | HHI.IDPN ---
Note Infectious Disease Note Addendum correction to duration of treatment and lab work : Once blood culture is negative she will need to be on IV antibiotic x 6 weeks from date of obtaining the negative blood culture. Obtain labs SED rate, CPK 1 x a week, LFT's 1 x a week, CBC 1 x a week on Mondays while on Daptomycin. The above can be followed by medical attending. Patient's risk for discharge can be determined by primary. Pulmonary to decide on necessary Pulmonary interventions. I will sign off now Please call if further input is needed. Ward Mcdowell MD March 24, 2017 14:35
[2017-03-24] MEDS: DAPTOmycin INJ 500 MG in SODIUM CHLORIDE 0.9% INJ 100 ML IV SCH (15:57)
[2017-03-24 16:00] VITALS: BP 124/77; PULSE 111; RESP 17; TEMP 97.6; O2SAT 98
[2017-03-24 20:00] VITALS: BP 121/76; PULSE 106; RESP 20; TEMP 96.6; O2SAT 97
--- NOTE | 2017-03-24 20:48 | HHI.PR ---
Subjective Remarks 26 YOWF with TV Endocarditis, Pn Has cough, no sp Low grade Fever Occ sob Appetite better Objective Vital Signs Vital Signs Date Time Temp Pulse Resp B/P Pulse Ox O2 Delivery O2 Flow Rate FiO2 03/24/17 16:00 97.6 111 17 124/77 98 03/24/17 12:00 99.6 108 18 120/83 98 03/24/17 08:00 99.3 116 18 127/83 98 03/24/17 04:00 97.1 61 20 114/61 100 03/24/17 00:00 99.4 118 20 127/82 99 I/O 03/23/17 03/23/17 03/23/17 03/24/17 03/24/17 03/24/17 07:00 15:00 23:00 07:00 15:00 23:00 Intake Total 1306 ml 1263 ml 724 ml 1069 ml 340 ml Output Total 0 ml Balance 1306 ml 1263 ml 724 ml 1069 ml 340 ml Intake Oral 320 ml 340 ml 240 ml 240 ml 340 ml IV Total 986 ml 923 ml 484 ml 829 ml Output Urine Total 0 ml # Voids 2 3 4 3 # Bowel Movements 0 0 2 0 0 Result Diagram: 03/24/17 0509 Objective Remarks GENERAL: Thin built female,NAD SKIN: Warm and dry. HEAD: Normocephalic. EYES: No scleral icterus. No injection or drainage. NECK: Supple, trachea midline. No JVD or lymphadenopathy. CARDIOVASCULAR: Regular rate and rhythm without murmurs, gallops, or rubs. RESPIRATORY: Breath sounds equal bilaterally. No accessory muscle use. GASTROINTESTINAL: Abdomen soft, non-tender, nondistended. MUSCULOSKELETAL: No cyanosis, or edema. BACK: Nontender without obvious deformity. No CVA tenderness. A/P Assessment and Plan TV Endocarditis Pneumonia DVT Septic Emboli Leucocytosis BARBRA: Abx Daptomycin per ID Cont Lovenox Aerosol nebs Acapella Stable on RA Dario Nassar MD March 24, 2017 20:48
[2017-03-25] VITALS: BP 119/83; PULSE 111; RESP 20; TEMP 98.1; O2SAT 97
[2017-03-25] MEDS: MORPHINE SULFATE 4 MG/ML INJ IV PUSH PRN ×5 (00:24→19:48)
[2017-03-25] MEDS: oxyCODONE/ACETAMINOPHEN 5 MG/325 MG TAB PO PRN ×4 (03:13→18:28)
[2017-03-25 08:00] VITALS: BP 119/86; PULSE 119; RESP 20; TEMP 99.5; O2SAT 99
[2017-03-25] MEDS: SODIUM CHLORIDE 0.9% FLUSH 10 ML FLUSH SCH ×2 (08:49→19:49)
[2017-03-25] MEDS: ENOXAPARIN SODIUM 60 MG/0.6 ML SYRINGE SQ SCH ×2 (08:49→19:48)
[2017-03-25] MEDS: DOCUSATE SODIUM 100 MG CAP PO SCH ×2 (08:49→19:51)
[2017-03-25] MEDS: PANTOPRAZOLE SOD 40 MG DELAYED RELEASE TAB PO SCH (08:49)
[2017-03-25] MEDS: NS + KCL 20 MEQ INJ 1,000 ML IV SCH ×2 (08:50→18:28)
[2017-03-25 12:00] VITALS: BP 120/81; PULSE 110; RESP 20; TEMP 98.3; O2SAT 99
[2017-03-25] MEDS: DAPTOmycin INJ 500 MG in SODIUM CHLORIDE 0.9% INJ 100 ML IV SCH (13:58)
--- NOTE | 2017-03-25 15:40 | HHI.PR ---
Subjective Remarks Follow-up for endocarditis No overnight events, no fever or chills. No nausea or vomiting. Patient says that she can go home and would not use PICC line for IV drugs when discharged. Objective Vitals Vital Signs Date Time Temp Pulse Resp B/P Pulse Ox O2 Delivery O2 Flow Rate FiO2 03/25/17 12:00 98.3 110 20 120/81 99 03/25/17 08:00 99.5 119 20 119/86 99 03/25/17 04:53 18 03/25/17 04:13 16 03/25/17 00:00 98.1 111 20 119/83 97 03/24/17 20:00 96.6 106 20 121/76 97 03/24/17 16:00 97.6 111 17 124/77 98 I/O 03/24/17 03/24/17 03/24/17 03/25/17 03/25/17 03/25/17 07:00 15:00 23:00 07:00 15:00 23:00 Intake Total 1069 ml 340 ml 360 ml 240 ml 399 ml Output Total 0 ml Balance 1069 ml 340 ml 360 ml 240 ml 399 ml Intake Oral 240 ml 340 ml 360 ml 240 ml IV Total 829 ml 399 ml Output Urine Total 0 ml # Voids 3 1 1 # Bowel Movements 0 0 0 0 Result Diagram: 03/24/17 0509 Objective Remarks GENERAL: NAD SKIN: Warm and dry. HEAD: Normocephalic. EYES: No scleral icterus. No injection or drainage. NECK: Supple, trachea midline. No JVD or lymphadenopathy. CARDIOVASCULAR: Regular rate and rhythm without murmurs, gallops, or rubs. RESPIRATORY: Breath sounds equal bilaterally. No accessory muscle use. GASTROINTESTINAL: Abdomen soft, non-tender, nondistended. MUSCULOSKELETAL: No cyanosis, or edema. Left elbow TTP with Limited ROM BACK: Nontender without obvious deformity. No CVA tenderness. A/P Problem List: (1) Sepsis ICD Code: A41.9 Status: Acute (2) DVT, lower extremity, proximal, acute ICD Code: I82.4Y9 Status: Acute (3) Elbow pain, left ICD Code: M25.522 Status: Acute (4) Hypokalemia ICD Code: E87.6 Status: Acute (5) Cellulitis of left elbow ICD Code: L03.114 Status: Acute (6) Pleural effusion on left ICD Code: J90 Status: Acute Assessment and Plan 26-year-old female with Sepsis-Resolved Multiple cavitary pulmonary lesions Vancomycin allergy (patient states rash and difficulty breathing) L elbow cellulitis TV endocarditis Bacteremia Continue Cubicin per infectious disease specialist. Repeat blood culture (03/20) NTD , per infectious disease, continue IV antibiotics for 4 weeks, last day of antibiotics is April 16-based and recommendations. Monitor CK, LFTs and CBC weekly. Lymphadenopathy also noted however repeat HIV negative. CT elbow with Findings that are characteristic of a cellulitis of the distal arm and proximal forearm. CT abdomen and pelvis with finding of Bilateral cavitary pulmonary masses in the lung bases. Cocaine abuse, ?benzo use/abuse Percocet 5-10 mg every 4 hours when necessary pain, stop IV morphine.CT brain no acute abnormality Multiple cavitary lung lesions, suspected septic pulmonary emboli Tobacco abuse CT pulmonary angiogramno evidence for pulmonary embolism. There are multiple bilateral cavitary lung lesions (RUL, RLL, SREE, LLL) including large consolidation of right upper lobe. These lesions appear c/w endocarditis, Appreciate input from infectious disease specialist, pulmonary medicine, discussed with Dr. Nassar, no further interventions. Continue with current antibiotic, DuoNeb when necessary 2-D echo noted Mild AST elevation Moderate protein energy malnutrition Mildly elevated lipase of unclear significance History of hepatitis C Continue to monitor LFTs Hyponatremia -resolved Hypokalemia-resolved Acute dehydration-resolved monitor electrolyte Right lower extremity DVT U/s RLE from 02/14/17DVT right superficial femoral to calf Was on Lovenox during prior hospitalization but states she has not been on any anticoagulation patient since she left AGAINST MEDICAL ADVICE 02/23/17 s/p heparin drip for DVT treatment and currently on Lovenox subcutaneous Q12 hours Left pleural effusion However secondary to low pleural fluid no left-sided thoracentesis was performed Anemia of acute blood loss Transfused 1 unit packed red blood cell 03/15/17 PROPH: Protonix 40 mg by mouth daily for stress ulcer prophylaxis. Lovenox for treatment of DVT Discharge Planning Likely discharged on Wednesday with IV antibiotics. Yolis Betts MD Mar 25, 2017 15:40
[2017-03-25 16:00] VITALS: BP 122/84; PULSE 108; RESP 20; TEMP 98.4; O2SAT 99
[2017-03-25 20:00] VITALS: BP 116/76; PULSE 101; RESP 16; TEMP 97.8; O2SAT 99
--- NOTE | 2017-03-25 20:06 | HHI.PR ---
Subjective Remarks 26 YOWF with TV Endocarditis, Pn Has cough, no sp Low grade Fever Occ sob Appetite better C/O pain all over Objective Vital Signs Vital Signs Date Time Temp Pulse Resp B/P Pulse Ox O2 Delivery O2 Flow Rate FiO2 03/25/17 19:53 20 03/25/17 19:53 20 03/25/17 16:00 98.4 108 20 122/84 99 03/25/17 12:00 98.3 110 20 120/81 99 03/25/17 08:00 99.5 119 20 119/86 99 03/25/17 00:00 98.1 111 20 119/83 97 I/O 03/24/17 03/24/17 03/24/17 03/25/17 03/25/17 03/25/17 07:00 15:00 23:00 07:00 15:00 23:00 Intake Total 1069 ml 340 ml 360 ml 240 ml 1399 ml Output Total 0 ml Balance 1069 ml 340 ml 360 ml 240 ml 1399 ml Intake Oral 240 ml 340 ml 360 ml 240 ml 1000 ml IV Total 829 ml 399 ml Output Urine Total 0 ml # Voids 3 1 1 4 # Bowel Movements 0 0 0 0 1 Result Diagram: 03/24/17 0509 Objective Remarks GENERAL: Thin built female,NAD SKIN: Warm and dry. HEAD: Normocephalic. EYES: No scleral icterus. No injection or drainage. NECK: Supple, trachea midline. No JVD or lymphadenopathy. CARDIOVASCULAR: Regular rate and rhythm without murmurs, gallops, or rubs. RESPIRATORY: Breath sounds equal bilaterally. No accessory muscle use. GASTROINTESTINAL: Abdomen soft, non-tender, nondistended. MUSCULOSKELETAL: No cyanosis, or edema. BACK: Nontender without obvious deformity. No CVA tenderness. A/P Assessment and Plan TV Endocarditis Pneumonia DVT Septic Emboli Leucocytosis BARBRA: Abx Daptomycin per ID Cont Lovenox Aerosol nebs Acapella Stable on RA Dario Nassar MD Mar 25, 2017 20:06
[2017-03-26] VITALS: BP 139/86; PULSE 115; RESP 16; TEMP 97.9; O2SAT 99
[2017-03-26] MEDS: oxyCODONE/ACETAMINOPHEN 5 MG/325 MG TAB PO PRN ×6 (00:14→22:12)
[2017-03-26] MEDS: MORPHINE SULFATE 4 MG/ML INJ IV PUSH PRN ×6 (02:05→23:18)
[2017-03-26] MEDS: NS + KCL 20 MEQ INJ 1,000 ML IV SCH ×2 (02:05→13:31)
[2017-03-26] MEDS: CHLORHEXIDINE GLUCONATE 2 % 1 PACK (2 CLOTHS) TOP SCH (02:05)
[2017-03-26 08:00] VITALS: BP 119/78; PULSE 102; RESP 20; TEMP 98.3; O2SAT 98
[2017-03-26] MEDS: ENOXAPARIN SODIUM 60 MG/0.6 ML SYRINGE SQ SCH ×2 (08:10→22:12)
[2017-03-26] MEDS: PANTOPRAZOLE SOD 40 MG DELAYED RELEASE TAB PO SCH (08:10)
[2017-03-26] MEDS: DOCUSATE SODIUM 100 MG CAP PO SCH ×2 (08:11→21:00)
[2017-03-26] MEDS: SODIUM CHLORIDE 0.9% FLUSH 10 ML FLUSH SCH ×2 (08:11→19:24)
[2017-03-26 11:55] LABS: HEMATOCRIT 31.2 % (35.0-46.0); MEAN CELL VOLUME 80.7 FL (80.0-100.0); MEAN CORPUSCULAR HEMOGLOBIN 26.3 PG (27.0-34.0); MEAN CORPUSCULAR HGB CONC 32.6 % (32.0-36.0); PLATELET COUNT 322 TH/MM3 (150-450); RED BLOOD COUNT 3.86 MIL/MM3 (4.00-5.30); RED CELL DISTRIBUTION WIDTH 17.1 % (11.6-17.2); REVIEW FLAG FINAL; WHITE BLOOD COUNT 8.7 TH/MM3 (4.0-11.0)
[2017-03-26 12:00] VITALS: BP 112/73; PULSE 109; RESP 18; TEMP 98.8; O2SAT 96
[2017-03-26 16:00] VITALS: BP 124/74; PULSE 122; RESP 20; TEMP 99; O2SAT 98
--- NOTE | 2017-03-26 16:50 | HHI.PR ---
Subjective Remarks Follow-up for endocarditis Pt reports subjective fevers, body aches and chills, as well as decreased appetite. She also endorsed poor sleep secondary to coughing. Pt reported some improvement of her cough with breathing treatments. Pt reported shortness of breath upon exertion. Nursing reported new acute changes or concerns. Objective Vitals Vital Signs Date Time Temp Pulse Resp B/P Pulse Ox O2 Delivery O2 Flow Rate FiO2 03/26/17 16:00 99.0 122 20 124/74 98 03/26/17 12:00 98.8 109 18 112/73 96 03/26/17 08:00 98.3 102 20 119/78 98 03/26/17 06:27 18 03/26/17 05:27 16 03/26/17 00:00 97.9 115 16 139/86 99 03/25/17 20:00 97.8 101 16 116/76 99 I/O 03/25/17 03/25/17 03/25/17 03/26/17 03/26/17 03/26/17 07:00 15:00 23:00 07:00 15:00 23:00 Intake Total 240 ml 1399 ml 720 ml 1585 ml 1359 ml Balance 240 ml 1399 ml 720 ml 1585 ml 1359 ml Intake Oral 240 ml 1000 ml 720 ml 240 ml 600 ml IV Total 399 ml 1345 ml 759 ml # Voids 1 4 2 2 3 # Bowel Movements 0 1 1 0 0 Result Diagram: 03/26/17 1125 Imaging Last Impressions Chest Ultrasound 03/19/17 0000 Signed Impressions: Service Date/Time: Sunday, March 19, 2017 10:44 - CONCLUSION: 1. Small left effusion measuring about 46 ml. Bipin Bryson MD Chest X-Ray 03/17/17 0000 Signed Impressions: Service Date/Time: Friday, March 17, 2017 04:06 - CONCLUSION: Left pleural effusion and worsening air space process in the left lung. Suzanne Sykes MD Abdomen/Pelvis CT 03/15/17 1711 Signed Impressions: Service Date/Time: Wednesday, March 15, 2017 17:08 - CONCLUSION: 1. Bilateral cavitary pulmonary masses in the lung bases. 2. Small bilateral pleural effusions left greater than right which appear partially loculated. 3. Nonspecific bowel gas pattern which may represent an ileus or gastroenteritis. A bowel obstruction is less likely. A moderate amount of free fluid is present greatest in the pelvis. Kody Vogt MD Upper Extremity Ultrasound 03/15/17 0000 Signed Impressions: Service Date/Time: Wednesday, March 15, 2017 11:17 - CONCLUSION: 1. Small area of nonocclusive thrombus in the left mid brachial vein. 2. The remainder of the deep venous system is patent. Kody Vogt MD Upper Extremity CT 03/15/17 0000 Signed Impressions: Service Date/Time: Wednesday, March 15, 2017 17:24 - CONCLUSION: 1. Findings are characteristic of a cellulitis of the distal arm and proximal forearm. In addition a mildly enhancing elbow joint effusion has developed since February 14 which can be characteristic of a septic arthritis. Bipin Bryson MD Thoracic Spine MRI 03/14/171956 Signed Impressions: Service Date/Time: Tuesday, March 14, 2017 20:29 - CONCLUSION: 1. No acute abnormality is seen of the thoracic spine. 2. Bilateral pneumonia and mediastinal/right hilar lymphadenopathy. Dominick Ibrahim MD CT Angiography 03/14/171956 Signed Impressions: Service Date/Time: Tuesday, March 14, 2017 22:37 - CONCLUSION: Pathological adenopathy within the mediastinum with extensive bilateral pulmonary nodules and air space consolidation some of which are cavitary and septic emboli is of primary consideration. Suzanne Sykes MD Head CT 03/14/17 0000 Signed Impressions: Service Date/Time: Tuesday, March 14, 2017 22:34 - CONCLUSION: Unremarkable study. Suzanne Sykes MD Objective Remarks GENERAL: Pt encountered laying a bed, covered up with blankets, not in acute distress. SKIN: Warm and dry. Multiple tattoos observed. HEAD: Normocephalic. EYES: No scleral icterus. No injection or drainage. NECK: Supple, trachea midline. No lymphadenopathy. CARDIOVASCULAR: Tachycardic rate and regular rhythm without murmurs, gallops, or rubs. RESPIRATORY: Breath sounds equal bilaterally. No accessory muscle use. GASTROINTESTINAL: Abdomen soft, non-tender, nondistended. Bowel sounds evident in right quadrants, decreased in the left. MUSCULOSKELETAL: No cyanosis, or edema. BACK: Nontender without obvious deformity. No CVA tenderness. PSYCHIATRIC: A&Ox3, pleasant and cooperative, no overt signs of depression and/ or anxiety. Urinary Catheter: No Vascular Central Line Catheter: Yes Assessment to: Continue Line: PICC Side: Right Reason for Continuation Medication administration. A/P Problem List: (1) Sepsis ICD Code: A41.9 Status: Acute (2) DVT, lower extremity, proximal, acute ICD Code: I82.4Y9 Status: Acute (3) Elbow pain, left ICD Code: M25.522 Status: Acute (4) Hypokalemia ICD Code: E87.6 Status: Acute (5) Cellulitis of left elbow ICD Code: L03.114 Status: Acute (6) Pleural effusion on left ICD Code: J90 Status: Acute Assessment and Plan 26-year-old female with Sepsis-Resolved Multiple cavitary pulmonary lesions Vancomycin allergy (patient states rash and difficulty breathing) L elbow cellulitis TV endocarditis Bacteremia Continue Cubicin per infectious disease specialist. Repeat blood culture (03/20) NTD , per infectious disease, continue IV antibiotics for 4 weeks, last day of antibiotics is April 16-based and recommendations. Monitor CK, LFTs and CBC weekly. Lymphadenopathy also noted however repeat HIV negative. CT elbow with Findings that are characteristic of a cellulitis of the distal arm and proximal forearm. CT abdomen and pelvis with finding of Bilateral cavitary pulmonary masses in the lung bases. Cocaine abuse, ?benzo use/abuse Percocet 5-10 mg every 4 hours when necessary pain, stop IV morphine.CT brain no acute abnormality Multiple cavitary lung lesions, suspected septic pulmonary emboli Tobacco abuse CT pulmonary angiogramno evidence for pulmonary embolism. There are multiple bilateral cavitary lung lesions (RUL, RLL, SREE, LLL) including large consolidation of right upper lobe. These lesions appear c/w endocarditis, Appreciate input from infectious disease specialist, pulmonary medicine, discussed with Dr. Nassar, no further interventions. Continue with current antibiotic, DuoNeb when necessary 2-D echo noted Mild AST elevation Moderate protein energy malnutrition Mildly elevated lipase of unclear significance History of hepatitis C Continue to monitor LFTs Hyponatremia -resolved Hypokalemia-resolved Acute dehydration-resolved monitor electrolyte Right lower extremity DVT U/s RLE from 02/14/17DVT right superficial femoral to calf Was on Lovenox during prior hospitalization but states she has not been on any anticoagulation patient since she left AGAINST MEDICAL ADVICE 02/23/17 s/p heparin drip for DVT treatment and currently on Lovenox subcutaneous Q12 hours Left pleural effusion However secondary to low pleural fluid no left-sided thoracentesis was performed Anemia of acute blood loss Transfused 1 unit packed red blood cell 03/15/17 PROPH: Protonix 40 mg by mouth daily for stress ulcer prophylaxis. Lovenox for treatment of DVT Case discussed with Pt, her male significant other, RN, and Dr. Betts. Discharge Planning Likely discharged on Wednesday with IV antibiotics. Theron Rivera Jr. Mar 26, 2017 16:49
[2017-03-26] MEDS: DAPTOmycin INJ 500 MG in SODIUM CHLORIDE 0.9% INJ 100 ML IV SCH (17:37)
--- NOTE | 2017-03-26 18:42 | HHI.PR ---
Subjective Remarks 26 YOWF with TV Endocarditis, Pn Has cough, no sp Low grade Fever Occ sob Appetite better Objective Vital Signs Vital Signs Date Time Temp Pulse Resp B/P Pulse Ox O2 Delivery O2 Flow Rate FiO2 03/26/17 16:00 99.0 122 20 124/74 98 03/26/17 12:00 98.8 109 18 112/73 96 03/26/17 08:00 98.3 102 20 119/78 98 03/26/17 06:27 18 03/26/17 05:27 16 03/26/17 00:00 97.9 115 16 139/86 99 03/25/17 20:00 97.8 101 16 116/76 99 I/O 03/25/17 03/25/17 03/25/17 03/26/17 03/26/17 03/26/17 07:00 15:00 23:00 07:00 15:00 23:00 Intake Total 240 ml 1399 ml 720 ml 1585 ml 1359 ml Balance 240 ml 1399 ml 720 ml 1585 ml 1359 ml Intake Oral 240 ml 1000 ml 720 ml 240 ml 600 ml IV Total 399 ml 1345 ml 759 ml # Voids 1 4 2 2 3 # Bowel Movements 0 1 1 0 0 Result Diagram: 03/26/17 1125 Objective Remarks GENERAL: Thin built female,NAD SKIN: Warm and dry. HEAD: Normocephalic. EYES: No scleral icterus. No injection or drainage. NECK: Supple, trachea midline. No JVD or lymphadenopathy. CARDIOVASCULAR: Regular rate and rhythm without murmurs, gallops, or rubs. RESPIRATORY: Breath sounds equal bilaterally. No accessory muscle use. GASTROINTESTINAL: Abdomen soft, non-tender, nondistended. MUSCULOSKELETAL: No cyanosis, or edema. BACK: Nontender without obvious deformity. No CVA tenderness. A/P Assessment and Plan TV Endocarditis Pneumonia DVT Septic Emboli Leucocytosis BARBRA: Abx Daptomycin per ID Cont Lovenox Aerosol nebs Acapella Stable on RA Dario Nassar MD Mar 26, 2017 18:42
[2017-03-26 20:00] VITALS: BP 121/72; PULSE 113; RESP 16; TEMP 97.8; O2SAT 96
[2017-03-27] VITALS: BP 109/67; PULSE 115; RESP 16; TEMP 98.5; O2SAT 98
[2017-03-27] MEDS: NS + KCL 20 MEQ INJ 1,000 ML IV SCH ×2 (01:01→10:53)
[2017-03-27] MEDS: oxyCODONE/ACETAMINOPHEN 5 MG/325 MG TAB PO PRN ×6 (02:30→23:50)
[2017-03-27] MEDS: MORPHINE SULFATE 4 MG/ML INJ IV PUSH PRN ×2 (03:25→12:39)
[2017-03-27] MEDS: CHLORHEXIDINE GLUCONATE 2 % 1 PACK (2 CLOTHS) TOP SCH (03:40)
[2017-03-27] MEDS: PANTOPRAZOLE SOD 40 MG DELAYED RELEASE TAB PO SCH (07:49)
[2017-03-27] MEDS: ENOXAPARIN SODIUM 60 MG/0.6 ML SYRINGE SQ SCH (07:49)
[2017-03-27] MEDS: DOCUSATE SODIUM 100 MG CAP PO SCH ×2 (07:49→21:00)
[2017-03-27] MEDS: SODIUM CHLORIDE 0.9% FLUSH 10 ML FLUSH SCH ×2 (07:50→20:04)
[2017-03-27 07:54] VITALS: BP_SYST 112; BP_SYST 127; BP_DIAS 68; BP_DIAS 82; PULSE 111; PULSE 61; RESP 19; RESP 20; TEMP 97.2; TEMP 99; O2SAT 98; O2SAT 99
[2017-03-27 12:00] VITALS: BP 127/85; PULSE 102; RESP 19; TEMP 98.6; O2SAT 98
--- NOTE | 2017-03-27 13:53 | HHI.PR ---
Subjective Remarks Follow-up for endocarditis Patient is afebrile, no nausea or vomiting, still with chronic pain but manageable. Objective Vitals Vital Signs Date Time Temp Pulse Resp B/P Pulse Ox O2 Delivery O2 Flow Rate FiO2 03/27/17 12:00 98.6 102 19 127/85 98 03/27/17 07:54 99.0 111 19 127/82 98 03/27/17 03:30 18 03/27/17 03:30 18 03/27/17 00:00 98.5 115 16 109/67 98 03/26/17 20:00 97.8 113 16 121/72 96 03/26/17 16:00 99.0 122 20 124/74 98 I/O 03/26/17 03/26/17 03/26/17 03/27/17 03/27/17 03/27/17 07:00 15:00 23:00 07:00 15:00 23:00 Intake Total 1585 ml 1359 ml 1748 ml 360 ml 408 ml Balance 1585 ml 1359 ml 1748 ml 360 ml 408 ml Intake Oral 240 ml 600 ml 720 ml 360 ml 120 ml IV Total 1345 ml 759 ml 1028 ml 288 ml # Voids 2 3 3 3 # Bowel Movements 0 0 0 0 Result Diagram: 03/26/17 1125 Objective Remarks GENERAL: NAD SKIN: Warm and dry. HEAD: Normocephalic. EYES: No scleral icterus. No injection or drainage. NECK: Supple, trachea midline. No JVD or lymphadenopathy. CARDIOVASCULAR: Regular rate and rhythm without murmurs, gallops, or rubs. RESPIRATORY: Breath sounds equal bilaterally. No accessory muscle use. GASTROINTESTINAL: Abdomen soft, non-tender, nondistended. MUSCULOSKELETAL: No cyanosis, or edema. Left elbow TTP with Limited ROM BACK: Nontender without obvious deformity. No CVA tenderness. Line: PICC Side: Right A/P Problem List: (1) Sepsis ICD Code: A41.9 Status: Acute (2) DVT, lower extremity, proximal, acute ICD Code: I82.4Y9 Status: Acute (3) Elbow pain, left ICD Code: M25.522 Status: Acute (4) Hypokalemia ICD Code: E87.6 Status: Acute (5) Cellulitis of left elbow ICD Code: L03.114 Status: Acute (6) Pleural effusion on left ICD Code: J90 Status: Acute Assessment and Plan 26-year-old female with Sepsis-Resolved Multiple cavitary pulmonary lesions Vancomycin allergy (patient states rash and difficulty breathing) L elbow cellulitis TV endocarditis Bacteremia Continue Cubicin per infectious disease specialist. Repeat blood culture (03/20) NTD , per infectious disease, continue IV antibiotics for 4 weeks, last day of antibiotics is April 16-based on recommendations however unclear. Monitor CK, LFTs and CBC weekly, follow-up on Wednesday. Lymphadenopathy also noted however repeat HIV negative. CT elbow with Findings that are characteristic of a cellulitis of the distal arm and proximal forearm. CT abdomen and pelvis with finding of Bilateral cavitary pulmonary masses in the lung bases. Cocaine abuse, ?benzo use/abuse Percocet 5-10 mg every 4 hours when necessary pain, stop IV morphine.CT brain no acute abnormality Multiple cavitary lung lesions, suspected septic pulmonary emboli Tobacco abuse CT pulmonary angiogramno evidence for pulmonary embolism. There are multiple bilateral cavitary lung lesions (RUL, RLL, SREE, LLL) including large consolidation of right upper lobe. These lesions appear c/w endocarditis, Appreciate input from infectious disease specialist, pulmonary medicine, discussed with Dr. Nassar, no further interventions. Continue with current antibiotic, DuoNeb when necessary Mild AST elevation Moderate protein energy malnutrition Mildly elevated lipase of unclear significance History of hepatitis C Continue to monitor LFTs Hyponatremia -resolved Hypokalemia-resolved Acute dehydration-resolved monitor electrolyte Right lower extremity DVT U/s RLE from 02/14/17DVT right superficial femoral to calf Was on Lovenox during prior hospitalization but states she has not been on any anticoagulation patient since she left AGAINST MEDICAL ADVICE 02/23/17 s/p heparin drip for DVT treatment, currently on Lovenox, switched to Xarelto Left pleural effusion However secondary to low pleural fluid no left-sided thoracentesis was performed Anemia of acute blood loss Transfused 1 unit packed red blood cell 03/15/17 PROPH: Protonix 40 mg by mouth daily for stress ulcer prophylaxis. Lovenox for treatment of DVT Discharge Planning Likely discharged on Wednesday with IV antibiotics. Awaiting a clear recommendation from infectious disease. Yolis Betts MD Mar 27, 2017 13:53
--- NOTE | 2017-03-27 14:01 | HHI.PR ---
Subjective Remarks 26 YOWF with TV Endocarditis, Pn Has cough, no sp Low grade Fever Occ sob Appetite better No new complaint Objective Vital Signs Vital Signs Date Time Temp Pulse Resp B/P Pulse Ox O2 Delivery O2 Flow Rate FiO2 03/27/17 12:00 98.6 102 19 127/85 98 03/27/17 07:54 99.0 111 19 127/82 98 03/27/17 03:30 18 03/27/17 03:30 18 03/27/17 00:00 98.5 115 16 109/67 98 03/26/17 20:00 97.8 113 16 121/72 96 03/26/17 16:00 99.0 122 20 124/74 98 I/O 03/26/17 03/26/17 03/26/17 03/27/17 03/27/17 03/27/17 07:00 15:00 23:00 07:00 15:00 23:00 Intake Total 1585 ml 1359 ml 1748 ml 360 ml 408 ml Balance 1585 ml 1359 ml 1748 ml 360 ml 408 ml Intake Oral 240 ml 600 ml 720 ml 360 ml 120 ml IV Total 1345 ml 759 ml 1028 ml 288 ml # Voids 2 3 3 3 # Bowel Movements 0 0 0 0 Result Diagram: 03/26/17 1125 Objective Remarks GENERAL: Thin built female,NAD SKIN: Warm and dry. HEAD: Normocephalic. EYES: No scleral icterus. No injection or drainage. NECK: Supple, trachea midline. No JVD or lymphadenopathy. CARDIOVASCULAR: Regular rate and rhythm without murmurs, gallops, or rubs. RESPIRATORY: Breath sounds equal bilaterally. No accessory muscle use. GASTROINTESTINAL: Abdomen soft, non-tender, nondistended. MUSCULOSKELETAL: No cyanosis, or edema. BACK: Nontender without obvious deformity. No CVA tenderness. A/P Assessment and Plan TV Endocarditis Pneumonia DVT Septic Emboli Leucocytosis BARBRA: Abx Daptomycin per ID Cont Lovenox Aerosol nebs Acapella Stable on RA DC Plans underway. Dario Nassar MD Mar 27, 2017 14:00
[2017-03-27] MEDS: DAPTOmycin INJ 500 MG in SODIUM CHLORIDE 0.9% INJ 100 ML IV SCH (14:55)
[2017-03-27 16:00] VITALS: BP 118/78; PULSE 102; RESP 20; TEMP 97.8; O2SAT 98
[2017-03-27 20:00] VITALS: BP 121/83; PULSE 103; RESP 20; TEMP 97.6; O2SAT 98
[2017-03-27] MEDS: RIVAROXABAN 15 MG TAB PO SCH (20:02)
[2017-03-28] VITALS: BP 118/76; PULSE 103; RESP 20; TEMP 97.8; O2SAT 99
[2017-03-28] MEDS: CHLORHEXIDINE GLUCONATE 2 % 1 PACK (2 CLOTHS) TOP SCH (03:32)
[2017-03-28] MEDS: oxyCODONE/ACETAMINOPHEN 5 MG/325 MG TAB PO PRN ×5 (04:01→22:11)
[2017-03-28] MEDS: PANTOPRAZOLE SOD 40 MG DELAYED RELEASE TAB PO SCH (07:51)
[2017-03-28] MEDS: RIVAROXABAN 15 MG TAB PO SCH ×2 (07:52→20:08)
[2017-03-28] MEDS: DOCUSATE SODIUM 100 MG CAP PO SCH ×2 (07:52→20:09)
[2017-03-28] MEDS: SODIUM CHLORIDE 0.9% FLUSH 10 ML FLUSH SCH ×2 (07:53→20:09)
[2017-03-28 07:56] VITALS: BP 121/82; PULSE 107; RESP 20; TEMP 98.5; O2SAT 98
[2017-03-28] MEDS ORDERED: oxyCODONE HCL 10 MG CONTROLLED RELEASE TAB PO ONE (11:30)
--- NOTE | 2017-03-28 11:35 | HHI.PR ---
Subjective Remarks f/u endocarditis afebrile overnight, c/o pain all-over, morphine was stopped yesterday and requesting morphine today, otherwise no other complaints. Objective Vitals Vital Signs Date Time Temp Pulse Resp B/P Pulse Ox O2 Delivery O2 Flow Rate FiO2 03/28/17 07:56 98.5 107 20 121/82 98 03/28/17 00:00 97.8 103 20 118/76 99 03/27/17 20:00 97.6 103 20 121/83 98 03/27/17 16:00 97.8 102 20 118/78 98 03/27/17 12:00 98.6 102 19 127/85 98 I/O 03/27/17 03/27/17 03/27/17 03/28/17 03/28/17 03/28/17 07:00 15:00 23:00 07:00 15:00 23:00 Intake Total 360 ml 2374 ml 847 ml 640 ml 120 ml Output Total 800 ml Balance 360 ml 1574 ml 847 ml 640 ml 120 ml Intake Oral 360 ml 1080 ml 360 ml 240 ml 120 ml IV Total 1294 ml 487 ml 400 ml Output Urine Total 800 ml # Voids 3 2 1 # Bowel Movements 0 0 1 0 Result Diagram: 03/26/17 1125 Objective Remarks GENERAL: NAD NECK: Supple, trachea midline. CARDIOVASCULAR: Borderline tachycardic, regular. RESPIRATORY: Breath sounds equal bilaterally. No accessory muscle use. GASTROINTESTINAL: Abdomen soft, non-tender, nondistended. MUSCULOSKELETAL: No cyanosis, or edema. BACK: Nontender without obvious deformity. No CVA tenderness. Alert, awake, oriented 3 Line: PICC Side: Right A/P Problem List: (1) Sepsis ICD Code: A41.9 Status: Acute (2) DVT, lower extremity, proximal, acute ICD Code: I82.4Y9 Status: Acute (3) Elbow pain, left ICD Code: M25.522 Status: Acute (4) Hypokalemia ICD Code: E87.6 Status: Acute (5) Cellulitis of left elbow ICD Code: L03.114 Status: Acute (6) Pleural effusion on left ICD Code: J90 Status: Acute Assessment and Plan This is a 26-year-old female with sepsis secondary to tricuspid valve endocarditis with multiple cavitary septic emboli Sepsis secondary to tricuspid valve endocarditis with bacteremia, left elbow cellulitis and multiple cavitary pulmonary septic emboli. - Blood culture from 03/20/17 remains negative, infectious disease following. Continue Cubicin for 4 weeks last day of antibiotics is April 16 based on recommendations however unclear. Monitor CK, LFTs and CBC weekly, follow-up tomorrow. Insert PICC line today. CT of the elbow showed cellulitis, CT scan of the abdomen and pelvis showed cavitary pulmonary masses likely septic emboli. HIV negative. Would need clarification for discharge clearance and antibiotics from infectious disease tomorrow. Polysubstance abuse including benzodiazepine and cocaine- morphine stopped yesterday, continue Percocet as needed. Multiple cavitary lung lesions, suspected septic pulmonary emboli - CT pulmonary angiogramno evidence for pulmonary embolism. There are multiple bilateral cavitary lung lesions (RUL, RLL, SREE, LLL) including large consolidation of right upper lobe. Pulmonary following, cleared by pulmonary for discharge, no further interventions, DuoNeb's as needed. Mild AST elevation Moderate protein energy malnutrition Mildly elevated lipase of unclear significance History of hepatitis C -Resolved, while on daptomycin Continue to monitor LFTs Hyponatremia -resolved Hypokalemia-resolved Acute dehydration-resolved Right lower extremity DVT -U/s RLE from 02/14/17DVT right superficial femoral to calf . Was on Lovenox during prior hospitalization but states she has not been on any anticoagulation patient since she left AGAINST MEDICAL ADVICE 02/23/17, Lovenox restarted, continue Xarelto. Left pleural effusion-likely secondary to infection, not enough to drain Anemia of acute blood loss - Transfused 1 unit packed red blood cell 03/15/17 PROPH: Protonix 40 mg by mouth daily for stress ulcer prophylaxis. Xarelto full dose Discharge Planning Likely discharged on Wednesday with IV antibiotics. Awaiting a clear recommendation from infectious disease. Yolis Betts MD Mar 28, 2017 11:35
[2017-03-28] MEDS ORDERED: OXYC1TAB63 PO (11:36)
[2017-03-28] MEDS ORDERED: DOCU1CAP39 PO (11:36)
[2017-03-28 12:00] VITALS: BP 117/75; PULSE 118; RESP 20; TEMP 98.2; O2SAT 97
--- NOTE | 2017-03-28 14:01 | HHI.DS ---
Discharge Summary Admission Date March 14, 2017 at 21:47 Discharge Date: Mar 29, 2017 Admitting Diagnosis Pneumonia, Right DVT, R/O endocarditis (1) Sepsis ICD Code: A41.9 (2) DVT, lower extremity, proximal, acute ICD Code: I82.4Y9 (3) Elbow pain, left ICD Code: M25.522 (4) Hypokalemia ICD Code: E87.6 (5) Cellulitis of left elbow ICD Code: L03.114 (6) Pleural effusion on left ICD Code: J90 Brief History - From Admission 26-year-old female with past medical history of polysubstance abuse , multiple prior admissions for skin and soft tissue infections, DVT RLE (not on anticoagulant due to medical nonadherence) who presents to [facility] with 3 day history of pleuritic chest pain that she describes as "severe" in anterior and posterior thorax. She reports nonproductive cough; no hemoptysis. She also states she has had a fever up to 103.3 x3 days and night sweats x2 weeks. There is erythema, warmth, decreased mobility of her left elbow which she states has been going on for about 3 weeks. She has not noted any drainage from the area. She was admitted to [facility] February 142016 for right hand and left elbow cellulitis and sepsis. She also had cavitary lesions of lingula and RLL. Blood cultures were negative. TTE was negative for vegetation. Cardiology had been consulted and Dr. Cantu intended to do DELORES to evaluate for endocarditis, but patient left AMA. She also was noted to have axillary, mediastinal and inguinal lymphadenopathy with CT pelvis negative for intrabdominal pathology. . During that admission she also had right lower extremity DVT from right superficial femoral vein into the proximal calf. She was evaluated by heme oncology, Dr. Cochran. She was initially treated with Lovenox. She states she has not been on an outpatient anticoagulant. Her medical history also included I and D of abscess in R axilla in ED 06/09 with wound cultures positive for MRSA; R facial cellulitis 11/10 (blood cultures negative). She was admitted to [facility] in January of 2017 for hand cellulitis but left AMA from there after they recommended transfer to [facility] for hand surgeon. HIV was negative 11/10. Hep C ab positive. Though it is suspected she has h/o IVDU, she has denied it. She also denies use of cocaine despite multiple positive UDS. Denies headache, neck stiffness, abdominal pain. CBC/BMP: 03/26/17 1125 Significant Findings Laboratory Tests Test 03/26/17 11:25 Red Blood Count 3.86 MIL/MM3 (4.00-5.30) Hemoglobin 10.2 GM/DL (11.6-15.3) Hematocrit 31.2 % (35.0-46.0) Mean Corpuscular Hemoglobin 26.3 PG (27.0-34.0) Mean Platelet Volume 6.0 FL (7.0-11.0) PE at Discharge GENERAL: NAD NECK: Supple, trachea midline. CARDIOVASCULAR: Borderline tachycardic, regular. RESPIRATORY: Breath sounds equal bilaterally. No accessory muscle use. GASTROINTESTINAL: Abdomen soft, non-tender, nondistended. MUSCULOSKELETAL: No cyanosis, or edema. BACK: Nontender without obvious deformity. No CVA tenderness. Alert, awake, oriented 3 Hospital Course This is a 26-year-old female with sepsis secondary to tricuspid valve endocarditis with bacteremia, left elbow cellulitis and multiple cavitary pulmonary septic emboli. Blood culture was positive for MRSA. Patient started on antibiotics. Blood culture from 03/20/17 negative. While patient was in the hospital, patient was also found to have the elbow cellulitis and multiple cavitary pulmonary septic emboli. Pulmonary was consulted, no further interventions needed. Patient was also found to have right lower extremity DVT , patient was initially on Lovenox but patient left AGAINST MEDICAL ADVICE. She will continue anticoagulation with Xarelto on discharge Recommendation per infectious disease is to continue Cubicin for 4 weeks last day of antibiotics is April 16 based on recommendations however unclear. Monitor CK, LFTs and CBC weekly while on daptomycin. Pt Condition on Discharge: Good Discharge Time: > 30 minutes Discharge Instructions Follow up Referrals: PCP Follow-up - 1 Week New Medications: Docusate Sodium (Dok) 100 Mg Cap 100 MG PO BID constipation #60 CAP Oxycodone-Acetaminophen (Oxycodone-Acetaminophen) 5-325 mg Tab 2 TAB PO Q4H PRN PAIN 6-10 #30 TAB Rivaroxaban (Xarelto) 15 Mg Tab 15 MG PO BID DVT #40 TAB Yolis Betts MD Mar 28, 2017 14:01
--- NOTE | 2017-03-28 14:46 | HHI.PR ---
Subjective Remarks 26 YOWF with TV Endocarditis, Pn Has cough, no sp Occ sob Appetite better No new complaint Objective Vital Signs Vital Signs Date Time Temp Pulse Resp B/P Pulse Ox O2 Delivery O2 Flow Rate FiO2 03/28/17 12:00 98.2 118 20 117/75 97 03/28/17 07:56 98.5 107 20 121/82 98 03/28/17 00:00 97.8 103 20 118/76 99 03/27/17 20:00 97.6 103 20 121/83 98 03/27/17 16:00 97.8 102 20 118/78 98 I/O 03/27/17 03/27/17 03/27/17 03/28/17 03/28/17 03/28/17 07:00 15:00 23:00 07:00 15:00 23:00 Intake Total 360 ml 2374 ml 847 ml 640 ml 1080 ml Output Total 800 ml 700 ml Balance 360 ml 1574 ml 847 ml 640 ml 380 ml Intake Oral 360 ml 1080 ml 360 ml 240 ml 1080 ml IV Total 1294 ml 487 ml 400 ml Output Urine Total 800 ml 700 ml # Voids 3 2 1 # Bowel Movements 0 0 1 0 0 Result Diagram: 03/26/17 1125 Objective Remarks GENERAL: Thin built female,NAD SKIN: Warm and dry. HEAD: Normocephalic. EYES: No scleral icterus. No injection or drainage. NECK: Supple, trachea midline. No JVD or lymphadenopathy. CARDIOVASCULAR: Regular rate and rhythm without murmurs, gallops, or rubs. RESPIRATORY: Breath sounds equal bilaterally. No accessory muscle use. GASTROINTESTINAL: Abdomen soft, non-tender, nondistended. MUSCULOSKELETAL: No cyanosis, or edema. BACK: Nontender without obvious deformity. No CVA tenderness. A/P Assessment and Plan TV Endocarditis Pneumonia DVT Septic Emboli Leucocytosis BARBRA: Abx Daptomycin per ID Started Xarelto 15 mg bid Aerosol nebs Acapella Stable on RA DC Plans underway. Dario Nassar MD Mar 28, 2017 14:46
[2017-03-28 16:00] VITALS: BP 110/70; PULSE 102; RESP 20; TEMP 96.9; O2SAT 98
[2017-03-28 20:00] VITALS: BP 119/75; PULSE 120; RESP 20; TEMP 97.6; O2SAT 97
[2017-03-29] VITALS: BP 117/79; PULSE 117; RESP 20; TEMP 98.6; O2SAT 98
[2017-03-29] MEDS: CHLORHEXIDINE GLUCONATE 2 % 1 PACK (2 CLOTHS) TOP SCH (01:30)
[2017-03-29] MEDS: oxyCODONE/ACETAMINOPHEN 5 MG/325 MG TAB PO PRN ×4 (02:14→15:20)
[2017-03-29 05:30] LABS: AUTOMATED NEUTROPHIL # 7.2 TH/MM3 (1.8-7.7); BASOPHIL # 0.2 TH/MM3 (0-0.2); BASOPHIL % 1.3 % (0.0-2.0); EOSINOPHIL # 0.7 TH/MM3 (0-0.4); EOSINOPHIL % 5.1 % (0.0-4.0); HEMATOCRIT 29.5 % (35.0-46.0); LYMPH % 31.7 % (9.0-44.0); LYMPHOCYTE # 4.1 TH/MM3 (1.0-4.8); MEAN CELL VOLUME 78.9 FL (80.0-100.0); MEAN CORPUSCULAR HEMOGLOBIN 25.6 PG (27.0-34.0); MEAN CORPUSCULAR HGB CONC 32.5 % (32.0-36.0); MONO % 6.6 % (0.0-8.0); NEUT % 55.3 % (16.0-70.0); PLATELET COUNT 431 TH/MM3 (150-450); RED BLOOD COUNT 3.75 MIL/MM3 (4.00-5.30); RED CELL DISTRIBUTION WIDTH 16.9 % (11.6-17.2)
[2017-03-29 05:35] LABS: HEMO FLAGS AUTO DIFF
[2017-03-29 05:53] LABS: INDIRECT BILIRUBIN 0.1 MG/DL (0.0-0.8); TOTAL BILIRUBIN ADULT 0.2 MG/DL (0.2-1.0)
[2017-03-29 08:00] VITALS: BP 121/87; PULSE 116; RESP 18; TEMP 98; O2SAT 98
[2017-03-29 08:00] LABS: SCAN/DIFF AUTO DIFF CONFIRMED
[2017-03-29] MEDS: SODIUM CHLORIDE 0.9% FLUSH 10 ML FLUSH SCH (09:00)
[2017-03-29] MEDS: DOCUSATE SODIUM 100 MG CAP PO SCH (09:00)
[2017-03-29] MEDS: RIVAROXABAN 15 MG TAB PO SCH (10:47)
[2017-03-29] MEDS: PANTOPRAZOLE SOD 40 MG DELAYED RELEASE TAB PO SCH (10:47)
[2017-03-29 12:00] VITALS: BP 120/79; PULSE 117; RESP 18; TEMP 98.5; O2SAT 98
--- NOTE | 2017-03-29 12:43 | HHI.FF ---
Infusion Therapy Location of Infusion Therapy: Ambulatory Infusion Therapy Order Patient Information Patient Weight 57.9 kg Diagnosis: Diagnosis Endocarditis. Coded Allergies: Vancomycin (Verified Allergy, Severe, Hives, 03/14/17) *MDRO Multi-Drug Resistant Organism (Verified Adverse Reaction, Unknown, ) MRSA (blood)-03/14/17 MRSA PCR Positive 03/14/17 MRSA (arm-06/19/16) MRSA (R cheek- 11/07/16) Administer Medication Daptomycin 500 mg IV q 24 hours Stop Treatment: Apr 30, 2017 Additional Information Venous access: PICC Line Additional Instructions [x] Peripheral flush and dressing changes per protocol [x] Implanted port and central inspector final assembly conveyor line: * Implanted port: 10 ml Normal Saline followed by 5 ml Heparin 100 units/ml Heparin flush after each use and monthly to maintain. [] May leave port accessed during therapy. [] May leave peripheral site accessed for duration of therapy. [x] If patient has SOB or respiratory distress, check oxygen saturation. If less than 90% or clinical signs of respiratory distress, administer oxygen at 2 L/min. via nasal cannula and notify physician. [x] Anaphylaxis/Reaction orders: * Stop infusion. * Keep IV line open with saline flush. * Notify physician. * Monitor vital signs every 15 minutes until symptoms resolve. * Check Oxygen saturation; Oxygen at 2 L/min. via nasal cannula if less than 90% or clinical signs of respiratory distress. * Administer diphenhydramine (Benadryl) 25 mg IV STAT, (unless patient has received as pre-med). May repeat once, if necessary. * Solu-Cortef 250 mg IVP over 30-60 seconds, use 100 mg vials for each dissolution. * Epinephrine (1mg/1 ml) 0.3 mg subcutaneously or IVP now with any signs of respiratory distress. * Check with physician for new additional pre-med orders if patient is re- challenged or re-treated. [x] May remove PICC line when treatment complete, after confirming with Physician. [x] If the patient is admitted to the hospital, the ED, or transferred via [facility] , complete transfer form including medication reconciliation order sheet. Laboratory Tests Weekly Labs: CBC w/diff, LFT's (Hepatic function test), SED Rate, Serum CK Levels Ward Mcdowell MD Mar 29, 2017 12:43
[2017-03-29] MEDS ORDERED: SOLU250I IV PUSH (13:15)
[2017-03-29] MEDS ORDERED: EPIN1INJ21 SQ (13:15)
[2017-03-29] MEDS ORDERED: DAPT500P IV (13:15)
[2017-03-29] MEDS ORDERED: EPIN1INJ21 IV PUSH (13:15)
--- NOTE | 2017-03-29 13:33 | HHI.DCPOC ---
Discharge Care Plan Diagnosis: (1) Sepsis (2) Bacterial endocarditis (3) DVT (deep venous thrombosis) (4) Septic embolism (5) IVDU (intravenous drug user) Goals to Promote Your Health * To prevent worsening of your condition and complications * To maintain your health at the optimal level Directions to Meet Your Goals Take your medications as prescribed Follow your dietary instruction Follow activity as directed Keep your appointments as scheduled Take your immunizations and boosters as scheduled If your symptoms worsen call your PCP, if no PCP go to Urgent Care Center or Emergency Room Smoking is Dangerous to Your Health. Avoid second hand smoke Call the 24-hour hour crisis hotline for domestic abuse at Alfred Meek MD Mar 29, 2017 13:33
--- NOTE | 2017-03-29 13:44 | HHI.IDPN ---
Note Infectious Disease Note Asked to address outpatient antibiotic. Patient is in no distress. Coughing up phlegm. Denies hemoptysis. Afebrile. Has pain at the left elbow. Swelling decreased. Blood cultures continue to be positive. 03/14 Blood culture - MRSA 03/16 Blood culture - MRSA 03/19 Blood culture - No growth. 03/20 Blood culture - No growth. 2D ECHO has TV lesion. Presented to the emergency department on 03/14 with respiratory distress. PAST MEDICAL HISTORY 1. Anxiety, depression. 2. History of cellulitis. 3. IVDU. 4. Recent DVT of the right lower extremity. ALLERGIES VANCOMYCIN. ANTIBIOTICS: Daptomycin OBJECTIVE: Vital Signs Date Time Temp Pulse Resp B/P Pulse Ox O2 Delivery O2 Flow Rate FiO2 03/29/17 12:00 98.5 117 18 120/79 98 03/29/17 08:00 98.0 116 18 121/87 98 03/29/17 00:00 98.6 117 20 117/79 98 03/28/17 20:00 97.6 120 20 119/75 97 03/28/17 16:00 96.9 102 20 110/70 98 03/28/17 03/28/17 03/29/17 15:00 23:00 07:00 Intake Total 1080 ml 360 ml 240 ml Output Total 700 ml Balance 380 ml 360 ml 240 ml Intake Oral 1080 ml 360 ml 240 ml Output Urine Total 700 ml # Voids 1 1 # Bowel Movements 0 1 0 Laboratory Tests Test 03/29/17 05:08 White Blood Count 13.0 TH/MM3 Red Blood Count 3.75 MIL/MM3 Hemoglobin 9.6 GM/DL Hematocrit 29.5 % Mean Corpuscular Volume 78.9 FL Mean Corpuscular Hemoglobin 25.6 PG Mean Corpuscular Hemoglobin 32.5 % Concent Red Cell Distribution Width 16.9 % Platelet Count 431 TH/MM3 Mean Platelet Volume 6.1 FL Neutrophils (%) (Auto) 55.3 % Lymphocytes (%) (Auto) 31.7 % Monocytes (%) (Auto) 6.6 % Eosinophils (%) (Auto) 5.1 % Basophils (%) (Auto) 1.3 % Neutrophils # (Auto) 7.2 TH/MM3 Lymphocytes # (Auto) 4.1 TH/MM3 Monocytes # (Auto) 0.9 TH/MM3 Eosinophils # (Auto) 0.7 TH/MM3 Basophils # (Auto) 0.2 TH/MM3 CBC Comment AUTO DIFF Differential Comment AUTO DIFF CONFIRMED Platelet Estimate Platelet Morphology Comment Laboratory Tests Test 03/29/17 05:08 Total Bilirubin 0.2 MG/DL Direct Bilirubin 0.1 MG/DL Indirect Bilirubin 0.1 MG/DL Aspartate Amino Transf 11 U/L (AST/SGOT) Alanine Aminotransferase 11 U/L (ALT/SGPT) Alkaline Phosphatase 132 U/L Total Creatine Kinase 12 U/L Total Protein 9.4 GM/DL Albumin 2.6 GM/DL IMPRESSION: Chest Ultrasound 03/19/17 0000 Signed Impressions: Service Date/Time: Sunday, March 19, 2017 10:44 - CONCLUSION: 1. Small left effusion measuring about 46 ml. Bipin Bryson MD Chest X-Ray 03/17/17 0000 Signed Impressions: Service Date/Time: Friday, March 17, 2017 04:06 - CONCLUSION: Left pleural effusion and worsening air space process in the left lung. Suzanne Sykes MD Abdomen/Pelvis CT 03/15/171710 Signed Impressions: Service Date/Time: Wednesday, March 15, 2017 17:08 - CONCLUSION: 1. Bilateral cavitary pulmonary masses in the lung bases. 2. Small bilateral pleural effusions left greater than right which appear partially loculated. 3. Nonspecific bowel gas pattern which may represent an ileus or gastroenteritis. A bowel obstruction is less likely. A moderate amount of free fluid is present greatest in the pelvis. Kody Vogt MD Abdomen/Pelvis CT 03/15/171710 Signed Impressions: Service Date/Time: Wednesday, March 15, 2017 17:08 - CONCLUSION: 1. Bilateral cavitary pulmonary masses in the lung bases. 2. Small bilateral pleural effusions left greater than right which appear partially loculated. 3. Nonspecific bowel gas pattern which may represent an ileus or gastroenteritis. A bowel obstruction is less likely. A moderate amount of free fluid is present greatest in the pelvis. Kody Vogt MD Upper Extremity Ultrasound 03/15/17 0000 Signed Impressions: Service Date/Time: Wednesday, March 15, 2017 11:17 - CONCLUSION: 1. Small area of nonocclusive thrombus in the left mid brachial vein. 2. The remainder of the deep venous system is patent. Kody Vogt MD Upper Extremity CT 03/15/17 0000 Signed Impressions: Service Date/Time: Wednesday, March 15, 2017 17:24 - CONCLUSION: 1. Findings are characteristic of a cellulitis of the distal arm and proximal forearm. In addition a mildly enhancing elbow joint effusion has developed since February 14 which can be characteristic of a septic arthritis. Bipin Bryson MD Thoracic Spine MRI 03/14/171956 Signed Impressions: Service Date/Time: Tuesday, March 14, 2017 20:29 - CONCLUSION: 1. No acute abnormality is seen of the thoracic spine. 2. Bilateral pneumonia and mediastinal/right hilar lymphadenopathy. Dominick Ibrahim MD CT Angiography 03/14/171956 Signed Impressions: Service Date/Time: Tuesday, March 14, 2017 22:37 - CONCLUSION: Pathological adenopathy within the mediastinum with extensive bilateral pulmonary nodules and air space consolidation some of which are cavitary and septic emboli is of primary consideration. Suzanen Sykes MD Chest X-Ray 03/14/171953 Signed Impressions: Service Date/Time: Tuesday, March 14, 2017 20:14 - CONCLUSION: Bilateral patchy pneumonia. Dominick Ibrahim MD Head CT 03/14/17 0000 Signed Impressions: Service Date/Time: Tuesday, March 14, 2017 22:34 - CONCLUSION: Unremarkable study. Suzanne Sykes MD PHYSICAL EXAMINATION GENERAL: NAD. HEENT: No icterus. Oropharynx moist mucosa without lesions. No thrush. poor dentition. NECK: Supple without adenopathy. No swelling. LUNGS: Decreased breath sounds. HEART: Tachycardic. 2/6 systolic murmur left sternal border. No rubs, no gallops. ABDOMEN: Bowel sounds present, soft, nontender. EXTREMITIES: No clubbing or cyanosis. Tenderness at the left wrist No embolic lesions. Excoriated target lesions of both lower extremities, scattered at the thighs and tibias. SKIN: No diffuse rash. NEURO: Nonfocal. IMPRESSION 1. TV endocarditis. MRSA. Persistent bacteremia - not clearing. 2. Sepsis in patient who presented to the ED with respiratory distress and tachycardia and temperature 99.9 and elevated white blood cell count and bilateral infiltrates on chest x-ray. Positive blood culture. 3. Pulmonary septic emboli. 4. Thrombus of the left mid brachial vein. 5. left elbow ? septic arthritis. 5. Noncompliance with medical treatment. The patient left the hospital against medical advice prior to complete workup and treatment. 6. Leukocytosis secondary to infection. Improved. 7. VANCOMYCIN ALLERGY. RECOMMENDATIONS 1. Continue Daptomycin until April 26, 2017. 2. IV antibiotics and labs ordered on infusion forms and case management notified. Explained to patient that the PIC line is only to be handled by ambulatory infusion nurse and to be used for infusion of antibiotics. Also discussed with Dr. Meek. Okay for discharge from my standpoint. Ward Mcdowell MD Mar 29, 2017 13:44
--- NOTE | 2017-03-29 13:46 | HHI.DS ---
Discharge Summary Admission Date March 14, 2017 at 21:47 Discharge Date: Mar 29, 2017 Admitting Diagnosis Pneumonia, Right DVT, R/O endocarditis (1) Sepsis ICD Code: A41.9 (2) DVT, lower extremity, proximal, acute ICD Code: I82.4Y9 (3) Elbow pain, left ICD Code: M25.522 (4) Hypokalemia ICD Code: E87.6 (5) Cellulitis of left elbow ICD Code: L03.114 (6) Pleural effusion on left ICD Code: J90 Procedures PICC placement Brief History - From Admission HPI from the admitting physician 26-year-old female with past medical history of polysubstance abuse , multiple prior admissions for skin and soft tissue infections, DVT RLE (not on anticoagulant due to medical nonadherence) who presents to [facility] with 3 day history of pleuritic chest pain that she describes as "severe" in anterior and posterior thorax. She reports nonproductive cough; no hemoptysis. She also states she has had a fever up to 103.3 x3 days and night sweats x2 weeks. There is erythema, warmth, decreased mobility of her left elbow which she states has been going on for about 3 weeks. She has not noted any drainage from the area. She was admitted to [facility] February 142016 for right hand and left elbow cellulitis and sepsis. She also had cavitary lesions of lingula and RLL. Blood cultures were negative. TTE was negative for vegetation. Cardiology had been consulted and Dr. Cantu intended to do DELORES to evaluate for endocarditis, but patient left AMA. She also was noted to have axillary, mediastinal and inguinal lymphadenopathy with CT pelvis negative for intrabdominal pathology. . During that admission she also had right lower extremity DVT from right superficial femoral vein into the proximal calf. She was evaluated by heme oncology, Dr. Cochran. She was initially treated with Lovenox. She states she has not been on an outpatient anticoagulant. Her medical history also included I and D of abscess in R axilla in ED 06/09 with wound cultures positive for MRSA; R facial cellulitis 11/10 (blood cultures negative). She was admitted to [facility] in January of 2017 for hand cellulitis but left AMA from there after they recommended transfer to [facility] for hand surgeon. HIV was negative 11/10. Hep C ab positive. Though it is suspected she has h/o IVDU, she has denied it. She also denies use of cocaine despite multiple positive UDS. Denies headache, neck stiffness, abdominal pain. CBC/BMP: 03/29/17 0508 Significant Findings Laboratory Tests Test 03/29/17 05:08 White Blood Count 13.0 TH/MM3 (4.0-11.0) Red Blood Count 3.75 MIL/MM3 (4.00-5.30) Hemoglobin 9.6 GM/DL (11.6-15.3) Hematocrit 29.5 % (35.0-46.0) Mean Corpuscular Volume 78.9 FL (80.0-100.0) Mean Corpuscular Hemoglobin 25.6 PG (27.0-34.0) Mean Platelet Volume 6.1 FL (7.0-11.0) Eosinophils (%) (Auto) 5.1 % (0.0-4.0) Eosinophils # (Auto) 0.7 TH/MM3 (0-0.4) Aspartate Amino Transf 11 U/L (15-37) (AST/SGOT) Alkaline Phosphatase 132 U/L (45-117) Total Creatine Kinase 12 U/L (26-192) Total Protein 9.4 GM/DL (6.4-8.2) Albumin 2.6 GM/DL (3.4-5.0) Imaging Last Impressions Chest Ultrasound 03/19/17 0000 Signed Impressions: Service Date/Time: Sunday, March 19, 2017 10:44 - CONCLUSION: 1. Small left effusion measuring about 46 ml. Bipin Bryson MD Chest X-Ray 03/17/17 0000 Signed Impressions: Service Date/Time: Friday, March 17, 2017 04:06 - CONCLUSION: Left pleural effusion and worsening air space process in the left lung. Suzanne Sykes MD Abdomen/Pelvis CT 03/15/17 1711 Signed Impressions: Service Date/Time: Wednesday, March 15, 2017 17:08 - CONCLUSION: 1. Bilateral cavitary pulmonary masses in the lung bases. 2. Small bilateral pleural effusions left greater than right which appear partially loculated. 3. Nonspecific bowel gas pattern which may represent an ileus or gastroenteritis. A bowel obstruction is less likely. A moderate amount of free fluid is present greatest in the pelvis. Kody Vogt MD Upper Extremity Ultrasound 03/15/17 0000 Signed Impressions: Service Date/Time: Wednesday, March 15, 2017 11:17 - CONCLUSION: 1. Small area of nonocclusive thrombus in the left mid brachial vein. 2. The remainder of the deep venous system is patent. Kody Vogt MD Upper Extremity CT 03/15/17 0000 Signed Impressions: Service Date/Time: Wednesday, March 15, 2017 17:24 - CONCLUSION: 1. Findings are characteristic of a cellulitis of the distal arm and proximal forearm. In addition a mildly enhancing elbow joint effusion has developed since February 14 which can be characteristic of a septic arthritis. Bipin Bryson MD Thoracic Spine MRI 03/14/171956 Signed Impressions: Service Date/Time: Tuesday, March 14, 2017 20:29 - CONCLUSION: 1. No acute abnormality is seen of the thoracic spine. 2. Bilateral pneumonia and mediastinal/right hilar lymphadenopathy. Dominick Ibrahim MD CT Angiography 03/14/171956 Signed Impressions: Service Date/Time: Tuesday, March 14, 2017 22:37 - CONCLUSION: Pathological adenopathy within the mediastinum with extensive bilateral pulmonary nodules and air space consolidation some of which are cavitary and septic emboli is of primary consideration. Suzanne Sykes MD Head CT 03/14/17 0000 Signed Impressions: Service Date/Time: Tuesday, March 14, 2017 22:34 - CONCLUSION: Unremarkable study. Suzanne Sykes MD PE at Discharge GENERAL: NAD NECK: Supple, trachea midline. CARDIOVASCULAR: Borderline tachycardic, regular. RESPIRATORY: Breath sounds equal bilaterally. No accessory muscle use. GASTROINTESTINAL: Abdomen soft, non-tender, nondistended. MUSCULOSKELETAL: No cyanosis, or edema. BACK: Nontender without obvious deformity. No CVA tenderness. Alert, awake, oriented 3 Pt update on day of discharge Patient reports she is feeling well. No chest pain or shortness of breath. Ready to go home. 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 Evaluation and treatment course detailed below : Sepsis secondary to tricuspid valve endocarditis with bacteremia, left elbow cellulitis and multiple cavitary pulmonary septic emboli. Initial blood culture grew MRSA. CT of the elbow showed cellulitis, CT scan of the abdomen and pelvis showed cavitary pulmonary masses likely septic emboli. HIV negative. - Blood culture from 03/20/17 remains negative, infectious disease followed the patient. She is than to continue on IV Cubicin per infectious disease recommendation until April 26, 2017. Outpatient IV infusion has been arranged. I discussed PICC line care with the patient at length. She is not to touch all access the PICC line. She also signed an informed consent noting she will not access or use the PICC line for any substance. Only qualified health home health care physician is allowed to use it for her IV antibiotics. I discussed with Dr. Mcdowell. Polysubstance abuse including benzodiazepine and cocaine- : Patient was treated for Percocet as needed for pain control. She was strongly counseled to stop using all illicit drugs. She reports that she is moving to a different area. Multiple cavitary lung lesions, suspected septic pulmonary emboli - CT pulmonary angiogramno evidence for pulmonary embolism. There are multiple bilateral cavitary lung lesions (RUL, RLL, SREE, LLL) including large consolidation of right upper lobe. Pulmonary following, cleared by pulmonary for discharge, no further interventions, DuoNeb's as needed. Mild AST elevation Moderate protein energy malnutrition Mildly elevated lipase of unclear significance History of hepatitis C -Resolved, while on daptomycin Continue to monitor LFTs Hyponatremia -resolved Hypokalemia-resolved Acute dehydration-resolved Right lower extremity DVT -U/s RLE from 02/14/17DVT right superficial femoral to calf . Was on Lovenox during prior hospitalization but states she has not been on any anticoagulation patient since she left AGAINST MEDICAL ADVICE 02/23/17, Lovenox restarted, continue Xarelto outpatient. She is agreeable to continue this medication. Left pleural effusion-likely secondary to infection, not enough to drain Anemia of acute blood loss - Transfused 1 unit packed red blood cell 03/15/17. H&H remained stable. Pt Condition on Discharge: Good Discharge Disposition: Discharge Home Discharge Time: > 30 minutes Discharge Instructions DIET: Follow Instructions for: As Tolerated, No Restrictions Activities you can perform: Regular-No Restrictions Alfred Meek MD Mar 29, 2017 13:46
[2017-03-29] MEDS ORDERED: SODIUM CHLORIDE 0.9% FLUSH 10 ML FLUSH IV FLUSH PRN (14:00)
--- NOTE | 2017-03-29 14:11 | RADRPT ---
EXAM DATE/TIME: 03/29/2017 13:30 [facility] COMPARISON: CHEST SINGLE AP, March 17, 2017, 4:06. INDICATIONS : Picc line placement. MEDICAL HISTORY : MRSA. Depression. Anxiety. Substance use. SURGICAL HISTORY : Tonsillectomy. Abscess removal left grion. ENCOUNTER: Subsequent ACUITY: 1 day PAIN SCORE: 0/10 LOCATION: chest FINDINGS: Central line is in good position. Cavitating nodules seen laterally in the left lung. Consolidation seen on the right. Heart and pulmonary vascularity normal. Pleural thickening is seen along the ri ght chest. CONCLUSION: 1. PICC line in good position. 2. Cavitating lung nodules as described above. Gibson Wyatt MD FACR on March 29, 2017 at 14:02 Board Certified Radiologist. This report was verified electronically.
[2017-03-29] MEDS: DAPTOmycin INJ 500 MG in SODIUM CHLORIDE 0.9% INJ 100 ML IV SCH ×2 (15:11→15:13)
[2017-03-29 16:00] VITALS: BP 121/79; PULSE 117; RESP 18; TEMP 97.3; O2SAT 99
[2017-03-29] MEDS ORDERED: OXYC1TAB63 PO (16:33)
[2017-03-29] MEDS ORDERED: XARE15TA PO (16:33)
[2017-03-30] MEDS ORDERED: SODIUM CHLORIDE 0.9% FLUSH 10 ML FLUSH IV FLUSH SCH (09:00)
== END 2017-03-29 17:08 | disposition home or self-care (01) | DRG 288 ==
LOC: NEPE 19:19 → NEDA 21:47 → HIME 23:05 → HIMW 03-15 01:10 → HCIS 03-17 20:29 → N07A 03-19 07:38
PROVIDERS: ADMIT Family Medicine; ATTEND Family Medicine
PROC: 30233N1 Transfusion of Nonautologous Red Blood Cells into Peripheral Vein, Percutaneous Approach (ICD-10-PCS; principal; 2017-03-15)
DX: I33.0 Acute and subacute infective endocarditis (principal); A41.9 Sepsis, unspecified organism; I26.90 Septic pulmonary embolism without acute cor pulmonale; J18.9 Pneumonia, unspecified organism; J90 Pleural effusion, not elsewhere classified; E44.0 Moderate protein-calorie malnutrition; E22.2 Syndrome of inappropriate secretion of antidiuretic hormone; I82.401 Acute embolism and thrombosis of unspecified deep veins of right lower extremity; L03.114 Cellulitis of left upper limb; D62 Acute posthemorrhagic anemia; M00.9 Pyogenic arthritis, unspecified; R00.0 Tachycardia, unspecified; Z86.14 Personal history of Methicillin resistant Staphylococcus aureus infection; Z88.1 Allergy status to other antibiotic agents; Z91.19 Patient's noncompliance with other medical treatment and regimen; R59.0 Localized enlarged lymph nodes; B19.20 Unspecified viral hepatitis C without hepatic coma; F17.210 Nicotine dependence, cigarettes, uncomplicated; F14.10 Cocaine abuse, uncomplicated; E86.0 Dehydration; E87.6 Hypokalemia; F41.9 Anxiety disorder, unspecified; F32.9 Major depressive disorder, single episode, unspecified; F19.90 Other psychoactive substance use, unspecified, uncomplicated; R74.8 Abnormal levels of other serum enzymes; G89.29 Other chronic pain; B95.62 Methicillin resistant Staphylococcus aureus infection as the cause of diseases classified elsewhere
CPT/HCPCS: 36430; 36569; 70450; 71010; 71275; 72157; 73201; 74177; 76604; 76937; 80048; 80053; 80076; 80307; 81001; 82272; 82533; 82550; 82552; 82570; 83605; 83690; 83735; 83880; 83930; 83935; 84100; 84300; 84443; 84484; 84702; 85007; 85014; 85018; 85025; 85027; 85610; 85652; 85730; 86140; 86664; 86665; 86703; 86850; 86900; 86901; 86920; 87015; 87040; 87070; 87086; 87116; 87181; 87186; 87205; 87206; 87449; 87493; 87497; 87556; 87641; 87798; 93005; 93306; 93971; 94664; 94667; 96361; 96374; 96375; A9579; J0692; J0878; J1644; J1650; J2020; J2270; J2543; J3480; J7030; J7050; J7613; P9016; Q9967

== ENCOUNTER 2017-04-25 19:25 | Inpatient (IN) | payer SELFPAY ==
[~2017-04-25] VITALS: Ht 167.6 cm; Wt 52.5 kg
[~2017-04-25 19:25] MED LIST changes: -BACT400T PO; +DAPT500P IV; -IBUP-232 PO; -MUPI2%T TOPICAL; +OXYC1TAB63 PO; +XARE15TA PO
[2017-04-25 19:28] VITALS: BP 134/78; PULSE 123; RESP 18; TEMP 99.7; O2SAT 100
--- NOTE | 2017-04-25 19:55 | PD ---
Physical Exam Date Seen by Provider: Apr 25, 2017 Time Seen by Provider: 19:53 Data Data Last Documented VS Vital Signs Date Time Temp Pulse Resp B/P Pulse Ox O2 Delivery O2 Flow Rate FiO2 04/25/17 19:28 99.7 123 18 134/78 100 Room Air MDM Supervised Visit with MYESHA: No Narrative Course 26 YO F with complaint of productive cough, pleuritic CP, open sores on the skin surface. Recent diagnosis endocarditis. D/C'd 03/28. Prescribed Xarelto, noncompliant. PT endorses taking Dilaudid off the street today. Vitals reviewed. Patient seen in triage, awaiting bed placement. Teresa Obando Apr 25, 2017 19:55
[2017-04-25] MEDS ORDERED: SODIUM CHLOR 0.9% 1000 ML INJ 1,000 ML IV ONE (20:29)
[2017-04-25] MEDS ORDERED: SODIUM CHLOR 0.9% 1000 ML INJ 800 ML IV ONE (20:29)
--- NOTE | 2017-04-25 20:44 | PD ---
HPI Chief Complaint: Chest Pain Time Seen by Provider: 20:25 Travel History International Travel<30 days: No Contact w/Intl Traveler<30days: No Traveled to known affect area: No History of Present Illness HPI This is a 26-year-old female with history of IVD drug use, who presents here with complaints of pleuritic cough with blood-tinged sputum. Patient also reports fever and chills at home. Patient states that she's been noncompliant with her Xarelto as well as her IVD antibiotics. She states that she left AMA early March and then went to prison. She states since then she's not been taking her antibiotics. She was supposed to be set up in the infusion center but has not followed up. [facility] Past Medical History Anxiety: Yes Depression: Yes Cancer: No Cardiovascular Problems: Yes (ENDOCARDITIS) Endocrine: No Gastrointestinal Disorders: Yes (Hepatitis) Genitourinary: No Immune Disorder: No Implanted Vascular Access Dvce: No Musculoskeletal: No Neurologic: No Psychiatric: Yes (states do not take any medication) Reproductive: No Respiratory: No ?: Not Past Surgical History Tonsillectomy: Yes Other Surgery: Yes Social History Alcohol Use: No Tobacco Use: Yes (1/2PPD) Substance Use: Yes (methamphetamine last a month ago, possible cocaine exposure 2 days ago) Allergies-Medications (Allergen,Severity, Reaction): Coded Allergies: Vancomycin (Verified Allergy, Severe, Hives, 04/25/17) *MDRO Multi-Drug Resistant Organism (Verified Adverse Reaction, Unknown, ) MRSA (blood)-03/14/17 MRSA PCR Positive 03/14/17 MRSA (arm-06/19/16) MRSA (R cheek- 11/07/16) Reported Meds & Prescriptions Reported Meds & Active Scripts Active No Active Prescriptions or Reported Medications Review of Systems Except as stated in HPI: all other systems reviewed are Neg General / Constitutional: Positive: Fever, Chills Eyes: No: Blurred Vision, Photophobia HENT: No: Headaches, Lightheadedness, Neck Stiffness, Neck Pain Cardiovascular: Positive: Chest Pain or Discomfort, Palpitations, No: Irregular Rhythm Respiratory: Positive: Cough (productive with blood-tinged sputum), Shortness of Breath, No: Wheezing Gastrointestinal: No: Nausea, Vomiting, Abdominal Pain Genitourinary: No: Frequency, Dysuria Musculoskeletal: No: Weakness, Pain Skin: Positive Lesions (pump tight urticarial lesions on her face and arms ), No Rash, No Itching Neurologic: No: Weakness, Dizziness, Headache, Change in Mentation Physical Exam Narrative GENERAL: Thin ill appearing female in no obvious respiratory discomfort. SKIN: Focused skin assessment warm/dry. Multiple red excoriated lesions to face arms and legs. No draining lesions noted. HEAD: Atraumatic. Normocephalic. EYES: No scleral icterus. No injection or drainage. ENT: No nasal bleeding or discharge. Mucous membranes pink and moist. NECK: Trachea midline. Supple. CARDIOVASCULAR: Tachycardic with a rate in the 120s, 130s. No obvious murmur appreciated however difficult to appreciate with the rate being so high. RESPIRATORY: Coarse rhonchi bilateral lower lungs. No obvious Rales appreciated. GASTROINTESTINAL: Abdomen soft, thin, non-tender, nondistended. MUSCULOSKELETAL: No obvious deformities. No clubbing. No cyanosis. No edema. Lesions as described above on the skin exam. NEUROLOGICAL: Awake and alert. No obvious cranial nerve deficits. Motor grossly within normal limits. Normal speech. PSYCHIATRIC: Appropriate mood and affect; insight and judgment normal. Data Data Last Documented VS Vital Signs Date Time Temp Pulse Resp B/P Pulse Ox O2 Delivery O2 Flow Rate FiO2 04/25/17 19:28 99.7 123 18 134/78 100 Room Air Orders Electrocardiogram (04/25/17 20:29) Complete Blood Count With Diff (04/25/17 20:29) Comprehensive Metabolic Panel (04/25/17 20:29) Lactic Acid Sepsis Protocol (04/25/17 20:29) Ckmb (Isoenzyme) Profile (04/25/17 20:29) Troponin I (04/25/17 20:29) Urinalysis - C+S If Indicated (04/25/17 20:29) Blood Culture (04/25/17 20:29) Sputum Culture And Gram Stain (04/25/17 20:29) Chest, Single Ap (04/25/17 20:29) Blood Glucose (04/25/17 20:29) Ecg Monitoring (04/25/17 20:29) Iv Access Insert/Monitor (04/25/17 20:29) Oximetry (04/25/17 20:29) Oxygen Administration (04/25/17 20:29) Sodium Chlor 0.9% 1000 Ml Inj (Ns 1000 M (04/25/17 20:29) Sodium Chlor 0.9% 1000 Ml Inj (Ns 1000 M (04/25/17 20:29) Ed Urine Pregnancytest Poc (04/25/17 20:29) Diet Regular Basic (04/26/17 Breakfast) Potassium Chlor 20 Meq Premix (Kcl 20 Me (04/25/17 21:45) Potassium Chloride Powder (Kcl Powder) (04/26/17 09:00) Urine Culture (04/25/17 21:10) Linezolid 600 Mg Premix (Zyvox 600 Mg Pr (04/25/17 22:00) Consult Infectious Disease (04/25/17 ) Cefepime Inj (Maxipime Inj) (04/25/17 22:15) Linezolid 600 Mg Premix (Zyvox 600 Mg Pr (04/26/17 09:00) Lorazepam Inj (Ativan Inj) (04/25/17 22:15) Drug Screen, Random Urine (04/25/17 22:02) Admit To Inpatient (04/25/17 ) Vital Signs (Adult) Q4H (04/25/17 22:02) Activity Oob Ad Tatiana (04/25/17 22:02) Matrix Worker / Telemetry .CONTINUOUS (04/25/17 22:02) Intake + Output KENNEDY.QSHIFT (04/25/17 22:02) Sodium Chlor 0.9% 1000 Ml Inj (Ns 1000 M (04/25/17 22:02) Sodium Chloride 0.9% Flush (Ns Flush) (04/25/17 22:15) Sodium Chloride 0.9% Flush (Ns Flush) (04/26/17 09:00) Ondansetron Inj (Zofran Inj) (04/25/17 22:15) Comprehensive Metabolic Panel (04/26/17 06:00) Complete Blood Count With Diff (04/26/17 06:00) Acetaminophen (Tylenol) (04/25/17 22:15) Oxycodone (Roxicodone) (04/25/17 22:15) Oxycodone (Roxicodone) (04/25/17 22:15) Docusate Sodium-Senna (Pao-Colace) (04/26/17 09:00) Magnesium Hydroxide Liq (Milk Of Magnesi (04/25/17 22:15) Sennosides (Senokot) (04/25/17 22:15) Bisacodyl Supp (Dulcolax Supp) (04/25/17 22:15) Lactulose Liq (Lactulose Liq) (04/25/17 22:15) Inpatient Certification (04/25/17 ) Admit Order (Ed Use Only) (04/25/17 22:09) Type And Screen (04/25/17 22:09) Red Blood Cells (Rbc) (04/25/17 22:09) Enoxaparin Inj (Lovenox Inj) (04/25/17 22:00) Labs Laboratory Tests Test 04/25/17 04/25/17 04/25/17 20:35 20:40 21:10 White Blood Count 8.4 TH/MM3 Red Blood Count 2.88 MIL/MM3 Hemoglobin 7.1 GM/DL Hematocrit 21.7 % Mean Corpuscular Volume 75.4 FL Mean Corpuscular Hemoglobin 24.8 PG Mean Corpuscular Hemoglobin 32.9 % Concent Red Cell Distribution Width 18.5 % Platelet Count 223 TH/MM3 Mean Platelet Volume 7.0 FL Neutrophils (%) (Auto) 69.4 % Lymphocytes (%) (Auto) 21.5 % Monocytes (%) (Auto) 7.1 % Eosinophils (%) (Auto) 1.3 % Basophils (%) (Auto) 0.7 % Neutrophils # (Auto) 5.9 TH/MM3 Lymphocytes # (Auto) 1.8 TH/MM3 Monocytes # (Auto) 0.6 TH/MM3 Eosinophils # (Auto) 0.1 TH/MM3 Basophils # (Auto) 0.1 TH/MM3 CBC Comment DIFF FINAL Differential Comment Sodium Level 133 MEQ/L Potassium Level 2.6 MEQ/L Chloride Level 99 MEQ/L Carbon Dioxide Level 24.2 MEQ/L Anion Gap 10 MEQ/L Blood Urea Nitrogen 7 MG/DL Creatinine 1.14 MG/DL Estimat Glomerular Filtration 58 ML/MIN Rate Random Glucose 120 MG/DL Calcium Level 8.0 MG/DL Total Bilirubin 0.3 MG/DL Aspartate Amino Transf 9 U/L (AST/SGOT) Alanine Aminotransferase 9 U/L (ALT/SGPT) Alkaline Phosphatase 123 U/L Total Creatine Kinase 14 U/L Troponin I LESS THAN 0.02 NG/ML Total Protein 7.3 GM/DL Albumin 2.1 GM/DL Lactic Acid Level 3.1 mmol/L Urine Color YELLOW Urine Turbidity HAZY Urine pH 5.5 Urine Specific [place] 1.008 Urine Protein TRACE mg/dL Urine Glucose (UA) NEG mg/dL Urine Ketones NEG mg/dL Urine Occult Blood LARGE Urine Nitrite NEG Urine Bilirubin NEG Urine Urobilinogen LESS THAN 2.0 MG/DL Urine Leukocyte Esterase LARGE Urine RBC 51 /hpf Urine WBC 70 /hpf Urine Squamous Epithelial 3 /hpf Cells Urine Amorphous Sediment RARE Urine Bacteria MANY /hpf Urine Hyaline Casts 1 /lpf Urine Mucus FEW /lpf Microscopic Urinalysis Comment CATH-CULTURE IND MDM Medical Decision Making Medical Screen Exam Complete: Yes Emergency Medical Condition: Yes Differential Diagnosis Recurrent septic pneumonia versus bacteremia versus endocarditis Narrative Course 26-year-old female who presents with complaints of fever with cough and blood- tinged sheet him. Patient also states that she's been noncompliant with her outpatient antibiotics and blood thinners. The patient's white blood cell count is normal however she is pancytopenic. Chest x-ray shows a new left retrocardiac infiltrate. She was previously on Zyvox and daptomycin. I started her back on Zyvox and given her 600 mg dose. She's also been given 20 g of potassium by mouth and 20 mg intravenous. The case was discussed with Dr. Ramirez, [facility] physician. She'll be admitted to her service. Working diagnosis is pneumonia with suspected continued and endocarditis. She also has pancytopenia and hypokalemia. Diagnosis Primary Impression: Pneumonia Additional Impressions: Bacterial endocarditis Hypokalemia Pancytopenia Admitting Information Admitting Physician Requests: Admit Scripts No Active Prescriptions or Reported Meds Jose A Cortés MD Apr 25, 2017 20:44
[2017-04-25 21:08] LABS: AUTOMATED NEUTROPHIL # 5.9 TH/MM3 (1.8-7.7); BASOPHIL # 0.1 TH/MM3 (0-0.2); BASOPHIL % 0.7 % (0.0-2.0); EOSINOPHIL # 0.1 TH/MM3 (0-0.4); EOSINOPHIL % 1.3 % (0.0-4.0); HEMATOCRIT 21.7 % (35.0-46.0); HEMO FLAGS DIFF FINAL; LYMPH % 21.5 % (9.0-44.0); LYMPHOCYTE # 1.8 TH/MM3 (1.0-4.8); MEAN CELL VOLUME 75.4 FL (80.0-100.0); MEAN CORPUSCULAR HEMOGLOBIN 24.8 PG (27.0-34.0); MEAN CORPUSCULAR HGB CONC 32.9 % (32.0-36.0); MONO % 7.1 % (0.0-8.0); NEUT % 69.4 % (16.0-70.0); PLATELET COUNT 223 TH/MM3 (150-450); RED BLOOD COUNT 2.88 MIL/MM3 (4.00-5.30); RED CELL DISTRIBUTION WIDTH 18.5 % (11.6-17.2); WHITE BLOOD COUNT 8.4 TH/MM3 (4.0-11.0)
--- NOTE | 2017-04-25 21:18 | RADRPT ---
EXAM DATE/TIME: 04/25/2017 20:42 [place] COMPARISON: CHEST SINGLE AP, March 29, 2017, 13:30. INDICATIONS : Fever, cough MEDICAL HISTORY : MRSA. Depression. Anxiety. Pneumonia SURGICAL HISTORY : Tonsillectomy. Abscess removal left grion. ENCOUNTER: Initial ACUITY: 2 weeks PAIN SCORE: 3/10 LOCATION: Bilateral chest FINDINGS: There is persistent increased density at the lateral right upper lobe. This appears improved. There s ome very minimal residual linear density seen at the left mid lung. On the prior exam, there is a cav itary lesion seen in this region. There is increased density seen in the medial left retrocardiac are a which appears new. The previous seen left pleural disease has resolved. A significant effusion is n ot seen. There is a PICC line placed from the right arm with tip overlying the SVC. CONCLUSION: Suspected new consolidation in the left medial retrocardiac area. The areas in the lateral right uppe r lobe and the left midlung appear to be improving. Dominick Kohli MD on April 25, 2017 at 21:13 Board Certified Radiologist. This report was verified electronically.
[2017-04-25 21:19] LABS: ANION GAP 10 MEQ/L (5-15); AST (GOT) 9 U/L (15-37); BICARBONATE 24.2 MEQ/L (21.0-32.0); BLOOD UREA NITROGEN 7 MG/DL (7-18); CHLORIDE 99 MEQ/L (98-107); GLOMERULAR FILTRATION RATE 58 ML/MIN (>89); SODIUM (NA) 133 MEQ/L (136-145)
[2017-04-25 21:20] LABS: ALT (GPT) 9 U/L (10-53); POTASSIUM 2.6 MEQ/L (3.5-5.1)
[2017-04-25 21:30] LABS: ALKALINE PHOSPHATASE 123 U/L (45-117); TOTAL BILIRUBIN ADULT 0.3 MG/DL (0.2-1.0)
[2017-04-25 21:31] LABS: CREATINE KINASE 14 U/L (26-192)
[2017-04-25 21:37] LABS: BACTERIA, URINE MANY /hpf; BLOOD, URINE LARGE (NEG); GLUCOSE,URINE NEG (NEG); HYALINE CAST, URINE 1 /lpf (RARE); KETONE, URINE NEG (NEG); MUCUS URINE FEW /lpf (OCC); NITRITE,URINE NEG (NEG); PH, URINE 5.5 (5.0-8.5); SQUAMOUS EPITHELIAL CELL URINE 3 /hpf (0-5); URINE COLOR YELLOW (YELLW/STRAW)
[2017-04-25 21:40] LABS: COMMENT (UR) CATH-CULTURE IND; CULTURE IF INDICATED CATH CULTURE IND
[2017-04-25] MEDS ORDERED: POTASSIUM CHLOR 20 MEQ PREMIX 100 ML IV ONE (21:45)
[2017-04-25] MEDS ORDERED: LINEZOLID 600 MG PREMIX 300 ML IV ONE (22:00)
--- NOTE | 2017-04-25 22:11 | HHI.HP ---
[facility] No Primary Care Physician Admission Diagnosis Diagnoses: (1) Sepsis Diagnosis: Principal (2) PNA (pneumonia) Diagnosis: Principal (3) Hypokalemia Diagnosis: Principal (4) IVDU (intravenous drug user) Diagnosis: Principal (5) H/O endocarditis Diagnosis: Principal (6) H/O deep venous thrombosis Diagnosis: Principal (7) DONNIE (acute kidney injury) Diagnosis: Principal (8) UTI (urinary tract infection) Diagnosis: Principal (9) Anemia Diagnosis: Principal Travel History International Travel<30 Days: No Contact w/Intl Traveler <30 Da: No Traveled to Known Affected Are: No History of Present Illness This is a 26 year old female with a PMH of IVDU, RLE DVT, h/o MRSA Bacteremia, Non-Compliance and h/o Endocarditis who presented to the ER w/ c/o cough and fever. Previous admit 03/14-03/29/17 for similar symptoms, found to have Tricuspid Valve Endocarditis w/ MRSA Bacteremia and Cavitary Pulmonary Masses thought to be Septic Emboli and possible Left Elbow Septic Arthitis, repeat BC negative, eval by ID w/ plan to continue Cubicin IV until 04/26/17, however pt LEFT AMA, was incarcerated and recently released from custodial. Has not followed up w/ outpatient Infusion Center for continued IV Abx. Also w/ H/o RLE DVT, was to continue w/ Xarelto however has been non-compliant. On arrival , BP 134/78, HR 123, O2 sat 100% on RA, Temp 99.7. WBC 8.4. Hemoglobin 7.1, previously 9.6 on 03/29/17. K+ 2.6. Creatinine 1.14, produces 0.51 on 03/17/17. Lactic Acid 3.1. UA positive for UTI. CXR with new consolidation left medial retrocardiac area. S/p Sputum/Blood/Urine Cultures, Zyvox in ER. Review of Systems Except as stated in HPI: all other systems reviewed are Neg ROS: 14 point review of systems otherwise negative. Past Family Social History Past Medical History PMH: IVDU, RLE DVT, h/o MRSA Bacteremia, Non-Compliance and h/o Endocarditis Past Surgical History PAST SURGICAL HISTORY: Tonsillectomy Allergies: Coded Allergies: Vancomycin (Verified Allergy, Severe, Hives, 04/25/17) *MDRO Multi-Drug Resistant Organism (Verified Adverse Reaction, Unknown, ) MRSA (blood)-03/14/17 MRSA PCR Positive 03/14/17 MRSA (arm-06/19/16) MRSA (R cheek- 11/07/16) Family History PAST FAMILY HISTORY: Reviewed. No h/o DM or CAD Social History PAST SOCIAL HISTORY: Negative for alcohol. Smokes 1ppd. +IVDU, Methamphetamine/Cocaine. Physical Exam Vital Signs Vital Signs Date Time Temp Pulse Resp B/P Pulse Ox O2 Delivery O2 Flow Rate FiO2 04/25/17 19:28 99.7 123 18 134/78 100 Room Air Physical Exam PE: GENERAL: Young white female in no acute distress. HEENT: PERRLA, EOMI. No scleral icterus or conjunctival pallor. No lid lag or facial droop. CARDIOVASCULAR: Regular rate and rhythm. No obvious murmurs to auscultation. No chest tenderness to palpation. RESPIRATORY: No obvious rhonchi or wheezing. Clear to auscultation. Breath sounds equal bilaterally. GASTROINTESTINAL: Abdomen soft, non-tender, nondistended. BS normal. MUSCULOSKELETAL: Extremities without clubbing, cyanosis, or edema. No obvious deformities. Multiple lesions to extremities and face, nondraining. NEUROLOGICAL: Awake, alert and oriented x4. No focal neurologic deficits. Moving both upper and lower extremities spontaneously. Laboratory Laboratory Tests Test 04/25/17 04/25/17 04/25/17 20:35 20:40 21:10 White Blood Count 8.4 Red Blood Count 2.88 Hemoglobin 7.1 Hematocrit 21.7 Mean Corpuscular Volume 75.4 Mean Corpuscular Hemoglobin 24.8 Mean Corpuscular Hemoglobin 32.9 Concent Red Cell Distribution Width 18.5 Platelet Count 223 Mean Platelet Volume 7.0 Neutrophils (%) (Auto) 69.4 Lymphocytes (%) (Auto) 21.5 Monocytes (%) (Auto) 7.1 Eosinophils (%) (Auto) 1.3 Basophils (%) (Auto) 0.7 Neutrophils # (Auto) 5.9 Lymphocytes # (Auto) 1.8 Monocytes # (Auto) 0.6 Eosinophils # (Auto) 0.1 Basophils # (Auto) 0.1 CBC Comment DIFF FINAL Differential Comment Sodium Level 133 Potassium Level 2.6 Chloride Level 99 Carbon Dioxide Level 24.2 Anion Gap 10 Blood Urea Nitrogen 7 Creatinine 1.14 Estimat Glomerular Filtration 58 Rate Random Glucose 120 Calcium Level 8.0 Total Bilirubin 0.3 Aspartate Amino Transf 9 (AST/SGOT) Alanine Aminotransferase 9 (ALT/SGPT) Alkaline Phosphatase 123 Total Creatine Kinase 14 Troponin I LESS THAN 0.02 Total Protein 7.3 Albumin 2.1 Lactic Acid Level 3.1 Urine Color YELLOW Urine Turbidity HAZY Urine pH 5.5 Urine Specific [place] 1.008 Urine Protein TRACE Urine Glucose (UA) NEG Urine Ketones NEG Urine Occult Blood LARGE Urine Nitrite NEG Urine Bilirubin NEG Urine Urobilinogen LESS THAN 2.0 Urine Leukocyte Esterase LARGE Urine RBC 51 Urine WBC 70 Urine Squamous Epithelial 3 Cells Urine Amorphous Sediment RARE Urine Bacteria MANY Urine Hyaline Casts 1 Urine Mucus FEW Microscopic Urinalysis Comment CATH-CULTURE IND Date/Time Procedure Status Source Growth 04/25/17 21:10 Urine Culture Received Urine Catheterized Urine Pending 04/25/17 20:40 Aerobic Blood Culture Received Blood Peripheral Pending 04/25/17 20:40 Anaerobic Blood Culture Received Blood Peripheral Pending 04/25/17 20:05 Gram Stain Received Sputum Expectorated Sputum Pending 04/25/17 20:05 Sputum Culture Received Sputum Expectorated Sputum Pending Result Diagram: 04/25/17203404/25/172034 Assessment and Plan Problem List: (1) Sepsis ICD Code: A41.9 Status: Acute (2) PNA (pneumonia) ICD Code: J18.9 Status: Acute (3) UTI (urinary tract infection) ICD Code: N39.0 Status: Acute (4) Hypokalemia ICD Code: E87.6 Status: Acute (5) IVDU (intravenous drug user) ICD Code: F19.90 Status: Acute (6) H/O endocarditis ICD Code: Z86.79 Status: Acute (7) DONNIE (acute kidney injury) ICD Code: N17.9 Status: Acute (8) H/O deep venous thrombosis ICD Code: Z86.718 Status: Acute (9) Anemia ICD Code: D64.9 Status: Acute Assessment and Plan A/P: 1. Sepsis: HR 123, Temp 99.7, Lactic Acid 3.1, Source-PNA/UTI/?Endocarditis. S/p Sputum/Blood/Urine Cultures, and Zyvox in ER (Vanc ALLERGY), follow up cultures, continue IV Abx, IVF for hydration, Check repeat Lactic Acid per Sepsis Protocol. 2. PNA: c/o cough/SOB, CXR w/ new consolidation left medial retrocardiac area , images reviewed by me, h/o suspected septic emboli. S/p IV Abx as above, will continue, DuoNeb prn 3. UTI: U/a w/ UTI. Follow up cultures, continue IV Abx. IVF for hydration. 4. Hypokalemia: K+ 2.6, s/p replacement in ER, will recheck and replace as needed. 5. H/o Endocarditis: IVDU, previous admit 03/14-03/29/17 w/ TV Endocarditis, MRSA Bacteremia, repeat cultures 03/20/17 w/ no growth, s/p eval by ID w/ recommendation for long-term IV Abx w/ Cubicin until 04/26/17 via PICC (present on arrival), however pt LEFT AMA and has had no follow up w/ outpatient infusion center. S/p Blood Cultures in ER, will re-consult ID for recommendations. Continue IV Abx. 6. DONNIE: Creatinine 1.14, previously 0.51 on 03/17/17. UA positive for UTI, dehydration secondary to sepsis and acute infection. Continue with IVF, repeat labs in a.m. 7. H/o RLE DVT: s/p Lovenox during hospitalization, d/c'd w/ Xarelto however non-compliant. Will continue w/ anticoagulation, caution w/ anemia. Pt poor candidate for long-term anticoagulation in light of non-compliance 8. Anemia: Hgb 7.1, previously 9.6 on 03/29/17, has required transfusion in the past. Will check repeat Hgb/Hct, transfuse as needed for Hgb <7 or active bleeding. 9. DVT Prophylaxis: Lovenox sq q12h for h/o DVT 10. Social work for d/c planning as needed. 11. Case discussed w/ ER physician at length. Physician Certification 2 Midnight Certification Type: Admission for Inpatient Services Order for Inpatient Services The services are ordered in accordance with Medicare regulations or non- Medicare payer requirements, as applicable. In the case of services not specified as inpatient-only, they are appropriately provided as inpatient services in accordance with the 2-midnight benchmark. Estimated LOS (days): 2 days is the estimated time the patient will need to remain in the hospital, assuming treatment plan goals are met and no additional complications. Post-Hospital Plan: Not yet determined Kamla Shepard MD Apr 25, 2017 22:10
[2017-04-25] MEDS ORDERED: SODIUM CHLORIDE 0.9% FLUSH 10 ML FLUSH IV FLUSH PRN (22:15)
[2017-04-25] MEDS ORDERED: MAGNESIUM HYDROXIDE SUSP 30 ML CUP PO PRN (22:15)
[2017-04-25] MEDS ORDERED: LACTULOSE SYRUP 20 GM/30 ML CUP PO PRN (22:15)
[2017-04-25] MEDS ORDERED: ACETAMINOPHEN 325 MG TAB PO PRN (22:15)
[2017-04-25] MEDS ORDERED: LORazepam 2 MG/ML VIAL IV PUSH PRN (22:15)
[2017-04-25] MEDS ORDERED: SENNOSIDES 8.6 MG TAB PO PRN (22:15)
[2017-04-25] MEDS ORDERED: BISACODYL 10 MG SUPP RECTAL PRN (22:15)
[2017-04-25 22:51] LABS: LACTIC ACID GHOST NOT REPORTABLE
[2017-04-25] MEDS ORDERED: RESP: ALBUTEROL 2.5 MG/IPRATROPIUM 0.5 MG NEB (PRN) NEB (23:30)
[2017-04-25] MEDS: CEFEPIME INJ 1,000 MG in SODIUM CHLORIDE 0.9% INJ 100 ML IV SCH (23:32)
[2017-04-25] MEDS: ENOXAPARIN SODIUM 60 MG/0.6 ML SYRINGE SQ SCH (23:33)
[2017-04-25] MEDS: SODIUM CHLOR 0.9% 1000 ML INJ 1,000 ML IV SCH (23:34)
[2017-04-25] MEDS ORDERED: ALTEPLASE RECOMBINANT 2 MG VIAL INTRACATH ONE (23:45)
[2017-04-26] VITALS (13 sets, daily range): BP systolic 107–147; BP diastolic 70–85; PULSE 96–120; RESP 16–20; TEMP 97.1–97.9; O2SAT 98–100
[2017-04-26 01:20] LABS: AMPHETAMINE, URINE POS (NEG); BARBITURATES, URINE NEG (NEG); COCAINE, URINE POS (NEG)
[2017-04-26] MEDS: ONDANSETRON HCL 4 MG/2 ML VIAL IVP PRN (01:45)
[2017-04-26] MEDS: SODIUM CHLOR 0.9% 1000 ML INJ 1,000 ML IV SCH ×2 (08:02→18:02)
[2017-04-26] MEDS: CEFEPIME INJ 1,000 MG in SODIUM CHLORIDE 0.9% INJ 100 ML IV SCH ×2 (08:40→22:01)
[2017-04-26] MEDS: DOCUSATE SODIUM 50 MG/SENNA 8.6 MG TAB PO SCH ×2 (08:41→20:47)
[2017-04-26] MEDS ORDERED: POTASSIUM CHLORIDE 20 MEQ PWD PACKET NG SCH (09:00)
--- NOTE | 2017-04-26 09:45 | HHI.PR ---
Subjective Remarks Refusing labs in the morning, discussed with the patient say she will have repeat labs tomorrow. Has chest pain. No cough. No fever or chills. No n/v/d/c. Encouraged PO intake,patient did skip breakfast. Objective Vitals Vital Signs Date Time Temp Pulse Resp B/P Pulse Ox O2 Delivery O2 Flow Rate FiO2 04/26/17 08:00 97.3 120 16 147/85 98 04/26/17 06:26 97.6 102 18 107/73 98 04/26/17 04:00 99 04/26/17 02:00 104 04/26/17 01:50 97.4 103 17 131/79 100 04/26/17 00:59 110 20 119/77 99 Room Air 04/25/17 19:28 99.7 123 18 134/78 100 Room Air I/O 04/25/17 04/25/17 04/25/17 04/26/17 04/26/17 04/26/17 07:00 15:00 23:00 07:00 15:00 23:00 Intake Total 2600 ml Balance 2600 ml Intake IV Total 2600 ml Result Diagram: 04/25/17203404/25/172034 Imaging Last Impressions Chest X-Ray 04/25/172028 Signed Impressions: Service Date/Time: Tuesday, April 25, 2017 20:42 - CONCLUSION: Suspected new consolidation in the left medial retrocardiac area. The areas in the lateral right upper lobe and the left midlung appear to be improving. Dominick Kohli MD Objective Remarks GENERAL: Young white female in no acute distress. HEENT: PERRLA, EOMI. No scleral icterus or conjunctival pallor. No lid lag or facial droop. CARDIOVASCULAR: Regular rate and rhythm. No obvious murmurs to auscultation. No chest tenderness to palpation. RESPIRATORY: No obvious rhonchi or wheezing. Clear to auscultation. Breath sounds equal bilaterally. GASTROINTESTINAL: Abdomen soft, non-tender, nondistended. BS normal. MUSCULOSKELETAL: Extremities without clubbing, cyanosis, or edema. No obvious deformities. Multiple lesions to extremities and face, nondraining. NEUROLOGICAL: Awake, alert and oriented x4. No focal neurologic deficits. Moving both upper and lower extremities spontaneously. A/P Problem List: (1) Sepsis ICD Code: A41.9 Status: Acute (2) PNA (pneumonia) ICD Code: J18.9 Status: Acute (3) UTI (urinary tract infection) ICD Code: N39.0 Status: Acute (4) Hypokalemia ICD Code: E87.6 Status: Acute (5) IVDU (intravenous drug user) ICD Code: F19.90 Status: Acute (6) H/O endocarditis ICD Code: Z86.79 Status: Acute (7) DONNIE (acute kidney injury) ICD Code: N17.9 Status: Acute (8) H/O deep venous thrombosis ICD Code: Z86.718 Status: Acute (9) Anemia ICD Code: D64.9 Status: Acute Assessment and Plan Sepsis Bacteremia HR 123, Temp 99.7, Lactic Acid 3.1 on admission. Source-PNA/UTI/?Endocarditis/ Bacteremia . S/p Sputum/Blood/Urine Cultures, and Zyvox in ER (Vanc ALLERGY), follow up cultures, continue IV Abx, IVF for hydration, Check repeat Lactic Acid per Sepsis Protocol. PNA: c/o cough/SOB, CXR w/ new consolidation left medial retrocardiac area, images reviewed by me, h/o suspected septic emboli. S/p IV Abx as above, will continue, DuoNeb prn UTI: U/a w/ UTI. Follow up cultures, continue IV Abx. IVF for hydration. Hypokalemia: K+ 2.6, s/p replacement in ER, will recheck and replace as needed. H/o Endocarditis: IVDU, previous admit 03/14-03/29/17 w/ TV Endocarditis, MRSA Bacteremia, repeat cultures 03/20/17 w/ no growth, s/p eval by ID w/ recommendation for long-term IV Abx w/ Cubicin until 04/26/17 via PICC (present on arrival), however pt LEFT AMA and has had no follow up w/ outpatient infusion center. S/p Blood Cultures in ER, will re-consult ID for recommendations. Continue IV Abx. DONNIE: Creatinine 1.14, previously 0.51 on 03/17/17. UA positive for UTI, dehydration secondary to sepsis and acute infection. Continue with IVF, repeat labs in a.m. H/o RLE DVT: s/p Lovenox during hospitalization, d/c'd w/ Xarelto however non- compliant. Will continue w/ anticoagulation, caution w/ anemia. Pt poor candidate for long-term anticoagulation in light of non-compliance Anemia: Hgb 7.1, previously 9.6 on 03/29/17, has required transfusion in the past. Will check repeat Hgb/Hct, transfuse as needed for Hgb <7 or active bleeding. DVT Prophylaxis: Lovenox sq q12h for h/o DVT Case management for d/c planning as needed. Discussed with the patient, nurse, mother at bedside. Lula Lyon MD Apr 26, 2017 09:45
[2017-04-26] MEDS: SODIUM CHLORIDE 0.9% FLUSH 10 ML FLUSH IV FLUSH SCH ×2 (09:46→20:47)
[2017-04-26] MEDS: LINEZOLID 600 MG PREMIX 300 ML IV SCH ×2 (09:46→20:44)
[2017-04-26] MEDS: ENOXAPARIN SODIUM 60 MG/0.6 ML SYRINGE SQ SCH ×2 (10:00→22:00)
[2017-04-26] MEDS: POTASSIUM CHLORIDE 10 MEQ CONTROLLED RELEASE TAB PO SCH (13:25)
--- NOTE | 2017-04-26 14:19 | EKG ---
Date Performed: 04/25/2017 Time Performed: 20:38:27 PTAGE: 26 years EKG: SINUS TACHYCARDIA WITH SHORT CA INTERVAL ST DEVIATION AND MODERATE T-WAVE ABNORMALITY, CONS IDER LATERAL ISCHEMIA ABNORMAL ECG Consider inferior ischemia PREVIOUS TRACING : 03/14/2017 19.57 DOCTOR: Vega Wolff Interpretating Date/Time 04/26/2017 14:19:21
[2017-04-27] VITALS (10 sets, daily range): BP systolic 100–119; BP diastolic 60–83; PULSE 87–107; RESP 15–16; TEMP 96.9–98.3; O2SAT 98–99
--- NOTE | 2017-04-27 00:16 | MB ---
cc: WARD MCDOWELL MD, CAMILLE MD DATE OF CONSULTATION: 04/26/2017 REASON FOR CONSULTATION: IVDU/endocarditis/sepsis. REQUESTING PHYSICIAN Dr. Shepard HISTORY OF PRESENT ILLNESS This is a 26-year-old white female who was discharged from the hospital on March 29, 2017 to follow up with outpatient infusion center for IV antibiotic treatment for endocarditis. The patient was due to go to the infusion center to receive IV antibiotics, ordered to be given until April 30. However, after she was discharged she only went for a few days to the infusion center and then the infusion center called saying that she did not show up for five days and she failed to show up after that. The patient tells me that she was incarcerated and was in long term for two weeks. She was released from the long term about six days ago and she presented to the emergency department yesterday with chest pain and also coughing blood tinged sputum. She states she was having fever and chills as well. She never did get the PICC line removed and it is still in place. In the emergency department, heart rate was 123. Urine culture taken in the emergency department has gram-negative rods. Urinalysis was remarkable for 70 white cells and a large amount of leukocyte esterase. Blood cultures has gram-negative june in all four bottles and there is also gram-positive cocci in two of the bottles as well. The patient is lying in bed and she feels tired. She denies headaches, nausea, vomiting. T max was 99.7 yesterday. During the last hospitalization the patient had positive blood cultures with MRSA. A chest x-ray performed yesterday showed suspected new consolidation in the left medial retrocardiac area. The areas in the lateral right upper lobe and left midlung appears to be improving on the x-ray. PAST MEDICAL HISTORY: 1. 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 2. History of tonsillectomy. 3. Acute kidney disease. ALLERGIES Vancomycin. Causes rash. MEDICATIONS 1. Linezolid. 2. Zofran. 3. Oxycodone 4. Cefepime. 5. Lovenox. SOCIAL HISTORY Positive for substance abuse. The patient smokes half-a-pack of cigarettes a day. No alcohol. FAMILY HISTORY Noncontributory. REVIEW OF SYSTEMS Pertinent as mentioned in the history of present illness. PHYSICAL EXAMINATION This is a slender female who is in no acute distress. She is awake and alert. Vital signs: Include temperature 97.9, BP 122/81, respirations 16, heart rate 109. HEENT: Head is atraumatic. Extraocular movements grossly intact, pupils reactive to light. No icterus. Oropharynx, no visible lesions. Neck: Supple. No adenopathy. Lungs: Decreased breath sounds throughout. Heart: Regular S1, S2 with a 2/6 systolic murmur at the left sternal border. Abdomen: Bowel sounds present, soft, no tenderness appreciated. Rectal: Not performed. Extremities: No clubbing or cyanosis or edema. Multiple scratches at the arms and legs with excoriated scattered lesions. No embolic phenomena. Skin: No rash. No gross focal findings. Psych: The patient is calm. She is cooperative. LABORATORY DATA WBC 8.4, platelets 222, hemoglobin 7.1, 69% neutrophils, 21% lymphocytes, creatinine 1.14, BUN 7, sodium 133. Toxicology screen, positive for cocaine, opiates and amphetamines. IMPRESSION 1. Bacteremia due to gram-negative june probably arising from urinary tract infection. 2. Positive blood culture also with gram-positive cocci probably related to PICC line. Given the drug screen, the patient may have been using the PICC line for infusion of drugs. 3. Noncompliance with IV antibiotic treatment. The patient did not show up for antibiotics and continue with a PICC line in place, despite not being present to receive the IV antibiotics for which purpose the PICC line was inserted. RECOMMENDATIONS 1. Continue cefepime for gram-negative bacteria. 2. Continue Linezolid for now. 3. Monitor platelet count while on linezolid. 4. Monitor temperature. 5. Remove the PICC line. 6. Send the PICC line tip for culture. Thank for this consultation. I will follow the patient's progress and make further recommendations on followup. Ward Mcdowell MD FD/JANIYA /6:02 PM /12:05 AM
[2017-04-27] MEDS: SODIUM CHLOR 0.9% 1000 ML INJ 1,000 ML IV SCH ×2 (04:30→22:21)
[2017-04-27] MEDS: DOCUSATE SODIUM 50 MG/SENNA 8.6 MG TAB PO SCH ×2 (09:00→21:00)
[2017-04-27] MEDS: SODIUM CHLORIDE 0.9% FLUSH 10 ML FLUSH IV FLUSH SCH ×2 (09:00→21:00)
[2017-04-27] MEDS: CEFEPIME INJ 1,000 MG in SODIUM CHLORIDE 0.9% INJ 100 ML IV SCH ×2 (09:46→22:20)
[2017-04-27] MEDS: ENOXAPARIN SODIUM 60 MG/0.6 ML SYRINGE SQ SCH ×2 (09:47→22:00)
[2017-04-27] MEDS: POTASSIUM CHLORIDE 10 MEQ CONTROLLED RELEASE TAB PO SCH (09:47)
[2017-04-27] MEDS: LINEZOLID 600 MG PREMIX 300 ML IV SCH ×2 (10:56→22:20)
--- NOTE | 2017-04-27 11:15 | HHI.PR ---
Subjective Remarks Patient in bed. Appears in nad. she complaints of diarrhea today in the morning no blood in it. No n/v. Has soem epigastric pain. She is not eating well. Denies fever or chills. Says she has chest pain and is asking for pain meds . Objective Vitals Vital Signs Date Time Temp Pulse Resp B/P Pulse Ox O2 Delivery O2 Flow Rate FiO2 04/27/17 08:00 98.0 100 15 119/82 98 04/27/17 04:00 97.7 102 16 100/60 98 04/27/17 00:46 96.9 107 16 115/76 98 04/27/17 00:00 105 04/26/17 21:49 97.1 111 16 115/80 100 04/26/17 20:00 117 04/26/17 18:00 97.6 104 16 110/70 100 04/26/17 16:02 105 04/26/17 12:04 96 04/26/17 12:00 97.9 109 16 122/81 98 I/O 04/26/17 04/26/17 04/26/17 04/27/17 04/27/17 04/27/17 07:00 15:00 23:00 07:00 15:00 23:00 Intake Total 2600 ml 960 ml 500 ml 450 ml 2532 ml Output Total 3500 ml 1000 ml Balance 2600 ml 960 ml -3000 ml -550 ml 2532 ml Intake Oral 960 ml 500 ml 450 ml IV Total 2600 ml 2532 ml Output Urine Total 3500 ml 1000 ml # Bowel Movements 2 1 Result Diagram: 04/25/17203404/25/172034 Imaging Last Impressions Chest X-Ray 04/25/172028 Signed Impressions: Service Date/Time: Tuesday, April 25, 2017 20:42 - CONCLUSION: Suspected new consolidation in the left medial retrocardiac area. The areas in the lateral right upper lobe and the left midlung appear to be improving. Dominick Kohli MD Objective Remarks GENERAL: Young white female in no acute distress. HEENT: PERRLA, EOMI. No scleral icterus or conjunctival pallor. No lid lag or facial droop. CARDIOVASCULAR: Regular rate and rhythm. No obvious murmurs to auscultation. No chest tenderness to palpation. RESPIRATORY: No obvious rhonchi or wheezing. Clear to auscultation. Breath sounds equal bilaterally. GASTROINTESTINAL: Abdomen soft, non-tender, nondistended. BS normal. MUSCULOSKELETAL: Extremities without clubbing, cyanosis, or edema. No obvious deformities. Multiple lesions to extremities and face, nondraining. NEUROLOGICAL: Awake, alert and oriented x4. No focal neurologic deficits. Moving both upper and lower extremities spontaneously. A/P Problem List: (1) Sepsis ICD Code: A41.9 Status: Acute (2) PNA (pneumonia) ICD Code: J18.9 Status: Acute (3) UTI (urinary tract infection) ICD Code: N39.0 Status: Acute (4) Hypokalemia ICD Code: E87.6 Status: Acute (5) IVDU (intravenous drug user) ICD Code: F19.90 Status: Acute (6) H/O endocarditis ICD Code: Z86.79 Status: Acute (7) DONNIE (acute kidney injury) ICD Code: N17.9 Status: Acute (8) H/O deep venous thrombosis ICD Code: Z86.718 Status: Acute (9) Anemia ICD Code: D64.9 Status: Acute Assessment and Plan Sepsis Bacteremia HR 123, Temp 99.7, Lactic Acid 3.1 on admission. Source-PNA/UTI/?Endocarditis/ Bacteremia . S/p Sputum/Blood/Urine Cultures, and Zyvox in ER (Vanc ALLERGY), follow up cultures, continue IV Abx, IVF for hydration, Check repeat Lactic Acid per Sepsis Protocol. PNA: c/o cough/SOB, CXR w/ new consolidation left medial retrocardiac area, images reviewed by me, h/o suspected septic emboli. S/p IV Abx as above, will continue, DuoNeb prn UTI: U/a w/ UTI. Follow up cultures, continue IV Abx. IVF for hydration. Diarrhea: Check for C diff. Start probiotics. Encouraged PO intake. Moderate Protein calorie malnutrition. Add ensure to diet. Check prealbumin. 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 H/o Endocarditis: IVDU, previous admit 03/14-03/29/17 w/ TV Endocarditis, MRSA Bacteremia, repeat cultures 03/20/17 w/ no growth, s/p eval by ID w/ recommendation for long-term IV Abx w/ Cubicin until 04/26/17 via PICC (present on arrival), however pt LEFT AMA and has had no follow up w/ outpatient infusion center. S/p Blood Cultures in ER, will re-consult ID for recommendations. Continue IV Abx. Asking for pain meds. She is currently on roxycodone 10 mg. DONNIE: Creatinine 1.14, previously 0.51 on 03/17/17. UA positive for UTI, dehydration secondary to sepsis and acute infection. Continue with IVF, repeat labs in a.m. H/o RLE DVT: s/p Lovenox during hospitalization, d/c'd w/ Xarelto however non- compliant. Will continue w/ anticoagulation, caution w/ anemia. Pt poor candidate for long-term anticoagulation in light of non-compliance Anemia: Hgb 7.1, previously 9.6 on 03/29/17, has required transfusion in the past. Will check repeat Hgb/Hct, transfuse as needed for Hgb <7 or active bleeding. DVT Prophylaxis: Lovenox sq q12h for h/o DVT Case management for d/c planning as needed. Discussed with the patient, nurse Lula Lyon MD Apr 27, 2017 11:14
[2017-04-27] MEDS: ONDANSETRON HCL 4 MG/2 ML VIAL IVP PRN (12:20)
[2017-04-27 15:07] LABS: C. DIFF EPI 027 PRESUMPTIVE NEGATIVE (NEGATIVE); C. DIFF TOXIN PCR NEGATIVE (NEGATIVE)
[2017-04-27] MEDS: LACTOBACILLUS ACIDOPHILUS TAB PO SCH ×2 (16:28→21:00)
[2017-04-27] MEDS: LOPERAMIDE HCL 2 MG CAP PO PRN ×2 (16:28→17:59)
[2017-04-28] VITALS (9 sets, daily range): BP systolic 100–134; BP diastolic 66–91; PULSE 92–108; RESP 16–22; TEMP 97.2–98.7; O2SAT 97–99
[2017-04-28] MEDS: DOCUSATE SODIUM 50 MG/SENNA 8.6 MG TAB PO SCH ×2 (09:00→21:00)
[2017-04-28] MEDS: SODIUM CHLOR 0.9% 1000 ML INJ 1,000 ML IV SCH ×2 (09:51→22:05)
[2017-04-28] MEDS: LINEZOLID 600 MG PREMIX 300 ML IV SCH ×3 (09:52→21:59)
[2017-04-28] MEDS: POTASSIUM CHLORIDE 10 MEQ CONTROLLED RELEASE TAB PO SCH (09:56)
[2017-04-28] MEDS: SODIUM CHLORIDE 0.9% FLUSH 10 ML FLUSH IV FLUSH SCH ×2 (09:56→21:00)
[2017-04-28] MEDS: LACTOBACILLUS ACIDOPHILUS TAB PO SCH ×2 (09:57→21:59)
[2017-04-28] MEDS: ENOXAPARIN SODIUM 60 MG/0.6 ML SYRINGE SQ SCH ×2 (09:57→21:59)
[2017-04-28] MEDS: CEFEPIME INJ 1,000 MG in SODIUM CHLORIDE 0.9% INJ 100 ML IV SCH ×3 (12:14→22:00)
--- NOTE | 2017-04-28 13:55 | HHI.IDPN ---
Note Infectious Disease Note Vital Signs Date Time Temp Pulse Resp B/P Pulse Ox O2 Delivery O2 Flow Rate FiO2 04/28/17 12:29 98.7 108 22 117/82 99 04/28/17 08:41 97.4 96 22 118/82 97 04/28/17 06:00 97.2 97 16 100/66 98 04/28/17 04:00 97.2 97 16 100/66 98 04/28/17 00:00 98.5 104 16 116/71 98 04/27/17 20:00 99 04/27/17 16:02 107 04/27/17 16:00 98.3 87 16 116/83 99 Patient is resting comfortably. No complaints and no distress. Afebrile. Patient was discharged from the hospital on March 29, 2017 to follow up with outpatient infusion center for IV antibiotic treatment for endocarditis. The patient was due to go to the infusion center to receive IV antibiotics, ordered to be given until April 30. However, after she was discharged she only went for a few days to the infusion center and then the infusion center called saying that she did not show up for five days and she failed to show up after that. The patient told me that she was incarcerated and was in retirement for two weeks. She was released from the retirement about six days prior to presenting to the emergency department yesterday with chest pain and also coughing blood tinged sputum. She states she was having fever and chills as well. She never did get the PICC line removed and it was still in place when she was admitted. PAST MEDICAL HISTORY: 1. 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 2. History of tonsillectomy. 3. Acute kidney disease. ALLERGIES Vancomycin. Causes rash. MEDICATIONS 1. Linezolid. 2. Cefepime. SOCIAL HISTORY Positive for substance abuse. The patient smokes half-a-pack of cigarettes a day. No alcohol. OBJECTIVE: Vital Signs Date Time Temp Pulse Resp B/P Pulse Ox O2 Delivery O2 Flow Rate FiO2 04/28/17 12:29 98.7 108 22 117/82 99 04/28/17 08:41 97.4 96 22 118/82 97 04/28/17 06:00 97.2 97 16 100/66 98 04/28/17 04:00 97.2 97 16 100/66 98 04/28/17 00:00 98.5 104 16 116/71 98 04/27/17 20:00 99 04/27/17 16:02 107 04/27/17 16:00 98.3 87 16 116/83 99 04/27/17 04/27/17 04/28/17 15:00 23:00 07:00 Intake Total 3332 ml 500 ml 450 ml Output Total 3500 ml 700 ml Balance 3332 ml -3000 ml -250 ml Intake Oral 800 ml 500 ml 450 ml IV Total 2532 ml Output Urine Total 3500 ml 700 ml # Voids 5 # Bowel Movements 3 3 1 Microbiology Date/Time Procedure Status Source Growth 04/25/17 20:05 Gram Stain - Final Complete Sputum Expectorated Sputum 04/25/17 20:05 Sputum Culture - Final Complete Sputum Expectorated Sputum HEAVY GROWTH NORMAL RESPIRATORY CONSUELO 04/25/17 20:30 Aerobic Blood Culture - Preliminary Resulted Blood Peripheral Klebsiella Pneumoniae Enterobacter Cloacae S. Aureus Mrsa Viridans Streptococcus Grp 04/25/17 20:30 Anaerobic Blood Culture - Preliminary Resulted Klebsiella Pneumoniae Enterobacter Cloacae S. Aureus Mrsa Viridans Streptococcus Grp 04/25/17 20:40 Aerobic Blood Culture - Preliminary Resulted Blood Peripheral Klebsiella Pneumoniae Enterobacter Cloacae S. Aureus Mrsa 04/25/17 20:40 Anaerobic Blood Culture - Final Resulted Klebsiella Pneumoniae Enterobacter Cloacae Viridans Streptococcus Grp Bacillus Species Not Anthracis 04/25/17 21:10 Urine Culture - Final Complete Urine Catheterized Urine Klebsiella Pneumoniae 04/26/17 18:45 Wound Culture Received Catheter Tip Other Pending PHYSICAL EXAMINATION No acute distress. She is awake and alert. HEENT: No icterus. Oropharynx, no visible lesions. Neck: Supple. No adenopathy. Lungs: Decreased breath sounds. Heart: Regular S1, S2 with a 2/6 systolic murmur at the left sternal border. Abdomen: Bowel sounds present, soft, no tenderness appreciated. Extremities: No clubbing or cyanosis or edema. PIC line site intact. Multiple scratches at the arms and legs with excoriated scattered lesions. No embolic phenomena. Skin: No rash. No gross focal findings. Psych: The patient is calm. She is cooperative. IMPRESSION 1. Bacteremia due to polymicrobial organisms: Strep viridans, MRSA, Klebsiella, Enterobacter. 2. Positive blood cultures most likely related to PICC line. Given the drug screen, the patient may have been using the PICC line for infusion of drugs. 3. Noncompliance with IV antibiotic treatment. The patient did not show up for antibiotics and continue with a PICC line in place, despite not being present to receive the IV antibiotics for which purpose the PICC line was inserted. 4. UTI. Klebsiella. Looks stable. RECOMMENDATIONS 1. Continue cefepime for gram-negative bacteria. 2. Continue Linezolid. She has allergy to Vancomycin. 3. Monitor platelet count while on linezolid. 4. Monitor temperature. 5. Repeat blood cultures. 6. 2D ECHO. Ward Mcdowell MD Apr 28, 2017 13:55
--- NOTE | 2017-04-28 16:13 | HHI.PR ---
Subjective Remarks Follow-up for bacteremia in a patient with history of IV drug use. Patient is currently doing well. Denies any chest pain, shortness of breath, fever or chills. She complains of inadequate pain control. Objective Vitals Vital Signs Date Time Temp Pulse Resp B/P Pulse Ox O2 Delivery O2 Flow Rate FiO2 04/28/17 12:29 98.7 108 22 117/82 99 04/28/17 08:41 97.4 96 22 118/82 97 04/28/17 06:00 97.2 97 16 100/66 98 04/28/17 04:00 97.2 97 16 100/66 98 04/28/17 00:00 98.5 104 16 116/71 98 04/27/17 20:00 99 04/27/17 16:02 107 04/27/17 16:00 98.3 87 16 116/83 99 I/O 04/27/17 04/27/17 04/27/17 04/28/17 04/28/17 04/28/17 07:00 15:00 23:00 07:00 15:00 23:00 Intake Total 450 ml 3332 ml 500 ml 450 ml 1920 ml Output Total 1000 ml 3500 ml 700 ml Balance -550 ml 3332 ml -3000 ml -250 ml 1920 ml Intake Oral 450 ml 800 ml 500 ml 450 ml 1920 ml IV Total 2532 ml Output Urine Total 1000 ml 3500 ml 700 ml # Voids 5 6 # Bowel Movements 1 3 3 1 3 Result Diagram: 04/25/17203404/25/172034 Imaging Last Impressions Chest X-Ray 04/25/172028 Signed Impressions: Service Date/Time: Tuesday, April 25, 2017 20:42 - CONCLUSION: Suspected new consolidation in the left medial retrocardiac area. The areas in the lateral right upper lobe and the left midlung appear to be improving. Dominick Kohli MD Objective Remarks GENERAL: Alert, oriented 3, NAD. SKIN: Warm and dry. HEAD: Normocephalic. EYES: No scleral icterus. No injection or drainage. NECK: Supple, trachea midline. No JVD or lymphadenopathy. CARDIOVASCULAR: Regular rhythm, tachycardic without murmurs, gallops, or rubs. RESPIRATORY: Breath sounds equal bilaterally. No accessory muscle use. GASTROINTESTINAL: Abdomen soft, non-tender, nondistended. MUSCULOSKELETAL: No cyanosis, or edema. BACK: Nontender without obvious deformity. No CVA tenderness. Procedures None A/P Problem List: (1) Sepsis ICD Code: A41.9 Status: Acute (2) PNA (pneumonia) ICD Code: J18.9 Status: Acute (3) UTI (urinary tract infection) ICD Code: N39.0 Status: Acute (4) Hypokalemia ICD Code: E87.6 Status: Acute (5) IVDU (intravenous drug user) ICD Code: F19.90 Status: Acute (6) H/O endocarditis ICD Code: Z86.79 Status: Acute (7) DONNIE (acute kidney injury) ICD Code: N17.9 Status: Acute (8) H/O deep venous thrombosis ICD Code: Z86.718 Status: Acute (9) Anemia ICD Code: D64.9 Status: Acute Assessment and Plan Ms. Quintana is a 26 year old female with a PMH of IVDU, RLE DVT, h/o MRSA Bacteremia, Non-Compliance and h/o Endocarditis who presented to the ER w/ c/o cough and fever. Previous admit 03/14-03/29/17 for similar symptoms, found to have Tricuspid Valve Endocarditis w/ MRSA Bacteremia and Cavitary Pulmonary Masses thought to be Septic Emboli and possible Left Elbow Septic Arthitis, repeat BC 03/20/17 negative, eval by ID w/ plan to continue Cubicin IV until , however pt LEFT AMA, was incarcerated and recently released from long term. Has not followed up w/ outpatient Infusion Center for continued IV Abx. Also w/ H/ o RLE DVT, was to continue w/ Xarelto however has been non-compliant. On arrival, BP 134/78, HR 123, O2 sat 100% on RA, Temp 99.7. WBC 8.4. Hemoglobin 7.1, previously 9.6 on 03/29/17. K+ 2.6. Creatinine 1.14, produces 0.51 on . Lactic Acid 3.1. - Sepsis - possibly due to pneumonia, IVDU related endocarditis. - Pneumonia - Urinary tract infection - History of Endocarditis, Tricuspid valve. - Bacteremia with multiple bacteria - Blood culture positive for Klebsiella Pneumoniae, Enterobacter Cloacae, MRSA, Strep Viridans - Urine culture is positive for Klebsiella - ID is following - Continue Cefepime and Linezolid. Patient is allergic to Vancomycin. - Hypokalemia - K+ 2.6 on 04/25/2017. - Will check BMP in the AM. - Continue KCL but increase to KCL 20meQ Q8hrs for 3 days. - Acute kidney injury - Creatinine 1.14 - Will repeat BMP in the AM. - Iron deficiency Anemia - Hgb 7.1, MCV 75.4. - Transfuse for Anemia < 7.0. Full code. Lovenox. Nain De DO Apr 28, 2017 4:13 pm
[2017-04-28] MEDS: POTASSIUM CHLORIDE 20 MEQ CONTROLLED RELEASE TAB PO SCH (18:27)
[2017-04-29] VITALS: BP 124/82; PULSE 102; RESP 18; TEMP 98.4; O2SAT 98
[2017-04-29] MEDS: POTASSIUM CHLORIDE 20 MEQ CONTROLLED RELEASE TAB PO SCH ×2 (01:00→08:02)
[2017-04-29 04:00] VITALS: BP 128/81; PULSE 105; RESP 18; TEMP 97.1; O2SAT 92
[2017-04-29 08:00] VITALS: BP 123/77; PULSE 83; RESP 18; TEMP 98.2; O2SAT 97
[2017-04-29] MEDS: LACTOBACILLUS ACIDOPHILUS TAB PO SCH (08:02)
[2017-04-29] MEDS: DOCUSATE SODIUM 50 MG/SENNA 8.6 MG TAB PO SCH (08:03)
[2017-04-29] MEDS: SODIUM CHLORIDE 0.9% FLUSH 10 ML FLUSH IV FLUSH SCH (08:03)
--- NOTE | 2017-04-29 09:03 | HHI.PR ---
Objective Vitals Vital Signs Date Time Temp Pulse Resp B/P Pulse Ox O2 Delivery O2 Flow Rate FiO2 04/29/17 04:00 97.1 105 18 128/81 92 04/29/17 00:00 98.4 102 18 124/82 98 04/28/17 20:01 93 04/28/17 20:00 98.6 97 16 134/91 99 04/28/17 16:26 98.5 93 22 120/85 99 04/28/17 12:29 98.7 108 22 117/82 99 I/O 04/28/17 04/28/17 04/28/17 04/29/17 04/29/17 04/29/17 07:00 15:00 23:00 07:00 15:00 23:00 Intake Total 450 ml 1920 ml 960 ml 1080 ml Output Total 700 ml 1200 ml Balance -250 ml 1920 ml -240 ml 1080 ml Intake Oral 450 ml 1920 ml 960 ml 1080 ml Output Urine Total 700 ml 1200 ml # Voids 6 10 # Bowel Movements 1 3 0 Result Diagram: 04/25/17203404/25/172034 Objective Remarks GENERAL: Alert, oriented 3, NAD. SKIN: Warm and dry. HEAD: Normocephalic. EYES: No scleral icterus. No injection or drainage. NECK: Supple, trachea midline. No JVD or lymphadenopathy. CARDIOVASCULAR: Regular rhythm, tachycardic without murmurs, gallops, or rubs. RESPIRATORY: Breath sounds equal bilaterally. No accessory muscle use. GASTROINTESTINAL: Abdomen soft, non-tender, nondistended. MUSCULOSKELETAL: No cyanosis, or edema. BACK: Nontender without obvious deformity. No CVA tenderness. Procedures None A/P Problem List: (1) Sepsis ICD Code: A41.9 Status: Acute (2) PNA (pneumonia) ICD Code: J18.9 Status: Acute (3) UTI (urinary tract infection) ICD Code: N39.0 Status: Acute (4) Hypokalemia ICD Code: E87.6 Status: Acute (5) IVDU (intravenous drug user) ICD Code: F19.90 Status: Acute (6) H/O endocarditis ICD Code: Z86.79 Status: Acute (7) DONNIE (acute kidney injury) ICD Code: N17.9 Status: Acute (8) H/O deep venous thrombosis ICD Code: Z86.718 Status: Acute (9) Anemia ICD Code: D64.9 Status: Acute Assessment and Plan Ms. Quintana is a 26 year old female with a PMH of IVDU, RLE DVT, h/o MRSA Bacteremia, Non-Compliance and h/o Endocarditis who presented to the ER w/ c/o cough and fever. Previous admit 03/14-03/29/17 for similar symptoms, found to have Tricuspid Valve Endocarditis w/ MRSA Bacteremia and Cavitary Pulmonary Masses thought to be Septic Emboli and possible Left Elbow Septic Arthitis, repeat BC 03/20/17 negative, eval by ID w/ plan to continue Cubicin IV until , however pt LEFT AMA, was incarcerated and recently released from intermediate. Has not followed up w/ outpatient Infusion Center for continued IV Abx. Also w/ H/ o RLE DVT, was to continue w/ Xarelto however has been non-compliant. On arrival, BP 134/78, HR 123, O2 sat 100% on RA, Temp 99.7. WBC 8.4. Hemoglobin 7.1, previously 9.6 on 03/29/17. K+ 2.6. Creatinine 1.14, produces 0.51 on . Lactic Acid 3.1. - Sepsis - possibly due to pneumonia, IVDU related endocarditis. - Pneumonia - Urinary tract infection - History of Endocarditis, Tricuspid valve. - Bacteremia with multiple bacteria - Blood culture positive for Klebsiella Pneumoniae, Enterobacter Cloacae, MRSA, Strep Viridans - Urine culture is positive for Klebsiella - ID is following - Continue Cefepime and Linezolid. Patient is allergic to Vancomycin. - Hypokalemia - K+ 2.6 on 04/25/2017. - Will check BMP in the AM. - Continue KCL but increase to KCL 20meQ Q8hrs for 3 days. - Acute kidney injury - Creatinine 1.14 - Will repeat BMP in the AM. - Iron deficiency Anemia - Hgb 7.1, MCV 75.4. - Transfuse for Anemia < 7.0. Full code. Lovenox. Nain De DO Apr 29, 2017 09:03
[2017-04-29] MEDS: CEFEPIME INJ 1,000 MG in SODIUM CHLORIDE 0.9% INJ 100 ML IV SCH (09:57)
[2017-04-29] MEDS: LINEZOLID 600 MG PREMIX 300 ML IV SCH (09:58)
[2017-04-29] MEDS: SODIUM CHLOR 0.9% 1000 ML INJ 1,000 ML IV SCH ×2 (09:58→16:02)
[2017-04-29] MEDS: ENOXAPARIN SODIUM 60 MG/0.6 ML SYRINGE SQ SCH (09:58)
[2017-04-29 09:59] LABS: AUTOMATED NEUTROPHIL # 2.6 TH/MM3 (1.8-7.7); BASOPHIL # 0.1 TH/MM3 (0-0.2); BASOPHIL % 1.3 % (0.0-2.0); EOSINOPHIL # 0.1 TH/MM3 (0-0.4); EOSINOPHIL % 1.6 % (0.0-4.0); HEMATOCRIT 24.4 % (35.0-46.0); HEMO FLAGS DIFF FINAL; LYMPH % 50.2 % (9.0-44.0); LYMPHOCYTE # 3.2 TH/MM3 (1.0-4.8); MEAN CELL VOLUME 75.8 FL (80.0-100.0); MEAN CORPUSCULAR HGB CONC 31.6 % (32.0-36.0); MONO % 6.5 % (0.0-8.0); NEUT % 40.4 % (16.0-70.0); PLATELET COUNT 310 TH/MM3 (150-450); RED BLOOD COUNT 3.22 MIL/MM3 (4.00-5.30); WHITE BLOOD COUNT 6.5 TH/MM3 (4.0-11.0)
[2017-04-29 10:20] LABS: BICARBONATE 24.3 MEQ/L (21.0-32.0); MAGNESIUM 1.3 MG/DL (1.5-2.5); POTASSIUM 4.6 MEQ/L (3.5-5.1)
[2017-04-29 12:00] VITALS: BP 117/82; PULSE 85; RESP 18; TEMP 98.2; O2SAT 97
[2017-04-29 12:04] VITALS: PULSE 102
[2017-04-29] MEDS ORDERED: LEVA750T9 PO (12:37)
[2017-04-29] MEDS ORDERED: LINE1TAB PO (12:37)
--- NOTE | 2017-04-29 12:42 | HHI.DS ---
Discharge Summary Admission Date Apr 25, 2017 at 10:11 pm Discharge Date: Apr 29, 2017 Admitting Diagnosis (1) Sepsis ICD Code: A41.9 Diagnosis: Principal (2) PNA (pneumonia) ICD Code: J18.9 (3) UTI (urinary tract infection) ICD Code: N39.0 Diagnosis: Principal (4) Hypokalemia ICD Code: E87.6 (5) IVDU (intravenous drug user) ICD Code: F19.90 Diagnosis: Principal (6) H/O endocarditis ICD Code: Z86.79 Diagnosis: Principal (7) DONNIE (acute kidney injury) ICD Code: N17.9 (8) H/O deep venous thrombosis ICD Code: Z86.718 (9) Anemia ICD Code: D64.9 Procedures None Brief History - From Admission This is a 26 year old female with a PMH of IVDU, RLE DVT, h/o MRSA Bacteremia, Non-Compliance and h/o Endocarditis who presented to the ER w/ c/o cough and fever. 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 Has not followed up w/ outpatient Infusion Center for continued IV Abx. Also w/ H/o RLE DVT, was to continue w/ Xarelto however has been non-compliant. On arrival , BP 134/78, HR 123, O2 sat 100% on RA, Temp 99.7. WBC 8.4. Hemoglobin 7.1, previously 9.6 on 03/29/17. K+ 2.6. Creatinine 1.14, produces 0.51 on 03/17/17. Lactic Acid 3.1. UA positive for UTI. CXR with new consolidation left medial retrocardiac area. S/p Sputum/Blood/Urine Cultures, Zyvox in ER. CBC/BMP: 7/6/17 0905 04/29/17 0905 Significant Findings Laboratory Tests Test 04/29/17 09:05 Red Blood Count 3.22 MIL/MM3 (4.00-5.30) Hemoglobin 7.7 GM/DL (11.6-15.3) Hematocrit 24.4 % (35.0-46.0) Mean Corpuscular Volume 75.8 FL (80.0-100.0) Mean Corpuscular Hemoglobin 24.0 PG (27.0-34.0) Mean Corpuscular Hemoglobin 31.6 % Concent (32.0-36.0) Red Cell Distribution Width 18.0 % (11.6-17.2) Lymphocytes (%) (Auto) 50.2 % (9.0-44.0) Blood Urea Nitrogen 5 MG/DL (7-18) Estimat Glomerular Filtration 78 ML/MIN (>89) Rate Magnesium Level 1.3 MG/DL (1.5-2.5) Imaging Last Impressions Chest X-Ray 04/25/172028 Signed Impressions: Service Date/Time: Tuesday, April 25, 2017 20:42 - CONCLUSION: Suspected new consolidation in the left medial retrocardiac area. The areas in the lateral right upper lobe and the left midlung appear to be improving. Dominick Kohli MD PE at Discharge GENERAL: Alert, oriented 3, NAD. SKIN: Warm and dry. HEAD: Normocephalic. EYES: No scleral icterus. No injection or drainage. NECK: Supple, trachea midline. No JVD or lymphadenopathy. CARDIOVASCULAR: Regular rhythm, tachycardic without murmurs, gallops, or rubs. RESPIRATORY: Breath sounds equal bilaterally. No accessory muscle use. GASTROINTESTINAL: Abdomen soft, non-tender, nondistended. MUSCULOSKELETAL: No cyanosis, or edema. BACK: Nontender without obvious deformity. No CVA tenderness. Pt update on day of discharge Ms. Quintana is doing well. Denies any fever, chills. After discussing with ID, I discussed with patient regarding discharge plan with oral abx. She is happy about oral abx. She also states that she can stay with her father and he will help her with medications. Hospital Course Ms. Quintana is a 26 year old female with a PMH of IVDU, RLE DVT, h/o MRSA Bacteremia, Non-Compliance and h/o Endocarditis who presented to the ER w/ c/o cough and fever. 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 Has not followed up w/ outpatient Infusion Center for continued IV Abx. Also w/ H/ o RLE DVT, was to continue w/ Xarelto however has been non-compliant. On arrival, BP 134/78, HR 123, O2 sat 100% on RA, Temp 99.7. WBC 8.4. Hemoglobin 7.1, previously 9.6 on 03/29/17. K+ 2.6. Creatinine 1.14, produces 0.51 on . Lactic Acid 3.1. - Sepsis - possibly due to pneumonia, IVDU related endocarditis. - Pneumonia - Urinary tract infection - History of Endocarditis, Tricuspid valve. - Bacteremia with multiple bacteria - Blood culture positive for Klebsiella Pneumoniae, Enterobacter Cloacae, MRSA, Strep Viridans - Urine culture is positive for Klebsiella - ID is following - Continued Cefepime and Linezolid in the hospital. Patient is allergic to Vancomycin. - I discussed with ID who agreed with discharging patient and recommended two weeks of abx with Linezolid and Levaquin - ID also recommended weekly CBC while patient is on Linezolid. - I discussed with patient at length and she is agreeable to this approach. We will discharge patient home. - Hypokalemia - K+ 2.6 on 04/25/2017. - Hypomagnesemia - Mg 1.3. - resolved. K+ 4.6 on 04/29/2017. - Replaced Mg with IV Mag sulfate 2 g. - Acute kidney injury - Creatinine 1.14. Resolved. Creatinine 0.88 on 04/29/2017. - Iron deficiency Anemia - Hgb 7.1, MCV 75.4. - Transfuse for Anemia < 7.0. CBC on 05/06, 05/13, 05/20/2017. Pt Condition on Discharge: Good Discharge Disposition: Discharge Home Discharge Time: > 30 minutes Discharge Instructions DIET: Follow Instructions for: As Tolerated, No Restrictions Activities you can perform: Regular-No Restrictions Follow up Referrals: PCP Follow-up - 1 Week New Orders: CBC WITH DIFF - 05/06/17 CBC WITH DIFF - 05/13/17 CBC WITH DIFF - 05/20/17 New Medications: Levofloxacin (Levaquin) 750 Mg Tablet 1 TAB PO DAILY Infection #14 TAB Linezolid (Linezolid) 600 Mg Tab 600 MG PO Q12H Infection #28 Ref 0 TAB Nain De DO Apr 29, 2017 12:42
[2017-04-29] MEDS: MAGNESIUM SULFATE 1 GM PREMIX 100 ML IV SCH ×2 (13:13→14:16)
--- NOTE | 2017-04-29 13:45 | ECHRPT ---
Indication: Acute and subacute endocarditis, unspecified CONCLUSIONS There is moderate to severe tricuspid valve regurgitation. The estimated pulmonary arterial pressure is 50 mmHg. One single view of the tricuspid shows suggestion of possible tiny echodensity on the atrial side of the valve. No other views show it. A vegetation cannot be ruled out. Normal left ventricular size and wall thickness. The left ventricular systolic function is normal wi th an estimated ejection fraction in the range of 60-65%. Left ventricular diastolic function parameters a re normal. Normal wall motion. BP: 117 / 82 HR: 108 Rhythm: Sinus MEASUREMENTS (Male / Female) Normal Values Technical Quality:Good DOPPLER MR Peak Velocity 229.0 cm/s MR Peak Gradient 21.0 mmHg TR Peak Velocity 315.0 cm/s TR Peak Gradient 39.7 mmHg FINDINGS LEFT VENTRICLE Normal left ventricular size and wall thickness. The left ventricular systolic function is normal wi th an estimated ejection fraction in the range of 60-65%. Left ventricular diastolic function parameters a re normal. RIGHT VENTRICLE Normal right ventricular size and systolic function. LEFT ATRIUM The left atrial size is normal. RIGHT ATRIUM The right atrial size is normal. ATRIAL SEPTUM Normal atrial septal thickness without atrial level shunting by limited color doppler interrogation. AORTA The aortic root and proximal ascending aorta are normal in size on limited imaging. MITRAL VALVE Structurally normal mitral valve. No mitral valve stenosis or regurgitation. AORTIC VALVE Trileaflet aortic valve. No aortic valve stenosis or regurgitation. TRICUSPID VALVE There is moderate to severe tricuspid valve regurgitation. The estimated pulmonary arterial pressure is 50 mmHg. One single view of the tricuspid shows suggestion of possible tiny echodensity on the atrial side of the valve. No other views show it. A vegetation cannot be ruled out. PULMONARY VALVE The pulmonary valve is not well visualized. VESSELS The inferior vena cava is normal in size. Bharath Marino MD (Electronically Signed) Final Date:29 April 2017 13:43
[2017-04-29 16:00] VITALS: BP 124/85; PULSE 101; RESP 18; TEMP 97; O2SAT 98
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
== END 2017-04-29 17:20 | disposition home or self-care (01) | DRG 314 ==
LOC: NEPE 19:25 → NEDH 22:11 → HOCA 04-26 02:01
PROVIDERS: ADMIT Hospitalist; ATTEND Hospitalist
DX: T80.218A Other infection due to central venous catheter, initial encounter (principal); A41.9 Sepsis, unspecified organism; J18.9 Pneumonia, unspecified organism; N17.9 Acute kidney failure, unspecified; E44.0 Moderate protein-calorie malnutrition; D50.9 Iron deficiency anemia, unspecified; F17.210 Nicotine dependence, cigarettes, uncomplicated; Z68.1 Body mass index [BMI] 19.9 or less, adult; N39.0 Urinary tract infection, site not specified; B96.1 Klebsiella pneumoniae [K. pneumoniae] as the cause of diseases classified elsewhere; E83.42 Hypomagnesemia; E87.6 Hypokalemia; Z86.718 Personal history of other venous thrombosis and embolism; Z91.19 Patient's noncompliance with other medical treatment and regimen; Z88.1 Allergy status to other antibiotic agents
CPT/HCPCS: 71010; 76937; 80048; 80053; 80307; 81001; 82550; 83605; 83735; 84134; 84484; 84703; 85025; 86850; 86900; 86901; 86920; 87040; 87070; 87071; 87077; 87086; 87149; 87186; 87205; 87493; 87641; 93005; 93308; 96360; 96361; J0692; J1650; J2020; J2405; J3475; J3480; J7030